=== PATIENT | female | born 1950 | race Caucasian/White ===

== ENCOUNTER → 2018-06-01 | Outpatient (CLI) | payer MEDICARE ==
[2018-06-01 09:37] LABS: HCT 35.9 % (34.0-46.0); HGB 12.3 gm/dL (11.4-16.0); MCHC 34.3 g/dL (31.0-37.0); MCV 87.4 fL (80.0-100.0); Mean Platelet Volume 7.4; Platelet Count 167 k/uL (150-450); RBC 4.11 m/uL (3.80-5.40); RDW 14.1 % (11.5-15.5); WBC 3.4 k/uL (3.8-10.6)
--- NOTE | 2018-06-01 09:59 | CT ---
EXAMINATION TYPE: CT foot RT wo con DATE OF EXAM: 06/01/2018 COMPARISON: None HISTORY: 67-year-old female complains of top of foot pain/arthritis. TECHNIQUE: Contiguous axial scanning of the right foot without IV contrast. Coronal and sagittal koko nstructions performed. CT DLP: 96.1 mGycm Automated exposure control for dose reduction was used. FINDINGS: There is degenerative spurring anterior tibiotalar joint with small 4 mm loose body versus fragmented spur. Likely a 7 mm fragmented spur along the dorsal proximal medial cuneiform with degenerative changes ch aracterized by joint space narrowing, marginal spurring, and subchondral cystic change along the mary cular cuneiform joints and the second through fifth TMT joints. Additional degenerative change at the third-fourth and fourth-fifth intermetatarsal joints. Corticated ossific densities below the medial malleolus suggests sequela of remote injury here as wel l. Ossification along the plantar fashion measuring 8 mm with bony irregularity at the calcaneal origin of the plantar fascia and associated heel spur. Findings suggest chronic injury. Bipartite tibial sesamoid noted. At the navicular cuneiform joint, there is focal capsular swelling and effusion, for example, refer t o sagittal image 28 and 29. Patchy osteopenia is present throughout. No acute fracture identified. IMPRESSION: 1. MODERATE TO SEVERE SCATTERED OSTEOARTHRITIC CHANGES THROUGHOUT THE MID FOOT PARTICULARLY AT THE NA VICULAR CUNEIFORM JOINTS AND TMT JOINTS. 2. ALONG THE DORSAL ASPECT OF THE NAVICULAR MEDIAL CUNEIFORM JOINT, THERE IS A COUPLE FRAGMENTED SPUR /LOOSE BODIES MEASURING UP TO 7 MM AND FOCAL CAPSULAR SWELLING OR JOINT EFFUSION/SMALL GANGLION CYST. 3. DEGENERATIVE SPURRING ANTERIOR TIBIOTALAR JOINT WITH A 4 MM FRAGMENTED SPUR OR LOOSE BODY, SEQUELA OF OLD INJURY BELOW THE MEDIAL MALLEOLUS, AND LIKELY OLD TEAR OF THE PLANTAR FASCIA.
[2018-06-01 10:47] LABS: Erythrocyte Sedimentation Rate 13 mm/hr (0-20)
== END | disposition home or self-care (01) ==
LOC: RADCTMAIN 08:58
PROVIDERS: ATTEND Orthopaedic Surgery
DX: M19.071 Primary osteoarthritis, right ankle and foot (principal); Q66.7 Congenital pes cavus; Z98.890 Other specified postprocedural states; Z87.2 Personal history of diseases of the skin and subcutaneous tissue
CPT/HCPCS: 36415; 83520; 85027; 85652; 86140

== ENCOUNTER 2018-08-29 08:00 | Inpatient (IN) | payer MEDICARE ==
[2018-09-04] MEDS ORDERED: MORPHINE SULFATE 2 MG/ML SYRINGE IV PRN (21:59)
[2018-09-05] MEDS ORDERED: CLINDAMYCIN 900 MG in DEXTROSE 5% IN WATER 50 ML IVPB ONE ×2 (05:00)
[2018-09-05] MEDS: LACTATED RINGERS 1,000 ML IV SCH ×3 (13:32→21:16)
[2018-09-05] MEDS ORDERED: LIDOCAINE 1% 20 ML VIAL (10MG/ML) FOR IV START INTRADERMA ONE (13:45)
[2018-09-05] MEDS ORDERED: MIDAZOLAM 2 MG/2 ML VIAL ONE ×2 (13:48→15:04)
[2018-09-05] MEDS ORDERED: ONDANSETRON 4 MG/2 ML VIAL ONE (13:48)
[2018-09-05] MEDS ORDERED: DEXAMETHASONE SOD PHOS (MDV) 100 MG/10 ML VIAL IVP ONE (13:52)
[2018-09-05] MEDS ORDERED: fentaNYL (PF) 50 MCG/ML 2 ML AMP ONE ×2 (14:24→15:04)
[2018-09-05] MEDS ORDERED: fentaNYL (PF) 50 MCG/ML 2 ML AMP IVP ONE (14:25)
[2018-09-05] MEDS ORDERED: ePHEDrine SULFATE/0.9% NACL/PF 50 MG/5 ML SYRINGE IV ONE (15:04)
[2018-09-05] MEDS ORDERED: LIDOCAINE 1% INJ 10MG/ML (20 ML MDV) ONE (15:04)
[2018-09-05] MEDS ORDERED: SUCCINYLCHOLINE CHLORIDE 100 MG/5 ML SYR IV ONE (15:04)
[2018-09-05] MEDS ORDERED: PROPOFOL 10 MG/ML 20 ML VIAL IV ONE (15:04)
[2018-09-05] MEDS ORDERED: GLYCOPYRROLATE 0.2 MG/ML 2 ML VIAL ONE (15:04)
[2018-09-05] MEDS ORDERED: HYDROmorphone (PF) 1 MG/ML ONE (15:04)
[2018-09-05] MEDS ORDERED: SENNOSIDES-DOCUSATE SODIUM 1 EACH TAB PO PRN (17:04)
[2018-09-05] MEDS ORDERED: HYDROmorphone 1 MG/ML 1 ML SYRINGE IVP PRN ×2 (17:04)
[2018-09-05] MEDS ORDERED: PROCHLORPERAZINE SUPPOSITORY 25 MG SUPP RECTAL PRN (17:04)
[2018-09-05] MEDS ORDERED: ONDANSETRON 4 MG/2 ML VIAL IVP PRN (17:04)
[2018-09-05] MEDS ORDERED: hydrOXYzine PAMOATE 25 MG CAP PO PRN (17:04)
[2018-09-05] MEDS ORDERED: METOCLOPRAMIDE 5 MG/ML 2 ML VIAL IVP PRN (17:04)
[2018-09-05] MEDS ORDERED: diphenhydrAMINE 25 MG CAP PO PRN (17:04)
[2018-09-05] MEDS ORDERED: TEMAZEPAM 15 MG CAP PO PRN (17:04)
[2018-09-05] MEDS ORDERED: HYDROcodone/APAP 7.5-325MG 1 EACH TAB PO PRN ×2 (17:08)
[2018-09-05] MEDS: HYDROmorphone 0.5 MG/0.5 ML SYRINGE IVP PRN ×4 (18:32→19:09)
[2018-09-05] MEDS ORDERED: ONDANSETRON 4 MG/2 ML VIAL IVP ONE (18:40)
--- NOTE | 2018-09-05 19:23 | P.ONQ ---
Anesthesiology Proc Note - PNB - Peripheral Nerve Block Performed Right Popliteal Single Time Out Performed: Yes Procedure Start Time: 15:53 Procedure Stop Time: 15:59 Indication: Acute Post-Operative Pain, Requested by physician Sedation Type: Sedate with meaningful contact maintained Preparation: Sterile Prep Needle Size: 50mm (2") Needle Gauge: 21 Technique: Ultrasound Injectate: 0.5% Ropivacaine (see comment for volume) (ropi .5% 20cc) Blood Aspirated: No Pain Paresthesia on Injection Noted: No Resistance on Injection: Normal Events: Uneventful and Well Tolerated
[2018-09-05] MEDS ORDERED: BACLOFEN 10 MG TAB PO PRN (19:32)
[2018-09-05] MEDS ORDERED: clonazePAM 1 MG TAB PO PRN (19:32)
[2018-09-05] MEDS ORDERED: HYDROCHLOROTHIAZIDE 25 MG TAB PO PRN (19:32)
[2018-09-05 20:17] LABS: Basophils % (A) 0 %; Eosinophils % (A) 0 %; HCT 36.3 % (34.0-46.0); Lymphocytes # (A) 0.5 k/uL (1.0-4.8); Lymphocytes % (A) 9 %; MCH 29.3 pg (25.0-35.0); MCV 88.7 fL (80.0-100.0); Mean Platelet Volume 6.8; Monocytes # (A) 0.1 k/uL (0-1.0); Monocytes % (A) 2 %; Neutrophils # (A) 4.8 k/uL (1.3-7.7); Neutrophils % (A) 88 %; Platelet Count 149 k/uL (150-450); RBC 4.09 m/uL (3.80-5.40); RDW 13.4 % (11.5-15.5); WBC 5.4 k/uL (3.8-10.6)
[2018-09-05 20:59] VITALS: BMI 28.3
[2018-09-05] MEDS ORDERED: PRAVASTATIN SODIUM 20 MG TAB PO SCH (21:00)
[2018-09-05] MEDS: HYDROmorphone 1 MG/ML 1 ML SYRINGE IVP PRN (23:14)
[2018-09-06] MEDS: CLINDAMYCIN 900 MG in DEXTROSE 5% IN WATER 50 ML IVPB SCH ×4 (00:16→09:15)
[2018-09-06 00:49] VITALS: RESP 16
[2018-09-06] MEDS: HYDROmorphone 1 MG/ML 1 ML SYRINGE IVP PRN ×2 (03:19→06:53)
[2018-09-06] MEDS: LACTATED RINGERS 1,000 ML IV SCH (03:26)
[2018-09-06] MEDS ORDERED: amLODIPine 5 MG TAB PO SCH (09:00)
[2018-09-06] MEDS ORDERED: ENOXAPARIN 40 MG/0.4 ML SYRINGE SQ SCH (09:00)
[2018-09-06] MEDS ORDERED: PATIENT'S OWN MED (Mirabegron [Myrbetriq] 25 MG) PO SCH (09:00)
[2018-09-06] MEDS ORDERED: Acetaminophen-Codeine 300-30mg TAB PO PRN (09:02)
--- NOTE | 2018-09-06 09:11 | P.DS ---
Providers Date of admission: 09/05/18 12:34 Expected date of discharge: 09/06/18 Attending physician: Luther Cisneros Consults: 09/05/18 17:04 Consult Physician Routine Consulting Provider: Marino Chacon Reason/Comments: post op medical management Do you want consulting provider notified?: Yes Primary care physician: Marino Chacon - Discharge Diagnosis(es) (1) Osteoarthritis of right midfoot Patient was admitted to the OR on 09/05/2018 to undergo a right multiple joint arthrodesis of the midfoot. She had failed conservative measures as an outpatient and desired to proceed with elective surgery after given informed consent. She underwent the above procedure which she tolerated well without complication. Postoperative hospital course has remained without complication. On day of discharge she is afebrile, vital signs stable, labs within acceptable ranges, tolerating by mouth meds and diet, voiding without difficulty , positive flatus, denies abdominal pain or calf pain, pain is controlled on oral pain medication and has no new complaints. Wound is benign, neurovascular status is intact, calf is soft and nontender, abdomen soft and nontender. Review of systems is negative for numbness, tingling, fever, chills, chest pain , shortness breath, nausea, vomiting, dizziness, headaches, slurred speech or other Current Visit: Yes Status: Acute Priority: Medium Procedures: Multiple middfoot joint arthrodeses on right Patient Condition at Discharge: Good Plan - Discharge Summary Discharge Rx Participant: No New Discharge Prescriptions: New RX: Aspirin 325 mg PO BID #60 tab Acetaminophen with Codeine [Tylenol w/codeine #3] 2 tab PO Q4H PRN #56 tab PRN Reason: Pain No Action Ibuprofen [Motrin] 600 mg PO Q6HR PRN PRN Reason: Pain Acetaminophen-Codeine 300-30mg [Tylenol w/codeine #3] 1 tab PO Q4H PRN PRN Reason: Pain Mirabegron [Myrbetriq] 25 mg PO DAILY Meloxicam [Mobic] 7.5 mg PO DAILY Cyclobenzaprine [Flexeril] 10 mg PO TID PRN PRN Reason: Muscle Spasm RX: clonazePAM 1 mg PO HS PRN PRN Reason: Anxiety amLODIPine [Norvasc] 5 mg PO DAILY Pravastatin Sodium [Pravachol] 20 mg PO HS RX: Baclofen 10 mg PO TID PRN PRN Reason: Muscle Spasm Vits A,C,E/Lutein/Minerals [Ocuvite with Lutein Tablet] 1 tab PO DAILY RX: Hydrochlorothiazide 25 mg PO DAILY PRN PRN Reason: Edema Acetaminophen [Tylenol 8 Hour] 650 mg PO TID PRN PRN Reason: Pain Discharge Medication List Acetaminophen [Tylenol 8 Hour] 650 mg PO TID PRN 08/21/18 [History] Acetaminophen-Codeine 300-30mg [Tylenol w/codeine #3] 1 tab PO Q4H PRN 08/21/18 [History] Cyclobenzaprine [Flexeril] 10 mg PO TID PRN 08/21/18 [History] Ibuprofen [Motrin] 600 mg PO Q6HR PRN 08/21/18 [History] Meloxicam [Mobic] 7.5 mg PO DAILY 08/21/18 [History] Mirabegron [Myrbetriq] 25 mg PO DAILY 08/21/18 [History] Pravastatin Sodium [Pravachol] 20 mg PO HS 08/21/18 [History] RX: Baclofen 10 mg PO TID PRN 08/21/18 [History] RX: Hydrochlorothiazide 25 mg PO DAILY PRN 08/21/18 [History] RX: clonazePAM 1 mg PO HS PRN 08/21/18 [History] Vits A,C,E/Lutein/Minerals [Ocuvite with Lutein Tablet] 1 tab PO DAILY 08/21/18 [History] amLODIPine [Norvasc] 5 mg PO DAILY 08/21/18 [History] Acetaminophen with Codeine [Tylenol w/codeine #3] 2 tab PO Q4H PRN #56 tab 09/06 [Rx] RX: Aspirin 325 mg PO BID #60 tab 09/06/18 [Rx] Follow up Appointment(s)/Referral(s): Luther Cisneros MD [Medical Doctor] - 1 Week Activity/Diet/Wound Care/Special Instructions: Non weightbearing F/U with Dr. Cisneros in office Take meds as directed elevate leg Maintain splint, keep clean and dry Discharge Disposition: HOME SELF-CARE
--- NOTE | 2018-09-06 10:30 | FL ---
Fluoroscopy HISTORY: Arthrodesis 1.09 minutes fluoroscopy time supplied to the referring clinician. 3 intraoperative C-arm images doc ument the procedure. See dictated report from orthopedic surgery.
--- NOTE | 2018-09-06 10:31 | XR ---
Limited right foot HISTORY: Arthrodesis 3 intraoperative C-arm images document the procedure
[2018-09-06] MEDS ORDERED: traMADol 50 MG TAB PO STA (11:27)
--- NOTE | 2018-09-06 12:15 | P.CONS ---
History of Present Illness - Reason for Consult Consult date: 09/06/18 medical management - History of Present Illness 67 years old patient of Dr. Chacon with past medical history of cervical cancer, hyperlipidemia, hypertension, osteoarthritis was admitted for an elective right multiple joint arthrodesis of midfoot that was done yesterday without any complications. Patient was assessed this morning. Denies any complains of dizziness cough chest pain or shortness of breath she does endorses some dryness of her throat and dry cough but denies any shortness of breath. Patient is a nonsmoker and denies any history of COPD. Vitals assessed patient is afebrile temp of 98 pulse 65 respiratory rate 16 blood pressure 136/70 saturating well on room air. Pain is controlled on the pain regimen provided. Patient now would like to try Tylenol 3 for pain and then switch her [place] if need be. Labs including a CBC is stable with a hemoglobin of 12. Input and output were assessed with no urinary retention. Review of Systems Constitutional: Denies chills, Denies fever, Denies lethargy, Denies malaise, Denies poor appetite, Denies weakness, Denies weight loss Eyes: denies decreased vision, denies diplopia, denies discharge, denies pain Ears: deny: decreased hearing Ears, nose, mouth and throat: Denies dental pain, Denies headache, Denies nasal discharge, Denies nose pain Cardiovascular: Denies chest pain, Denies decreased exercise tolerance, Denies edema, Denies high blood pressure, Denies irregular heart beat, Denies palpitations, Denies paroxysmal nocturnal dyspnea, Denies rapid heart beat, Denies shortness of breath Respiratory: Denies congestion, Denies cough, Denies cough with sputum, Denies dyspnea, Denies home oxygen, Denies wheezing Gastrointestinal: Denies abdominal pain, Denies change in bowel habits, Denies coffee ground emesis, Denies early satiety, Denies excessive gas, Denies heartburn, Denies hematemesis, Denies hematochezia, Denies loss of appetite, Denies nausea, Denies vomiting Genitourinary: Denies dysuria, Denies flank pain, Denies kidney stones, Denies menorrhagia, Denies urgency, Denies urinary frequency Musculoskeletal: Endorses gait dysfunction and limitation of movement Denies morning stiffness, Denies muscle cramps Integumentary: Denies rash, Denies wounds, Denies brittle nails, Denies change in hair/nails, Denies darkening of skin Neurological: Denies balance difficulties, Denies change in speech, Denies double vision, Denies gait dysfunction, Denies loss of vision, Denies motor disturbance, Denies numbness, Denies paralysis, Denies paresthesias, Denies seizures Psychiatric: Denies anxiety, Denies depression Endocrine: Denies excessive sweating, Denies excessive thirst, Denies high blood sugars, Denies palpitations Hematologic/Lymphatic: Denies easy bruising, Denies lymphadenopathy Past Medical History Past Medical History: Cancer, Hyperlipidemia, Hypertension, Osteoarthritis (OA) Additional Past Medical History / Comment(s): Hx cervical Ca and Skin CA; restless leg History of Any Multi-Drug Resistant Organisms: None Reported Past Surgical History: Hysterectomy, Joint Replacement, Orthopedic Surgery, Tonsillectomy Additional Past Surgical History / Comment(s): Aneesh. knee replacements; foot surgery, cystocele & rectocele repair; carpal tunnel ; cataracts; colonoscopy Past Anesthesia/Blood Transfusion Reactions: No Reported Reaction Past Psychological History: Anxiety Smoking Status: Former smoker Past Alcohol Use History: Rare Additional Past Alcohol Use History / Comment(s): smoked from teens to age 46 from 1 to 2 ppd Past Drug Use History: None Reported - Past Family History Mother Family Medical History: No Reported History Medications and Allergies Home Medications Medication Instructions Recorded Confirmed Type Acetaminophen [Tylenol 8 Hour] 650 mg PO TID PRN 08/21/18 09/05/18 History Acetaminophen-Codeine 300-30mg 1 tab PO Q4H PRN 08/21/18 09/05/18 History [Tylenol w/codeine #3] Baclofen 10 mg PO TID PRN 08/21/18 09/05/18 History Cyclobenzaprine [Flexeril] 10 mg PO TID PRN 08/21/18 09/05/18 History Hydrochlorothiazide 25 mg PO DAILY PRN 08/21/18 09/05/18 History Ibuprofen [Motrin] 600 mg PO Q6HR PRN 08/21/18 09/05/18 History Meloxicam [Mobic] 7.5 mg PO DAILY 08/21/18 09/05/18 History Mirabegron [Myrbetriq] 25 mg PO DAILY 08/21/18 09/05/18 History Pravastatin Sodium [Pravachol] 20 mg PO HS 08/21/18 09/05/18 History Vits A,C,E/Lutein/Minerals 1 tab PO DAILY 08/21/18 09/05/18 History [Ocuvite with Lutein Tablet] amLODIPine [Norvasc] 5 mg PO DAILY 08/21/18 09/05/18 History clonazePAM 1 mg PO HS PRN 08/21/18 09/05/18 History Acetaminophen with Codeine 2 tab PO Q4H PRN #56 tab 09/06/18 Rx [Tylenol w/codeine #3] Aspirin 325 mg PO BID #60 tab 09/06/18 Rx Allergies Allergy/AdvReac Type Severity Reaction Status Date / Time cephalexin [From Keflex] AdvReac Itching Verified 09/05/18 19:38 naproxen [From Naprosyn] AdvReac blisters Verified 09/05/18 19:38 Physical Exam Vitals: Vital Signs Temp Pulse Resp BP Pulse Ox 09/06/18 08:55 98.0 F 65 16 136/70 95 09/05/18 23:00 97.9 F 72 16 137/74 94 L 09/05/18 21:23 69 121/74 09/05/18 21:08 68 132/75 09/05/18 20:53 74 147/76 09/05/18 20:38 69 135/74 09/05/18 20:36 14 09/05/18 20:23 74 09/05/18 20:08 74 132/77 09/05/18 19:53 72 129/70 09/05/18 19:38 75 135/70 09/05/18 19:23 97.8 F 82 16 132/70 93 L 09/05/18 19:15 86 16 103/59 97 09/05/18 19:00 83 16 102/58 97 09/05/18 18:45 82 16 101/59 98 09/05/18 18:30 88 16 106/52 98 09/05/18 18:12 97.1 F L 82 16 120/60 92 L 09/05/18 14:50 60 18 159/72 96 09/05/18 13:26 98.3 F 72 18 170/78 95 Intake and Output 09/05/18 09/06/18 09/06/18 22:59 06:59 14:59 Intake Total 1356 222 Output Total 25 150 Balance 1331 72 Intake: IV 1056 Intake, IV Titration 300 Amount Lactated Ringers 1,000 ml 300 @ 100 mls/hr IV .Q10H ROSA Rx#:[id number] Oral 222 Output: Urine 150 Estimated Blood Loss 25 Other: # Voids 1 1 Weight 79.5 kg - Constitutional General appearance: cooperative, no acute distress, obese - EENT Eyes: anicteric sclerae, PERRLA, normal appearance ENT: hearing grossly normal - Neck Neck: no lymphadenopathy, normal ROM, no other, no rigidity, no stridor, no thyromegaly - Respiratory Respiratory: bilateral: CTA, negative: diminished, dullness, rales, rhonchi - Cardiovascular Rhythm: regular Heart sounds: normal: S1, S2 Abnormal Heart Sounds: no systolic murmur, no diastolic murmur, no rub, no S3 Gallop, no S4 Gallop, no click, no other - Gastrointestinal General gastrointestinal: normal bowel sounds, soft - Integumentary Integumentary: no rash - Neurologic Neurologic: CNII-XII intact - Musculoskeletal Musculoskeletal: Right lower extremity with splint. Palpitations present. Circulation intact with capillary refill less than 2 seconds - Psychiatric Psychiatric: A&O x's 3, appropriate affect Results CBC & Chem 7: 09/05/18 19:50 Labs: Abnormal Lab Results - Last 24 Hours (Table) 09/05/18 Range/Units 19:50 Plt Count 149 L (150-450) k/uL Lymphocytes # 0.5 L (1.0-4.8) k/uL Assessment and Plan Plan: .\ #1 right midfoot osteoarthritis status post arthrodeses of the midfoot. Pain controlled on Tylenol 3. Patient to be nonweightbearing on right foot recommendations per orthopedics. Patient will see Dr. Chacon in the next few weeks for follow-up in the clinic. Continue incentive spirometry for breathing. We'll consult for pneumonia or bronchitis on examination. Encourage oral intake of fluids. PTOT. #2 hypertension continue Norvasc 5 mg by mouth daily #3 anxiety and depression continue clonazepam 1 mg by mouth at bedtime #4 urinary incontinence that tracks 25 mg by mouth daily #5 hyperlipidemia continue pravastatin 20 mg by mouth daily #6 DVT prophylaxis with heparin every 12 Thank you for the consult. I'll be happy to assist in medical needs. Patient is cleared to be discharged and follow up with Dr. Chacon as outpatient
[2018-09-06 15:04] VITALS: BP 129/74; PULSE 66; TEMP 98.3
--- NOTE | 2018-09-07 11:30 | OP ---
OPERATIVE REPORT DATE OF SERVICE: 09/05/2018 PREOPERATIVE DIAGNOSES: 1. Right midfoot arthritis. 2. Right naviculocuneiform joint arthritis. 3. Right hallux valgus. 4. Right bunionette deformity. POSTOPERATIVE DIAGNOSES: 1. Right midfoot arthritis. 2. Right naviculocuneiform joint arthritis. 3. Right hallux valgus. 4. Right bunionette deformity. PROCEDURE: 1. Arthrodesis of multiple tarsometatarsal joints. 2. Arthrodesis of the right naviculocuneiform joint. 3. Correction of hallux valgus with modified Lapidus procedure. 4. Right foot lateral eminence resection of the 5th metatarsal. SURGEON: Dr. Luther Cisneros. PET SITTER: Vidal DENIS (Vidal DENIS was required as a skilled bacteriology research assistant for patient positioning, surgical exposure, retraction, preparation of joint surfaces, placement of hardware, closure of wound and application of splint. ANESTHESIA: General plus popliteal and saphenous nerve block. FLUIDS: 1100 mL crystalloid. BLOOD LOSS: 15 mL. INDICATIONS: The patient is a very pleasant, previously healthy 67-year-old female with a longstanding history of problems in her right foot. She previously underwent a right dorsal mid foot cheilectomy by another physician. She continued to have pain that was refractory to nonsurgical treatment. She tried activity modification, orthotics, anti- inflammatory pain medications, stretching and injections, all with minimal relief. Her x-rays show diffuse arthritis to the midfoot. A CT scan was used, which showed diffuse midfoot arthritis. Most of the patient's pain was over the second tarsometatarsal joint and the naviculocuneiform joint. She also had a hallux valgus deformity and bunionette deformity. We discussed continued nonsurgical treatment versus surgery. Ultimately, the patient stated that she wanted to have surgery. We discussed different surgical options. My recommendation was to fuse the symptomatic and degenerative midfoot joints including the first through third tarsometatarsal joints and the naviculocuneiform joints. We discussed the potential risks and complications of all the previously mentioned surgical procedures including, but not limited to risk of anesthesia, risk of superficial infection, risk of deep infection, risk of delayed wound healing, risk of superficial wound necrosis, risk of nonunion of the fusion site, risk of malunion of the fusion site, risk of symptomatic hardware, risk of over correction of the deformity, risk of under correction of the deformity, risk of damage to local blood vessels or nerves, risk of chronic pain, risk chronic swelling, risk of need for further surgery, risk of DVT, risk of PE, and possibly loss of life or limb. The patient voiced her understanding of this and provided her verbal and written consent to go forward with surgery. She also acknowledged that there are other less common complications that are possible. DESCRIPTION OF PROCEDURE: The patient was identified in preoperative holding and the correct right foot was marked with my initials. I reviewed the consent form with the patient and her . All their questions were answered. The patient was given a popliteal and saphenous nerve block by anesthesia. She was then brought back to the operating room. She was positioned on the OR table and a general anesthetic was administered. She was given preoperative antibiotics. A bone foam bump was placed under the right buttock internally rotating the leg to neutral. A tourniquet was applied to the proximal aspect of the right thigh. The right leg was then prepped and draped in the standard sterile fashion. Prior to starting surgery, a time-out was performed identifying the correct patient, operative extremity, and procedure. The patient's leg was then elevated, exsanguinated with an Esmarch bandage and the tourniquet was inflated to 250 mmHg. I began by outlining a dorsal longitudinal incision centered between the first and second metatarsals and extending from the midportion of the metatarsals to the talonavicular joint. Skin incision was made with a scalpel. Dissection was carried down carefully through the subcutaneous tissue with tenotomy scissors. I initially exposed the naviculocuneiform joints. There were multiple dorsal osteophytes, which were debrided. The joint was markedly arthritic with no remaining articular cartilage. The bony surfaces and remaining cartilage was removed with a series of curettes and osteotomes until there was only subchondral bone appearing. The wound was copiously irrigated. The exposed bony surfaces of both the navicular and the medial and middle cuneiform were then perforated multiple times with a 2.0 mm drill bit to facilitate fusion. I held the joints reduced and an bacteriology research assistant placed a K-wire across the joint, holding it reduced. I then proceeded to place solid lag screws to hold the fusion site. I made stab incisions over the navicular tuberosity and two solid 3.5 mm lag screws were placed with one angled toward the medial cuneiform and the other toward the middle cuneiform. Solid lag screws were placed generating excellent compression. I then placed a positional screw through the medial border of the medial cuneiform into the lateral body of the navicular. Clinically, the joint appeared to be adequately reduced. Crushed cancellous allograft was placed within the joint to help fill in voids from the subchondral cysts. Attention was then turned to the first tarsometatarsal joint. The joint was gently distracted and the articular cartilage was removed from the base of the first metatarsal and medial cuneiform. The joint was copiously irrigated. The subchondral bone was perforated multiple times with a 2.0 mm drill bit to facilitate fusion. I then made a small longitudinal incision over the medial eminence of the first MTP joint. Skin incision was made with a scalpel and dissection was carried down carefully to the capsule which was incised longitudinally in line with the skin incision. A small microsagittal saw was used to remove a wafer of bone medial to the sulcus. The joint was distracted and the lateral capsule was sharply released. A varus force was applied to the MTP joint. I then placed a laterally directed force along the first metatarsal to reduce the intermetatarsal angle and a 3.5 mm lag screw was placed from the dorsal aspect of the first metatarsal into the medial cuneiform. A 5 mm acorn bur was used to create a pocket hole in the dorsal aspect of the first metatarsal. A 3.5 mm drill bit was used to create a gliding hole in the metatarsal and a 2.5 mm drill bit was used to create a threaded hole in the medial cuneiform. A fully threaded 3.5 mm screw was placed. I then proceeded to place an antegrade lag screw across the first TMT joint. A 3.5 mm drill bit was used to create a gliding hole in the medial cuneiform and a 2.5 mm drill bit was used to create a threaded hole in the first metatarsal base. My attention was then turned to the second tarsometatarsal joint. The joint was exposed. There was almost full-thickness cartilage loss and dorsal osteophytes. A rongeur was used to contour the dorsal aspect of the second tarsometatarsal joint. An osteotome was then used to remove the remaining articular cartilage from the joint. A 2.0 mm drill bit was used to perforate the subchondral bone of the middle cuneiform and second metatarsal base to facilitate fusion. A 3.5 mm drill bit was used to create a threaded hole in the base of the second metatarsal and a 2.5 mm drill bit was used to create a threaded hole in the middle cuneiform. A fully threaded 3.5 mm screw was placed. At this point, I elected not to proceed with a third tarsometatarsal joint for fear of soft tissue compromise due to her poor thin skin and her history of multiple incisions. On x-ray, there appeared to be minimal arthritis of the third tarsometatarsal joint. Most of her complaints were of the second tarsometatarsal joint and naviculocuneiform joints. A small lateral incision was made over the fifth MTP joint. Skin incision was made with a scalpel. Dissection was carried down carefully through the subcutaneous tissue with tenotomy scissors. There was a small prominence over the distal fifth metatarsal, which was removed with a rongeur and a rasp. Final fluoroscopic images were taken. Remaining crushed cancellous allograft was packed in the fusion sites. A bur was used to create stress strain bone graft pockets at all fusion sites. The periosteum was closed with a running 2-0 Vicryl. The deep subcu was closed with 3-0 Monocryl. The skin was closed with 3-0 nylon. The first MTP joint was imbricated using 0 Vicryl to further correct the hallux valgus deformity. Once the wounds were closed, the tourniquet was let down. A sterile dressing consisting of Betadine-soaked Adaptic, 4 x 4, and Webril was applied. A well-padded bulky [place] splint was placed with the ankle at neutral. The patient was then woken from her anesthetic, transferred to a gurney and brought to PACU and tolerated the procedure well. MMODL / IJN: [id number] /
== END 2018-09-06 15:24 | disposition home or self-care (01) | DRG 505 ==
LOC: EDSTATUS 08:00 → 2ORMAIN 09-05 12:34 → 3SUR 09-05 18:12
PROVIDERS: ADMIT Orthopaedic Surgery; ATTEND Orthopaedic Surgery
PROC: 0SGK04Z Fusion of Right Tarsometatarsal Joint with Internal Fixation Device, Open Approach (ICD-10-PCS; 2018-09-05)
PROC: 0SGH04Z Fusion of Right Tarsal Joint with Internal Fixation Device, Open Approach (ICD-10-PCS; 2018-09-05)
PROC: 0SGH0KZ Fusion of Right Tarsal Joint with Nonautologous Tissue Substitute, Open Approach (ICD-10-PCS; 2018-09-05)
PROC: 0QBN0ZZ Excision of Right Metatarsal, Open Approach (ICD-10-PCS; principal; 2018-09-05 14:15)
DX: M19.071 Primary osteoarthritis, right ankle and foot (principal); M20.11 Hallux valgus (acquired), right foot; M21.621 Bunionette of right foot; Q66.7 Congenital pes cavus; E78.5 Hyperlipidemia, unspecified; G25.81 Restless legs syndrome; I10 Essential (primary) hypertension; F41.9 Anxiety disorder, unspecified; Z79.82 Long term (current) use of aspirin; Z79.1 Long term (current) use of non-steroidal anti-inflammatories (NSAID); Z79.899 Other long term (current) drug therapy; Z87.891 Personal history of nicotine dependence; Z96.653 Presence of artificial knee joint, bilateral; Z90.710 Acquired absence of both cervix and uterus; Z85.41 Personal history of malignant neoplasm of cervix uteri; Z98.41 Cataract extraction status, right eye
CPT/HCPCS: 85025

== ENCOUNTER 2022-01-26 11:21 | Inpatient (IN) | payer MEDICARE ==
[2022-01-26 12:23] LABS: Glucose,Whole Blood 113 mg/dL (75-99)
[2022-01-26 12:29] LABS: Basophils % (A) 0 %; Eosinophils % (A) 1 %; HCT 39.2 % (34.0-46.0); Lymphocytes # (A) 0.7 k/uL (1.0-4.8); Lymphocytes % (A) 15 %; MCH 30.9 pg (25.0-35.0); MCHC 33.1 g/dL (31.0-37.0); MCV 93.4 fL (80.0-100.0); Monocytes # (A) 0.4 k/uL (0-1.0); Monocytes % (A) 8 %; Neutrophils # (A) 3.5 k/uL (1.3-7.7); Neutrophils % (A) 75 %; Platelet Count 153 k/uL (150-450); RBC 4.19 m/uL (3.80-5.40); RDW 13.1 % (11.5-15.5); WBC 4.7 k/uL (3.8-10.6)
[2022-01-26 12:37] LABS: Partial Thromboplastin Time 22.5 sec (22.0-30.0); Prothrombin Time 10.7 sec (9.0-12.0)
--- NOTE | 2022-01-26 12:47 | CT ---
EXAMINATION TYPE: CT brain wo con for TPA DATE OF EXAM: 01/26/2022 COMPARISON: None available HISTORY: Neuro deficit CT DLP: 1187.8 mGycm Automated exposure control for dose reduction was used. TECHNIQUE: CT scan of the brain is performed without IV contrast administration. FINDINGS: Posterior fossa artifacts. Subtle right frontoparietal subcortical hypodensity, possibly ischemic. No gross acute cortical infarct. No midline shift, herniation or ventriculectomy. Unremarkable davis-white matter differentiation, basal cisterns, sella and CP angles. No gross space-o ccupying lesion, vasogenic edema or mass effect. Unremarkable orbits. Clear visualized paranasal sinuses and mastoid air cells. Osteopenia. IMPRESSION: No acute intracranial hemorrhage or gross acute cortical infarct however a small acute or hyperacute infarct cannot be excluded.
[2022-01-26 13:01] LABS: Albumin 4.7 g/dL (3.5-5.0); Calcium 8.8 mg/dL (8.4-10.2); Potassium 4.6 mmol/L (3.5-5.1); Total Bilirubin 0.6 mg/dL (0.2-1.3); Total Protein 7.5 g/dL (6.3-8.2)
--- NOTE | 2022-01-26 13:02 | XR ---
EXAMINATION TYPE: XR chest 2V DATE OF EXAM: 01/26/2022 COMPARISON: NONE HISTORY: Altered mental status TECHNIQUE: Frontal and lateral views of the chest are obtained. FINDINGS: There is no focal air space opacity, pleural effusion, or pneumothorax seen. The cardiac silhouette size is within normal limits. The osseous structures are intact, thoracic spondylosis is noted. There are overlying leads. Lung volumes are somewhat decreased. The aorta is dense. IMPRESSION: No acute cardiopulmonary process.
--- NOTE | 2022-01-26 13:05 | ED ---
Altered Mental Status HPI - General Source: patient Mode of arrival: EMS Limitations: no limitations <Brigid Iglesias - Last Filed: 01/26/22 14:18> <Elijah Shirley - Last Filed: 01/26/22 20:52> - General Chief Complaint: Altered Mental Status Stated Complaint: AMS Time Seen by Provider: 01/26/22 11:34 - History of Present Illness Initial Comments: Patient is a 71-year-old female with a past medical history of hypertension and hyperlipidemia who presents with a chief complaint of altered mental status. Patient's reports that patient has had mild difficulty articulating her sentences and experienced intermittent confusion the past couple days. Patient woke up this morning at 9 AM with worsening of symptoms. Her noticed that she was not using the right words in her sentences and called the ambulance. Patient and deny head trauma. Patient does note that she recently started Flexeril and dexamethasone for back pain yesterday. She also takes her previously prescribed Klonopin and acetaminophen with codeine daily. No blood thinner use. Currently, patient reports increased twitching of his bilateral arms. She has no other complaints at this time including fever, chills, headache, shortness of breath, chest pain, abdominal pain, and dysuria. (Brigid Iglesias) - Related Data Home Medications Medication Instructions Recorded Confirmed Acetaminophen-Codeine 300-30mg 0.5 tab PO Q6H PRN 08/21/18 01/26/22 [Tylenol w/codeine #3] Baclofen 10 mg PO BID 08/21/18 01/26/22 Cyclobenzaprine [Flexeril] 10 mg PO BID PRN 08/21/18 01/26/22 clonazePAM 1 mg PO BID 08/21/18 01/26/22 Dexamethasone 6 mg PO DAILY 01/26/22 01/26/22 Pravastatin Sodium [Pravachol] 40 mg PO DAILY 01/26/22 01/26/22 Triamcinolone 0.1% Cream [Kenalog 1 applic TOPICAL BID PRN 01/26/22 01/26/22 0.1% Cream] Vit C/E/Zn/Coppr/Lutein/Zeaxan 1 cap PO BID 01/26/22 01/26/22 [Preservision Areds 2 Softgel] amLODIPine [Norvasc] 10 mg PO DAILY 01/26/22 01/26/22 calcium polycarbophiL [Fibercon] 625 mg PO DAILY 01/26/22 01/26/22 lisinopriL [Zestril] 20 mg PO DAILY 01/26/22 01/26/22 Allergies Allergy/AdvReac Type Severity Reaction Status Date / Time cephalexin [From Keflex] Allergy Itching Verified 01/26/22 14:03 naproxen [From Naprosyn] Allergy blisters Verified 01/26/22 14:03 Review of Systems ROS Other: All systems not noted in ROS Statement are negative. <Brigid Iglesias - Last Filed: 01/26/22 14:18> ROS Other: All systems not noted in ROS Statement are negative. <Elijah Shirley - Last Filed: 01/26/22 20:52> ROS Statement: Those systems with pertinent positive or pertinent negative responses have been documented in the HPI. Past Medical History Past Medical History: Cancer, Hyperlipidemia, Hypertension, Osteoarthritis (OA) Additional Past Medical History / Comment(s): Hx cervical Ca and Skin CA; restless leg History of Any Multi-Drug Resistant Organisms: None Reported Past Surgical History: Hysterectomy, Joint Replacement, Orthopedic Surgery, Tonsillectomy Additional Past Surgical History / Comment(s): Aneesh. knee replacements; foot surgery, cystocele & rectocele repair; carpal tunnel ; cataracts; colonoscopy Past Anesthesia/Blood Transfusion Reactions: No Reported Reaction Past Psychological History: Anxiety Smoking Status: Current every day smoker Past Alcohol Use History: Rare Past Drug Use History: None Reported - Past Family History Mother Family Medical History: No Reported History <KelsieBrigid - Last Filed: 01/26/22 14:18> General Exam Limitations: no limitations Head exam: Present: atraumatic, normocephalic, normal inspection Eye exam: Present: normal appearance, PERRL, EOMI. Absent: scleral icterus, conjunctival injection, periorbital swelling Neck exam: Present: normal inspection Respiratory exam: Present: normal lung sounds bilaterally. Absent: respiratory distress, wheezes, rales, rhonchi, stridor Cardiovascular Exam: Present: regular rate, normal rhythm, normal heart sounds. Absent: systolic murmur, diastolic murmur, rubs, gallop, clicks GI/Abdominal exam: Present: soft, normal bowel sounds. Absent: distended, tenderness, guarding, rebound, rigid Extremities exam: Present: normal inspection, full ROM. Absent: pedal edema, calf tenderness Neurological exam: Present: alert, oriented X3, CN II-XII intact Expanded Neurological exam: Present: expressive aphasia Patient oriented to: Present: person, place, time Cranial nerves: EOM's Intact: Normal, Tongue Deviation: Normal, Nystagmus: Normal Cerebellar function: Finger to Nose: Normal, Heel to Mcleod: Normal, Romberg: Normal Motor strength exam: RUE: 5, LUE: 5, RLE: 5, LLE: 5 Psychiatric exam: Present: normal affect, normal mood Skin exam: Present: warm, dry, intact, normal color. Absent: rash <Brigid Iglesias - Last Filed: 01/26/22 14:18> Course Vital Signs 01/26/22 01/26/22 01/26/22 11:52 12:49 14:03 Temperature 98 F 97.2 F L Pulse Rate 77 104 H 68 Respiratory 16 18 14 Rate Blood Pressure 122/61 146/75 129/69 O2 Sat by Pulse 96 98 91 L Oximetry 01/26/22 01/26/22 15:00 17:07 Temperature 98.0 F 98.1 F Pulse Rate 69 74 Respiratory 14 14 Rate Blood Pressure 140/69 142/73 O2 Sat by Pulse 95 Oximetry Medical Decision Making - Lab Data Result diagrams: 01/26/22 12:21 01/26/22 12:21 - Radiology Data Radiology results: report reviewed <Brigid Iglesias - Last Filed: 01/26/22 14:18> - Lab Data Result diagrams: 01/26/22 12:21 01/26/22 12:21 <Elijah Shirley - Last Filed: 01/26/22 20:52> - Medical Decision Making This is a 71-year-old female who presents with confusion and expressive aphasia. Last known well was last night. Patient woke up with symptoms this morning at 9 AM. She is not a TPA candidate. NIHSS score is 1. CT of the brain without contrast reveals no acute intracranial hemorrhage or gross acute cortical infarct however small acute or hyperacute infarct cannot be excluded. CT angiogram of the head and neck reveals no acute arterial abnormality, significant stenosis or occlusion of the major neck or intracranial arteriesBUN and creatinine are elevated at 86 and 6.52 respectively, no previous laboratory studies for comparison. Patient denies history of kidney disease. She was given a large fluid bolus. Case discussed with Dr. Beasley. Patient will be admitted for further evaluation with neurology and nephrology consult. Urine protein/creatinine ratio was ordered. Results discussed with patient and . They verbalize understanding and agreeable to plan. Dr. Shirley is my attending. (Brigid Iglesias) I agree with the above dictated by the MLP. In addition, patient was an activated code stroke, with last known well being last night. He is to be wake- up symptoms. NIH is [address] showed possible hyperacute infarct, with MRI recommended. This is still pending at this time. CT angiogram revealed no obvious abnormality. Patient also appears to have acute kidney injury of unknown etiology. Urinalysis still pending at this time. Nephrology and neurology were consulted. Neurology was notified by the MLP. (Elijah Shirley) - Lab Data Lab Results 01/26/22 01/26/22 01/26/22 Range/Units 12:20 12:21 12:21 WBC 4.7 (3.8-10.6) k/uL RBC 4.19 (3.80-5.40) m/uL Hgb 13.0 (11.4-16.0) gm/dL Hct 39.2 (34.0-46.0) % MCV 93.4 (80.0-100.0) fL MCH 30.9 (25.0-35.0) pg MCHC 33.1 (31.0-37.0) g/dL RDW 13.1 (11.5-15.5) % Plt Count 153 (150-450) k/uL MPV 8.0 Neutrophils % 75 % Lymphocytes % 15 % Monocytes % 8 % Eosinophils % 1 % Basophils % 0 % Neutrophils # 3.5 (1.3-7.7) k/uL Lymphocytes # 0.7 L (1.0-4.8) k/uL Monocytes # 0.4 (0-1.0) k/uL Eosinophils # 0.0 (0-0.7) k/uL Basophils # 0.0 (0-0.2) k/uL PT 10.7 (9.0-12.0) sec INR 1.0 (<1.2) APTT 22.5 (22.0-30.0) sec Sodium (137-145) mmol/L Potassium (3.5-5.1) mmol/L Chloride (98-107) mmol/L Carbon Dioxide (22-30) mmol/L Anion Gap mmol/L BUN (7-17) mg/dL Creatinine (0.52-1.04) mg/dL Est GFR (CKD-EPI)AfAm (>60 ml/min/1.73 sqM) Est GFR (CKD-EPI)NonAf (>60 ml/min/1.73 sqM) Glucose (74-99) mg/dL POC Glucose (mg/dL) 113 H (75-99) mg/dL POC Glu Sausage Stringer ID Willing, Jennie Calcium (8.4-10.2) mg/dL Total Bilirubin (0.2-1.3) mg/dL AST (14-36) U/L ALT (4-34) U/L Alkaline Phosphatase (38-126) U/L Ammonia (<30) umol/L Troponin I (0.000-0.034) ng/mL Total Protein (6.3-8.2) g/dL Albumin (3.5-5.0) g/dL TSH (0.465-4.680) mIU/L Free T4 (0.78-2.19) ng/dL 01/26/22 01/26/22 01/26/22 Range/Units 12:21 12:21 12:21 WBC (3.8-10.6) k/uL RBC (3.80-5.40) m/uL Hgb (11.4-16.0) gm/dL Hct (34.0-46.0) % MCV (80.0-100.0) fL MCH (25.0-35.0) pg MCHC (31.0-37.0) g/dL RDW (11.5-15.5) % Plt Count (150-450) k/uL MPV Neutrophils % % Lymphocytes % % Monocytes % % Eosinophils % % Basophils % % Neutrophils # (1.3-7.7) k/uL Lymphocytes # (1.0-4.8) k/uL Monocytes # (0-1.0) k/uL Eosinophils # (0-0.7) k/uL Basophils # (0-0.2) k/uL PT (9.0-12.0) sec INR (<1.2) APTT (22.0-30.0) sec Sodium 137 (137-145) mmol/L Potassium 4.6 (3.5-5.1) mmol/L Chloride 103 (98-107) mmol/L Carbon Dioxide 16 L (22-30) mmol/L Anion Gap 18 mmol/L BUN 86 H (7-17) mg/dL Creatinine 6.52 H (0.52-1.04) mg/dL Est GFR (CKD-EPI)AfAm 7 (>60 ml/min/1.73 sqM) Est GFR (CKD-EPI)NonAf 6 (>60 ml/min/1.73 sqM) Glucose 117 H (74-99) mg/dL POC Glucose (mg/dL) (75-99) mg/dL POC Glu Sausage Stringer ID Calcium 8.8 (8.4-10.2) mg/dL Total Bilirubin 0.6 (0.2-1.3) mg/dL AST 30 (14-36) U/L ALT 24 (4-34) U/L Alkaline Phosphatase 71 (38-126) U/L Ammonia (<30) umol/L Troponin I <0.012 (0.000-0.034) ng/mL Total Protein 7.5 (6.3-8.2) g/dL Albumin 4.7 (3.5-5.0) g/dL TSH 0.269 L (0.465-4.680) mIU/L Free T4 1.17 (0.78-2.19) ng/dL 01/26/22 Range/Units 14:05 WBC (3.8-10.6) k/uL RBC (3.80-5.40) m/uL Hgb (11.4-16.0) gm/dL Hct (34.0-46.0) % MCV (80.0-100.0) fL MCH (25.0-35.0) pg MCHC (31.0-37.0) g/dL RDW (11.5-15.5) % Plt Count (150-450) k/uL MPV Neutrophils % % Lymphocytes % % Monocytes % % Eosinophils % % Basophils % % Neutrophils # (1.3-7.7) k/uL Lymphocytes # (1.0-4.8) k/uL Monocytes # (0-1.0) k/uL Eosinophils # (0-0.7) k/uL Basophils # (0-0.2) k/uL PT (9.0-12.0) sec INR (<1.2) APTT (22.0-30.0) sec Sodium (137-145) mmol/L Potassium (3.5-5.1) mmol/L Chloride (98-107) mmol/L Carbon Dioxide (22-30) mmol/L Anion Gap mmol/L BUN (7-17) mg/dL Creatinine (0.52-1.04) mg/dL Est GFR (CKD-EPI)AfAm (>60 ml/min/1.73 sqM) Est GFR (CKD-EPI)NonAf (>60 ml/min/1.73 sqM) Glucose (74-99) mg/dL POC Glucose (mg/dL) (75-99) mg/dL POC Glu Sausage Stringer ID Calcium (8.4-10.2) mg/dL Total Bilirubin (0.2-1.3) mg/dL AST (14-36) U/L ALT (4-34) U/L Alkaline Phosphatase (38-126) U/L Ammonia <9 (<30) umol/L Troponin I (0.000-0.034) ng/mL Total Protein (6.3-8.2) g/dL Albumin (3.5-5.0) g/dL TSH (0.465-4.680) mIU/L Free T4 (0.78-2.19) ng/dL - EKG Data EKG Comments: EKG taken at 12:25 Sinus rhythm Ventricular rate 70 NV interval 189 QRS duration 100 QTC 433 (Brigid Iglesias) Critical Care Time Critical Care Time: Yes Total Critical Care Time: 31 <Brigid Iglesias - Last Filed: 01/26/22 14:18> Disposition Decision Time: 14:33 <Brigid Iglesias - Last Filed: 01/26/22 14:18> <Elijah Shirley - Last Filed: 01/26/22 20:52> Clinical Impression: Altered mental status, Aphasia, SOREN (acute kidney injury), CVA (cerebral vascular accident) Disposition: ADMITTED IP TO THIS HOSP Condition: Serious
[2022-01-26] MEDS ORDERED: SODIUM CHLORIDE 0.9% 2,000 ML IV STA (13:29)
--- NOTE | 2022-01-26 13:32 | CT ---
EXAMINATION TYPE: CT angio head neck DATE OF EXAM: 01/26/2022 HISTORY: Stroke COMPARISON: Nonenhanced CT scan performed earlier same day CT DLP: 486.2 mGycm. Automated Exposure Control for Dose Reduction was Utilized. TECHNIQUE: CTA scan of the neck and intracranial arteries is performed, the patient was injected wit h 65 mL of Isovue 370, axial images are obtained, coronal and sagittal reformatted images are reviewe d. 3D and MIP Reconstructed images were performed and reviewed. FINDINGS: Scattered arterial atherosclerotic calcifications most evident seen in the cavernous portions of the internal carotid arteries. Dominant left vertebral artery with a smaller right vertebral artery. Otherwise normal caliber and enhancement of the neck arteries and intracranial arteries without signi ficant stenosis, occlusion, dissection, aneurysm or AV malformation. Nasopharyngeal fluid/secretions. Prominent lingual tonsils, nonspecific. Bilateral thyroid hypodensit ies, please correlate with elective thyroid ultrasound results. Degenerative changes of the cervical spine. IMPRESSION: No acute arterial abnormality, significant stenosis or occlusion of the major neck or intracranial ar teries. Incidental findings as described above.
[2022-01-26] MEDS ORDERED: SODIUM CHLORIDE 0.9% 1,000 ML IV STA (14:19)
[2022-01-26] MEDS ORDERED: NALOXONE 0.4 MG/ML 1 ML VIAL IV PRN (15:38)
--- NOTE | 2022-01-26 16:48 | MR ---
MR brain without contrast HISTORY: Aphasia, stroke, altered mental status Multiplanar multisequence imaging through the brain, correlation to CT brain 01/26/2022 There is motion on the exam. No restricted diffusion. The corpus callosum, pituitary, cervical medull shree junction, cerebellopontine angles are within normal limits. There are scattered hyperintensities on inversion recovery T2-weighted sequences within the periventricular, pericallosal and subcortical white matter, 30-40 lesions are present. There is no hydrocephalus or hemorrhage. There are expected vascular flow voids. Mild mucosal disease present within the ethmoid air cells. Orbits show similar a ppearance, lens thought to be absent in the right globe. There is cortical atrophy. IMPRESSION: Chronic small vessel ischemic changes, age related atrophy. Sinus disease.
[2022-01-26] MEDS: CLOPIDOGREL 75 MG TAB PO SCH (17:02)
[2022-01-26] MEDS: ATORVASTATIN 40 MG TAB PO SCH (17:02)
[2022-01-26 17:31] LABS: Amorphous Sediment,Urine Rare /hpf; Appearance,Urine Turbid (Clear); Bacteria,Urine Rare /hpf; Bilirubin,Urine Negative (Negative); Blood,Urine Trace (Negative); Color,Urine Yellow; Glucose,Urine (UA) Negative (Negative); Hyaline Casts,Urine 2 /lpf (0-2); Ketones,Urine Negative (Negative); Leukocyte Esterase,Urine Large (Negative); Mucus,Urine Rare /hpf; Nitrite,Urine Negative (Negative); Protein,Urine 2+ (Negative); RBC,Urine 13 /hpf (0-5); Squamous Epithelial Cell,Urine 19 /hpf (0-4); Urobilinogen,Urine <2.0 mg/dL (<2.0); WBC,Urine >182 /hpf (0-5)
[2022-01-26 18:03] LABS: Amphetamine Screen,Urine Not Detected (NotDetected); Barbiturate Screen,Urine Not Detected (NotDetected); Benzodiazepines Screen,Urine Not Detected (NotDetected); Cocaine Screen,Urine Not Detected (NotDetected); Methadone Screen, Urine Not Detected (NotDetected); Opiate Screen,Urine Detected (NotDetected); Oxycodone Screen, Urine Not Detected (NotDetected); Phencyclidine Screen,Urine Not Detected (NotDetected); Tricyclic Antidepressant,Urine Detected (NotDetected); Urn Cannabinoid Scrn Not Detected (NotDetected)
[2022-01-26 18:40] LABS: T4, Free (Free Thyroxine) 1.17 ng/dL (0.78-2.19)
[2022-01-26 20:22] LABS: Glucose,Whole Blood 139 mg/dL (75-99)
[2022-01-26] MEDS: HEPARIN SODIUM,PORCINE/PF 5,000 UNIT/0.5 ML SYRINGE SQ SCH (20:49)
[2022-01-26 21:02] LABS: Creatinine,Urine Random 207.3 mg/dL; Protein/Creatinine Ratio,Urine 0.603
[2022-01-27 06:17] LABS: Glucose,Whole Blood 101 mg/dL (75-99)
[2022-01-27 08:26] LABS: Albumin 3.7 g/dL (3.5-5.0); Calcium 7.8 mg/dL (8.4-10.2); Magnesium 2.4 mg/dL (1.6-2.3); Potassium 4.7 mmol/L (3.5-5.1); Total Bilirubin 0.5 mg/dL (0.2-1.3); Total Protein 6.5 g/dL (6.3-8.2)
[2022-01-27] MEDS: CLOPIDOGREL 75 MG TAB PO SCH (08:56)
[2022-01-27] MEDS: HEPARIN SODIUM,PORCINE/PF 5,000 UNIT/0.5 ML SYRINGE SQ SCH ×2 (08:56→19:35)
[2022-01-27] MEDS: ATORVASTATIN 40 MG TAB PO SCH (08:56)
[2022-01-27] MEDS ORDERED: FUROSEMIDE 10 MG/ML 10 ML VIAL IV STA (09:09)
--- NOTE | 2022-01-27 09:10 | P.NPCON ---
History of Present Illness - Reason for Consult acute renal failure - History of Present Illness Reason for consultation: Acute kidney injury History of present illness: Patient is a 71-year-old female seen in renal consultation for acute kidney injury. Creatinine on admission was 6.5 to and is up to 7.86 today. Unknown baseline renal function. Patient states that her renal function was slightly abnormal couple of months ago and at that time she was advised to stop Moic by her PCP. She denies family history of renal disease. No history of diabetes. Patient was brought to the hospital after her called EMS due to decreased consciousness. According to the patient slept in later than usual and was also somewhat confused. Patient has been taking baclofen twice daily as well as Flexeril for pain. She denies recent use of nonsteroidals but has been taking Tylenol 3. She did vomit on the day prior to admission. No diarrhea. No hematuria. She did undergo straight catheterization early this morning with 500 mL obtained. Bladder scan done again this morning was negative. She was taking lisinopril outpatient which is held. No evidence of hypotension. No fever. No edema. Vital signs are stable. General: The patient appeared well nourished and normally developed. HEENT: Head exam is unremarkable. LUNGS: Breath sounds decreased. HEART: Rate and Rhythm are regular. ABDOMEN: Soft, no distention. EXTREMITITES: No edema. Past Medical History Past Medical History: Cancer, Hyperlipidemia, Hypertension, Osteoarthritis (OA) Additional Past Medical History / Comment(s): Hx cervical Ca and Skin CA; r estless leg, Back pain History of Any Multi-Drug Resistant Organisms: None Reported Past Surgical History: Hysterectomy, Joint Replacement, Orthopedic Surgery, Tonsillectomy Additional Past Surgical History / Comment(s): Aneesh. knee replacements; foot surgery, cystocele & rectocele repair; carpal tunnel ; cataracts; colonoscopy Past Anesthesia/Blood Transfusion Reactions: No Reported Reaction Past Psychological History: Anxiety Smoking Status: Former smoker Past Alcohol Use History: Rare Additional Past Alcohol Use History / Comment(s): smoked from teens to age 46 from 1 to 2 ppd Past Drug Use History: None Reported - Past Family History Mother Family Medical History: No Reported History Medications and Allergies Home Medications Medication Instructions Recorded Confirmed Type Acetaminophen-Codeine 300-30mg 0.5 tab PO Q6H PRN 08/21/18 01/26/22 History [Tylenol w/codeine #3] Baclofen 10 mg PO BID 08/21/18 01/26/22 History Cyclobenzaprine [Flexeril] 10 mg PO BID PRN 08/21/18 01/26/22 History clonazePAM 1 mg PO BID 08/21/18 01/26/22 History Dexamethasone 6 mg PO DAILY 01/26/22 01/26/22 History Pravastatin Sodium [Pravachol] 40 mg PO DAILY 01/26/22 01/26/22 History Triamcinolone 0.1% Cream [Kenalog 1 applic TOPICAL BID PRN 01/26/22 01/26/22 History 0.1% Cream] Vit C/E/Zn/Coppr/Lutein/Zeaxan 1 cap PO BID 01/26/22 01/26/22 History [Preservision Areds 2 Softgel] amLODIPine [Norvasc] 10 mg PO DAILY 01/26/22 01/26/22 History calcium polycarbophiL [Fibercon] 625 mg PO DAILY 01/26/22 01/26/22 History lisinopriL [Zestril] 20 mg PO DAILY 01/26/22 01/26/22 History Allergies Allergy/AdvReac Type Severity Reaction Status Date / Time cephalexin [From Keflex] Allergy Itching Verified 01/26/22 14:03 naproxen [From Naprosyn] Allergy blisters Verified 01/26/22 14:03 Physical Exam Vitals: Vital Signs Temp Pulse Pulse Resp BP BP Pulse Ox 01/27/22 07:46 98 01/27/22 03:37 76 18 146/76 98 01/26/22 23:24 67 18 130/72 96 01/26/22 19:35 97.8 F 75 16 157/78 97 01/26/22 17:07 98.1 F 74 14 142/73 95 01/26/22 15:00 98.0 F 69 14 140/69 01/26/22 14:03 97.2 F L 68 14 129/69 91 L 01/26/22 12:49 104 H 18 146/75 98 01/26/22 11:52 98 F 77 16 122/61 96 Intake and Output 01/26/22 01/27/22 01/27/22 22:59 06:59 14:59 Intake Total 1251 Output Total 1500 Balance -249 Intake: Oral 1251 Output: Urine 1000 Straight 500 Post Void Residual 500 Other: Weight 99.79 kg Results - Lab Results Most recent lab results Calcium 7.8 mg/dL (8.4-10.2) L 01/27/22 06:43 Magnesium 2.4 mg/dL (1.6-2.3) H 01/27/22 06:43 Urine Creatinine 207.3 mg/dL 01/26/22 17:10 Urine Total Protein 125.0 mg/dL 01/26/22 17:10 01/26/22 12:21 01/27/22 06:43 Assessment and Plan Plan: Assessment: 1. Acute kidney injury secondary to ATN. Rule out obstructive uropathy. UPC 0.6 g. UA suggestive of UTI. Patient also received IV contrast on 01/26/[address] angiogram of the head and neck. Creatinine 7.86 today. Bladder scan this morning was negative. Unknown baseline renal function. 2. UTI. On antibiotics. 3. Metabolic acidosis secondary to acute kidney injury. 4. Benign hypertension. Stable. 5. Altered mental status. Improved. Brain MRI negative. Concern for uremia however BUN is stable at 85 and mentation has improved. Plan: Stop normal saline. Start sodium bicarbonate drip to be run at 75 mL an hour. Jackson catheter for strict I's and O's. Lasix 80 mg IV once today. Check renal ultrasound. If no improvement in renal function and urine output in the next 24 hours, will initiate renal replacement therapy. This was discussed with the patient and her present at bedside. They're agreeable. Repeat UA. Check serologies. Thank you for the consultation. I will continue to follow the patient with you during her hospital stay.
[2022-01-27 09:30] LABS: Chol/HDL Ratio 3.95 Ratio; LDL Cholesterol,Calculated 54.8 mg/dL (0.0-131.0)
[2022-01-27] MEDS ORDERED: SODIUM CHLORIDE 0.9% 1,000 ML IV SCH (09:30)
--- NOTE | 2022-01-27 10:24 | US ---
EXAMINATION TYPE: US kidneys/renal and bladder DATE OF EXAM: 01/27/2022 COMPARISON: NONE CLINICAL HISTORY: gopal. EXAM MEASUREMENTS: Right Kidney: 11.0 x 5.4 x 5.0 cm Left Kidney: 11.2 x 5.4 x 5.6 cm Right Kidney: No hydronephrosis or masses seen Left Kidney: No hydronephrosis or masses seen Bladder: not seen, not distended There is no evidence for hydronephrosis at this point in time. No nephrolithiasis is seen. No nabila s are identified. The urinary bladder is not visualized. Cortical medullary differentiation is maint ained. Cortical echotexture somewhat increased. IMPRESSION: Correlate for medical renal disease.
--- NOTE | 2022-01-27 10:37 | P.CNNES ---
History of Present Illness Consult date: 01/27/22 Requesting physician: Brigid Iglesias Reason for Consult: possible stroke History of Present Illness: This is a 71-year-old woman with medical history of hypertension, hyperlipidemia who presented emergency department on the 01/27/2022 for altered mental status. Patient presented at around 11:21 AM to our facility. Some of the history is obtained from medical patient's who is at bedside. It seems that the pa tient notified patient had difficulty articulating sentences and has bad been having intermittent confusion for last couple days. And upon waking up the 9 AM yesterday her symptoms were worse and felt she was not using the right words and is as a result he called EMS. Patient denied of any head trauma to the patient. She is following-up with Dr. Chacon (PCP) and per he noticed in the last couple months that her kidney function is elevated so he notified patient to stop Mobic and Flexeril for her chronic back pain but it seems that she has not. been described Klonopin and acetaminophen with codeine because of the chronic back pain. Patient is on any anticoagulation and she's Patient is not on any antiplatelets but is on pravastatin 40 mg daily. Patient does not have history of stroke, TIA in the past. Per the patient's she is doing better today compared to yesterday but completely back to baseline. She denies of any focal deficits. Per the , the patient is very active and usually exercises very actively. Some other workup in the hospital consisted of: Initial blood pressure is 122/61, heart rate of 77, temperature is 98.0 Fahrenheit and pulse ox 96%. Patient has been afebrile during this hospital visit. CBC with differential is unremarkable. Chemistry panel is a creatinine is 6.5 to, BUN is 86. The POC glucose on presentation is 113 otherwise the rest of chemistry panel is unremarkable. Hemoglobin A1c is 5.5, AST and ALT is within normal limits. Ammonia level is less than 9. TSH is 0.269 which is low but the free T4 is 1.17 which is considered normal. Urinalysis is the leukocyte esterase was large, white blood cell is more than 182 and a urine bacteria is rare which says seems suspicious for your tract infection. Urine drug screen is positive for opiates and tricyclic. PT, PTT and INR is within normal limits. CT of the head is reported as no acute intracranial hemorrhage or gross acute cortical infarct however small acute or hyperacute infarct cannot be excluded. I personally reviewed the CT of the head and there is no acute subacute ischemic and the results personal hemorrhage. CT angiography of the head and neck is reported as no acute arterial abnormality, significant stenosis or occlusion of the major neck or intracranial arteries. Stroke code was activated and NIH was a 1. No IV TPA since last normal was the night prior to presenting the hospital and the risks outweigh the benefit. MRI of the brain ordered by myself as reported as chronic small vessel ischemic changes, age-related atrophy. Sinus disease. Nobody reported that it is reported as no restriction diffusion. I personally reviewed the MRI and there is no acute subacute ischemic stroke. Review of Systems Review of system: The 12 point system was reviewed and apparent positive and negative per HPI. Past Medical History Past Medical History: Cancer, Hyperlipidemia, Hypertension, Osteoarthritis (OA) Additional Past Medical History / Comment(s): Hx cervical Ca and Skin CA; restless leg, Back pain History of Any Multi-Drug Resistant Organisms: None Reported Past Surgical History: Hysterectomy, Joint Replacement, Orthopedic Surgery, Tonsillectomy Additional Past Surgical History / Comment(s): Aneesh. knee replacements; foot surgery, cystocele & rectocele repair; carpal tunnel ; cataracts; colonoscopy Past Anesthesia/Blood Transfusion Reactions: No Reported Reaction Past Psychological History: Anxiety Smoking Status: Former smoker Past Alcohol Use History: Rare Additional Past Alcohol Use History / Comment(s): smoked from teens to age 46 from 1 to 2 ppd Past Drug Use History: None Reported - Past Family History Mother Family Medical History: No Reported History Medications and Allergies Home Medications Medication Instructions Recorded Confirmed Type Acetaminophen-Codeine 300-30mg 0.5 tab PO Q6H PRN 08/21/18 01/26/22 History [Tylenol w/codeine #3] Baclofen 10 mg PO BID 08/21/18 01/26/22 History Cyclobenzaprine [Flexeril] 10 mg PO BID PRN 08/21/18 01/26/22 History clonazePAM 1 mg PO BID 08/21/18 01/26/22 History Dexamethasone 6 mg PO DAILY 01/26/22 01/26/22 History Pravastatin Sodium [Pravachol] 40 mg PO DAILY 01/26/22 01/26/22 History Triamcinolone 0.1% Cream [Kenalog 1 applic TOPICAL BID PRN 01/26/22 01/26/22 History 0.1% Cream] Vit C/E/Zn/Coppr/Lutein/Zeaxan 1 cap PO BID 01/26/22 01/26/22 History [Preservision Areds 2 Softgel] amLODIPine [Norvasc] 10 mg PO DAILY 01/26/22 01/26/22 History calcium polycarbophiL [Fibercon] 625 mg PO DAILY 01/26/22 01/26/22 History lisinopriL [Zestril] 20 mg PO DAILY 01/26/22 01/26/22 History Allergies Allergy/AdvReac Type Severity Reaction Status Date / Time cephalexin [From Keflex] Allergy Itching Verified 01/26/22 14:03 naproxen [From Naprosyn] Allergy blisters Verified 01/26/22 14:03 Physical Examination - Vital Signs Vital Signs: Vital Signs Temp Pulse Pulse Resp BP BP Pulse Ox 01/27/22 07:46 98 01/27/22 03:37 76 18 146/76 98 01/26/22 23:24 67 18 130/72 96 01/26/22 19:35 97.8 F 75 16 157/78 97 01/26/22 17:07 98.1 F 74 14 142/73 95 01/26/22 15:00 98.0 F 69 14 140/69 01/26/22 14:03 97.2 F L 68 14 129/69 91 L 01/26/22 12:49 104 H 18 146/75 98 01/26/22 11:52 98 F 77 16 122/61 96 Intake and Output 01/26/22 01/27/22 01/27/22 22:59 06:59 14:59 Intake Total 1251 Output Total 1500 Balance -249 Intake: Oral 1251 Output: Urine 1000 Straight 500 Post Void Residual 500 Other: Weight 99.79 kg GENERAL: The patient is lying in bed and is not in acute distress. CHEST: The heart rate is regular rate rhythm. No murmurs to auscultation. No carotid bruit bilaterally. LUNG: Clear to auscultation bilaterally no wheezing noted throughout. Not labored breathing. ABDOMEN/GI: Bowel sounds present in all 4 quadrants. No tenderness to palpation throughout. NEUROLOGICAL: Higher mental function: The patient is awake, alert, oriented to self, place and time but is somewhat slow in responding. She is able to identify objects (pen and watch). Patient is following commands. No aphasia and no neglect. Cranial nerves: The pupils are round, equal and reactive to light and accommodation. Visual rosenberg are full to confrontation throughout. Extraocular movement is intact no nystagmus is noted. Facial sensation is normal to touch throughout. The facial strength is normal throughout. Hearing is moderately decreased bilaterally to hand rub. Tongue is midline and moved [id number] without any difficulty. No dysarthria is noted. Shoulder shrug is normal bilat erally. Motor: Gait is walking and taking short steps (upon being tested by physical therapy which I observed). The strength is 5 over 5 throughout. Normal tone and bulk. Cerebellum: Normal finger to nose heel to bell bilaterally. Sensation: Sensation is normal to touch throughout. Reflexes (right/left): 1+ throughout. Plantars are downgoing bilaterally. Results - Laboratory Findings CBC and BMP: 01/26/22 12:21 01/27/22 06:43 Abnormal Lab Findings: Abnormal Labs 01/26/22 01/26/22 01/26/22 12:20 12:21 12:21 Lymphocytes # 0.7 L Carbon Dioxide 16 L BUN 86 H Creatinine 6.52 H Glucose 117 H POC Glucose (mg/dL) 113 H TSH Urine Appearance Urine Protein Urine Blood Ur Leukocyte Esterase Urine RBC Urine WBC Ur Squamous Epith Cells Amorphous Sediment Urine Bacteria Urine Mucus Urine Opiates Screen U Tricyclic Antidepress 01/26/22 01/26/22 01/26/22 12:21 17:00 20:20 Lymphocytes # Carbon Dioxide BUN Creatinine Glucose POC Glucose (mg/dL) 139 H TSH 0.269 L Urine Appearance Turbid H Urine Protein 2+ H Urine Blood Trace H Ur Leukocyte Esterase Large H Urine RBC 13 H Urine WBC >182 H Ur Squamous Epith Cells 19 H Amorphous Sediment Rare H Urine Bacteria Rare H Urine Mucus Rare H Urine Opiates Screen Detected H U Tricyclic Antidepress Detected H 01/27/22 06:15 Lymphocytes # Carbon Dioxide BUN Creatinine Glucose POC Glucose (mg/dL) 101 H TSH Urine Appearance Urine Protein Urine Blood Ur Leukocyte Esterase Urine RBC Urine WBC Ur Squamous Epith Cells Amorphous Sediment Urine Bacteria Urine Mucus Urine Opiates Screen U Tricyclic Antidepress Assessment and Plan Assessment: Toxic metabolic encephalopathy. Also the patient altered mentation possible underlying acute in her tract infection (MRI Brain is negative for acute to subacute stroke)--currently mentation is improving Acute kidney insufficiency (Creatnine of 6.52 and BUN 86) Possible acute underlying urinary tract infection Hypertension and during this hospital stay patient has slightly elevated the b lood pressure History of hyperlipidemia Plan: Yesterday I started the patient on Plavix 75 mg daily for secondary stroke prophylaxis but since the MRI Brain is negative for stroke and from presentation it seems more toxic metabolic encephalopathy, I stopped the Plavix and we'll defer the use of antiplatelets to the primary team. Lipid panel is ordered. I cancelled 2D echo since not needed from neurological perspective. PT, OT and [employer]ER is consulted Continue neuro checks Nephrology team is consulted Urine cultures ordered Please avoid any sedating/narcotic that affect the patient's mentation as well as renal function. Regarding the pain management recommend consideration of consulting pain specialist or following-up as outpatient We'll defer the rest of the medical management to primary team. The plan is discussed with the patient, her who is at bedside. There is no further neurological work-up needed at this time. Thank you for the consultation Michael Powell M.D. Neurologist was Time with Patient: Greater than 30
[2022-01-27] MEDS: DEXTROSE 5% IN WATER 1,000 ML with SODIUM BICARB (1 MEQ/ML) 150 ML IV SCH (11:03)
[2022-01-27 11:42] LABS: Amorphous Sediment,Urine Rare /hpf; Appearance,Urine Cloudy (Clear); Bacteria,Urine Few /hpf; Bilirubin,Urine Negative (Negative); Blood,Urine Negative (Negative); Color,Urine Light Yellow; Glucose,Urine (UA) Negative (Negative); Ketones,Urine Negative (Negative); Leukocyte Esterase,Urine Small (Negative); Mucus,Urine Rare /hpf; Nitrite,Urine Negative (Negative); PH, Urine 5.5 (5.0-8.0); Protein,Urine 2+ (Negative); RBC,Urine 2 /hpf (0-5); Specific Gravity,Urine 1.011 (1.001-1.035); Squamous Epithelial Cell,Urine 1 /hpf (0-4); Urobilinogen,Urine <2.0 mg/dL (<2.0); WBC,Urine 16 /hpf (0-5)
[2022-01-27] MEDS ORDERED: Acetaminophen-Codeine 300-30mg TAB PO PRN (11:46)
[2022-01-27] MEDS: amLODIPine 10 MG TAB PO SCH (12:26)
--- NOTE | 2022-01-27 13:25 | P.HPIM ---
History of Present Illness H&P Date: 01/27/22 HISTORY OF PRESENT ILLNESS This is a 71-year-old female patient of Dr. Chacon with past medical history of cervical cancer, hypertension, hyperlipidemia, generalized osteoarthritis. Family noticed the patient was confused yesterday. In hindsight noticed that approximately couple days she's been declining. She just saw Dr. Chacon on Monday for back pain with history of spinal fusion and started on dexamethasone 6 mg daily. Patient has been on Mobic in the past but that was stopped a couple months ago when her renal function decreased. Patient normally drinks a lot of water and she works out in the gym regularly on a recumbent bike. reports no urine output yesterday despite IV fluids given in the emergency center. Patient came into [facility] emergency center for evaluation and found to be afebrile, heart rate in the 60s, blood pressure 129/69, pulse ox 91% on room air. EKG was a sinus rhythm with no acute ST changes. CBC was unremarkable. CO2 was 16 BUN 86 and creatinine 6.52. Blood sugar 113. TSH 0.269 and free T4 was normal at 1.17. Repeat kidney function today is BUN 85 creatinine 7.86 with a bicarb of 15. Triglycerides 249, cholesterol 140, HDL 35, LDL 54. Urinalysis showed a small amount of leukoesterase, WBC 16. Urine drug screen positive for opiates and tricyclic antidepressants. Urine culture is in progress. Chest x-ray shows no acute cardiopulmonary process. CT angiogram reveals no acute arterial abnormality, significant stenosis or occlusion of the major neck or intracranial arteries. CAT scan of the brain revealed no acute intracranial hemorrhage or gross acute cortical infarct however a small acute or hyper acute infarct cannot be excluded. MRI of the brain reveals chronic small vessel ischemic changes, age-related atrophy. Renal ultrasound reveals medical renal disease. Patient has been seen by neurology and started on Plavix because MRI was negative, Plavix will be discontinued and mental status changes most likely secondary to toxic metabolic encephalopathy. Patient has also been seen by nephrology for acute kidney injury secondary to ATN, sodium bicarb drip was started, Jackson catheter for accurate I&O's, one time dose of IV Lasix 80 mg. If no improvement in renal function and urine output and 4 hours, initiate renal replacement therapy. Serology and hepatitis testing pending. REVIEW OF SYSTEMS Constitutional: No fever, no chills, no night sweats. No weight change. Reports weakness, reports fatigue reports lethargy. No daytime sleepiness. EENT: No headache. No blurred vision or double vision, no loss of vision. No loss of Hearing, no ringing in the ears, no dizziness. No nasal drainage or congestion. No epistaxis. No sore throat. Lungs: No shortness of breath, cough, no sputum production. No wheezing. Cardiovascular: No chest pain, no lower extremity edema. No palpitations. No paroxysmal nocturnal dyspnea. No orthopnea. No lightheadedness or dizziness. No syncopal episodes. Abdominal: No abdominal pain. No nausea, vomiting. No diarrhea. No constipation. No bloody or tarry stools. No loss of appetite. Genitourinary: No dysuria, increased frequency, urgency. No urinary retention. Decreased urine output. Musculoskeletal: No myalgias. No muscle weakness, no gait dysfunction, no frequent falls. No back pain. No neck pain. Integumentary: No wounds, no lesions. No rash or pruritus. No unusual bruising. No change in hair or nails. Neurologic: No aphasia. No facial droop. Reported change in mentation. No head injury. No headache. No paralysis. No paresthesia. Psychiatric: No depression. No anxiety. No mood swings. Endocrine: No abnormal blood sugars. No weight change. No excessive sweating or thirst. No cold intolerance. SOCIAL HISTORY Patient was a smoker one to 2 packs per day for 30 years and quit 25 years ago. No alcohol use. FAMILY HISTORY Mother at age 75 after a fall with history of asthma. Father at age 70 of unclear etiology.. PHYSICAL EXAMINATION Gen: This is a 71-year-old female. Patient is resting in bed and appears to be comfortable and in no acute distress. Family members are at bedside. HEENT: Head is atraumatic, normocephalic. Pupils equal, round. Sclerae is anicteric. NECK: Supple. No JVD. No lymphadenopathy. No thyromegaly. LUNGS: Clear to auscultation. No wheezes or rhonchi. No intercostal retractions. HEART: Regular rate and rhythm. 3/6 systolic murmur. ABDOMEN: Soft. Bowel sounds are present. No masses. No tenderness. Jackson in place with scant amount of urine output. EXTREMITIES: No pedal edema. No calf tenderness. NEUROLOGICAL: Patient is awake, alert and oriented x3. Cranial nerves 2 through 12 are grossly intact. ASSESSMENT AND PLAN 1. Metabolic encephalopathy secondary to acute kidney injury, improving. Treat underlying cause. 2. Acute kidney injury with ATN. Consult with nephrology appreciated. Patient has been started on bicarb drip at 75 mL per hour, status post 1 dose of IV Lasix 80 mg today, maintain Jackson catheter for I&O's. 3. Metabolic acidosis secondary to acute kidney injury. Bicarb drip 4. Possible UTI. Patient was started on ceftriaxone, await urine culture. 5. Hypertension. Continue amlodipine 10 mg daily. 6. Hyperlipidemia. Continue pravastatin 40 mg daily. 7. Cervical cancer history. 8. Generalized anxiety disorder. Continue clonazepam 1 mg twice daily. 9. Chronic back pain with history of spinal fusion. Continue baclofen 10 mg twice daily, Tylenol 3 every 6 hours as needed. 10. GI prophylaxis. Protonix. 11. DVT prophylaxis. Heparin subcu. Patient will be admitted to the hospital for a minimum of 2 night stay. DISCHARGE PLAN TBD. Consult with PT and OT Impression and plan of care have been directed as dictated by the signing physician. Raquel Fagan nurse practitioner acting as scribe for signing physician. Past Medical History Past Medical History: Cancer, Hyperlipidemia, Hypertension, Osteoarthritis (OA) Additional Past Medical History / Comment(s): Hx cervical Ca and Skin CA; restless leg, Back pain History of Any Multi-Drug Resistant Organisms: None Reported Past Surgical History: Hysterectomy, Joint Replacement, Orthopedic Surgery, Tonsillectomy Additional Past Surgical History / Comment(s): Aneesh. knee replacements; foot surgery, cystocele & rectocele repair; carpal tunnel ; cataracts; colonoscopy Past Anesthesia/Blood Transfusion Reactions: No Reported Reaction Past Psychological History: Anxiety Smoking Status: Former smoker Past Alcohol Use History: Rare Additional Past Alcohol Use History / Comment(s): smoked from teens to age 46 from 1 to 2 ppd Past Drug Use History: None Reported - Past Family History Mother Family Medical History: No Reported History Medications and Allergies Home Medications Medication Instructions Recorded Confirmed Type Acetaminophen-Codeine 300-30mg 0.5 tab PO Q6H PRN 08/21/18 01/26/22 History [Tylenol w/codeine #3] Baclofen 10 mg PO BID 08/21/18 01/26/22 History Cyclobenzaprine [Flexeril] 10 mg PO BID PRN 08/21/18 01/26/22 History clonazePAM 1 mg PO BID 08/21/18 01/26/22 History Dexamethasone 6 mg PO DAILY 01/26/22 01/26/22 History Pravastatin Sodium [Pravachol] 40 mg PO DAILY 01/26/22 01/26/22 History Triamcinolone 0.1% Cream [Kenalog 1 applic TOPICAL BID PRN 01/26/22 01/26/22 History 0.1% Cream] Vit C/E/Zn/Coppr/Lutein/Zeaxan 1 cap PO BID 01/26/22 01/26/22 History [Preservision Areds 2 Softgel] amLODIPine [Norvasc] 10 mg PO DAILY 01/26/22 01/26/22 History calcium polycarbophiL [Fibercon] 625 mg PO DAILY 01/26/22 01/26/22 History lisinopriL [Zestril] 20 mg PO DAILY 01/26/22 01/26/22 History Allergies Allergy/AdvReac Type Severity Reaction Status Date / Time cephalexin [From Keflex] Allergy Itching Verified 01/26/22 14:03 naproxen [From Naprosyn] Allergy blisters Verified 01/26/22 14:03 Physical Exam Vitals: Vital Signs Temp Pulse Pulse Resp BP BP Pulse Ox 01/27/22 08:50 18 01/27/22 08:00 97.3 F L 68 18 158/78 95 01/27/22 07:46 98 01/27/22 03:37 76 18 146/76 98 01/26/22 23:24 67 18 130/72 96 01/26/22 19:35 97.8 F 75 16 157/78 97 01/26/22 17:07 98.1 F 74 14 142/73 95 01/26/22 15:00 98.0 F 69 14 140/69 01/26/22 14:03 97.2 F L 68 14 129/69 91 L 01/26/22 12:49 104 H 18 146/75 98 01/26/22 11:52 98 F 77 16 122/61 96 Intake and Output 01/26/22 01/27/2201/27/22 22:59 06:59 14:59 Intake Total 1251 Output Total 1500 50 Balance -249 -50 Intake: Oral 1251 Output: Urine 1000 50 Straight 500 50 Post Void Residual 500 Other: Voiding Method Toilet Weight 99.79 kg Results CBC & Chem 7: 01/26/22 12:21 01/27/22 06:43 Labs: Abnormal Lab Results - Last 24 Hours (Table) 01/26/22 01/26/22 01/26/22 Range/Units 12:20 12:21 12:21 Lymphocytes # 0.7 L (1.0-4.8) k/uL Sodium (137-145) mmol/L Carbon Dioxide 16 L (22-30) mmol/L BUN 86 H (7-17) mg/dL Creatinine 6.52 H (0.52-1.04) mg/dL Glucose 117 H (74-99) mg/dL POC Glucose (mg/dL) 113 H (75-99) mg/dL Calcium (8.4-10.2) mg/dL Magnesium (1.6-2.3) mg/dL Triglycerides (0.00-149.00) mg/dL VLDL Cholesterol, Calc (5.00-40.00) mg/dL HDL Cholesterol (40.00-60.00) mg/dL TSH (0.465-4.680) mIU/L Urine Appearance (Clear) Urine Protein (Negative) Urine Blood (Negative) Ur Leukocyte Esterase (Negative) Urine RBC (0-5) /hpf Urine WBC (0-5) /hpf Ur Squamous Epith Cells (0-4) /hpf Amorphous Sediment (None) /hpf Urine Bacteria (None) /hpf Urine Mucus (None) /hpf Urine Opiates Screen (NotDetected) U Tricyclic Antidepress (NotDetected) 01/26/22 01/26/22 01/26/22 Range/Units 12:21 17:00 20:20 Lymphocytes # (1.0-4.8) k/uL Sodium (137-145) mmol/L Carbon Dioxide (22-30) mmol/L BUN (7-17) mg/dL Creatinine (0.52-1.04) mg/dL Glucose (74-99) mg/dL POC Glucose (mg/dL) 139 H (75-99) mg/dL Calcium (8.4-10.2) mg/dL Magnesium (1.6-2.3) mg/dL Triglycerides (0.00-149.00) mg/dL VLDL Cholesterol, Calc (5.00-40.00) mg/dL HDL Cholesterol (40.00-60.00) mg/dL TSH 0.269 L (0.465-4.680) mIU/L Urine Appearance Turbid H (Clear) Urine Protein 2+ H (Negative) Urine Blood Trace H (Negative) Ur Leukocyte Esterase Large H (Negative) Urine RBC 13 H (0-5) /hpf Urine WBC >182 H (0-5) /hpf Ur Squamous Epith Cells 19 H (0-4) /hpf Amorphous Sediment Rare H (None) /hpf Urine Bacteria Rare H (None) /hpf Urine Mucus Rare H (None) /hpf Urine Opiates Screen Detected H (NotDetected) U Tricyclic Antidepress Detected H (NotDetected) 01/27/22 01/27/22 01/27/22 Range/Units 06:15 06:43 06:43 Lymphocytes # (1.0-4.8) k/uL Sodium 135 L (137-145) mmol/L Carbon Dioxide 15 L (22-30) mmol/L BUN 85 H (7-17) mg/dL Creatinine 7.86 H* (0.52-1.04) mg/dL Glucose 107 H (74-99) mg/dL POC Glucose (mg/dL) 101 H (75-99) mg/dL Calcium 7.8 L (8.4-10.2) mg/dL Magnesium 2.4 H (1.6-2.3) mg/dL Triglycerides 249.00 H (0.00-149.00) mg/dL VLDL Cholesterol, Calc 49.80 H (5.00-40.00) mg/dL HDL Cholesterol 35.40 L (40.00-60.00) mg/dL TSH (0.465-4.680) mIU/L Urine Appearance (Clear) Urine Protein (Negative) Urine Blood (Negative) Ur Leukocyte Esterase (Negative) Urine RBC (0-5) /hpf Urine WBC (0-5) /hpf Ur Squamous Epith Cells (0-4) /hpf Amorphous Sediment (None) /hpf Urine Bacteria (None) /hpf Urine Mucus (None) /hpf Urine Opiates Screen (NotDetected) U Tricyclic Antidepress (NotDetected) Microbiology - Last 24 Hours (Table) 01/26/22 17:00 Urine Culture - Preliminary Urine,Voided Thrombosis Risk Factor Assmnt - Choose All That Apply Any of the Below Risk Factors Present?: No Each Risk Factor Represents 2 Points: Age 61-74 years Other congenital or acquired thrombophilia - If yes, enter type in comment: No Thrombosis Risk Factor Assessment Total Risk Factor Score: 2 Thrombosis Risk Factor Assessment Level: Low Risk
[2022-01-27 15:14] LABS: Protein, Total 6.2 g/dL (6.2-8.2)
[2022-01-27 15:51] LABS: Hepatitis A Antibody IgM Nonreactive (Nonreactive); Hepatitis B Core IgM Nonreactive (Nonreactive); Hepatitis B Surface Antigen Nonreactive (Nonreactive); Hepatitis C IgG Antibody Nonreactive (Nonreactive)
[2022-01-27] MEDS: BACLOFEN 10 MG TAB PO SCH (19:33)
[2022-01-27] MEDS: clonazePAM 1 MG TAB PO SCH (19:34)
[2022-01-27] MEDS: VIT A,C & E-LUTEIN-MINERALS 1 EACH TAB PO SCH (19:34)
[2022-01-27 19:50] LABS: Anti-DNA, DS unit <1.0 IU/mL; DNA Double-Stranded NEGATIVE (NEGATIVE)
[2022-01-28] MEDS: DEXTROSE 5% IN WATER 1,000 ML with SODIUM BICARB (1 MEQ/ML) 150 ML IV SCH ×2 (03:46→21:31)
[2022-01-28] MEDS: PANTOPRAZOLE 40 MG TABLET PO SCH (06:29)
[2022-01-28 07:57] LABS: Magnesium 2.3 mg/dL (1.6-2.3); Potassium 4.7 mmol/L (3.5-5.1)
[2022-01-28] MEDS: VIT A,C & E-LUTEIN-MINERALS 1 EACH TAB PO SCH ×2 (08:55→20:39)
[2022-01-28] MEDS: amLODIPine 10 MG TAB PO SCH (08:56)
[2022-01-28] MEDS: clonazePAM 1 MG TAB PO SCH ×3 (08:56→20:40)
[2022-01-28] MEDS: HEPARIN SODIUM,PORCINE/PF 5,000 UNIT/0.5 ML SYRINGE SQ SCH ×3 (08:56→20:40)
[2022-01-28] MEDS: BACLOFEN 10 MG TAB PO SCH ×2 (08:58→19:49)
[2022-01-28] MEDS ORDERED: PRAVASTATIN SODIUM 40 MG TAB PO SCH (09:00)
--- NOTE | 2022-01-28 11:31 | ECHOF ---
Referral Reason:LVF MEASUREMENTS -------- HEIGHT: 165.1 cm WEIGHT: 99.8 kg BP: IVSd: 1.2 cm (0.6 - 1.1) LVIDd: 4.2 cm (3.9 - 5.3) LVPWd: 1.5 cm (0.6 - 1.1) IVSs: 1.5 cm LVIDs: 3.2 cm LVPWs: 1.3 cm LA Diam: 3.4 cm (2.7 - 3.8) LAESV Index (A-L): 28.83 ml/m Ao Diam: 3.4 cm (2.0 - 3.7) AV Cusp: 1.2 cm (1.5 - 2.6) LA Diam: 3.7 cm (2.7 - 3.8) MV EXCURSION: 18.742 mm (> 18.000) MV EF SLOPE: 137 mm/s (70 - 150) EPSS: 0.4 cm MV E Juan: 0.77 m/s MV DecT: 172 ms MV A Juan: 0.98 m/s MV E/A Ratio: 0.78 AV maxP.63 mmHg AV meanP.67 mmHg FINDINGS -------- Sinus rhythm. This was a technically adequate study. The left ventricular size is normal. There is mild concentric left ventricular hypertrophy. Overa ll left ventricular systolic function is low-normal with, an EF between 50 - 55 %. The right ventricle is normal in size. LA is midly dilated 29-33ml/m2. The right atrial size is normal. There is mild aortic stenosis present. Peak/mean gradient across the Aortic Valve is 16.63mmHg / 8. 67mmHg. Can't exclude possible Bicuspid Aov. Mild mitral regurgitation is present. Mild tricuspid regurgitation present. Right ventricular systolic pressure is normal at < 35 mmHg. There is no pulmonic regurgitation present. There is no pericardial effusion. CONCLUSIONS -------- 1. The left ventricular size is normal. 2. There is mild concentric left ventricular hypertrophy. 3. Overall left ventricular systolic function is low-normal with, an EF between 50 - 55 %. 4. The right ventricle is normal in size. 5. LA is midly dilated 29-33ml/m2. 6. The right atrial size is normal. 7. There is mild aortic stenosis present. 8. Peak/mean gradient across the Aortic Valve is 16.63mmHg / 8.67mmHg. 9. Can't exclude possible Bicuspid Aov. 10. Mild mitral regurgitation is present. 11. Mild tricuspid regurgitation present. 12. There is no pulmonic regurgitation present. 13. There is no pericardial effusion. FORM MAKER: Yanet Go RDCS
--- NOTE | 2022-01-28 11:31 | P.PN ---
Subjective Progress Note Date: 01/28/22 HISTORY OF PRESENT ILLNESS This is a 71-year-old female patient of Dr. Chacon with past medical history of cervical cancer, hypertension, hyperlipidemia, generalized osteoarthritis. Family noticed the patient was confused yesterday. In hindsight noticed that approximately couple days she's been declining. She just saw Dr. Chacon on Monday for back pain with history of spinal fusion and started on dexamethasone 6 mg daily. Patient has been on Mobic in the past but that was stopped a couple months ago when her renal function decreased. Patient normally drinks a lot of water and she works out in the gym regularly on a recumbent bike. reports no urine output yesterday despite IV fluids given in the emergency center. Patient came into [facility] emergency center for evaluation and found to be afebrile, heart rate in the 60s, blood pressure 129/69, pulse ox 91% on room air. EKG was a sinus rhythm with no acute ST changes. CBC was unremarkable. CO2 was 16 BUN 86 and creatinine 6.52. Blood sugar 113. TSH 0.269 and free T4 was normal at 1.17. Repeat kidney function today is BUN 85 creatinine 7.86 with a bicarb of 15. Triglycerides 249, cholesterol 140, HDL 35, LDL 54. Urinalysis showed a small amount of leukoesterase, WBC 16. Urine drug screen positive for opiates and tricyclic antidepressants. Urine culture is in progress. Chest x-ray shows no acute cardiopulmonary process. CT angiogram reveals no acute arterial abnormality, significant stenosis or occlusion of the major neck or intracranial arteries. CAT scan of the brain revealed no acute intracranial hemorrhage or gross acute cortical infarct however a small acute or hyper acute infarct cannot be excluded. MRI of the brain reveals chronic small vessel ischemic changes, age-related atrophy. Renal ultrasound reveals medical renal disease. Patient has been seen by neurology and started on Plavix because MRI was negative, Plavix will be discontinued and mental status changes most likely secondary to toxic metabolic encephalopathy. Patient has also been seen by nep hrology for acute kidney injury secondary to ATN, sodium bicarb drip was started, Jackson catheter for accurate I&O's, one time dose of IV Lasix 80 mg. If no improvement in renal function and urine output and 4 hours, initiate renal replacement therapy. Serology and hepatitis testing pending. 3/4Patient examined bedside. She has worsened in her mental status today. Has been at bedside has noted hallucinations of and a paranoid behavior today. Patient is more confused than yesterday she is and she is and unable to relate to her condition at this moment. She is oriented 3 but unable to comprehend his situation. Patient urine output is morning is only 150 mL. She had 300 mL output overnight. Right is afebrile pulse 70 respiratory rate 18 blood pressure 189/78 oxygen 99% on room air. Labs reviewed sodium 131 potassium 4.7 bicarb 17 BUN 89 8 creatinine 8.69 phosphorus 8.0. Urine culture is negative for infection JAMAL negative complement levels and negative hepatitis panel is negat dirk. A vascular surgery consult will be placed for dialysis catheter placement. Hydralazine initiated at 50 3 times a day for blood pressure control. Seroquel initiated 25 at [facility] at bedtime REVIEW OF SYSTEMS Constitutional: No fever, no chills, no night sweats. No weight change. Reports weakness, reports fatigue reports lethargy. No daytime sleepiness. EENT: No headache. No blurred vision or double vision, no loss of vision. No loss of Hearing, no ringing in the ears, no dizziness. No nasal drainage or congestion. No epistaxis. No sore throat. Lungs: No shortness of breath, cough, no sputum production. No wheezing. Cardiovascular: No chest pain, no lower extremity edema. No palpitations. No paroxysmal nocturnal dyspnea. No orthopnea. No lightheadedness or dizziness. No syncopal episodes. Abdominal: No abdominal pain. No nausea, vomiting. No diarrhea. No constipation. No bloody or tarry stools. No loss of appetite. Genitourinary: No dysuria, increased frequency, urgency. No urinary retention. Decreased urine output. Musculoskeletal: No myalgias. No muscle weakness, no gait dysfunction, no frequent falls. No back pain. No neck pain. Integumentary: No wounds, no lesions. No rash or pruritus. No unusual bruising. No change in hair or nails. Neurologic: No aphasia. No facial droop. Reported change in mentation. No head injury. No headache. No paralysis. No paresthesia. Psychiatric: No depression. Increase anxiety increased hallucinations and increased delusions increased paranoia. No mood swings. Endocrine: No abnormal blood sugars. No weight change. No excessive sweating or thirst. No cold intolerance. PHYSICAL EXAMINATION Gen: This is a 71-year-old female. Patient is resting in bed and Family members are at bedside. HEENT: Head is atraumatic, normocephalic. Pupils equal, round. Sclerae is anicteric. NECK: Supple. No JVD. No lymphadenopathy. No thyromegaly. LUNGS: Clear to auscultation. No wheezes or rhonchi. No intercostal retractions. HEART: Regular rate and rhythm. 3/6 systolic murmur. ABDOMEN: Soft. Bowel sounds are present. No masses. No tenderness. Jackson in place with scant amount of urine output. EXTREMITIES: No pedal edema. No calf tenderness. NEUROLOGICAL: Patient is awake, alert and oriented x3. Cranial nerves 2 through 12 are grossly intact. ASSESSMENT AND PLAN 1. Metabolic encephalopathy secondary to uremic encephalopathy. Continue orientation Seroquel initiated at 25 mg at bedtime Treat underlying cause. 2. Acute kidney injury with ATN. Consult with nephrology appreciated. Patient has been started on bicarb drip at 75 mL per hour, status post 1 dose of IV Lasix 80 mg today, maintain Jackson catheter for I&O's. Patient is unable to maintain urine output. Vascular surgery consulted for dialysis 3. Metabolic acidosis secondary to acute kidney injury. Bicarb drip 4. UTI ruled out Rocephin discontinued, 5. Hypertension. Continue amlodipine 10 mg daily. blood pressure uncontrolled hydralazine initiated 50 3 times a day 6. Hyperlipidemia. Continue pravastatin 40 mg daily. 7. Cervical cancer history. 8. Generalized anxiety disorder. Continue clonazepam 1 mg twice daily. 9. Chronic back pain with history of spinal fusion. Continue baclofen 10 mg twice daily, Tylenol 3 every 6 hours as needed. 10. GI prophylaxis. Protonix. 11. DVT prophylaxis. Heparin subcu. Patient will be admitted to the hospital for a minimum of 2 night stay. DISCHARGE PLAN TBD. Consult with PT and OT Objective - Vital Signs Vital signs: Vital Signs Temp 97.5 F L 01/28/22 08:34 Pulse 70 01/28/22 08:34 Resp 18 01/28/22 08:34 BP 189/78 01/28/22 08:34 Pulse Ox 99 01/28/22 08:34 Intake & Output 01/27/22 01/28/22 01/28/22 18:59 06:59 18:59 Intake Total 0 Output Total 50 575 Balance -50 -575 0 Intake: Oral 0 Output: Urine 50 575 Straight 50 Other: Voiding Method Toilet Indwelling Catheter Indwelling Catheter # Voids 0 # Bowel Movements 0 - Labs CBC & Chem 7: 01/26/22 12:21 01/28/22 07:18 Labs: Abnormal Lab Results - Last 24 Hours (Table) 01/27/22 01/28/22 Range/Units 11:15 07:18 Sodium 131 L (137-145) mmol/L Carbon Dioxide 17 L (22-30) mmol/L BUN 89 H (7-17) mg/dL Creatinine 8.69 H* (0.52-1.04) mg/dL Glucose 115 H (74-99) mg/dL Calcium 8.0 L (8.4-10.2) mg/dL Phosphorus 9.0 H* (2.5-4.5) mg/dL Urine Appearance Cloudy H (Clear) Urine Protein 2+ H (Negative) Ur Leukocyte Esterase Small H (Negative) Urine WBC 16 H (0-5) /hpf Amorphous Sediment Rare H (None) /hpf Urine Bacteria Few H (None) /hpf Urine Mucus Rare H (None) /hpf Microbiology - Last 24 Hours (Table) 01/26/22 17:00 Urine Culture - Final Urine,Voided
--- NOTE | 2022-01-28 11:41 | P.PN ---
Subjective Patient is seen in follow-up for acute kidney injury. Renal function worse. Urine output about 400 mL in last 24 hours. Patient is more confused and delusional today. present at bedside. Vital signs are stable. General: The patient appeared well nourished and normally developed. HEENT: Head exam is unremarkable. LUNGS: Breath sounds decreased. HEART: Rate and Rhythm are regular. ABDOMEN: Soft, no distention. EXTREMITITES: No edema. Objective - Vital Signs Vital signs: Vital Signs Temp 97.5 F L 01/28/22 08:34 Pulse 70 01/28/22 08:34 Resp 18 01/28/22 08:34 BP 189/78 01/28/22 08:34 Pulse Ox 99 01/28/22 08:34 Intake & Output 01/27/22 01/28/22 01/28/22 18:59 06:59 18:59 Intake Total 0 Output Total 50 575 Balance -50 -575 0 Intake: Oral 0 Output: Urine 50 575 Straight 50 Other: Voiding Method Toilet Indwelling Catheter Indwelling Catheter # Voids 0 # Bowel Movements 0 - Labs CBC & Chem 7: 01/26/22 12:21 01/28/22 07:18 Labs: Abnormal Lab Results - Last 24 Hours (Table) 01/27/22 01/28/22 Range/Units 11:15 07:18 Sodium 131 L (137-145) mmol/L Carbon Dioxide 17 L (22-30) mmol/L BUN 89 H (7-17) mg/dL Creatinine 8.69 H* (0.52-1.04) mg/dL Glucose 115 H (74-99) mg/dL Calcium 8.0 L (8.4-10.2) mg/dL Phosphorus 9.0 H* (2.5-4.5) mg/dL Urine Appearance Cloudy H (Clear) Urine Protein 2+ H (Negative) Ur Leukocyte Esterase Small H (Negative) Urine WBC 16 H (0-5) /hpf Amorphous Sediment Rare H (None) /hpf Urine Bacteria Few H (None) /hpf Urine Mucus Rare H (None) /hpf Microbiology - Last 24 Hours (Table) 01/26/22 17:00 Urine Culture - Final Urine,Voided Assessment and Plan Plan: Assessment: 1. Acute kidney injury secondary to ATN. UPC 0.6 g. UA suggestive of UTI. Patient also received IV contrast on 01/26/[address] angiogram of the head and neck. Creatinine 8.69 today. Unknown baseline renal function. 2. UTI. Urine culture negative. Antibiotics discontinued. 3. Metabolic acidosis secondary to acute kidney injury. Slightly improved. On bicarb drip. Expect further improvement postdialysis. 4. Benign hypertension. Hydralazine added today. 5. Altered mental status. Improved. Brain MRI negative. Concern for uremia. Plan: Maintain sodium bicarbonate drip at 75 mL an hour. Jackson catheter for strict I's and O's. Status post Lasix 80 mg IV given 01/27/2022. Follow-up serologies. Due to worsening renal function, or oliguria and concern for uremia, initiate renal replacement therapy. Plan for first treatment of hemodialysis today and second treatment tomorrow. Add PhosLo. Continue to monitor for renal recovery. May need kidney biopsy if no improvement in kidney function. Discussed with present at bedside.
--- NOTE | 2022-01-28 11:47 | P.PN ---
Subjective Progress Note Date: 01/28/22 The patient is seen at bedside and per nurse she is more confused today. No seizure-like activity. Objective - Vital Signs Vital signs: Vital Signs Temp 97.5 F L 01/28/22 08:34 Pulse 70 01/28/22 08:34 Resp 18 01/28/22 08:34 BP 189/78 01/28/22 08:34 Pulse Ox 99 01/28/22 08:34 Intake & Output 01/27/22 01/28/22 01/28/22 18:59 06:59 18:59 Intake Total 0 Output Total 50 575 Balance -50 -575 0 Intake: Oral 0 Output: Urine 50 575 Straight 50 Other: Voiding Method Toilet Indwelling Catheter Indwelling Catheter # Voids 0 # Bowel Movements 0 - Exam GENERAL: The patient is lying in bed and is not in acute distress. She seems agitated/restless. Upon examining her she stated if I was recording this visit. NEUROLOGICAL: Limited because of her cooperation. Higher mental function: The patient is awake, alert, oriented to self, place and time but is more slow today. somewhat slow in responding. She is able to identify objects (pen and watch). Patient is following simple commands. No aphasia and no neglect. Cranial nerves: The pupils are round, equal and reactive to light. Visual field s are full to confrontation throughout. Extraocular movement is intact no nystagmus is noted. The facial strength is normal throughout. No dysarthria is noted. Motor: Would not cooperate. WORK-UP: CBC with differential is unremarkable. Chemistry panel is a creatinine is 6.5-->8.69 to, BUN is 86. The POC glucose on presentation is 113 otherwise the rest of chemistry panel is unremarkable. Hemoglobin A1c is 5.5, AST and ALT is within normal limits. Ammonia level is less than 9. TSH is 0.269 which is low but the free T4 is 1.17 which is considered normal. Hemoglobin A1c is 5.5 Urinalysis is the leukocyte esterase was large, white blood cell is more than 182 and a urine bacteria is rare which says seems suspicious for your tract infection. But urine culture is reported as a. Skin and or genital marcos. Urine drug screen is positive for opiates and tricyclic. PT, PTT and INR is within normal limits. CT of the head is reported as no acute intracranial hemorrhage or gross acute cortical infarct however small acute or hyperacute infarct cannot be excluded. I personally reviewed the CT of the head and there is no acute subacute ischemic and the results personal hemorrhage. CT angiography of the head and neck is reported as no acute arterial abnormality, significant stenosis or occlusion of the major neck or intracranial arteries. Stroke code was activated and NIH was a 1. No IV TPA since last normal was the night prior to presenting the hospital and the risks outweigh the benefit. MRI of the brain ordered by myself as reported as chronic small vessel ischemic changes, age-related atrophy. Sinus disease. Nobody reported that it is reported as no restriction diffusion. I personally reviewed the MRI and there is no acute subacute ischemic stroke. - Labs CBC & Chem 7: 01/26/22 12:21 01/28/22 07:18 Labs: Abnormal Lab Results - Last 24 Hours (Table) 01/27/22 01/28/22 Range/Units 11:15 07:18 Sodium 131 L (137-145) mmol/L Carbon Dioxide 17 L (22-30) mmol/L BUN 89 H (7-17) mg/dL Creatinine 8.69 H* (0.52-1.04) mg/dL Glucose 115 H (74-99) mg/dL Calcium 8.0 L (8.4-10.2) mg/dL Phosphorus 9.0 H* (2.5-4.5) mg/dL Urine Appearance Cloudy H (Clear) Urine Protein 2+ H (Negative) Ur Leukocyte Esterase Small H (Negative) Urine WBC 16 H (0-5) /hpf Amorphous Sediment Rare H (None) /hpf Urine Bacteria Few H (None) /hpf Urine Mucus Rare H (None) /hpf Microbiology - Last 24 Hours (Table) 01/26/22 17:00 Urine Culture - Final Urine,Voided Assessment and Plan Assessment: Uremic encephalopathy. (MRI Brain is negative for acute to subacute stroke) Delirium due to above Acute kidney insufficiency (Creatnine of 6.52 and BUN 86 on presentation)--worsening Possible acute underlying urinary tract infection Hypertension and during this hospital stay patient has slightly elevated the blood pressure History of hyperlipidemia Plan: I ordered a routine EEG. I'll not start the patient on antiepileptic drug unless there is epileptiform discharges or seizure on the EEG. PT, OT and WEBBING SUPERVISOR is consulted Continue neuro checks Nephrology team is consulted Please avoid any sedating/narcotic that affect the patient's mentation as well as renal function. Regarding the pain management recommend consideration of consulting pain specialist or following-up as outpatient We'll defer the rest of the medical management to primary team. The plan is discussed with the patient, her who is at bedside. UPDATE: Routine EEG is normal. There is no focal slowing, epileptiform discharges or seizure on the EEG. There is no further neurological work-up. Neurology will sign off. Please notify neurology if any further concerns. Michael Powell M.D. Neurologist was Time with Patient: Less than 30
[2022-01-28] MEDS: hydrALAZINE HCL 50 MG TAB PO SCH ×4 (12:02→20:39)
[2022-01-28] MEDS: CALCIUM ACETATE 667 MG TAB PO SCH ×2 (12:03→18:04)
--- NOTE | 2022-01-28 13:38 | EEG ---
ELECTROENCEPHALOGRAM REPORT DATE OF SERVICE: 01/28/2021. CLINICAL HISTORY: This is a 71-year-old woman with altered mental status. The video EEG is obtained to evaluate for seizure epileptiform activity. RELEVANT MEDICATION: The patient is not on any antiepileptic drugs. A routine 21 channel EEG is performed with video using the 10/20 electrode placement system. DESCRIPTION: Wakefulness and drowsiness are obtained. During wakefulness, the posterior dominant related rhythm consists of low to moderate voltage that is well modulated of 8-9 hertz activity. There is no physiological stage 2 sleep architecture. There is no focal slowing. Interictal and ictal is none. ACTIVATION PROCEDURES: Photic stimulation and hyperventilation is not performed. CLINICAL INTERPRETATION: This is a normal routine EEG. There is no focal slowing, epileptiform discharge or seizure on the EEG. Clinical correlation is recommended. YEHUDA / NOE: [id number] / MTDD
[2022-01-28] MEDS ORDERED: LIDOCAINE 1% INJ 10MG/ML (20 ML MDV) ONE (14:05)
[2022-01-28] MEDS ORDERED: HEPARIN SODIUM 1,000 UN/ML (10ML VL) ONE (14:05)
[2022-01-28] MEDS ORDERED: fentaNYL (PF) 50 MCG/ML 2 ML AMP ONE (14:28)
[2022-01-28] MEDS ORDERED: fentaNYL (PF) 50 MCG/ML 2 ML AMP IV ONE (14:30)
[2022-01-28] MEDS ORDERED: MIDAZOLAM 2 MG/2 ML VIAL IV ONE (14:30)
[2022-01-28] MEDS ORDERED: LIDOCAINE 1% INJ 10MG/ML (20 ML MDV) SQ ONE (14:31)
[2022-01-28 14:34] LABS: Albumin 3.63 g/dL (3.80-4.90); Gamma Globulin 0.61 g/dL (0.70-1.50)
--- NOTE | 2022-01-28 15:17 | IR ---
EXAMINATION TYPE: IR cvc insert central tunneled DATE OF EXAM: 01/28/2022 COMPARISON: NONE HISTORY: Renal failure Fluoroscopy support supplied to the referring clinician. See dictated report from vascular surgery, 0.3 minutes fluoroscopy time, 82 intraoperative images document the procedure
--- NOTE | 2022-01-28 15:25 | P.GSCN ---
History of Present Illness History of present illness: 71-year-old white female, was consulted for placement of a dialysis catheter. Patient has acute chronic renal failure creatinine is 7.86 patient is scheduled to have a dialysis catheter placement patient also has a history of UTI on antibiotic patient has a history of hypertension hyperlipidemia metabolic acidosis Neck examination neck is supple no bruit appreciated Chest is clear first and second sound normal good entry both lungs Abdomen soft nontender Vascular femorals are palpable bilateral Plan is placement of a dialysis catheter risk and complication discussed Past Medical History Past Medical History: Cancer, Hyperlipidemia, Hypertension, Osteoarthritis (OA) Additional Past Medical History / Comment(s): Hx cervical Ca and Skin CA; restless leg, Back pain History of Any Multi-Drug Resistant Organisms: None Reported Past Surgical History: Hysterectomy, Joint Replacement, Orthopedic Surgery, Tonsillectomy Additional Past Surgical History / Comment(s): Aneesh. knee replacements; foot surgery, cystocele & rectocele repair; carpal tunnel ; cataracts; colonoscopy Past Anesthesia/Blood Transfusion Reactions: No Reported Reaction Past Psychological History: Anxiety Smoking Status: Former smoker Past Alcohol Use History: Rare Additional Past Alcohol Use History / Comment(s): smoked from teens to age 46 from 1 to 2 ppd Past Drug Use History: None Reported - Past Family History Mother Family Medical History: No Reported History Medications and Allergies Home Medications Medication Instructions Recorded Confirmed Type Acetaminophen-Codeine 300-30mg 0.5 tab PO Q6H PRN 08/21/18 01/26/22 History [Tylenol w/codeine #3] Baclofen 10 mg PO BID 08/21/18 01/26/22 History Cyclobenzaprine [Flexeril] 10 mg PO BID PRN 08/21/18 01/26/22 History clonazePAM 1 mg PO BID 08/21/18 01/26/22 History Dexamethasone 6 mg PO DAILY 01/26/22 01/26/22 History Pravastatin Sodium [Pravachol] 40 mg PO DAILY 01/26/22 01/26/22 History Triamcinolone 0.1% Cream [Kenalog 1 applic TOPICAL BID PRN 01/26/22 01/26/22 History 0.1% Cream] Vit C/E/Zn/Coppr/Lutein/Zeaxan 1 cap PO BID 01/26/22 01/26/22 History [Preservision Areds 2 Softgel] amLODIPine [Norvasc] 10 mg PO DAILY 01/26/22 01/26/22 History calcium polycarbophiL [Fibercon] 625 mg PO DAILY 01/26/22 01/26/22 History lisinopriL [Zestril] 20 mg PO DAILY 01/26/22 01/26/22 History Allergies Allergy/AdvReac Type Severity Reaction Status Date / Time cephalexin [From Keflex] Allergy Itching Verified 01/26/22 14:03 naproxen [From Naprosyn] Allergy blisters Verified 01/26/22 14:03 Surgical - Exam Vital Signs Temp Pulse Resp BP Pulse Ox 98 F 77 16 122/61 96 01/26/22 11:52 01/26/22 11:52 01/26/22 11:52 01/26/22 11:52 01/26/22 11:52 Results - Labs 01/26/22 12:21 01/28/22 07:18 Abnormal Lab Results - Last 24 Hours (Table) 01/27/22 01/28/22 Range/Units 06:43 07:18 Sodium 131 L (137-145) mmol/L Carbon Dioxide 17 L (22-30) mmol/L BUN 89 H (7-17) mg/dL Creatinine 8.69 H* (0.52-1.04) mg/dL Glucose 115 H (74-99) mg/dL Calcium 8.0 L (8.4-10.2) mg/dL Phosphorus 9.0 H* (2.5-4.5) mg/dL Albumin (PEP) 3.63 L (3.80-4.90) g/dL Gamma Globulins 0.61 L (0.70-1.50) g/dL Microbiology - Last 24 Hours (Table) 01/26/22 17:00 Urine Culture - Final Urine,Voided Diabetes panel 01/28/22 Range/Units 07:18 Sodium 131 L (137-145) mmol/L Potassium 4.7 (3.5-5.1) mmol/L Chloride 100 (98-107) mmol/L Carbon Dioxide 17 L (22-30) mmol/L BUN 89 H (7-17) mg/dL Creatinine 8.69 H* (0.52-1.04) mg/dL Glucose 115 H (74-99) mg/dL Calcium 8.0 L (8.4-10.2) mg/dL Calcium panel 01/28/22 Range/Units 07:18 Calcium 8.0 L (8.4-10.2) mg/dL Phosphorus 9.0 H* (2.5-4.5) mg/dL Pituitary panel 01/28/22 Range/Units 07:18 Sodium 131 L (137-145) mmol/L Potassium 4.7 (3.5-5.1) mmol/L Chloride 100 (98-107) mmol/L Carbon Dioxide 17 L (22-30) mmol/L BUN 89 H (7-17) mg/dL Creatinine 8.69 H* (0.52-1.04) mg/dL Glucose 115 H (74-99) mg/dL Calcium 8.0 L (8.4-10.2) mg/dL Adrenal panel 01/28/22 Range/Units 07:18 Sodium 131 L (137-145) mmol/L Potassium 4.7 (3.5-5.1) mmol/L Chloride 100 (98-107) mmol/L Carbon Dioxide 17 L (22-30) mmol/L BUN 89 H (7-17) mg/dL Creatinine 8.69 H* (0.52-1.04) mg/dL Glucose 115 H (74-99) mg/dL Calcium 8.0 L (8.4-10.2) mg/dL
--- NOTE | 2022-01-28 15:29 | P.PCN ---
Description of Procedure: Acute chronic renal failure creatinine of 7.86 Posterior same Procedure placement of a dialysis catheter ultrasound-guided right jugular approach solution time is 20 minutes Patient brought to the [facility] of the neck and chest was prepped and draped applied usual standard manner 1% lidocaine was infiltrated neck and chest area. Ultrasound-guided micropuncture introducer right jugular vein micropuncture guidewire was passed and 4-Thai dilator advanced top the guidewire. Then we passed a regular guidewire under fluoroscopy control catheter was parked at the inferior vena cava. A small incision was made at the chest wall tendon was created through the tunnel we brought 23 cm dialysis catheter. She dilator were advanced on the top of guidewire and then sheath was advanced on the top of guidewire. Through the sheath we did use dialysis catheter tip of catheter superior vena cava and atrial junction flush with heparin saline and Hep-Lock secured with 3-0 nylon patient are to the procedure well
--- NOTE | 2022-01-28 16:11 | XR ---
EXAMINATION TYPE: XR chest 1V portable DATE OF EXAM: 01/28/2022 COMPARISON: Chest x-ray 01/26/2022 HISTORY: Central venous catheter placement TECHNIQUE: Single frontal view of the chest is obtained. FINDINGS: Right jugular central venous catheter has been placed in the interval, distal tip is overl jhonny the cavoatrial junction. There is no evident pneumothorax or pleural effusion. No other interval change. IMPRESSION: No evident complication status post central venous catheter placement
[2022-01-28] MEDS ORDERED: DESMOPRESSIN ACETATE 25 MCG in SODIUM CHLORIDE 0.9% 50 ML IVPB ONE (17:45)
[2022-01-28 19:36] LABS: Hepatitis B Surface AB- Quant 3.5 mIU/mL; Hepatitis B Surface Antibody Nonreactive (Nonreactive)
[2022-01-28] MEDS: QUEtiapine 25 MG TAB PO SCH ×2 (19:50→20:39)
[2022-01-28] MEDS ORDERED: LORazepam 2 MG/ML INJ IV ONE (20:41)
[2022-01-28] MEDS: hydrALAZINE HCL 20 MG/ML 1 ML VIAL IVP SCH (20:59)
[2022-01-29 03:29] LABS: Glucose,Whole Blood 119 mg/dL (75-99)
[2022-01-29] MEDS: hydrALAZINE HCL 20 MG/ML 1 ML VIAL IVP SCH ×4 (03:43→19:45)
[2022-01-29 05:44] LABS: HCT 33.8 % (34.0-46.0); HGB 11.4 gm/dL (11.4-16.0); MCH 30.7 pg (25.0-35.0); MCHC 33.9 g/dL (31.0-37.0); MCV 90.5 fL (80.0-100.0); Mean Platelet Volume 7.1; Platelet Count 107 k/uL (150-450); RBC 3.73 m/uL (3.80-5.40); RDW 13.7 % (11.5-15.5); WBC 4.9 k/uL (3.8-10.6)
[2022-01-29 05:56] LABS: Calcium 7.7 mg/dL (8.4-10.2); Magnesium 2.1 mg/dL (1.6-2.3); Potassium 4.2 mmol/L (3.5-5.1)
[2022-01-29 06:01] LABS: Glucose,Whole Blood 108 mg/dL (75-99)
[2022-01-29] MEDS: PANTOPRAZOLE 40 MG TABLET PO SCH (06:17)
[2022-01-29] MEDS: CALCIUM ACETATE 667 MG TAB PO SCH ×3 (06:17→16:31)
[2022-01-29] MEDS: DEXTROSE 5% IN WATER 1,000 ML with SODIUM BICARB (1 MEQ/ML) 150 ML IV SCH (06:30)
[2022-01-29] MEDS: HEPARIN SODIUM,PORCINE/PF 5,000 UNIT/0.5 ML SYRINGE SQ SCH ×2 (09:08→19:45)
[2022-01-29] MEDS: VIT A,C & E-LUTEIN-MINERALS 1 EACH TAB PO SCH ×2 (09:08→19:45)
[2022-01-29] MEDS: amLODIPine 10 MG TAB PO SCH (09:09)
--- NOTE | 2022-01-29 09:17 | P.PN ---
Subjective Patient is seen in follow-up for acute kidney injury. Started on hemodialysis 01/28/2022 due to concern for uremia. Tolerated dialysis well yesterday. Mentation improved. Urine output about 600 mL in the last 24 hours. Has a Jackson catheter. Admits to nausea. present at bedside. Vital signs are stable. General: The patient appeared well nourished and normally developed. HEENT: Head exam is unremarkable. LUNGS: Breath sounds decreased. HEART: Rate and Rhythm are regular. ABDOMEN: Soft, no distention. EXTREMITITES: No edema. Objective - Vital Signs Vital signs: Vital Signs Temp 97.5 F L 01/29/22 04:00 Pulse 74 01/29/22 05:50 Resp 16 01/29/22 05:50 BP 140/66 01/29/22 05:50 Pulse Ox 95 01/29/22 07:45 Intake & Output 01/28/22 01/29/22 01/29/22 18:59 06:59 18:59 Intake Total 480 Output Total 275 300 Balance 205 -300 Intake: Oral 480 Output: Urine 275 250 Emesis 50 Other: Voiding Method Indwelling Catheter Indwelling Catheter # Voids 0 # Bowel Movements 0 - Labs CBC & Chem 7: 01/29/22 05:31 01/29/22 05:31 Labs: Abnormal Lab Results - Last 24 Hours (Table) 01/27/22 01/29/22 01/29/22 Range/Units 06:43 03:26 05:31 RBC (3.80-5.40) m/uL Hct (34.0-46.0) % Plt Count (150-450) k/uL Sodium 132 L (137-145) mmol/L Chloride 97 L (98-107) mmol/L BUN 63 H (7-17) mg/dL Creatinine 6.90 H (0.52-1.04) mg/dL Glucose 115 H (74-99) mg/dL POC Glucose (mg/dL) 119 H (75-99) mg/dL Calcium 7.7 L (8.4-10.2) mg/dL Albumin (PEP) 3.63 L (3.80-4.90) g/dL Gamma Globulins 0.61 L (0.70-1.50) g/dL 01/29/22 01/29/22 Range/Units 05:31 06:00 RBC 3.73 L (3.80-5.40) m/uL Hct 33.8 L (34.0-46.0) % Plt Count 107 L (150-450) k/uL Sodium (137-145) mmol/L Chloride (98-107) mmol/L BUN (7-17) mg/dL Creatinine (0.52-1.04) mg/dL Glucose (74-99) mg/dL POC Glucose (mg/dL) 108 H (75-99) mg/dL Calcium (8.4-10.2) mg/dL Albumin (PEP) (3.80-4.90) g/dL Gamma Globulins (0.70-1.50) g/dL Assessment and Plan Plan: Assessment: 1. Acute kidney injury secondary to ATN. UPC 0.6 g. UA suggestive of UTI. Patient also received IV contrast on 01/26/[address] angiogram of the head and neck. Creatinine peaked at 8.69 this admission. Unknown baseline renal function. Started on hemodialysis 01/28/2022. 2. UTI. Urine culture negative. Antibiotics discontinued. 3. Metabolic acidosis secondary to acute kidney injury. Slightly improved. On bicarb drip. Improved. 4. Benign hypertension. Stable. 5. Altered mental status. Improved. Brain MRI negative. EEG negative. Concern for uremia. Better. 6. Hyperphosphatemia secondary to acute kidney injury. On PhosLo. Plan: Second treatment of hemodialysis today. Stop bicarb drip. Start normal saline at 50 mL an hour. Strict I's and O's. Status post Lasix 80 mg IV given 01/27/2022. Follow-up serologies. Continue to monitor for renal recovery. May need kidney biopsy if no improvement in kidney function. Discussed with present at bedside. Echocardiogram showed preserved ejection fraction. Zofran as needed for nausea/vomiting.
[2022-01-29] MEDS: SODIUM CHLORIDE 0.9% 1,000 ML IV SCH (09:30)
--- NOTE | 2022-01-29 11:45 | P.PN ---
Subjective Progress Note Date: 01/29/22 HISTORY OF PRESENT ILLNESS This is a 71-year-old female patient of Dr. Chacon with past medical history of cervical cancer, hypertension, hyperlipidemia, generalized osteoarthritis. Family noticed the patient was confused yesterday. In hindsight noticed that approximately couple days she's been declining. She just saw Dr. Chacon on Monday for back pain with history of spinal fusion and started on dexamethasone 6 mg daily. Patient has been on Mobic in the past but that was stopped a couple months ago when her renal function decreased. Patient normally drinks a lot of water and she works out in the gym regularly on a recumbent bike. reports no urine output yesterday despite IV fluids given in the emergency center. Patient came into [facility] emergency center for evaluation and found to be afebrile, heart rate in the 60s, blood pressure 129/69, pulse ox 91% on room air. EKG was a sinus rhythm with no acute ST changes. CBC was unremarkable. CO2 was 16 BUN 86 and creatinine 6.52. Blood sugar 113. TSH 0.269 and free T4 was normal at 1.17. Repeat kidney function today is BUN 85 creatinine 7.86 with a bicarb of 15. Triglycerides 249, cholesterol 140, HDL 35, LDL 54. Urinalysis showed a small amount of leukoesterase, WBC 16. Urine drug screen positive for opiates and tricyclic antidepressants. Urine culture is in progress. Chest x-ray shows no acute cardiopulmonary process. CT angiogram reveals no acute arterial abnormality, significant stenosis or occlusion of the major neck or intracranial arteries. CAT scan of the brain revealed no acute intracranial hemorrhage or gross acute cortical infarct however a small acute or hyper acute infarct cannot be excluded. MRI of the brain reveals chronic small vessel ischemic changes, age-related atrophy. Renal ultrasound reveals medical renal disease. Patient has been seen by neurology and started on Plavix because MRI was negative, Plavix will be discontinued and mental status changes most likely secondary to toxic metabolic encephalopathy. Patient has also been seen by neph rology for acute kidney injury secondary to ATN, sodium bicarb drip was started, Jackson catheter for accurate I&O's, one time dose of IV Lasix 80 mg. If no improvement in renal function and urine output and 4 hours, initiate renal replacement therapy. Serology and hepatitis testing pending. 01/28Patient examined bedside. She has worsened in her mental status today. Has been at bedside has noted hallucinations of and a paranoid behavior today. Patient is more confused than yesterday she is and she is and unable to relate to her condition at this moment. She is oriented 3 but unable to comprehend his situation. Patient urine output is morning is only 150 mL. She had 300 mL output overnight. Right is afebrile pulse 70 respiratory rate 18 blood pressure 189/78 oxygen 99% on room air. Labs reviewed sodium 131 potassium 4.7 bicarb 17 BUN 89 8 creatinine 8.69 phosphorus 8.0. Urine culture is negative for infection JAMAL negative complement levels and negative hepatitis panel is negati ve. A vascular surgery consult will be placed for dialysis catheter placement. Hydralazine initiated at 50 3 times a day for blood pressure control. Seroquel initiated 25 at [facility] [place] at bedtime 01/29: Patient was examined at the bedside. Over the night she had increased paranoia refused any oral medications. Patient was confused and combative. She was given 1 dose of Ativan. She became difficult to arouse and answer questions appropriately. At this time patient is alert continues to have paranoia and confusion. She is able to answer some questions appropriately. She does recognize the voice of the provider. Family is at bedside. Dialysis at this time. We will avoid any further sedation medications. And stop oral medications due to paranoia. Sodium 132, BUN 63, creatinine 6.9, REVIEW OF SYSTEMS Constitutional: No fever, no chills, no night sweats. No weight change. Reports weakness, reports fatigue reports lethargy. No daytime sleepiness. EENT: No headache. No blurred vision or double vision, no loss of vision. No loss of Hearing, no ringing in the ears, no dizziness. No nasal drainage or congestion. No epistaxis. No sore throat. Lungs: No shortness of breath, cough, no sputum production. No wheezing. Cardiovascular: No chest pain, no lower extremity edema. No palpitations. No paroxysmal nocturnal dyspnea. No orthopnea. No lightheadedness or dizziness. No syncopal episodes. Abdominal: No abdominal pain. No nausea, vomiting. No diarrhea. No constipation. No bloody or tarry stools. No loss of appetite. Genitourinary: No dysuria, increased frequency, urgency. No urinary retention. Decreased urine output. Musculoskeletal: No myalgias. No muscle weakness, no gait dysfunction, no frequent falls. No back pain. No neck pain. Integumentary: No wounds, no lesions. No rash or pruritus. No unusual bruising. No change in hair or nails. Neurologic: No aphasia. No facial droop. Reported change in mentation. No head injury. No headache. No paralysis. No paresthesia. Psychiatric: No depression. Increase anxiety increased hallucinations and increased delusions increased paranoia. No mood swings. Endocrine: No abnormal blood sugars. No weight change. No excessive sweating or thirst. No cold intolerance. PHYSICAL EXAMINATION Gen: This is a 71-year-old female. Patient is resting in bed and Family members are at bedside. HEENT: Head is atraumatic, normocephalic. Pupils equal, round. Sclerae is anicteric. NECK: Supple. No JVD. No lymphadenopathy. No thyromegaly. LUNGS: Clear to auscultation. No wheezes or rhonchi. No intercostal retractions. HEART: Regular rate and rhythm. 3/6 systolic murmur. ABDOMEN: Soft. Bowel sounds are present. No masses. No tenderness. Jackson in place with scant amount of urine output. EXTREMITIES: No pedal edema. No calf tenderness. NEUROLOGICAL: Patient is awake, alert and oriented x1. Continues with paranoia, denies hallucinations, Cranial nerves 2 through 12 are grossly intact. ASSESSMENT AND PLAN 1. Metabolic encephalopathy secondary to uremic encephalopathy. Discontinue sedation medications at this time, will hold oral medications. Treat underlying cause. 2. Acute kidney injury with ATN. Consult with nephrology appreciated. Patient has been started on bicarb drip at 75 mL per hour, status post 1 dose of IV Lasix 80 mg today, maintain Jackson catheter for I&O's. Patient is unable to maintain urine output. Vascular surgery consulted for dialysis 3. Metabolic acidosis secondary to acute kidney injury. Bicarb drip 4. UTI ruled out Rocephin discontinued, 5. Hypertension. Hydralazine 25 mg IV push every 6 hours. Oral medications on hold related to paranoia. 6. Hyperlipidemia. Hold pravastatin 40 mg daily. 7. Cervical cancer history. 8. Generalized anxiety disorder. Discontinue sedation medications.. 9. Chronic back pain with history of spinal fusion. Hold related to paranoia baclofen 10 mg twice daily, Tylenol 3 every 6 hours as needed. 10. GI prophylaxis. Protonix. 11. DVT prophylaxis. Heparin subcu. Patient will be admitted to the hospital for a minimum of 2 night stay. DISCHARGE PLAN TBD. Consult with PT and OT Impression and plan of care have been directed as dictated by the signing physician. Ilene Orta nurse practitioner acting as scribe for signing physician. Objective - Vital Signs Vital signs: Vital Signs Temp 97.5 F L 01/29/22 04:00 Pulse 72 01/29/22 11:20 Resp 16 01/29/22 11:20 BP 162/70 01/29/22 11:20 Pulse Ox 95 01/29/22 08:00 Intake & Output 01/28/22 01/29/22 01/29/22 18:59 06:59 18:59 Intake Total 480 Output Total 275 300 Balance 205 -300 Intake: Oral 480 Output: Urine 275 250 Emesis 50 Other: Voiding Method Indwelling Catheter Indwelling Catheter Indwelling Catheter # Voids 0 0 # Bowel Movements 0 - Labs CBC & Chem 7: 01/29/22 05:31 01/29/22 05:31 Labs: Abnormal Lab Results - Last 24 Hours (Table) 01/27/22 01/29/22 01/29/22 Range/Units 06:43 03:26 05:31 RBC (3.80-5.40) m/uL Hct (34.0-46.0) % Plt Count (150-450) k/uL Sodium 132 L (137-145) mmol/L Chloride 97 L (98-107) mmol/L BUN 63 H (7-17) mg/dL Creatinine 6.90 H (0.52-1.04) mg/dL Glucose 115 H (74-99) mg/dL POC Glucose (mg/dL) 119 H (75-99) mg/dL Calcium 7.7 L (8.4-10.2) mg/dL Albumin (PEP) 3.63 L (3.80-4.90) g/dL Gamma Globulins 0.61 L (0.70-1.50) g/dL 01/29/22 01/29/22 Range/Units 05:31 06:00 RBC 3.73 L (3.80-5.40) m/uL Hct 33.8 L (34.0-46.0) % Plt Count 107 L (150-450) k/uL Sodium (137-145) mmol/L Chloride (98-107) mmol/L BUN (7-17) mg/dL Creatinine (0.52-1.04) mg/dL Glucose (74-99) mg/dL POC Glucose (mg/dL) 108 H (75-99) mg/dL Calcium (8.4-10.2) mg/dL Albumin (PEP) (3.80-4.90) g/dL Gamma Globulins (0.70-1.50) g/dL
[2022-01-29] MEDS ORDERED: ONDANSETRON 4 MG/2 ML VIAL IVP PRN (12:38)
[2022-01-29] MEDS ORDERED: HEPARIN SODIUM 1,000 UN/ML (10ML VL) ONE (13:00)
[2022-01-29] MEDS ORDERED: DESMOPRESSIN ACETATE 4 MCG/ML VIAL (MDV) IV ONE (17:24)
[2022-01-29] MEDS: QUEtiapine 25 MG TAB PO SCH (19:46)
[2022-01-30] MEDS: hydrALAZINE HCL 20 MG/ML 1 ML VIAL IVP SCH ×4 (03:01→19:32)
[2022-01-30] MEDS: SODIUM CHLORIDE 0.9% 1,000 ML IV SCH (03:01)
[2022-01-30] MEDS: CALCIUM ACETATE 667 MG TAB PO SCH ×3 (06:04→16:58)
[2022-01-30 08:32] LABS: Calcium 7.8 mg/dL (8.4-10.2); Magnesium 2.1 mg/dL (1.6-2.3); Potassium 4.2 mmol/L (3.5-5.1)
[2022-01-30] MEDS: VIT A,C & E-LUTEIN-MINERALS 1 EACH TAB PO SCH ×2 (08:41→19:32)
[2022-01-30] MEDS: amLODIPine 10 MG TAB PO SCH (08:41)
[2022-01-30] MEDS: HEPARIN SODIUM,PORCINE/PF 5,000 UNIT/0.5 ML SYRINGE SQ SCH ×2 (08:41→19:32)
[2022-01-30] MEDS: FUROSEMIDE 10 MG/ML 10 ML VIAL IV SCH (08:53)
--- NOTE | 2022-01-30 09:09 | P.PN ---
Subjective Patient is seen in follow-up for acute kidney injury. Started on hemodialysis 01/28/2022 due to concern for uremia. Tolerated dialysis well yesterday. Mentation improved. Urine output about 450 mL in the last 24 hours. Has a Jackson catheter. Nausea improved. present at bedside. Vital signs are stable. General: The patient appeared well nourished and normally developed. HEENT: Head exam is unremarkable. LUNGS: Breath sounds decreased. HEART: Rate and Rhythm are regular. ABDOMEN: Soft, no distention. EXTREMITITES: Trace edema. Objective - Vital Signs Vital signs: Vital Signs Temp 98.4 F 01/30/22 08:00 Pulse 83 01/30/22 08:00 Resp 16 01/30/22 08:00 BP 142/71 01/30/22 08:00 Pulse Ox 94 L 01/30/22 08:01 Intake & Output 01/29/22 01/30/22 01/30/22 18:59 06:59 18:59 Intake Total 300 240 Output Total 1000 50 Balance -700 190 Intake: Oral 240 Hemodialysis 300 Output: Urine 200 50 Hemodialysis 800 Other: Voiding Method Indwelling Catheter Indwelling Catheter # Voids 0 - Labs CBC & Chem 7: 01/29/22 05:31 01/30/22 07:23 Labs: Abnormal Lab Results - Last 24 Hours (Table) 01/30/22 Range/Units 07:23 Sodium 134 L (137-145) mmol/L Carbon Dioxide 20 L (22-30) mmol/L BUN 36 H (7-17) mg/dL Creatinine 5.24 H (0.52-1.04) mg/dL Calcium 7.8 L (8.4-10.2) mg/dL Assessment and Plan Plan: Assessment: 1. Acute kidney injury secondary to ATN. UPC 0.6 g. UA suggestive of UTI. Patient also received IV contrast on 01/26/[address] angiogram of the head and neck. Creatinine peaked at 8.69 this admission. Unknown baseline renal function. Started on hemodialysis 01/28/2022. 2. UTI. Urine culture negative. Antibiotics discontinued. 3. Metabolic acidosis secondary to acute kidney injury. 4. Benign hypertension. Stable. 5. Altered mental status. Improved. Brain MRI negative. EEG negative. Concern for uremia. Better. 6. Hyperphosphatemia secondary to acute kidney injury. On PhosLo. Plan: Plan for hemodialysis tomorrow. Maintain IV Lasix. Hep-Lock IV fluids. Add oral bicarbonate. Strict I's and O's. Follow-up serologies - negative so far. Continue to monitor for renal recovery. May need kidney biopsy if no improvement in kidney function. Discussed with present at bedside. Echocardiogram showed preserved ejection fraction.
--- NOTE | 2022-01-30 11:49 | P.PN ---
Subjective Progress Note Date: 01/30/22 HISTORY OF PRESENT ILLNESS This is a 71-year-old female patient of Dr. Chacon with past medical history of cervical cancer, hypertension, hyperlipidemia, generalized osteoarthritis. Family noticed the patient was confused yesterday. In hindsight noticed that approximately couple days she's been declining. She just saw Dr. Chacon on Monday for back pain with history of spinal fusion and started on dexamethasone 6 mg daily. Patient has been on Mobic in the past but that was stopped a couple months ago when her renal function decreased. Patient normally drinks a lot of water and she works out in the gym regularly on a recumbent bike. reports no urine output yesterday despite IV fluids given in the emergency center. Patient came into [facility] emergency center for evaluation and found to be afebrile, heart rate in the 60s, blood pressure 129/69, pulse ox 91% on room air. EKG was a sinus rhythm with no acute ST changes. CBC was unremarkable. CO2 was 16 BUN 86 and creatinine 6.52. Blood sugar 113. TSH 0.269 and free T4 was normal at 1.17. Repeat kidney function today is BUN 85 creatinine 7.86 with a bicarb of 15. Triglycerides 249, cholesterol 140, HDL 35, LDL 54. Urinalysis showed a small amount of leukoesterase, WBC 16. Urine drug screen positive for opiates and tricyclic antidepressants. Urine culture is in progress. Chest x-ray shows no acute cardiopulmonary process. CT angiogram reveals no acute arterial abnormality, significant stenosis or occlusion of the major neck or intracranial arteries. CAT scan of the brain revealed no acute intracranial hemorrhage or gross acute cortical infarct however a small acute or hyper acute infarct cannot be excluded. MRI of the brain reveals chronic small vessel ischemic changes, age-related atrophy. Renal ultrasound reveals medical renal disease. Patient has been seen by neurology and started on Plavix because MRI was negative, Plavix will be discontinued and mental status changes most likely secondary to toxic metabolic encephalopathy. Patient has also been seen by neph rology for acute kidney injury secondary to ATN, sodium bicarb drip was started, Jackson catheter for accurate I&O's, one time dose of IV Lasix 80 mg. If no improvement in renal function and urine output and 4 hours, initiate renal replacement therapy. Serology and hepatitis testing pending. 01/28Patient examined bedside. She has worsened in her mental status today. Has been at bedside has noted hallucinations of and a paranoid behavior today. Patient is more confused than yesterday she is and she is and unable to relate to her condition at this moment. She is oriented 3 but unable to comprehend his situation. Patient urine output is morning is only 150 mL. She had 300 mL output overnight. Right is afebrile pulse 70 respiratory rate 18 blood pressure 189/78 oxygen 99% on room air. Labs reviewed sodium 131 potassium 4.7 bicarb 17 BUN 89 8 creatinine 8.69 phosphorus 8.0. Urine culture is negative for infection JAMAL negative complement levels and negative hepatitis panel is negati ve. A vascular surgery consult will be placed for dialysis catheter placement. Hydralazine initiated at 50 3 times a day for blood pressure control. Seroquel initiated 25 at [facility] [place] at bedtime 01/29: Patient was examined at the bedside. Over the night she had increased paranoia refused any oral medications. Patient was confused and combative. She was given 1 dose of Ativan. She became difficult to arouse and answer questions appropriately. At this time patient is alert continues to have paranoia and confusion. She is able to answer some questions appropriately. She does recognize the voice of the provider. Family is at bedside. Dialysis at this time. We will avoid any further sedation medications. And stop oral medications due to paranoia. Sodium 132, BUN 63, creatinine 6.9, 01/30: Patient is examined at the bedside. She is sitting up in bed. She is alert and orientated 3. Patient states that she no longer has any paranoia she is not having any visual or auditory hallucinations. She does feel overwhelmed by the smell from the hospital. Is significantly improved compared to yesterday. Patient will have a break from hemodialysis today. Her BUN is 36, creatinine 5.24. Possible renal biopsy may occur this week. IV has been discontinued due to swelling to bilateral upper extremities. Patient has had a total of 500 ML's of urine output. Patient states that she slept better last night. She did walk up and down the [place] without any difficulties. Patient remains afebrile, heart rate 83, respirations 16, blood pressure 142/71, pulse ox 93 on room air REVIEW OF SYSTEMS Constitutional: No fever, no chills, no night sweats. No weight change. No weakness, reports fatigue no lethargy. No daytime sleepiness. EENT: No headache. No blurred vision or double vision, no loss of vision. No loss of Hearing, no ringing in the ears, no dizziness. No nasal drainage or congestion. No epistaxis. No sore throat. Lungs: No shortness of breath, cough, no sputum production. No wheezing. Cardiovascular: No chest pain, no lower extremity edema. No palpitations. No paroxysmal nocturnal dyspnea. No orthopnea. No lightheadedness or dizziness. No syncopal episodes. Abdominal: No abdominal pain. No nausea, vomiting. No diarrhea. No constipation. No bloody or tarry stools. No loss of appetite. Genitourinary: No dysuria, increased frequency, urgency. No urinary retention. Decreased urine output. Musculoskeletal: No myalgias. No muscle weakness, no gait dysfunction, no frequent falls. No back pain. No neck pain. Integumentary: No wounds, no lesions. No rash or pruritus. No unusual bruising. No change in hair or nails. Neurologic: No aphasia. No facial droop. Reported change in mentation. No head injury. No headache. No paralysis. No paresthesia. Psychiatric: No depression. Increase anxiety increased hallucinations and increased delusions increased paranoia. No mood swings. Endocrine: No abnormal blood sugars. No weight change. No excessive sweating or thirst. No cold intolerance. PHYSICAL EXAMINATION Gen: This is a 71-year-old female. Patient is resting in bed and Family members are at bedside. HEENT: Head is atraumatic, normocephalic. Pupils equal, round. Sclerae is anicteric. NECK: Supple. No JVD. No lymphadenopathy. No thyromegaly. LUNGS: Clear to auscultation. No wheezes or rhonchi. No intercostal retractions. HEART: Regular rate and rhythm. 3/6 systolic murmur. ABDOMEN: Soft. Bowel sounds are present. No masses. No tenderness. Jackson in place with scant amount of urine output. EXTREMITIES: No pedal edema. No calf tenderness. NEUROLOGICAL: Patient is awake, alert and oriented x3. Answered questions appropriately, denies paranoia auditory or visual hallucinations. Cranial nerves 2 through 12 are grossly intact. ASSESSMENT AND PLAN 1. Metabolic encephalopathy secondary to uremic encephalopathy. Seroquel 25 mg by mouth at bedtime, oral meds will be restarted. Treat underlying cause. 2. Acute kidney injury with ATN. Consult with nephrology appreciated. Bicarb drip has been discontinued. status post 1 dose of IV Lasix 80 mg today, maintain Jackson catheter for I&O's. Patient is unable to maintain urine output. Vascular surgery consulted for dialysis 3. Metabolic acidosis secondary to acute kidney injury. Bicarb drip continued. Sodium bicarbonate 650 mg by mouth 3 times a day 4. UTI ruled out Rocephin discontinued, 5. Hypertension. Norvasc 10 mg by mouth daily 6. Hyperlipidemia. Hold pravastatin 40 mg daily. 7. Cervical cancer history. 8. Generalized anxiety disorder. Discontinue sedation medications.. 9. Chronic back pain with history of spinal fusion. Hold related to paranoia baclofen 10 mg twice daily, Tylenol 3 every 6 hours as needed. 10. GI prophylaxis. Protonix. 11. DVT prophylaxis. Heparin subcu. Patient will be admitted to the hospital for a minimum of 2 night stay. DISCHARGE PLAN TBD. Consult with PT and OT Impression and plan of care have been directed as dictated by the signing physician. Ilene Orta nurse practitioner acting as scribe for signing physician. Objective - Vital Signs Vital signs: Vital Signs Temp 98.4 F 01/30/22 08:00 Pulse 83 01/30/22 08:00 Resp 16 01/30/22 08:00 BP 142/71 01/30/22 08:00 Pulse Ox 94 L 01/30/22 08:01 Intake & Output 01/29/22 01/30/22 01/30/22 18:59 06:59 18:59 Intake Total 300 240 Output Total 1000 50 Balance -700 190 Intake: Oral 240 Hemodialysis 300 Output: Urine 200 50 Hemodialysis 800 Other: Voiding Method Indwelling Catheter Indwelling Catheter Indwelling Catheter # Voids 0 - Labs CBC & Chem 7: 01/29/22 05:31 01/30/22 07:23 Labs: Abnormal Lab Results - Last 24 Hours (Table) 01/30/22 Range/Units 07:23 Sodium 134 L (137-145) mmol/L Carbon Dioxide 20 L (22-30) mmol/L BUN 36 H (7-17) mg/dL Creatinine 5.24 H (0.52-1.04) mg/dL Calcium 7.8 L (8.4-10.2) mg/dL
[2022-01-30] MEDS: SODIUM BICARBONATE TAB 650 MG TAB PO SCH ×3 (12:15→19:32)
[2022-01-30] MEDS: QUEtiapine 25 MG TAB PO SCH (23:24)
[2022-01-31] MEDS: hydrALAZINE HCL 20 MG/ML 1 ML VIAL IVP SCH ×4 (03:26→19:44)
[2022-01-31 06:19] LABS: Glucose,Whole Blood 127 mg/dL (75-99)
[2022-01-31 06:59] LABS: HCT 33.6 % (34.0-46.0); HGB 11.1 gm/dL (11.4-16.0); MCH 30.7 pg (25.0-35.0); MCHC 32.9 g/dL (31.0-37.0); MCV 93.3 fL (80.0-100.0); RDW 13.5 % (11.5-15.5)
[2022-01-31 07:01] LABS: INR 1.1 (<1.2); Platelet Count 185 k/uL (150-450); Prothrombin Time 11.6 sec (9.0-12.0)
[2022-01-31 07:30] LABS: Calcium 8.7 mg/dL (8.4-10.2); Magnesium 2.2 mg/dL (1.6-2.3); Potassium 4.2 mmol/L (3.5-5.1)
--- NOTE | 2022-01-31 07:36 | P.EN ---
A team note RN found patient bleeding from dialysis catheter site, after what is thought that, patient has removed the catheter herself, there was significant amount of bleeding from the site of catheter which has stopped at time of evaluation. patient last seen was 30 minutes before that and she was doing well. upon evaluation patient is unresponsive and does not follow commands. however, she is awake and avoids direct light by moving her eyes. she initially was not withdrawing to pain (again she seems to be awake but not interacting with examiner) when later i tried pain stimulation on her feet, she was withdrawing to pain. vital signs are stable pupils equal round and reactive to light clear lungs bilaterally with good breath sounds regular s1 s2 site of right dialysis catheter looks clear , no swelling no bruising , bleeding has stopped, but there was significant amount of bleeding hemoglobin checked, and has only dropped from 11.4 to 11.1, will recheck in 6 hours again Vascular surgery notified, plan altered mental status , unknown underlying cause, seems like patient is purposefully not interacting , per RN she has done that earlier during this ad mission , and workup then did not reveal why, then she improved on her own. recheck CT of the brain without contrast. bed side sitter for safety psych evaluation Total amount of critical care time spent was 40 minutes not counting procedures performed.
--- NOTE | 2022-01-31 08:30 | CT ---
EXAMINATION TYPE: CT brain wo con DATE OF EXAM: 01/31/2022 COMPARISON: CT dated 01/26/2022 HISTORY: AMS CT DLP: 1168.4 mGycm Automated exposure control for dose reduction was used. TECHNIQUE: CT scan of the brain is performed without IV contrast administration. FINDINGS: Bilateral cerebral white matter hypodensities, likely representing chronic ischemic changes. No acute intracranial hemorrhage or gross acute cortical infarct. No midline shift or herniation. Unremarkabl e basal cisterns, sella and CP angles. No gross space-occupying lesion, vasogenic edema or mass effect. No gross orbital abnormality. Clear visualized paranasal sinuses and mastoid air cells. Osteopenia. IMPRESSION: No acute intracranial abnormality or gross space-occupying lesion by this nonenhanced CT scan.
[2022-01-31] MEDS: amLODIPine 10 MG TAB PO SCH (08:50)
[2022-01-31] MEDS: CALCIUM ACETATE 667 MG TAB PO SCH ×3 (08:50→16:23)
[2022-01-31] MEDS: SODIUM BICARBONATE TAB 650 MG TAB PO SCH ×3 (08:50→19:36)
[2022-01-31] MEDS: VIT A,C & E-LUTEIN-MINERALS 1 EACH TAB PO SCH ×2 (08:50→19:36)
[2022-01-31] MEDS: FUROSEMIDE 10 MG/ML 10 ML VIAL IV SCH (08:51)
[2022-01-31] MEDS: HEPARIN SODIUM,PORCINE/PF 5,000 UNIT/0.5 ML SYRINGE SQ SCH ×2 (08:52→19:44)
[2022-01-31 12:25] LABS: HCT 31.7 % (34.0-46.0); HGB 10.9 gm/dL (11.4-16.0); MCH 31.4 pg (25.0-35.0); MCHC 34.2 g/dL (31.0-37.0); MCV 91.8 fL (80.0-100.0); Mean Platelet Volume 7.5; Platelet Count 159 k/uL (150-450); RBC 3.46 m/uL (3.80-5.40); RDW 13.2 % (11.5-15.5); WBC 9.8 k/uL (3.8-10.6)
--- NOTE | 2022-01-31 12:46 | P.PN ---
Subjective Patient is seen for follow-up for acute kidney injury patient was admitted to the hospital with mental status changes and acute kidney injury with serum creatinine peaking at 8.69 mg/dL. Patient was started on dialysis on 01/28/2022. Mentation had improved to some degree yesterday but patient pulled out her dialysis catheter and her IV line this morning. Patient was not dialyzed yesterday. She has not been communicating at all today. Repeat brain CT was unremarkable. Urine output 1050 for 24 hours Serum creatinine was about 1.2 mg/dL 12 weeks ago as outpatient. All serologies are negative. Possibility of use of NSAIDs due to 3 doses prior to admission. Objective - Vital Signs Vital signs: Vital Signs Temp 98.4 F 01/31/22 11:34 Pulse 97 01/31/22 11:34 Resp 18 01/31/22 08:00 BP 165/87 01/31/22 11:34 Pulse Ox 97 01/31/22 11:34 Intake & Output 01/30/22 01/31/22 01/31/22 18:59 06:59 18:59 Output Total 350 375 Balance -350 -375 Output: Urine 350 375 Other: Voiding Method Indwelling Catheter Indwelling Catheter Indwelling Catheter - Exam Patient is not communicating. Her eyes are closed, arms appear to be flaccid and is not responding to any verbal stimuli. 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 Her eyes are closed. - Labs CBC & Chem 7: 01/31/22 11:52 01/31/22 06:35 Labs: Abnormal Lab Results - Last 24 Hours (Table) 01/31/22 01/31/22 01/31/22 Range/Units 06:16 06:35 06:36 WBC 11.0 H (3.8-10.6) k/uL RBC 3.60 L (3.80-5.40) m/uL Hgb 11.1 L (11.4-16.0) gm/dL Hct 33.6 L (34.0-46.0) % Sodium 133 L (137-145) mmol/L Carbon Dioxide 17 L (22-30) mmol/L BUN 53 H (7-17) mg/dL Creatinine 6.64 H (0.52-1.04) mg/dL Glucose 127 H (74-99) mg/dL POC Glucose (mg/dL) 127 H (75-99) mg/dL 01/31/22 Range/Units 11:52 WBC (3.8-10.6) k/uL RBC 3.46 L (3.80-5.40) m/uL Hgb 10.9 L (11.4-16.0) gm/dL Hct 31.7 L (34.0-46.0) % Sodium (137-145) mmol/L Carbon Dioxide (22-30) mmol/L BUN (7-17) mg/dL Creatinine (0.52-1.04) mg/dL Glucose (74-99) mg/dL POC Glucose (mg/dL) (75-99) mg/dL Assessment and Plan Assessment: 1. Acute kidney injury most likely ATN need to consider acute interstitial nephritis as well given the pyuria and history of use of NSAIDs. Patient will need to continue with renal replacement therapy as there was some improvement in mentation after initial dialysis. Patient will need kidney biopsy. Previous creatinine around 1-1.2 mg/dL about 12 weeks ago. 2. Mental status changes with concern for uremia. Brain CT unremarkable for acute findings. 3. Pyuria with urine cultures negative consider AIN 4. Hyperphosphatemia associated with acute kidney injury maintained on PhosLo 5. Metabolic acidosis associated with acute kidney injury Plan: Repeat hemodialysis today. We will need to reinsert dialysis catheter Add empiric steroids for possible AIN Kidney biopsy during this hospitalization
[2022-01-31 14:02] LABS: C-ANCA <1:20 Titer (<1:20)
--- NOTE | 2022-01-31 14:08 | P.CN ---
Psychiatric Consult - . Consult date: 01/31/22 Consult:: 01/31/22 14:07 IDENTIFYING DATA: This patient is a , retired, 71-year-old female with significant history of hypertension, hyperlipidemia, cervical carcinoma and skin carcinoma, who presented to the hospital with altered mental status. HISTORY OF PRESENT ILLNESS: The patient presented to the hospital on 01/26/2022, brought in by her after the patient has been expressing difficulty articulating her sentences and experienced intermittent confusion for the past few days prior to her presentation in the hospital. Psychiatry has been consulted for evaluation of altered mental status. Of note, on 01/31/2022, the patient was found by her RN to the bleeding from her dialysis catheter site. The patient appeared to have removed the catheter herself. The patient was also noted to be unresponsive and does not follow commands. Upon evaluation the patient, she is currently on arousable to external stimuli. Present at the patient's bedside is her Randy Witt. Patients with the patient began to experiencing a change in her mental status since last Monday. He reports that initially started with some word finding difficulty and problems articulating and then later progress to prolonged episodes of confusion. In regards to psychotic symptoms, the patient's reports that the patient has not had any significant psychiatric pathology except for anxiety prior to this presentation the hospital. He denies that the patient has never been diagnosed with any schizophrenia or bipolar disorder. He reports no significant history of the patient experiencing any manic episodes. He reports that the patient has not acted in any bizarre fashion or responding to internal stimuli prior to this past Monday. The patient's reports that the patient has not had any falls recently or express any significant head trauma. He does report that she was in surgery for knee replacement this past July however since then she has not had any change in mental status until now. Patient's also reports that the patient has not intentionally or unintentionally overtaken her medications. PAST PSYCHIATRIC HISTORY: Patient has a history of anxiety. Patient to medic ation regimen includes Klonopin 1 mg by mouth twice a day. There is no reported past psychiatric hospitalizations. The patient is currently not open with any outpatient psychiatric therapy or treatment. No reported past suicide attempts. PAST MEDICAL HISTORY: Past Medical History: Cancer, Hyperlipidemia, Hypertension, Osteoarthritis (OA) Additional Past Medical History / Comment(s): Hx cervical Ca and Skin CA; restless leg, Back pain History of Any Multi-Drug Resistant Organisms: None Reported Past Surgical History: Hysterectomy, Joint Replacement, Orthopedic Surgery, Tonsillectomy Additional Past Surgical History / Comment(s): Aneesh. knee replacements; foot surgery, cystocele & rectocele repair; carpal tunnel ; cataracts; colonoscopy Past Anesthesia/Blood Transfusion Reactions: No Reported Reaction Past Psychological History: Anxiety Smoking Status: Former smoker Past Alcohol Use History: Rare Additional Past Alcohol Use History / Comment(s): smoked from teens to age 46 from 1 to 2 ppd Past Drug Use History: None Reported ALLERGIES: Cephalexin, naproxen CHEMICAL DEPENDENCY HISTORY: As per , the patient does not smoke, use marijuana, or use illicit drugs. He reports that she drinks approximately 2 glasses of wine per year. FAMILY PSYCHIATRIC/SUBSTANCE USE HISTORY: Unable to assess. SOCIAL HISTORY: Patient has been to her for 10 years but they have been together for 20. He is present at bedside. He reports that the patient actively goes to the gym. MENTAL STATUS EXAM: General Appearance: Patient appears to be stated age and is currently somnolent and not responsive to external stimuli at this time. Behavior: Patient is calmly lying in bed without any agitated behavior. She does not appear in any acute distress. Speech: Cannot be assessed at this time. Mood/Affect:Cannot be assessed at this time. Suicidality/Homicidality: Cannot be assessed at this time. Perceptions: Cannot be assessed at this time. Though content/process: Cannot be assessed at this time. Memory and concentration: Cannot be assessed at this time. Judgment and insight: Cannot be assessed at this time. Vital Signs Temp 98.4 F 01/31/22 11:34 Pulse 97 01/31/22 11:34 Resp 18 01/31/22 08:00 BP 165/87 01/31/22 11:34 Pulse Ox 97 01/31/22 11:34 Intake & Output 01/30/22 01/31/22 01/31/22 18:59 06:59 18:59 Output Total 350 375 Balance -350 -375 Output: Urine 350 375 Other: Voiding Method Indwelling Catheter Indwelling Catheter Indwelling Catheter Laboratory Results - Last 24 Hours 01/27/22 01/28/22 01/31/22 06:43 07:18 06:16 WBC RBC Hgb Hct MCV MCH MCHC RDW Plt Count MPV PT INR Sodium Potassium Chloride Carbon Dioxide Anion Gap BUN Creatinine Est GFR (CKD-EPI)AfAm Est GFR (CKD-EPI)NonAf Glucose POC Glucose (mg/dL) 127 H POC Glu Housekeeping Supervisor ID Katherine Benoit Calcium Magnesium c-ANCA <1:20 p-ANCA <1:20 Tot Complement (CH50) 85 01/31/22 01/31/22 01/31/22 06:35 06:36 06:36 WBC 11.0 H RBC 3.60 L Hgb 11.1 L Hct 33.6 L MCV 93.3 MCH 30.7 MCHC 32.9 RDW 13.5 Plt Count 185 D MPV 7.0 PT 11.6 INR 1.1 Sodium 133 L Potassium 4.2 Chloride 101 Carbon Dioxide 17 L Anion Gap 15 BUN 53 H Creatinine 6.64 H Est GFR (CKD-EPI)AfAm 7 Est GFR (CKD-EPI)NonAf 6 Glucose 127 H POC Glucose (mg/dL) POC Glu Housekeeping Supervisor ID Calcium 8.7 Magnesium 2.2 c-ANCA p-ANCA Tot Complement (CH50) 01/31/22 11:52 WBC 9.8 RBC 3.46 L Hgb 10.9 L Hct 31.7 L MCV 91.8 MCH 31.4 MCHC 34.2 RDW 13.2 Plt Count 159 MPV 7.5 PT INR Sodium Potassium Chloride Carbon Dioxide Anion Gap BUN Creatinine Est GFR (CKD-EPI)AfAm Est GFR (CKD-EPI)NonAf Glucose POC Glucose (mg/dL) POC Glu Housekeeping Supervisor ID Calcium Magnesium c-ANCA p-ANCA Tot Complement (CH50) IMPRESSIONS: Altered mental status - likely multifactorial in etiology including electrolyte abnormalities, acute kidney injury with concern for uremia, hyperphosphatemia, metabolic acidosis, urinary tract infection, polypharmacy with Flexeril, Klonopin, Tylenol 3, dexamethasone PLAN: -At this time patient DOES NOT meet criteria for inpatient psychiatric ad mission. -Delirium precautions recommended with patient including - avoiding use of narcotics and LOCAL COORDINATOR sedatives, limit anticholinergic medications when possible, frequent re-orientation, minimize use of restraints, open window shades during the day and close them at night -Would recommend the following medication changes/additions: We will order Haldol as needed for agitation. Otherwise we will not start any other medications at this time as the patient's change in mental status is likely due to the above-mentioned factors and not due to an underlying mental illness such as bipolar disorder or schizophrenia. -B12, folate, and ammonia ordered. Can continue Seroquel at bedtime. -Continue 1:1 sitter for safety -Psychiatry will sign off at this point, please contact with any questions. 01/31/22 14:07
--- NOTE | 2022-01-31 14:24 | P.PN ---
Subjective Progress Note Date: 01/31/22 HISTORY OF PRESENT ILLNESS This is a 71-year-old female patient of Dr. Chacon with past medical history of cervical cancer, hypertension, hyperlipidemia, generalized osteoarthritis. Family noticed the patient was confused yesterday. In hindsight noticed that approximately couple days she's been declining. She just saw Dr. Chacon on Monday for back pain with history of spinal fusion and started on dexamethasone 6 mg daily. Patient has been on Mobic in the past but that was stopped a couple months ago when her renal function decreased. Patient normally drinks a lot of water and she works out in the gym regularly on a recumbent bike. reports no urine output yesterday despite IV fluids given in the emergency center. Patient came into [facility] emergency center for evaluation and found to be afebrile, heart rate in the 60s, blood pressure 129/69, pulse ox 91% on room air. EKG was a sinus rhythm with no acute ST changes. CBC was unremarkable. CO2 was 16 BUN 86 and creatinine 6.52. Blood sugar 113. TSH 0.269 and free T4 was normal at 1.17. Repeat kidney function today is BUN 85 creatinine 7.86 with a bicarb of 15. Triglycerides 249, cholesterol 140, HDL 35, LDL 54. Urinalysis showed a small amount of leukoesterase, WBC 16. Urine drug screen positive for opiates and tricyclic antidepressants. Urine culture is in progress. Chest x-ray shows no acute cardiopulmonary process. CT angiogram reveals no acute arterial abnormality, significant stenosis or occlusion of the major neck or intracranial arteries. CAT scan of the brain revealed no acute intracranial hemorrhage or gross acute cortical infarct however a small acute or hyper acute infarct cannot be excluded. MRI of the brain reveals chronic small vessel ischemic changes, age-related atrophy. Renal ultrasound reveals medical renal disease. Patient has been seen by neurology and started on Plavix because MRI was negative, Plavix will be discontinued and mental status changes most likely secondary to toxic metabolic encephalopathy. Patient has also been seen by nep hrology for acute kidney injury secondary to ATN, sodium bicarb drip was started, Jackson catheter for accurate I&O's, one time dose of IV Lasix 80 mg. If no improvement in renal function and urine output and 4 hours, initiate renal replacement therapy. Serology and hepatitis testing pending. 3/4Patient examined bedside. She has worsened in her mental status today. Has been at bedside has noted hallucinations of and a paranoid behavior today. Patient is more confused than yesterday she is and she is and unable to relate to her condition at this moment. She is oriented 3 but unable to comprehend his situation. Patient urine output is morning is only 150 mL. She had 300 mL output overnight. Right is afebrile pulse 70 respiratory rate 18 blood pressure 189/78 oxygen 99% on room air. Labs reviewed sodium 131 potassium 4.7 bicarb 17 BUN 89 8 creatinine 8.69 phosphorus 8.0. Urine culture is negative for infection JAMAL negative complement levels and negative hepatitis panel is negat dirk. A vascular surgery consult will be placed for dialysis catheter placement. Hydralazine initiated at 50 3 times a day for blood pressure control. Seroquel initiated 25 at [facility] at bedtime 01/29: Patient was examined at the bedside. Over the night she had increased paranoia refused any oral medications. Patient was confused and combative. She was given 1 dose of Ativan. She became difficult to arouse and answer questions appropriately. At this time patient is alert continues to have paranoia and confusion. She is able to answer some questions appropriately. She does recognize the voice of the provider. Family is at bedside. Dialysis at this time. We will avoid any further sedation medications. And stop oral medications due to paranoia. Sodium 132, BUN 63, creatinine 6.9, 01/30: Patient is examined at the bedside. She is sitting up in bed. She is alert and orientated 3. Patient states that she no longer has any paranoia she is not having any visual or auditory hallucinations. She does feel overwhelmed by the smell from the hospital. Is significantly improved compared to yesterday. Patient will have a break from hemodialysis today. Her BUN is 36, creatinine 5.24. Possible renal biopsy may occur this week. IV has been discontinued due to swelling to bilateral upper extremities. Patient has had a total of 500 ML's of urine output. Patient states that she slept better last night. She did walk up and down the [place] without any difficulties. Patient remains afebrile, heart rate 83, respirations 16, blood pressure 142/71, pulse ox 93 on room air. 01/31: Patient apparently had severe episode this morning with hallucination and delusion, she ended up pulling out her hemodialysis catheter which created a lot of bleeding at the time. Patient become very sensitive afterward not responding to any thing but more catatonic not clear that she is aware for surrounding or not that she is closing her eyes refused to talk or to indicate any by the time. I have long discussion with the who is fully aware of her current diagnosis and prognosis. Also spoke with nephrology patient will benefit from having kidney biopsy for more precise diagnoses for why she is in acute kidney failure. REVIEW OF SYSTEMS Constitutional: No fever, no chills, no night sweats. No weight change. No weakness, reports fatigue no lethargy. No daytime sleepiness. EENT: No headache. No blurred vision or double vision, no loss of vision. No loss of Hearing, no ringing in the ears, no dizziness. No nasal drainage or congestion. No epistaxis. No sore throat. Lungs: No shortness of breath, cough, no sputum production. No wheezing. Cardiovascular: No chest pain, no lower extremity edema. No palpitations. No paroxysmal nocturnal dyspnea. No orthopnea. No lightheadedness or dizziness. No syncopal episodes. Abdominal: No abdominal pain. No nausea, vomiting. No diarrhea. No constipation. No bloody or tarry stools. No loss of appetite. Genitourinary: No dysuria, increased frequency, urgency. No urinary retention. Decreased urine output. Musculoskeletal: No myalgias. No muscle weakness, no gait dysfunction, no fr equent falls. No back pain. No neck pain. Integumentary: No wounds, no lesions. No rash or pruritus. No unusual bruising. No change in hair or nails. Neurologic: No aphasia. No facial droop. Reported change in mentation. No head injury. No headache. No paralysis. No paresthesia. Psychiatric: No depression. Increase anxiety increased hallucinations and increased delusions increased paranoia. No mood swings. Endocrine: No abnormal blood sugars. No weight change. No excessive sweating or thirst. No cold intolerance. PHYSICAL EXAMINATION Gen: This is a 71-year-old female. Patient is resting in bed and Family members are at bedside. HEENT: Head is atraumatic, normocephalic. Pupils equal, round. Sclerae is anicteric. NECK: Supple. No JVD. No lymphadenopathy. No thyromegaly. LUNGS: Clear to auscultation. No wheezes or rhonchi. No intercostal retractions. HEART: Regular rate and rhythm. 3/6 systolic murmur. ABDOMEN: Soft. Bowel sounds are present. No masses. No tenderness. Jackson in place with scant amount of urine output. EXTREMITIES: No pedal edema. No calf tenderness. NEUROLOGICAL: Patient is awake, alert and oriented x3. Answered questions appropriately, denies paranoia auditory or visual hallucinations. Cranial nerves 2 through 12 are grossly intact. ASSESSMENT AND PLAN 1. Metabolic encephalopathy secondary to uremic encephalopathy. Seroquel 25 mg by mouth at bedtime, still seen urology in psych. 2. Acute kidney injury with ATN. And acute kidney failure: Patient was started on hemodialysis she pulled her dialysis catheter today which will be replaced for more time and continue hemodialysis at this point to bring her BUN and creatinine down. We will continue Bicarb drip has been discontinued. status post 1 dose of IV Lasix 80 mg today, maintain Jackson catheter for I&O's. Patient is unable to maintain urine output. 3. Metabolic acidosis secondary to acute kidney injury. Bicarb drip continued. Sodium bicarbonate 650 mg by mouth 3 times a day. 4. UTI ruled out Rocephin discontinued, 5. Hypertension. Norvasc 10 mg by mouth daily 6. Hyperlipidemia. Hold pravastatin 40 mg daily. 7. History of cervical cancer: Has been in remission. 8. Generalized anxiety disorder. Discontinue sedation medications.. 9. Chronic back pain with history of spinal fusion. Continue to hold her baclofen and pain management at this point. CODE STATUS: Full code. Prognosis: Very guarded. Objective - Vital Signs Vital signs: Vital Signs Temp 98.4 F 01/31/22 11:34 Pulse 97 01/31/22 11:34 Resp 18 01/31/22 08:00 BP 165/87 01/31/22 11:34 Pulse Ox 97 01/31/22 11:34 Intake & Output 01/30/22 01/31/22 01/31/22 18:59 06:59 18:59 Output Total 350 375 Balance -350 -375 Output: Urine 350 375 Other: Voiding Method Indwelling Catheter Indwelling Catheter Indwelling Catheter - Labs CBC & Chem 7: 01/31/22 11:52 01/31/22 06:35 Labs: Abnormal Lab Results - Last 24 Hours (Table) 01/31/22 01/31/22 01/31/22 Range/Units 06:16 06:35 06:36 WBC 11.0 H (3.8-10.6) k/uL RBC 3.60 L (3.80-5.40) m/uL Hgb 11.1 L (11.4-16.0) gm/dL Hct 33.6 L (34.0-46.0) % Sodium 133 L (137-145) mmol/L Carbon Dioxide 17 L (22-30) mmol/L BUN 53 H (7-17) mg/dL Creatinine 6.64 H (0.52-1.04) mg/dL Glucose 127 H (74-99) mg/dL POC Glucose (mg/dL) 127 H (75-99) mg/dL
[2022-01-31] MEDS ORDERED: LIDOCAINE 1% INJ 10MG/ML (20 ML MDV) SQ ONE ×2 (14:54)
--- NOTE | 2022-01-31 15:19 | IR ---
EXAMINATION TYPE: IR cvc insert non tunneled DATE OF EXAM: 01/31/2022 COMPARISON: NONE HISTORY: Fluoroscopy time. Fluoroscopy was provided to the referring clinician.
[2022-01-31] MEDS: QUEtiapine 25 MG TAB PO SCH (19:36)
[2022-01-31 19:43] LABS: Glucose,Whole Blood 123 mg/dL (75-99)
[2022-02-01 02:48] LABS: Folate, Serum >20.00 ng/mL (4.40-31.00)
[2022-02-01] MEDS: hydrALAZINE HCL 20 MG/ML 1 ML VIAL IVP SCH ×4 (03:40→21:36)
[2022-02-01] MEDS: DILTIAZEM 125 MG in SODIUM CHLORIDE 0.9% 100 ML IV SCH (04:37)
[2022-02-01 05:59] LABS: Glucose,Whole Blood 115 mg/dL (75-99)
[2022-02-01] MEDS: CALCIUM ACETATE 667 MG TAB PO SCH ×3 (06:10→17:56)
[2022-02-01] MEDS: FUROSEMIDE 10 MG/ML 10 ML VIAL IV SCH (08:34)
[2022-02-01] MEDS: HEPARIN SODIUM,PORCINE/PF 5,000 UNIT/0.5 ML SYRINGE SQ SCH ×2 (08:35→22:06)
[2022-02-01] MEDS: SODIUM BICARBONATE TAB 650 MG TAB PO SCH ×4 (08:35→21:36)
[2022-02-01] MEDS: amLODIPine 10 MG TAB PO SCH ×2 (08:35→08:49)
[2022-02-01] MEDS: VIT A,C & E-LUTEIN-MINERALS 1 EACH TAB PO SCH ×3 (08:36→21:36)
--- NOTE | 2022-02-01 10:08 | P.PN ---
Subjective Progress Note Date: 02/01/22 HISTORY OF PRESENT ILLNESS This is a 71-year-old female patient of Dr. Chacon with past medical history of cervical cancer, hypertension, hyperlipidemia, generalized osteoarthritis. Family noticed the patient was confused yesterday. In hindsight noticed that approximately couple days she's been declining. She just saw Dr. Chacon on Monday for back pain with history of spinal fusion and started on dexamethasone 6 mg daily. Patient has been on Mobic in the past but that was stopped a couple months ago when her renal function decreased. Patient normally drinks a lot of water and she works out in the gym regularly on a recumbent bike. reports no urine output yesterday despite IV fluids given in the emergency center. Patient came into [facility] emergency center for evaluation and found to be afebrile, heart rate in the 60s, blood pressure 129/69, pulse ox 91% on room air. EKG was a sinus rhythm with no acute ST changes. CBC was unremarkable. CO2 was 16 BUN 86 and creatinine 6.52. Blood sugar 113. TSH 0.269 and free T4 was normal at 1.17. Repeat kidney function today is BUN 85 creatinine 7.86 with a bicarb of 15. Triglycerides 249, cholesterol 140, HDL 35, LDL 54. Urinalysis showed a small amount of leukoesterase, WBC 16. Urine drug screen positive for opiates and tricyclic antidepressants. Urine culture is in progress. Chest x-ray shows no acute cardiopulmonary process. CT angiogram reveals no acute arterial abnormality, significant stenosis or occlusion of the major neck or intracranial arteries. CAT scan of the brain revealed no acute intracranial hemorrhage or gross acute cortical infarct however a small acute or hyper acute infarct cannot be excluded. MRI of the brain reveals chronic small vessel ischemic changes, age-related atrophy. Renal ultrasound reveals medical renal disease. Patient has been seen by neurology and started on Plavix because MRI was negative, Plavix will be discontinued and mental status changes most likely secondary to toxic metabolic encephalopathy. Patient has also been seen by nep hrology for acute kidney injury secondary to ATN, sodium bicarb drip was started, Jackson catheter for accurate I&O's, one time dose of IV Lasix 80 mg. If no improvement in renal function and urine output and 4 hours, initiate renal replacement therapy. Serology and hepatitis testing pending. 3/4Patient examined bedside. She has worsened in her mental status today. Has been at bedside has noted hallucinations of and a paranoid behavior today. Patient is more confused than yesterday she is and she is and unable to relate to her condition at this moment. She is oriented 3 but unable to comprehend his situation. Patient urine output is morning is only 150 mL. She had 300 mL output overnight. Right is afebrile pulse 70 respiratory rate 18 blood pressure 189/78 oxygen 99% on room air. Labs reviewed sodium 131 potassium 4.7 bicarb 17 BUN 89 8 creatinine 8.69 phosphorus 8.0. Urine culture is negative for infection JAMAL negative complement levels and negative hepatitis panel is negat dirk. A vascular surgery consult will be placed for dialysis catheter placement. Hydralazine initiated at 50 3 times a day for blood pressure control. Seroquel initiated 25 at [facility] [place] at bedtime 01/29: Patient was examined at the bedside. Over the night she had increased paranoia refused any oral medications. Patient was confused and combative. She was given 1 dose of Ativan. She became difficult to arouse and answer questions appropriately. At this time patient is alert continues to have paranoia and confusion. She is able to answer some questions appropriately. She does recognize the voice of the provider. Family is at bedside. Dialysis at this time. We will avoid any further sedation medications. And stop oral medications due to paranoia. Sodium 132, BUN 63, creatinine 6.9, 01/30: Patient is examined at the bedside. She is sitting up in bed. She is alert and orientated 3. Patient states that she no longer has any paranoia she is not having any visual or auditory hallucinations. She does feel overwhelmed by the smell from the hospital. Is significantly improved compared to yesterday. Patient will have a break from hemodialysis today. Her BUN is 36, creatinine 5.24. Possible renal biopsy may occur this week. IV has been discontinued due to swelling to bilateral upper extremities. Patient has had a total of 500 ML's of urine output. Patient states that she slept better last night. She did walk up and down the [place] without any difficulties. Patient remains afebrile, heart rate 83, respirations 16, blood pressure 142/71, pulse ox 93 on room air. 01/31: Patient apparently had severe episode this morning with hallucination and delusion, she ended up pulling out her hemodialysis catheter which created a lot of bleeding at the time. Patient become very sensitive afterward not responding to any thing but more catatonic not clear that she is aware for surrounding or not that she is closing her eyes refused to talk or to indicate any by the time. I have long discussion with the who is fully aware of her current diagnosis and prognosis. Also spoke with nephrology patient will benefit from having kidney biopsy for more precise diagnoses for why she is in acute kidney failure. 02/01: Patient ended up having another dialysis catheter in the left groin area and she is on hemodialysis at the time patient is more awake today but still very catatonic noticing any question and not making any effort to show any understanding of her surroundings at this point. Long discussion with the today about CODE STATUS and his final decision as his decision maker to keep her full code but if she ended up on extended life support the decision to withdraw life support in X days discussion is betweenHim and I would happen at the time. REVIEW OF SYSTEMS Constitutional: No fever, no chills, no night sweats. No weight change. No weakness, reports fatigue no lethargy. No daytime sleepiness. EENT: No headache. No blurred vision or double vision, no loss of vision. No loss of Hearing, no ringing in the ears, no dizziness. No nasal drainage or congestion. No epistaxis. No sore throat. Lungs: No shortness of breath, cough, no sputum production. No wheezing. Cardiovascular: No chest pain, no lower extremity edema. No palpitations. No paroxysmal nocturnal dyspnea. No orthopnea. No lightheadedness or dizziness. No syncopal episodes. Abdominal: No abdominal pain. No nausea, vomiting. No diarrhea. No constipation. No bloody or tarry stools. No loss of appetite. Genitourinary: No dysuria, increased frequency, urgency. No urinary retention. Decreased urine output. Musculoskeletal: No myalgias. No muscle weakness, no gait dysfunction, no frequent falls. No back pain. No neck pain. Integumentary: No wounds, no lesions. No rash or pruritus. No unusual bruising. No change in hair or nails. Neurologic: No aphasia. No facial droop. Reported change in mentation. No head injury. No headache. No paralysis. No paresthesia. Psychiatric: No depression. Increase anxiety increased hallucinations and increased delusions increased paranoia. No mood swings. Endocrine: No abnormal blood sugars. No weight change. No excessive sweating or thirst. No cold intolerance. PHYSICAL EXAMINATION Gen: This is a 71-year-old female. Patient is resting in bed and Family members are at bedside. HEENT: Head is atraumatic, normocephalic. Pupils equal, round. Sclerae is anicteric. NECK: Supple. No JVD. No lymphadenopathy. No thyromegaly. LUNGS: Clear to auscultation. No wheezes or rhonchi. No intercostal retractions. HEART: Regular rate and rhythm. 3/6 systolic murmur. ABDOMEN: Soft. Bowel sounds are present. No masses. No tenderness. Jackson in place with scant amount of urine output. EXTREMITIES: No pedal edema. No calf tenderness. NEUROLOGICAL: Patient is awake, alert and oriented x3. Answered questions appropriately, denies paranoia auditory or visual hallucinations. Cranial nerves 2 through 12 are grossly intact. ASSESSMENT AND PLAN 1. Metabolic encephalopathy secondary to uremic encephalopathy. Seroquel 25 mg by mouth at bedtime, still seen urology in psych. Still with all with patient is going through looks like this is combination of metabolic encephalopathy from uremia probably had central nervous system event such as small stroke just not been able to find with a CAT scan so far. 2. Acute kidney injury with ATN. And acute kidney failure: Patient was started on hemodialysis she pulled her dialysis catheter today which will be replaced for more time and continue hemodialysis at this point to bring her BUN and creatinine down. We will continue Bicarb drip has been discontinued. status post 1 dose of IV Lasix 80 mg today, maintain Jackson catheter for I&O's. Patient is unable to maintain urine output. 3. Metabolic acidosis secondary to acute kidney injury. Bicarb drip continued. Sodium bicarbonate 650 mg by mouth 3 times a day. 4. UTI ruled out Rocephin discontinued, 5. Hypertension. Norvasc 10 mg by mouth daily 6. Hyperlipidemia. Hold pravastatin 40 mg daily. 7. History of cervical cancer: Has been in remission. 8. Generalized anxiety disorder. Discontinue sedation medications.. 9. Chronic back pain with history of spinal fusion. Continue to hold her baclofen and pain management at this point. CODE STATUS: Full code. But not extended life support for many days. Prognosis: Very guarded. Objective - Vital Signs Vital signs: Vital Signs Temp 98.5 F 02/01/22 03:33 Pulse 116 H 02/01/22 06:28 Resp 18 02/01/22 03:33 BP 149/81 02/01/22 06:28 Pulse Ox 94 L 02/01/22 03:33 Intake & Output 01/31/22 02/01/22 02/01/22 18:59 06:59 18:59 Intake Total 3.917 Output Total 2775 400 Balance -2775 -396.083 Intake: Intake, IV Titration 3.917 Amount Diltiazem 125 mg In 3.917 Sodium Chloride 0.9% 100 ml @ 2.5 MG/HR 2.5 mls/hr IV .Q24H [facility] Rx#: [id number] Output: Urine 275 400 Hemodialysis 2500 Other: Voiding Method Indwelling Catheter Indwelling Catheter # Bowel Movements 1 - Labs CBC & Chem 7: 01/31/22 11:52 01/31/22 06:35 Labs: Abnormal Lab Results - Last 24 Hours (Table) 01/31/22 01/31/22 01/31/22 Range/Units 11:52 15:15 19:42 RBC 3.46 L (3.80-5.40) m/uL Hgb 10.9 L (11.4-16.0) gm/dL Hct 31.7 L (34.0-46.0) % POC Glucose (mg/dL) 123 H (75-99) mg/dL Vitamin B12 191.0 L (200.0-944.0) pg/mL 02/01/22 Range/Units 05:57 RBC (3.80-5.40) m/uL Hgb (11.4-16.0) gm/dL Hct (34.0-46.0) % POC Glucose (mg/dL) 115 H (75-99) mg/dL Vitamin B12 (200.0-944.0) pg/mL
--- NOTE | 2022-02-01 14:06 | P.PN ---
Subjective Progress Note Date: 02/01/22 Patient was seen for a follow-up. Patient initially seen by Dr. Michael Powell. Please refer to his note for details. Patient was last seen by Dr. Powell on 01/28/2022 and patient was signed off. Now neurology was reconsulted for episode of unresponsiveness. Patient is getting hemodialysis at this time. I spoke to patient's son, who informed me that her symptoms started actually on last Monday on 01/25/2022 when she said certain sentences which did not make sense. The next day on Monday, patient slept more than longer and then the son woke her up, she was confused and she couldn't find the words like seeing "I'm drinking" instead of saying "I am thirsty". Patient was brought to the hospital on 01/26/2022. Patient was diagnosed with acute renal failure with BUN 86, creatinine 6.52. This was new onset, newly diagnosed. Patient also had a UTI with large amount of leukocyte Estrace and more than 182 WBCs. Urine cultures were negative. Patient started getting dialysis on 01/28/2022 and also received treatment on Monday. Her mentation came back to baseline on Monday and she did not receive the dialysis on Monday. Her mentation got worse again yesterday anvilsmith at around 2-3 AM. According to the nurse report, anvilsmith Monday, which is yesterday anvilsmith, she became confused, pulled the dialysis port and then was completely unresponsive. She was very paranoid rest of the day, suspecting that people were here to hurt her. She would not take her pills and was very suspicious. Today patient is receiving dialysis and her mentation is much improved. She is acknowledging, and answering to the questions. Sometimes they're not correct. Patient has history of bilateral knee surgery, with revision of the left knee recently in October 2021. She had spinal fusion surgery couple years prior. CT of the head is reported as no acute intracranial hemorrhage or gross acute cortical infarct however small acute or hyperacute infarct cannot be excluded. CT angiography of the head and neck is reported as no acute arterial abnormality, significant stenosis or occlusion of the major neck or intracranial arteries. Stroke code was activated and NIH was a 1. No IV TPA since last normal was the night prior to presenting the hospital and the risks outweigh the benefit. MRI of the brain reported as chronic small vessel ischemic changes, age-related atrophy. Sinus disease. No acute process. I personally reviewed MRI of the brain on the computer, agree with the findings. There is some small vessel ischemic disease noted. 2-D echo revealed normal left ventricular size. Mild concentric LVH. Overall left ventricular systolic function is low normal with EF between 50-55%. Left atrium is mildly dilated. Right atrial size is normal. Mild aortic stenosis. Cannot exclude possible bicuspid aortic valve. Objective - Vital Signs Vital signs: Vital Signs Temp 98.5 F 02/01/22 03:33 Pulse 126 H 02/01/22 08:00 Resp 18 02/01/22 08:00 BP 154/90 02/01/22 08:00 Pulse Ox 94 L 02/01/22 08:00 Intake & Output 01/31/22 02/01/22 02/01/22 18:59 06:59 18:59 Intake Total 3.917 Output Total 2775 400 Balance -2775 -396.083 Intake: Intake, IV Titration 3.917 Amount Diltiazem 125 mg In 3.917 Sodium Chloride 0.9% 100 ml @ 2.5 MG/HR 2.5 mls/hr IV .Q24H [facility] Rx#: [id number] Output: Urine 275 400 Hemodialysis 2500 Other: Voiding Method Indwelling Catheter Indwelling Catheter Indwelling Catheter # Bowel Movements 1 - Exam Patient is an elderly female, in no acute distress. She appears encep halopathic. Patient is alert awake, but slow mentation, appears encephalopathic, was starry- eyed. She knows it is January and the year is 2021. She knows she is in [facility]. She knows her date of although she thinks [place]oreto is the president. Speech and language functions are normal. Attention, concentration and fund of knowledge is limited. On cranial examination, pupils are equal, round and reacting to light, visual rosenberg are full on confrontation, extraocular muscles are intact with no nystagmus. Face is symmetric, tongue protrudes to the midline. Palatal elevation and sensation normal, hearing appears slightly decreased and shoulder shrug normal, facial sensation normal. Shoulder shrug normal. On muscle strength testing, her strength of narcotics and vice detective is normal bilaterally. Patient wiggle her feet equally. Deep tendon reflexes are 1+ throughout. Sensory to touch is equal with no neglect. Cerebellar function showed very mild occasional myoclonic jerks of outstretched hand. No obvious ataxia for [id number] testing on the right, did not perform the left, as she was having dialysis. Gait not checked. On general examination, there is no carotid bruit or murmur, S1-S2 audible. Abdomen is soft nontender. No organomegaly. Bowel sounds present. Chest is cl ear. Peripheral pulses are present. No edema. - Labs CBC & Chem 7: 01/31/22 11:52 01/31/22 06:35 Labs: Abnormal Lab Results - Last 24 Hours (Table) 01/31/22 01/31/22 01/31/22 Range/Units 11:52 15:15 19:42 RBC 3.46 L (3.80-5.40) m/uL Hgb 10.9 L (11.4-16.0) gm/dL Hct 31.7 L (34.0-46.0) % POC Glucose (mg/dL) 123 H (75-99) mg/dL Vitamin B12 191.0 L (200.0-944.0) pg/mL 02/01/22 Range/Units 05:57 RBC (3.80-5.40) m/uL Hgb (11.4-16.0) gm/dL Hct (34.0-46.0) % POC Glucose (mg/dL) 115 H (75-99) mg/dL Vitamin B12 (200.0-944.0) pg/mL Assessment and Plan Assessment: Uremic encephalopathy. (MRI Brain is negative for acute to subacute stroke) Delirium due to above Acute kidney injury (Creatnine of 6.52 and BUN 86 on presentation)--worsening. Patient's BUN and creatinine are 53/6.64 as of today. Possible acute underlying urinary tract infection Hypertension Hypothyroidism, probably overtreated. History of hyperlipidemia Vitamin B12 deficiency with B12 191. Plan: Patient's encephalopathy likely due to acute uremia. Her mentation has improved since she has been receiving hemodialysis. EEG was normal. No focal slowing, epileptiform discharges or seizures noted on the EEG. No indication for antiepileptic medication. MRI of the brain performed recently showed no acute stroke. PT, OT and CIND[employer] PIT WORKER is consulted Nephrology following Patient has significant B12 deficiency (191). Patient will be started on vitamin B12 1000 g IM daily for 5 days. Afterwards would recommend starting vitamin B12 1000 g sublingually daily. Folic acid > 20.0. Ammonia is <9. Hemoglobin A1c 5.5 normal. Lipid panel with cholesterol 140, LDL 54, HDL 35, triglycerides 249. Please avoid any sedating/narcotic that affect the patient's mentation as well as renal function. We'll defer the rest of the medical management to primary team. Discussed with patient's family in detail. Time with Patient: Greater than 30
--- NOTE | 2022-02-01 14:59 | PN ---
PROGRESS NOTE Patient is seen for followup for acute kidney injury. Patient had dialysis yesterday with ultrafiltration of about 2.5 L. Her mentation has improved. She is more awake today. Patient is also communicating, although she has not been eating much. Patient is seen on hemodialysis today. Her is present at bedside. On examination today, blood pressure is 154/90, heart rate 120 per minute. She is afebrile. Examination of the heart: S1, S2. Examination of the lungs: Bilateral breath sounds are heard. Abdomen is soft, nontender. Examination of lower extremities shows edema 1+ bilaterally. LEAD MASSAGE THERAPIST exam shows patient is moving all 4 extremities today. Labs from 01/31/22 show sodium 133, potassium 4.2, BUN 53, serum creatinine 6.64. ASSESSMENT: 1. Acute kidney injury, acute tubular necrosis versus AIN, currently with some improvement in urine output. Patient will be continued on dialysis at this point. I will also add prednisone for possible AIN. Kidney biopsy has been discussed with the . If her renal function improves and urine output improves, we may not need a biopsy. 2. Volume overload, currently improved. 3. Mental status changes, possibly related to uremia, currently improving. Will plan for treatment again tomorrow. 4. Metabolic acidosis associated with acute kidney injury. 5. Hyperphosphatemia, maintained on PhosLo. Etiology is acute kidney injury. PLAN: Repeat hemodialysis in a.m. Start prednisone, as patient is more awake today. Plan for kidney biopsy during this hospitalization. MMODL / IJN: [id number] /
--- NOTE | 2022-02-01 16:18 | P.PCN ---
Description of Procedure: Preoperative diagnoses is acute chronic renal failure Postoperative is same Procedure patient brought to the [facility] Support [facility] right groin was prepped and draped applied used an manner ultrasound-guided 1% lidocaine were infiltrated micropuncture introduced right femoral vein and micropuncture guidewire passed and 4-Vietnamese directed was on the top of guidewire then we passed a regular guidewire without and uses stents dilator was advanced then replaced a dialysis catheter flushed with heparin saline and Hep-Lock secured with 3-0 nylon patient tolerated the procedure well and transferred to her room in satisfactory condition
[2022-02-01 16:45] LABS: Calcium 8.8 mg/dL (8.4-10.2); Potassium 4.3 mmol/L (3.5-5.1)
[2022-02-01] MEDS: predniSONE 20 MG TAB PO SCH (17:56)
[2022-02-01] MEDS: CYANOCOBALAMIN 1,000 MCG/ML 1 ML VIAL IM SCH (17:57)
[2022-02-01] MEDS: QUEtiapine 25 MG TAB PO SCH (21:36)
[2022-02-02] MEDS: DILTIAZEM 125 MG in SODIUM CHLORIDE 0.9% 100 ML IV SCH (02:28)
[2022-02-02] MEDS: hydrALAZINE HCL 20 MG/ML 1 ML VIAL IVP SCH ×4 (02:28→21:09)
[2022-02-02] MEDS: CALCIUM ACETATE 667 MG TAB PO SCH ×3 (06:34→16:11)
[2022-02-02] MEDS: FUROSEMIDE 10 MG/ML 10 ML VIAL IV SCH (08:32)
[2022-02-02] MEDS: predniSONE 20 MG TAB PO SCH (09:30)
[2022-02-02] MEDS: HEPARIN SODIUM,PORCINE/PF 5,000 UNIT/0.5 ML SYRINGE SQ SCH ×2 (09:30→20:58)
[2022-02-02] MEDS: VIT A,C & E-LUTEIN-MINERALS 1 EACH TAB PO SCH ×2 (09:30→20:59)
[2022-02-02] MEDS: amLODIPine 10 MG TAB PO SCH (09:30)
[2022-02-02] MEDS: SODIUM BICARBONATE TAB 650 MG TAB PO SCH ×3 (09:30→21:10)
--- NOTE | 2022-02-02 11:40 | P.PN ---
Subjective Patient is seen for follow-up for acute kidney injury patient was admitted to the hospital with mental status changes and acute kidney injury with serum creatinine peaking at 8.69 mg/dL. Patient was started on dialysis on 01/28/2022. Mentation had improved to some degree initially but then deteriorated again and patient has been receiving consecutive treatments of hemodialysis for the last 2 days. Mentation seems to have improved however today patient is more delirious and talking to herself. Serum creatinine was about 1.2 mg/dL 12 weeks ago as outpatient. All serologies are negative. Possibility of use of NSAIDs due to 3 doses prior to admission. Concern for possible AIN along with ATN. Started prednisone. We'll arrange for kidney biopsy this admission Urine output 650 mL for 24 hours Objective - Vital Signs Vital signs: Vital Signs Temp 98.7 F 02/02/22 08:00 Pulse 105 H 02/02/22 11:15 Resp 18 02/02/22 11:15 BP 135/70 02/02/22 11:15 Pulse Ox 96 02/02/22 08:00 Intake & Output 02/01/22 02/02/22 02/02/22 18:59 06:59 18:59 Intake Total 300 101.417 0 Output Total 1800 Balance -1500 101.417 0 Intake: Intake, IV Titration 101.417 Amount Diltiazem 125 mg In 101.417 Sodium Chloride 0.9% 100 ml @ 2.5 MG/HR 2.5 mls/hr IV .Q24H [facility] Rx#: [id number] Oral 0 0 Hemodialysis 300 Output: Hemodialysis 1800 Other: Voiding Method Indwelling Catheter Indwelling Catheter Indwelling Catheter # Bowel Movements 1 - Exam Patient is talking to herself. i. Examination of the heart S1 and S2 Examination lungs bilateral breath sounds are heard Abdomen is soft nontender Examination lower extremity shows 1+ edema WAREHOUSE PICKER exam shows patient does not communicate she is not moving any of her extremities. Her eyes are closed. - Labs CBC & Chem 7: 01/31/22 11:52 02/01/22 15:52 Labs: Abnormal Lab Results - Last 24 Hours (Table) 02/01/22 Range/Units 15:52 Carbon Dioxide 20 L (22-30) mmol/L BUN 23 H (7-17) mg/dL Creatinine 3.06 H (0.52-1.04) mg/dL Glucose 119 H (74-99) mg/dL Assessment and Plan Assessment: 1. Acute kidney injury most likely ATN need to consider acute interstitial nephritis as well given the pyuria and history of use of NSAIDs. Patient will need to continue with renal replacement therapy as there was some improvement in mentation after initial dialysis. Patient will need kidney biopsy. Previous creatinine around 1-1.2 mg/dL about 12 weeks ago. 2. Mental status changes with concern for uremia. Brain CT unremarkable for acute findings. 3. Pyuria with urine cultures negative consider AIN 4. Hyperphosphatemia associated with acute kidney injury maintained on PhosLo 5. Metabolic acidosis associated with acute kidney injury Plan: Repeat hemodialysis today and in a.m. Continue with prednisone Kidney biopsy
--- NOTE | 2022-02-02 12:47 | P.PN ---
Subjective Progress Note Date: 02/02/22 HISTORY OF PRESENT ILLNESS This is a 71-year-old female patient of Dr. Chacon with past medical history of cervical cancer, hypertension, hyperlipidemia, generalized osteoarthritis. Family noticed the patient was confused yesterday. In hindsight noticed that approximately couple days she's been declining. She just saw Dr. Chacon on Monday for back pain with history of spinal fusion and started on dexamethasone 6 mg daily. Patient has been on Mobic in the past but that was stopped a couple months ago when her renal function decreased. Patient normally drinks a lot of water and she works out in the gym regularly on a recumbent bike. reports no urine output yesterday despite IV fluids given in the emergency center. Patient came into [facility] emergency center for evaluation and found to be afebrile, heart rate in the 60s, blood pressure 129/69, pulse ox 91% on room air. EKG was a sinus rhythm with no acute ST changes. CBC was unremarkable. CO2 was 16 BUN 86 and creatinine 6.52. Blood sugar 113. TSH 0.269 and free T4 was normal at 1.17. Repeat kidney function today is BUN 85 creatinine 7.86 with a bicarb of 15. Triglycerides 249, cholesterol 140, HDL 35, LDL 54. Urinalysis showed a small amount of leukoesterase, WBC 16. Urine drug screen positive for opiates and tricyclic antidepressants. Urine culture is in progress. Chest x-ray shows no acute cardiopulmonary process. CT angiogram reveals no acute arterial abnormality, significant stenosis or occlusion of the major neck or intracranial arteries. CAT scan of the brain revealed no acute intracranial hemorrhage or gross acute cortical infarct however a small acute or hyper acute infarct cannot be excluded. MRI of the brain reveals chronic small vessel ischemic changes, age-related atrophy. Renal ultrasound reveals medical renal disease. Patient has been seen by neurology and started on Plavix because MRI was negative, Plavix will be discontinued and mental status changes most likely secondary to toxic metabolic encephalopathy. Patient has also been seen by nep hrology for acute kidney injury secondary to ATN, sodium bicarb drip was started, Jackson catheter for accurate I&O's, one time dose of IV Lasix 80 mg. If no improvement in renal function and urine output and 4 hours, initiate renal replacement therapy. Serology and hepatitis testing pending. 3/4Patient examined bedside. She has worsened in her mental status today. Has been at bedside has noted hallucinations of and a paranoid behavior today. Patient is more confused than yesterday she is and she is and unable to relate to her condition at this moment. She is oriented 3 but unable to comprehend his situation. Patient urine output is morning is only 150 mL. She had 300 mL output overnight. Right is afebrile pulse 70 respiratory rate 18 blood pressure 189/78 oxygen 99% on room air. Labs reviewed sodium 131 potassium 4.7 bicarb 17 BUN 89 8 creatinine 8.69 phosphorus 8.0. Urine culture is negative for infection JAMAL negative complement levels and negative hepatitis panel is negat dirk. A vascular surgery consult will be placed for dialysis catheter placement. Hydralazine initiated at 50 3 times a day for blood pressure control. Seroquel initiated 25 at Edu Garvin at bedtime 01/29: Patient was examined at the bedside. Over the night she had increased paranoia refused any oral medications. Patient was confused and combative. She was given 1 dose of Ativan. She became difficult to arouse and answer questions appropriately. At this time patient is alert continues to have paranoia and confusion. She is able to answer some questions appropriately. She does recognize the voice of the provider. Family is at bedside. Dialysis at this time. We will avoid any further sedation medications. And stop oral medications due to paranoia. Sodium 132, BUN 63, creatinine 6.9, 01/30: Patient is examined at the bedside. She is sitting up in bed. She is alert and orientated 3. Patient states that she no longer has any paranoia she is not having any visual or auditory hallucinations. She does feel overwhelmed by the smell from the hospital. Is significantly improved compared to yesterday. Patient will have a break from hemodialysis today. Her BUN is 36, creatinine 5.24. Possible renal biopsy may occur this week. IV has been discontinued due to swelling to bilateral upper extremities. Patient has had a total of 500 ML's of urine output. Patient states that she slept better last night. She did walk up and down the [place] without any difficulties. Patient remains afebrile, heart rate 83, respirations 16, blood pressure 142/71, pulse ox 93 on room air. 01/31: Patient apparently had severe episode this morning with hallucination and delusion, she ended up pulling out her hemodialysis catheter which created a lot of bleeding at the time. Patient become very sensitive afterward not responding to any thing but more catatonic not clear that she is aware for surrounding or not that she is closing her eyes refused to talk or to indicate any by the time. I have long discussion with the who is fully aware of her current diagnosis and prognosis. Also spoke with nephrology patient will benefit from having kidney biopsy for more precise diagnoses for why she is in acute kidney failure. 02/01: Patient ended up having another dialysis catheter in the left groin area and she is on hemodialysis at the time patient is more awake today but still very catatonic noticing any question and not making any effort to show any understanding of her surroundings at this point. Long discussion with the today about CODE STATUS and his final decision as his decision maker to keep her full code but if she ended up on extended life support the decision to withdraw life support in X days discussion is betweenHim and I would happen at the time. 02/02: Patient is on hemodialysis today. Patient responded is very limited which is still having significant psychotic episode and delirium. Her blood work had shown significant improvement compared to before. Review nephrology documentation along with neurology it seems all still blame on uremia but realistically her bun and creatinine has significantly improved last couple days without having to affect her mentation at this point. Still doing supportive care. The was on the bedside answer all his question still interested doing kidney biopsy at time. MRI of the brain was negative, neurology consultation EEG was negative as well. concern whether any the mental status change and the kidney can be related to COVID-19 vaccination, I don't have an answer for this question at this point if patient eventually had kidney biopsy may be would have some indication through the pathology change. REVIEW OF SYSTEMS Constitutional: No fever, no chills, no night sweats. No weight change. No weakness, reports fatigue no lethargy. No daytime sleepiness. EENT: No headache. No blurred vision or double vision, no loss of vision. No loss of Hearing, no ringing in the ears, no dizziness. No nasal drainage or congestion. No epistaxis. No sore throat. Lungs: No shortness of breath, cough, no sputum production. No wheezing. Cardiovascular: No chest pain, no lower extremity edema. No palpitations. No paroxysmal nocturnal dyspnea. No orthopnea. No lightheadedness or dizziness. No syncopal episodes. Abdominal: No abdominal pain. No nausea, vomiting. No diarrhea. No constipation. No bloody or tarry stools. No loss of appetite. Genitourinary: No dysuria, increased frequency, urgency. No urinary retention. Decreased urine output. Musculoskeletal: No myalgias. No muscle weakness, no gait dysfunction, no frequent falls. No back pain. No neck pain. Integumentary: No wounds, no lesions. No rash or pruritus. No unusual bruising. No change in hair or nails. Neurologic: No aphasia. No facial droop. Reported change in mentation. No head injury. No headache. No paralysis. No paresthesia. Psychiatric: No depression. Increase anxiety increased hallucinations and increased delusions increased paranoia. No mood swings. Endocrine: No abnormal blood sugars. No weight change. No excessive sweating or thirst. No cold intolerance. PHYSICAL EXAMINATION Gen: This is a 71-year-old female. Patient is resting in bed and Family members are at bedside. HEENT: Head is atraumatic, normocephalic. Pupils equal, round. Sclerae is anicteric. NECK: Supple. No JVD. No lymphadenopathy. No thyromegaly. LUNGS: Clear to auscultation. No wheezes or rhonchi. No intercostal retractions. HEART: Regular rate and rhythm. 3/6 systolic murmur. ABDOMEN: Soft. Bowel sounds are present. No masses. No tenderness. Jackson in place with scant amount of urine output. EXTREMITIES: No pedal edema. No calf tenderness. NEUROLOGICAL: Patient is awake, alert and oriented x3. Answered questions appropriately, denies paranoia auditory or visual hallucinations. Cranial nerves 2 through 12 are grossly intact. ASSESSMENT AND PLAN 1. Metabolic encephalopathy was blame on uremia from acute kidney failure, with hemodialysis kidney function is much better so far that has not change her mental status so far. We'll continue supportive care and still seen neurology 2. Acute kidney injury with ATN. And acute kidney failure: Patient was started on hemodialysis she pulled her dialysis catheter today which will be replaced for more time and continue hemodialysis at this point to bring her BUN and creatinine down. We will continue Bicarb drip has been discontinued. status post 1 dose of IV Lasix 80 mg today, maintain Jackson catheter for I&O's. Patient is unable to maintain urine output. 3. Metabolic acidosis secondary to acute kidney injury. Much better but still on bicarbonate this point. 4. Acute psychosis and delirium: Still seen psychiatry not much change still on Seroquel an as-needed basis. 5. Hypertension. Norvasc 10 mg by mouth daily 6. Hyperlipidemia. Hold pravastatin 40 mg daily. 7. History of cervical cancer: Has been in remission. 8. Generalized anxiety disorder. Discontinue sedation medications.. 9. Chronic back pain with history of spinal fusion. Continue to hold her baclofen and pain management at this point. 10 nutrition status: Patient has not had much to eat since her admission family are aware if it with tach to dietitian about doing NG tube and probably feeding through NG tube. CODE STATUS: Full code. But not extended life support for many days. Prognosis: Very guarded. Objective - Vital Signs Vital signs: Vital Signs Temp 98.7 F 02/02/22 08:00 Pulse 105 H 02/02/22 11:15 Resp 18 02/02/22 11:15 BP 135/70 02/02/22 11:15 Pulse Ox 96 02/02/22 08:00 Intake & Output 02/01/22 02/02/22 02/02/22 18:59 06:59 18:59 Intake Total 300 101.417 0 Output Total 1800 Balance -1500 101.417 0 Intake: Intake, IV Titration 101.417 Amount Diltiazem 125 mg In 101.417 Sodium Chloride 0.9% 100 ml @ 2.5 MG/HR 2.5 mls/hr IV .Q24H [facility] Rx#: [id number] Oral 0 0 Hemodialysis 300 Output: Hemodialysis 1800 Other: Voiding Method Indwelling Catheter Indwelling Catheter Indwelling Catheter # Bowel Movements 1 - Labs CBC & Chem 7: 01/31/22 11:52 02/01/22 15:52 Labs: Abnormal Lab Results - Last 24 Hours (Table) 02/01/22 Range/Units 15:52 Carbon Dioxide 20 L (22-30) mmol/L BUN 23 H (7-17) mg/dL Creatinine 3.06 H (0.52-1.04) mg/dL Glucose 119 H (74-99) mg/dL
--- NOTE | 2022-02-02 13:51 | P.CON ---
Consult Note - . Consult date: 02/02/22 Assessment/Plan:: Patient with mental status changes. Unable to cooperate for procedure. Procedure explained to patient . procedure refused at this time.
[2022-02-02] MEDS: HALOPERIDOL LACTATE 5 MG/ML 1 ML VIAL IM PRN (14:37)
[2022-02-02] MEDS: CYANOCOBALAMIN 1,000 MCG/ML 1 ML VIAL IM SCH (16:12)
[2022-02-02] MEDS: QUEtiapine 25 MG TAB PO SCH (20:58)
[2022-02-02] MEDS: LORazepam 2 MG/ML INJ IV PRN (20:58)
[2022-02-03] MEDS: HALOPERIDOL LACTATE 5 MG/ML 1 ML VIAL IM PRN (00:43)
[2022-02-03] MEDS: hydrALAZINE HCL 20 MG/ML 1 ML VIAL IVP SCH ×4 (02:17→21:45)
[2022-02-03] MEDS: LORazepam 2 MG/ML INJ IV PRN (02:18)
[2022-02-03] MEDS: DILTIAZEM 125 MG in SODIUM CHLORIDE 0.9% 100 ML IV SCH (04:06)
[2022-02-03] MEDS: CALCIUM ACETATE 667 MG TAB PO SCH ×3 (06:31→18:41)
--- NOTE | 2022-02-03 09:40 | P.PN ---
Subjective Progress Note Date: 02/02/22 02/02/2022: Patient was seen for a follow-up. Patient's was also present today. Patient is also getting hemodialysis at this time. Patient has become more delirious. Patient is not opening her eyes. She is more incoherent, rambles. Patient constantly rambling, mumbling. Patient would constantly repeat "don't don't don't don't don't... say that". 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 These are the examples of some words/sentences that she rambled. On reviewing records, it appears patient received dexamethasone 6 mg orally on 01/25/2022 for back pain by her primary physician. Patient developed some paranoia the same evening and was hospitalized on the 01/26/2022. She was much more stable and has improved a lot yesterday when I saw her. Patient was then started on prednisone 40 mg, that was given at 5:56 PM last night for possible glomerulonephritis. Now she has developed full blown psychosis. 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 Patient has received dexamethasone in the past, and had no side effects, but she did not have renal failure in the past. I suspect acute renal failure with steroids probably resulted in steroid psychosis. Patient's denies any history of alcoholism maybe drinks 2 glasses of wine a year. No history of drugs. 02/01/2022: Patient was seen for a follow-up. Patient initially seen by Dr. Michael Powell. Please refer to his note for details. Patient was last seen by Dr. Powell on 01/28/2022 and patient was signed off. Now neurology was reconsulted for episode of unresponsiveness. Patient is getting hemodialysis at this time. I spoke to patient's , who informed me that her symptoms started actually on last Monday on 01/25/2022 when she said certain sentences which did not make sense. The next day on Monday, patient slept more than longer and then the son woke her up, she was confused and she couldn't find the words like seeing "I'm drinking" instead of saying "I am thirsty". Patient was brought to the hospital on 01/26/2022. Patient was diagnosed with acute renal failure with BUN 86, creatinine 6.52. This was new onset, newly diagnosed. Patient also had a UTI with large amount of leukocyte Estrace and more than 182 WBCs. Urine cultures were negative. Patient started getting dialysis on 01/28/2022 and also received treatment on Monday. Her mentation came back to baseline on Monday and she did not receive the dialysis on Monday. 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 According to the nurse report, utilities service investigator Monday, which is yesterday utilities service investigator, she became confused, pulled the dialysis port and then was completely unresponsive. She was very paranoid rest of the day, suspecting that people were here to hurt her. She would not take her pills and was very suspicious. Today patient is receiving dialysis and her mentation is much improved. She is acknowledging, and answering to the questions. Sometimes they're not correct. Patient has history of bilateral knee surgery, with revision of the left knee recently in October 2021. She had spinal fusion surgery couple years prior. CT of the head is reported as no acute intracranial hemorrhage or gross acute cortical infarct however small acute or hyperacute infarct cannot be excluded. CT angiography of the head and neck is reported as no acute arterial abnormality, significant stenosis or occlusion of the major neck or intracranial arteries. Stroke code was activated and NIH was a 1. No IV TPA since last normal was the night prior to presenting the hospital and the risks outweigh the benefit. MRI of the brain reported as chronic small vessel ischemic changes, age-related atrophy. Sinus disease. No acute process. I personally reviewed MRI of the brain on the computer, agree with the findings. There is some small vessel ischemic disease noted. 2-D echo revealed normal left ventricular size. Mild concentric LVH. Overall left ventricular systolic function is low normal with EF between 50-55%. Left atrium is mildly dilated. Right atrial size is normal. Mild aortic stenosis. Cannot exclude possible bicuspid aortic valve. Objective - Vital Signs Vital signs: Vital Signs Temp 98.7 F 02/02/22 08:00 Pulse 105 H 02/02/22 11:15 Resp 18 02/02/22 11:15 BP 135/70 02/02/22 11:15 Pulse Ox 96 02/02/22 08:00 Intake & Output 02/01/22 02/02/22 02/02/22 18:59 06:59 18:59 Intake Total 300 101.417 0 Output Total 1800 Balance -1500 101.417 0 Weight 99.79 kg Intake: Intake, IV Titration 101.417 Amount Diltiazem 125 mg In 101.417 Sodium Chloride 0.9% 100 ml @ 2.5 MG/HR 2.5 mls/hr IV .Q24H [facility] Rx#: [id number] Oral 0 0 Hemodialysis 300 Output: Hemodialysis 1800 Other: Voiding Method Indwelling Catheter Indwelling Catheter Indwelling Catheter # Bowel Movements 1 - Exam Patient is an elderly female, in no acute distress. She is clearly severely delirious. She is constantly rambling inappropriate statements as mentioned above. He would continue and repeat "don't don't don't don't don't". Patient is keeping eyes closed. Attention, concentration and fund of knowledge is limited. Patient is keeping eyes closed. Pupils are round and reacting. Face is symmetric. Speech is clear, although no aphasia or dysarthria. Visual rosenberg could not be tested. Patient is moving all 4 extremities. She is slightly tremulous. Gait not checked. On general examination, there is no carotid bruit or murmur, S1-S2 audible. Abdomen is soft nontender. No organomegaly. Bowel sounds present. Chest is clear. Peripheral pulses are present. No edema. 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 Probably some component of uremic encephalopathy as well. (MRI Brain is negative for acute to subacute stroke) * Delirium due to above * Acute kidney injury (Creatnine of 6.52 and BUN 86 on presentation)--improved with hemodialysis 23/3.06 as of 02/01/2022. * Possible acute underlying urinary tract infection * Hypertension * Hypothyroidism, probably overtreated. * History of hyperlipidemia * Vitamin B12 deficiency with B12 191. Plan: Discontinue steroids. Patient may benefit from use of antipsychotic, if patient continues to be delirious. I would avoid sedating antipsychotic. EEG was normal. No focal slowing, epileptiform discharges or seizures noted on the EEG. No indication for antiepileptic medication. MRI of the brain performed recently showed no acute stroke. Nephrology following Patient has significant B12 deficiency (191). Patient will be started on vitamin B12 1000 g IM daily for 5 days. Afterwards would recommend starting vitamin B12 1000 g sublingually daily. Folic acid > 20.0. Ammonia is <9. Hemoglobin A1c 5.5 normal. Lipid panel with cholesterol 140, LDL 54, HDL 35, triglycerides 249. Please avoid any sedating/narcotic that affect the patient's mentation as well as renal function. We'll defer the rest of the medical management to primary team. Discussed with patient's and Dr. Chacon in detail.
--- NOTE | 2022-02-03 11:40 | P.PN ---
Subjective Progress Note Date: 02/03/22 HISTORY OF PRESENT ILLNESS This is a 71-year-old female patient of Dr. Chacon with past medical history of cervical cancer, hypertension, hyperlipidemia, generalized osteoarthritis. Family noticed the patient was confused yesterday. In hindsight noticed that approximately couple days she's been declining. She just saw Dr. Chacon on Monday for back pain with history of spinal fusion and started on dexamethasone 6 mg daily. Patient has been on Mobic in the past but that was stopped a couple months ago when her renal function decreased. Patient normally drinks a lot of water and she works out in the gym regularly on a recumbent bike. reports no urine output yesterday despite IV fluids given in the emergency center. Patient came into [facility] emergency center for evaluation and found to be afebrile, heart rate in the 60s, blood pressure 129/69, pulse ox 91% on room air. EKG was a sinus rhythm with no acute ST changes. CBC was unremarkable. CO2 was 16 BUN 86 and creatinine 6.52. Blood sugar 113. TSH 0.269 and free T4 was normal at 1.17. Repeat kidney function today is BUN 85 creatinine 7.86 with a bicarb of 15. Triglycerides 249, cholesterol 140, HDL 35, LDL 54. Urinalysis showed a small amount of leukoesterase, WBC 16. Urine drug screen positive for opiates and tricyclic antidepressants. Urine culture is in progress. Chest x-ray shows no acute cardiopulmonary process. CT angiogram reveals no acute arterial abnormality, significant stenosis or occlusion of the major neck or intracranial arteries. CAT scan of the brain revealed no acute intracranial hemorrhage or gross acute cortical infarct however a small acute or hyper acute infarct cannot be excluded. MRI of the brain reveals chronic small vessel ischemic changes, age-related atrophy. Renal ultrasound reveals medical renal disease. Patient has been seen by neurology and started on Plavix because MRI was negative, Plavix will be discontinued and mental status changes most likely secondary to toxic metabolic encephalopathy. Patient has also been seen by nep hrology for acute kidney injury secondary to ATN, sodium bicarb drip was started, Jackson catheter for accurate I&O's, one time dose of IV Lasix 80 mg. If no improvement in renal function and urine output and 4 hours, initiate renal replacement therapy. Serology and hepatitis testing pending. 3/4Patient examined bedside. She has worsened in her mental status today. Has been at bedside has noted hallucinations of and a paranoid behavior today. Patient is more confused than yesterday she is and she is and unable to relate to her condition at this moment. She is oriented 3 but unable to comprehend his situation. Patient urine output is morning is only 150 mL. She had 300 mL output overnight. Right is afebrile pulse 70 respiratory rate 18 blood pressure 189/78 oxygen 99% on room air. Labs reviewed sodium 131 potassium 4.7 bicarb 17 BUN 89 8 creatinine 8.69 phosphorus 8.0. Urine culture is negative for infection JAMAL negative complement levels and negative hepatitis panel is negat dirk. A vascular surgery consult will be placed for dialysis catheter placement. Hydralazine initiated at 50 3 times a day for blood pressure control. Seroquel initiated 25 at Edu Watkins at bedtime 01/29: Patient was examined at the bedside. Over the night she had increased paranoia refused any oral medications. Patient was confused and combative. She was given 1 dose of Ativan. She became difficult to arouse and answer questions appropriately. At this time patient is alert continues to have paranoia and confusion. She is able to answer some questions appropriately. She does recognize the voice of the provider. Family is at bedside. Dialysis at this time. We will avoid any further sedation medications. And stop oral medications due to paranoia. Sodium 132, BUN 63, creatinine 6.9, 01/30: Patient is examined at the bedside. She is sitting up in bed. She is alert and orientated 3. Patient states that she no longer has any paranoia she is not having any visual or auditory hallucinations. She does feel overwhelmed by the smell from the hospital. Is significantly improved compared to yesterday. Patient will have a break from hemodialysis today. Her BUN is 36, creatinine 5.24. Possible renal biopsy may occur this week. IV has been discontinued due to swelling to bilateral upper extremities. Patient has had a total of 500 ML's of urine output. Patient states that she slept better last night. She did walk up and down the [place] without any difficulties. Patient remains afebrile, heart rate 83, respirations 16, blood pressure 142/71, pulse ox 93 on room air. 01/31: Patient apparently had severe episode this morning with hallucination and delusion, she ended up pulling out her hemodialysis catheter which created a lot of bleeding at the time. Patient become very sensitive afterward not responding to any thing but more catatonic not clear that she is aware for surrounding or not that she is closing her eyes refused to talk or to indicate any by the time. I have long discussion with the who is fully aware of her current diagnosis and prognosis. Also spoke with nephrology patient will benefit from having kidney biopsy for more precise diagnoses for why she is in acute kidney failure. 02/01: Patient ended up having another dialysis catheter in the left groin area and she is on hemodialysis at the time patient is more awake today but still very catatonic noticing any question and not making any effort to show any understanding of her surroundings at this point. Long discussion with the today about CODE STATUS and his final decision as his decision maker to keep her full code but if she ended up on extended life support the decision to withdraw life support in X days discussion is betweenHim and I would happen at the time. 02/02: Patient is on hemodialysis today. Patient responded is very limited which is still having significant psychotic episode and delirium. Her blood work had shown significant improvement compared to before. Review nephrology documentation along with neurology it seems all still blame on uremia but realistically her bun and creatinine has significantly improved last couple days without having to affect her mentation at this point. Still doing supportive care. The was on the bedside answer all his question still interested doing kidney biopsy at time. MRI of the brain was negative, neurology consultation EEG was negative as well. concern whether any the mental status change and the kidney can be related to COVID-19 vaccination, I don't have an answer for this question at this point if patient eventually had kidney biopsy may be would have some indication through the pathology change. 02/03: Patient is awake today doing much better, she is having hemodialysis, part of discussion yesterday with neurology as this is probably acute psychosis from steroid base that patient receive dexamethasone one day before her presentation to the hospital and another dose before start feeling bad on Monday. Patient is more clear this point we don't need to do NG tube for feeding patient be started on full liquid diet titrated gradually after doing swallow eval by speech. Also we'll advance physical therapy and patient off therapy for now. Had discussion with patient and her at the time the patient still slightly bit confused but a lot more awake interactive she knew why was new her was able to carry some conversation on her surrounding, her short-term memory is much better today. REVIEW OF SYSTEMS Constitutional: No fever, no chills, no night sweats. No weight change. No weakness, reports fatigue no lethargy. No daytime sleepiness. EENT: No headache. No blurred vision or double vision, no loss of vision. No loss of Hearing, no ringing in the ears, no dizziness. No nasal drainage or congestion. No epistaxis. No sore throat. Lungs: No shortness of breath, cough, no sputum production. No wheezing. Cardiovascular: No chest pain, no lower extremity edema. No palpitations. No paroxysmal nocturnal dyspnea. No orthopnea. No lightheadedness or dizziness. No syncopal episodes. Abdominal: No abdominal pain. No nausea, vomiting. No diarrhea. No constipation. No bloody or tarry stools. No loss of appetite. Genitourinary: No dysuria, increased frequency, urgency. No urinary retention. Decreased urine output. Musculoskeletal: No myalgias. No muscle weakness, no gait dysfunction, no frequent falls. No back pain. No neck pain. Integumentary: No wounds, no lesions. No rash or pruritus. No unusual bruising. No change in hair or nails. Neurologic: No aphasia. No facial droop. Reported change in mentation. No head injury. No headache. No paralysis. No paresthesia. Psychiatric: No depression. Increase anxiety increased hallucinations and increased delusions increased paranoia. No mood swings. Endocrine: No abnormal blood sugars. No weight change. No excessive sweating or thirst. No cold intolerance. PHYSICAL EXAMINATION Gen: This is a 71-year-old female. Patient is resting in bed and Family members are at bedside. HEENT: Head is atraumatic, normocephalic. Pupils equal, round. Sclerae is anicteric. NECK: Supple. No JVD. No lymphadenopathy. No thyromegaly. LUNGS: Clear to auscultation. No wheezes or rhonchi. No intercostal retractions. HEART: Regular rate and rhythm. 3/6 systolic murmur. ABDOMEN: Soft. Bowel sounds are present. No masses. No tenderness. Jackson in place with scant amount of urine output. EXTREMITIES: No pedal edema. No calf tenderness. NEUROLOGICAL: Patient is awake, alert and oriented x3. Answered questions a ppropriately, denies paranoia auditory or visual hallucinations. Cranial nerves 2 through 12 are grossly intact. ASSESSMENT AND PLAN 1. Metabolic encephalopathy was blame on uremia from acute kidney failure, with hemodialysis kidney function is much better so far that has not change her mental status so far. We'll continue supportive care and still seen neurology. Despite improvement today still don't have an explanation for why acute kidney failure has happened so far patient still process to go for kidney biopsy. 2. Acute kidney injury with ATN. And acute kidney failure: Patient was started on hemodialysis she pulled her dialysis catheter today which will be replaced for more time and continue hemodialysis at this point to bring her BUN and creatinine down. We will continue Bicarb drip has been discontinued. status post 1 dose of IV Lasix 80 mg today, maintain Jackson catheter for I&O's. Patient is unable to maintain urine output. hemodialysis done today and will hold it tomorrow and through the weekend and see if there is more improvement on her own. 3. Metabolic acidosis secondary to acute kidney injury. Much better but still on bicarbonate this point. 4. Acute psychosis and deliriumSeems to make more sense that her acute psychosis can be steroid base related specially with the first event and the last event, patient is very clear this point. Last night require some Haldol and lorazepam but she is much more clear today with continue current management was start physical therapy continued see psych and neurology as well. 5. Hypertension. Norvasc 10 mg by mouth daily 6. Hyperlipidemia. Hold pravastatin 40 mg daily. 7. History of cervical cancer: Has been in remission. 8. Generalized anxiety disorder. Discontinue sedation medications.. 9. Chronic back pain with history of spinal fusion. Continue to hold her baclofen and pain management at this point. 10 nutrition statusPatient will be evaluated again by speech if she is doing better we will do full liquid and advanced to soft diet by tomorrow. CODE STATUS: Full code. But not extended life support for many days. Prognosis: Good. Objective - Vital Signs Vital signs: Vital Signs Temp 98.5 F 02/03/22 08:00 Pulse 103 H 02/03/22 08:00 Resp 18 02/03/22 08:00 BP 136/80 02/03/22 08:00 Pulse Ox 94 L 03/10/22 08:26 Intake & Output 02/02/22 02/03/22 02/03/22 18:59 06:59 18:59 Intake Total 300 425 Output Total 1000 Balance -700 425 Weight 99.79 kg Intake: Intake, IV Titration 125 Amount Diltiazem 125 mg In 125 Sodium Chloride 0.9% 100 ml @ 2.5 MG/HR 2.5 mls/hr IV .Q24H [facility] Rx#: [id number] Oral 0 300 Hemodialysis 300 Output: Hemodialysis 1000 Other: Voiding Method Indwelling Catheter Indwelling Catheter Indwelling Catheter - Labs CBC & Chem 7: 01/31/22 11:52 02/01/22 15:52
--- NOTE | 2022-02-03 11:41 | P.PN ---
Subjective Patient is seen for follow-up for acute kidney injury patient was admitted to the hospital with mental status changes and acute kidney injury with serum creatinine peaking at 8.69 mg/dL. Patient was started on dialysis on 01/28/2022. Mentation had improved to some degree initially but then deteriorated again and patient has been receiving consecutive treatments of hemodialysis for the last 2 days. Mentation seems to have improved however patient has been talking to herself. Serum creatinine was about 1.2 mg/dL 12 weeks ago as outpatient. All serologies are negative. Possibility of use of NSAIDs prior to admission. Concern for possible AIN along with ATN. Started prednisone. Patient received 1 dose and there was concern for possible steroid psychosis and therefore it is currently on hold. Patient had apparently received 60 mg of Decadron as outpatient prior to admission. Patient is currently seen on dialysis. She is tolerating her treatment fairly well. Her is present at bedside. Patient did receive Ativan early this morning and received Haldol last evening. Urine output is not accurately charted. Objective - Vital Signs Vital signs: Vital Signs Temp 98.5 F 02/03/22 08:00 Pulse 103 H 02/03/22 08:00 Resp 18 02/03/22 08:00 BP 136/80 02/03/22 08:00 Pulse Ox 94 L 02/03/22 08:26 Intake & Output 02/02/22 02/03/22 02/03/22 18:59 06:59 18:59 Intake Total 300 425 Output Total 1000 Balance -700 425 Weight 99.79 kg Intake: Intake, IV Titration 125 Amount Diltiazem 125 mg In 125 Sodium Chloride 0.9% 100 ml @ 2.5 MG/HR 2.5 mls/hr IV .Q24H [facility] Rx#: [id number] Oral 0 300 Hemodialysis 300 Output: Hemodialysis 1000 Other: Voiding Method Indwelling Catheter Indwelling Catheter Indwelling Catheter - Exam Patient is talking to herself. Examination of the heart S1 and S2 Examination lungs bilateral breath sounds are heard Abdomen is soft nontender Examination lower extremity shows 1+ edema CAMP[employer] HAND exam shows patient is confused. She does follow some commands. Overall appears to be slightly better than yesterday. - Labs CBC & Chem 7: 01/31/22 11:52 02/01/22 15:52 Assessment and Plan Assessment: 1. Acute kidney injury most likely ATN need to consider acute interstitial nephritis as well given the pyuria and history of use of NSAIDs. Patient will need to continue with renal replacement therapy as there was some improvement in mentation after initial dialysis. Patient will need kidney biopsy. Previous creatinine around 1-1.2 mg/dL about 12 weeks ago. Received 1 dose of prednisone and it is currently on hold due to possible steroid psychosis. 2. Mental status changes with concern for uremia. Brain CT unremarkable for acute findings. 3. Pyuria with urine cultures negative consider AIN 4. Hyperphosphatemia associated with acute kidney injury maintained on PhosLo 5. Metabolic acidosis associated with acute kidney injury 6. Steroid psychosis. Her symptoms seem to coincide with high-dose steroids given as outpatient prior to admission for back pain and patient was noted to alcaraz ve delirium again after she received 1 dose of 40 mg of prednisone on 02/01/2022 Plan: Repeat hemodialysis today Continue off of prednisone Kidney biopsy Monitor urine output accurately Hold dialysis in a.m. Check BMP in a.m.
[2022-02-03 12:05] LABS: Albumin 3.1 g/dL (3.5-5.0); Calcium 8.4 mg/dL (8.4-10.2); Potassium 3.6 mmol/L (3.5-5.1); Total Bilirubin 0.5 mg/dL (0.2-1.3); Total Protein 5.6 g/dL (6.3-8.2)
[2022-02-03 12:17] LABS: Basophils % (A) 0 %; Eosinophils # (A) 0.1 k/uL (0-0.7); Eosinophils % (A) 1 %; HCT 26.6 % (34.0-46.0); Lymphocytes # (A) 1.5 k/uL (1.0-4.8); Lymphocytes % (A) 14 %; MCH 31.1 pg (25.0-35.0); MCHC 33.4 g/dL (31.0-37.0); MCV 93.3 fL (80.0-100.0); Mean Platelet Volume 8.1; Monocytes # (A) 1.2 k/uL (0-1.0); Monocytes % (A) 11 %; Neutrophils # (A) 7.6 k/uL (1.3-7.7); Neutrophils % (A) 72 %; Platelet Count 223 k/uL (150-450); RBC 2.85 m/uL (3.80-5.40); RDW 13.8 % (11.5-15.5); WBC 10.6 k/uL (3.8-10.6)
[2022-02-03 12:20] LABS: HGB 8.9 gm/dL (11.4-16.0)
[2022-02-03] MEDS: FUROSEMIDE 10 MG/ML 10 ML VIAL IV SCH (15:27)
[2022-02-03] MEDS: amLODIPine 10 MG TAB PO SCH (15:28)
[2022-02-03] MEDS: HEPARIN SODIUM,PORCINE/PF 5,000 UNIT/0.5 ML SYRINGE SQ SCH ×2 (15:28→21:49)
[2022-02-03] MEDS: VIT A,C & E-LUTEIN-MINERALS 1 EACH TAB PO SCH ×2 (15:29→21:49)
[2022-02-03] MEDS: SODIUM BICARBONATE TAB 650 MG TAB PO SCH ×3 (15:29→21:49)
[2022-02-03] MEDS: CYANOCOBALAMIN 1,000 MCG/ML 1 ML VIAL IM SCH (15:29)
[2022-02-03] MEDS: QUEtiapine 25 MG TAB PO SCH (21:49)
[2022-02-04] MEDS: predniSONE 20 MG TAB PO SCH (04:43)
[2022-02-04] MEDS: hydrALAZINE HCL 20 MG/ML 1 ML VIAL IVP SCH ×4 (05:44→20:59)
[2022-02-04] MEDS: DILTIAZEM 125 MG in SODIUM CHLORIDE 0.9% 100 ML IV SCH (07:03)
[2022-02-04] MEDS: CALCIUM ACETATE 667 MG TAB PO SCH ×3 (07:04→16:33)
[2022-02-04 07:09] LABS: HGB 8.7 gm/dL (11.4-16.0); MCHC 33.7 g/dL (31.0-37.0); MCV 94.9 fL (80.0-100.0); Mean Platelet Volume 7.9; Platelet Count 217 k/uL (150-450); RBC 2.74 m/uL (3.80-5.40); WBC 10.1 k/uL (3.8-10.6)
[2022-02-04 07:28] LABS: Albumin 3.1 g/dL (3.5-5.0); Calcium 8.4 mg/dL (8.4-10.2); Total Bilirubin 0.5 mg/dL (0.2-1.3); Total Protein 5.7 g/dL (6.3-8.2)
[2022-02-04 07:57] LABS: Potassium 3.8 mmol/L (3.5-5.1)
[2022-02-04] MEDS: SODIUM BICARBONATE TAB 650 MG TAB PO SCH ×3 (09:09→20:59)
[2022-02-04] MEDS: VIT A,C & E-LUTEIN-MINERALS 1 EACH TAB PO SCH ×2 (09:09→20:58)
[2022-02-04] MEDS: FUROSEMIDE 10 MG/ML 10 ML VIAL IV SCH (09:09)
[2022-02-04] MEDS: amLODIPine 10 MG TAB PO SCH (09:09)
[2022-02-04] MEDS: CYANOCOBALAMIN 1,000 MCG/ML 1 ML VIAL IM SCH (09:10)
[2022-02-04] MEDS: HEPARIN SODIUM,PORCINE/PF 5,000 UNIT/0.5 ML SYRINGE SQ SCH ×2 (09:11→20:59)
--- NOTE | 2022-02-04 09:43 | P.PN ---
Subjective Progress Note Date: 02/03/22 02/03/2022: Patient's and their daughter were present today. Patient's delirium continued yesterday. Finally she received Haldol 3 mg at 12:43 AM last night, and Ativan 0.5 mg IV at 2:18 AM. Patient has not slept for last couple nights. Now she is very sleepy. She is still mumbling. However she is not as hyperverbal as yesterday. 02/02/2022: Patient was seen for a follow-up. Patient's was also present today. Patient is also getting hemodialysis at this time. Patient has become more delirious. Patient is not opening her eyes. She is more incoherent , rambles. Patient constantly rambling, mumbling. Patient would constantly repeat "don't don't don't don't don't... say that". 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 These are the examples of some words/sentences that she rambled. On reviewing records, it appears patient received dexamethasone 6 mg orally on 01/25/2022 for back pain by her primary physician. Patient developed some paranoia the same evening and was hospitalized on the 01/26/2022. She was much more stable and has improved a lot yesterday when I saw her. Patient was then started on prednisone 40 mg, that was given at 5:56 PM last night for possible glomerulonephritis. Now she has developed full blown psychosis. 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 Patient has received dexamethasone in the past, and had no side effects, but she did not have renal failure in the past. I suspect acute renal failure with steroids probably resulted in steroid psychosis. Patient's denies any history of alcoholism maybe drinks 2 glasses of wine a year. No history of drugs. 02/01/2022: Patient was seen for a follow-up. Patient initially seen by Dr. Michael Powell. Please refer to his note for details. Patient was last seen by Dr. Powell on 01/28/2022 and patient was signed off. Now neurology was reconsulted for episode of unresponsiveness. Patient is getting hemodialysis at this time. I spoke to patient's , who informed me that her symptoms started actually on last Monday on 01/25/2022 when she said certain sentences which did not make sense. The next day on Monday, patient slept more than longer and then the son woke her up, she was confused and she couldn't find the words like seeing "I'm drinking" instead of saying "I am thirsty". Patient was brought to the hospital on 01/26/2022. Patient was diagnosed with acute renal failure with BUN 86, creatinine 6.52. This was new onset, newly diagnosed. Patient also had a UTI with large amount of leukocyte Estrace and more than 182 WBCs. Urine cultures were negative. Patient started getting dialysis on 01/28/2022 and also received treatment on Monday. Her mentation came back to baseline on Monday and she did not receive the dialysis on Monday. Her mentation got worse again yesterday dispatcher chief oil at around 2-3 AM. According to the nurse report, dispatcher chief oil Monday, which is yesterday dispatcher chief oil, she became confused, pulled the dialysis port and then was completely unresponsive. She was very paranoid rest of the day, suspecting that people were here to hurt her. She would not take her pills and was very suspicious. Today patient is receiving dialysis and her mentation is much improved. She is acknowledging, and answering to the questions. Sometimes they're not correct. Patient has history of bilateral knee surgery, with revision of the left knee recently in October 2021. She had spinal fusion surgery couple years prior. CT of the head is reported as no acute intracranial hemorrhage or gross acute cortical infarct however small acute or hyperacute infarct cannot be excluded. CT angiography of the head and neck is reported as no acute arterial abnormality, significant stenosis or occlusion of the major neck or intracranial arteries. Stroke code was activated and NIH was a 1. No IV TPA since last normal was the night prior to presenting the hospital and the risks outweigh the benefit. MRI of the brain reported as chronic small vessel ischemic changes, age-related atrophy. Sinus disease. No acute process. I personally reviewed MRI of the brain on the computer, agree with the findings. There is some small vessel ischemic disease noted. 2-D echo revealed normal left ventricular size. Mild concentric LVH. Overall left ventricular systolic function is low normal with EF between 50-55%. Left atrium is mildly dilated. Right atrial size is normal. Mild aortic stenosis. Cannot exclude possible bicuspid aortic valve. Objective - Vital Signs Vital signs: Vital Signs Temp 98.5 F 02/03/22 08:00 Pulse 103 H 02/03/22 08:00 Resp 18 02/03/22 08:00 BP 136/80 02/03/22 08:00 Pulse Ox 94 L 02/03/22 08:26 Intake & Output 02/02/22 02/03/22 02/03/22 18:59 06:59 18:59 Intake Total 300 425 Output Total 1000 Balance -700 425 Weight 99.79 kg Intake: Intake, IV Titration 125 Amount Diltiazem 125 mg In 125 Sodium Chloride 0.9% 100 ml @ 2.5 MG/HR 2.5 mls/hr IV .Q24H [facility] Rx#: [id number] Oral 0 300 Hemodialysis 300 Output: Hemodialysis 1000 Other: Voiding Method Indwelling Catheter Indwelling Catheter Indwelling Catheter - Exam Patient very somnolent. Sometimes she mumbles. Patient needs to sleep, therefore did not wake her up. 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 Probably some component of uremic encephalopathy as well. (MRI Brain is negative for acute to subacute stroke) * Delirium due to above * Acute kidney injury (Creatnine of 6.52 and BUN 86 on presentation)--improved with hemodialysis 44/4.23 as of today. * Possible acute underlying urinary tract infection * Hypertension * Hyperthyroidism, probably overtreated. * History of hyperlipidemia * Vitamin B12 deficiency with B12 191. Plan: Stay off steroids for now. Patient may benefit from use of antipsychotic, if patient continues to be delirious. I would avoid sedating antipsychotic. EEG was normal. No focal slowing, epileptiform discharges or seizures noted on the EEG. No indication for antiepileptic medication. MRI of the brain performed recently showed no acute stroke. Patient has significant B12 deficiency (191). Patient will be started on vitamin B12 1000 g IM daily for 5 days. Afterwards would recommend starting vitamin B12 1000 g sublingually daily. Folic acid > 20.0. Ammonia is <9. Hemoglobin A1c 5.5 normal. No monoclonal gammopathy. JAMAL, dsDNA, ANCA antibodies, complements, hepatitis panel all negative or normal. Lipid panel with cholesterol 140, LDL 54, HDL 35, triglycerides 249. Please avoid any sedating/narcotic that affect the patient's mentation as well as renal function. We'll defer the rest of the medical management to primary team. Discussed with patient's and field operations manager Dr. De in detail.
--- NOTE | 2022-02-04 13:02 | P.PN ---
Subjective Progress Note Date: 02/04/22 HISTORY OF PRESENT ILLNESS This is a 71-year-old female patient of Dr. Chacon with past medical history of cervical cancer, hypertension, hyperlipidemia, generalized osteoarthritis. Family noticed the patient was confused yesterday. In hindsight noticed that approximately couple days she's been declining. She just saw Dr. Chacon on Monday for back pain with history of spinal fusion and started on dexamethasone 6 mg daily. Patient has been on Mobic in the past but that was stopped a couple months ago when her renal function decreased. Patient normally drinks a lot of water and she works out in the gym regularly on a recumbent bike. reports no urine output yesterday despite IV fluids given in the emergency center. Patient came into [facility] emergency center for evaluation and found to be afebrile, heart rate in the 60s, blood pressure 129/69, pulse ox 91% on room air. EKG was a sinus rhythm with no acute ST changes. CBC was unremarkable. CO2 was 16 BUN 86 and creatinine 6.52. Blood sugar 113. TSH 0.269 and free T4 was normal at 1.17. Repeat kidney function today is BUN 85 creatinine 7.86 with a bicarb of 15. Triglycerides 249, cholesterol 140, HDL 35, LDL 54. Urinalysis showed a small amount of leukoesterase, WBC 16. Urine drug screen positive for opiates and tricyclic antidepressants. Urine culture is in progress. Chest x-ray shows no acute cardiopulmonary process. CT angiogram reveals no acute arterial abnormality, significant stenosis or occlusion of the major neck or intracranial arteries. CAT scan of the brain revealed no acute intracranial hemorrhage or gross acute cortical infarct however a small acute or hyper acute infarct cannot be excluded. MRI of the brain reveals chronic small vessel ischemic changes, age-related atrophy. Renal ultrasound reveals medical renal disease. Patient has been seen by neurology and started on Plavix because MRI was negative, Plavix will be discontinued and mental status changes most likely secondary to toxic metabolic encephalopathy. Patient has also been seen by nep hrology for acute kidney injury secondary to ATN, sodium bicarb drip was started, Jackson catheter for accurate I&O's, one time dose of IV Lasix 80 mg. If no improvement in renal function and urine output and 4 hours, initiate renal replacement therapy. Serology and hepatitis testing pending. 3/4Patient examined bedside. She has worsened in her mental status today. Has been at bedside has noted hallucinations of and a paranoid behavior today. Patient is more confused than yesterday she is and she is and unable to relate to her condition at this moment. She is oriented 3 but unable to comprehend his situation. Patient urine output is morning is only 150 mL. She had 300 mL output overnight. Right is afebrile pulse 70 respiratory rate 18 blood pressure 189/78 oxygen 99% on room air. Labs reviewed sodium 131 potassium 4.7 bicarb 17 BUN 89 8 creatinine 8.69 phosphorus 8.0. Urine culture is negative for infection JAMAL negative complement levels and negative hepatitis panel is negat dirk. A vascular surgery consult will be placed for dialysis catheter placement. Hydralazine initiated at 50 3 times a day for blood pressure control. Seroquel initiated 25 at [facility] at bedtime 01/29: Patient was examined at the bedside. Over the night she had increased paranoia refused any oral medications. Patient was confused and combative. She was given 1 dose of Ativan. She became difficult to arouse and answer questions appropriately. At this time patient is alert continues to have paranoia and confusion. She is able to answer some questions appropriately. She does recognize the voice of the provider. Family is at bedside. Dialysis at this time. We will avoid any further sedation medications. And stop oral medications due to paranoia. Sodium 132, BUN 63, creatinine 6.9, 01/30: Patient is examined at the bedside. She is sitting up in bed. She is alert and orientated 3. Patient states that she no longer has any paranoia she is not having any visual or auditory hallucinations. She does feel overwhelmed by the smell from the hospital. Is significantly improved compared to yesterday. Patient will have a break from hemodialysis today. Her BUN is 36, creatinine 5.24. Possible renal biopsy may occur this week. IV has been discontinued due to swelling to bilateral upper extremities. Patient has had a total of 500 ML's of urine output. Patient states that she slept better last night. She did walk up and down the [place] without any difficulties. Patient remains afebrile, heart rate 83, respirations 16, blood pressure 142/71, pulse ox 93 on room air. 01/31: Patient apparently had severe episode this morning with hallucination and delusion, she ended up pulling out her hemodialysis catheter which created a lot of bleeding at the time. Patient become very sensitive afterward not responding to any thing but more catatonic not clear that she is aware for surrounding or not that she is closing her eyes refused to talk or to indicate any by the time. I have long discussion with the who is fully aware of her current diagnosis and prognosis. Also spoke with nephrology patient will benefit from having kidney biopsy for more precise diagnoses for why she is in acute kidney failure. 02/01: Patient ended up having another dialysis catheter in the left groin area and she is on hemodialysis at the time patient is more awake today but still very catatonic noticing any question and not making any effort to show any understanding of her surroundings at this point. Long discussion with the today about CODE STATUS and his final decision as his decision maker to keep her full code but if she ended up on extended life support the decision to withdraw life support in X days discussion is betweenHim and I would happen at the time. 02/02: Patient is on hemodialysis today. Patient responded is very limited which is still having significant psychotic episode and delirium. Her blood work had shown significant improvement compared to before. Review nephrology documentation along with neurology it seems all still blame on uremia but realistically her bun and creatinine has significantly improved last couple days without having to affect her mentation at this point. Still doing supportive care. The was on the bedside answer all his question still interested doing kidney biopsy at time. MRI of the brain was negative, neurology consultation EEG was negative as well. concern whether any the mental status change and the kidney can be related to COVID-19 vaccination, I don't have an answer for this question at this point if patient eventually had kidney biopsy may be would have some indication through the pathology change. 02/03: Patient is awake today doing much better, she is having hemodialysis, part of discussion yesterday with neurology as this is probably acute psychosis from steroid base that patient receive dexamethasone one day before her presentation to the hospital and another dose before start feeling bad on Monday. Patient is more clear this point we don't need to do NG tube for feeding patient be started on full liquid diet titrated gradually after doing swallow eval by speech. Also we'll advance physical therapy and patient off therapy for now. Had discussion with patient and her at the time the patient still slightly bit confused but a lot more awake interactive she knew why was new her was able to carry some conversation on her surrounding, her short-term memory is much better today. 02/04: Patient is doing very well today she's out of bed sitting in a chair on her own her mental status is back to almost baseline with her acute psychosis has improved significantly. Was taking break from hemodialysis today her creatinine dropped down to 3.87 GFR still running at 13. Patient is comfortable feeling well otherwise still note timeframe for kidney biopsy this point and whether patient will be doing dialysis through the weekend are not will depend on her creatinine next day and 2. REVIEW OF SYSTEMS Constitutional: No fever, no chills, no night sweats. No weight change. No weakness, reports fatigue no lethargy. No daytime sleepiness. EENT: No headache. No blurred vision or double vision, no loss of vision. No loss of Hearing, no ringing in the ears, no dizziness. No nasal drainage or congestion. No epistaxis. No sore throat. Lungs: No shortness of breath, cough, no sputum production. No wheezing. Cardiovascular: No chest pain, no lower extremity edema. No palpitations. No paroxysmal nocturnal dyspnea. No orthopnea. No lightheadedness or dizziness. No syncopal episodes. Abdominal: No abdominal pain. No nausea, vomiting. No diarrhea. No constipation. No bloody or tarry stools. No loss of appetite. Genitourinary: No dysuria, increased frequency, urgency. No urinary retention. Decreased urine output. Musculoskeletal: No myalgias. No muscle weakness, no gait dysfunction, no frequent falls. No back pain. No neck pain. Integumentary: No wounds, no lesions. No rash or pruritus. No unusual bruising. No change in hair or nails. Neurologic: No aphasia. No facial droop. Reported change in mentation. No head injury. No headache. No paralysis. No paresthesia. Psychiatric: No depression. Increase anxiety increased hallucinations and increased delusions increased paranoia. No mood swings. Endocrine: No abnormal blood sugars. No weight change. No excessive sweating or thirst. No cold intolerance. PHYSICAL EXAMINATION Gen: This is a 71-year-old female. Patient is resting in bed and Family members are at bedside. HEENT: Head is atraumatic, normocephalic. Pupils equal, round. Sclerae is anicteric. NECK: Supple. No JVD. No lymphadenopathy. No thyromegaly. LUNGS: Clear to auscultation. No wheezes or rhonchi. No intercostal retractions . HEART: Regular rate and rhythm. 3/6 systolic murmur. ABDOMEN: Soft. Bowel sounds are present. No masses. No tenderness. Jackson in place with scant amount of urine output. EXTREMITIES: No pedal edema. No calf tenderness. NEUROLOGICAL: Patient is awake, alert and oriented x3. Answered questions appropriately, denies paranoia auditory or visual hallucinations. Cranial nerves 2 through 12 are grossly intact. ASSESSMENT AND PLAN 1. Severe altered mental status: Secondary to acute steroid psychosis, symptoms are much better so far been off steroid, still seen neurology no further CAT scan or MRI of the brain is needed at this point. 2. Acute kidney injury with ATN. With her acute kidney failure patient was on hemodialysis for several days, she took a break from dialysis today and was are much better continue to keep patient off nephrotoxic agent. 3. Metabolic acidosis secondary to acute kidney injury. Much better but still on bicarbonate this point. 4. Acute psychosis and deliriumSeems to make more sense that her acute psychosis can be steroid base related specially with the first event and the last event, patient is very clear this point. Last night require some Haldol and lorazepam but she is much more clear today with continue current management was start physical therapy continued see psych and neurology as well. 5. Hypertension. Norvasc 10 mg by mouth daily blood pressures better controlled. 6. Hyperlipidemia. We will restart medication back sometime this week. 7. History of cervical cancer: Has been in remission. 8. Generalized anxiety disorder. Discontinue sedation medications.. 9. Chronic back pain with history of spinal fusion. Continue to hold her baclofen and pain management at this point. 10 depression status and diet: Patient is able to eat and feed herself doing better this week. CODE STATUS: Full code. But not extended life support for many days. Prognosis: Good. Objective - Vital Signs Vital signs: Vital Signs Temp 98.6 F 02/04/22 09:03 Pulse 95 02/04/22 09:03 Resp 18 02/04/22 09:03 BP 121/73 02/04/22 09:03 Pulse Ox 92 L 02/04/22 09:03 Intake & Output 02/03/22 02/04/22 02/04/22 18:59 06:59 18:59 Intake Total 180 125 240 Output Total 1500 450 Balance -1320 -325 240 Weight 0 g Intake: IV 30 Diltiazem 125 mg In 30 Sodium Chloride 0.9% 100 ml @ 2.5 MG/HR 2.5 mls/hr IV .Q24H ROSA Rx#: [id number] Intake, IV Titration 125 Amount Diltiazem 125 mg In 125 Sodium Chloride 0.9% 100 ml @ 2.5 MG/HR 2.5 mls/hr IV .Q24H ROSA Rx#: [id number] Oral 150 240 Output: Urine 500 450 Hemodialysis 1000 Other: Voiding Method Indwelling Catheter Indwelling Catheter # Bowel Movements 1 0 - Labs CBC & Chem 7: 02/04/22 06:45 02/04/22 06:45 Labs: Abnormal Lab Results - Last 24 Hours (Table) 02/03/22 02/03/22 02/04/22 Range/Units 07:10 07:10 06:45 RBC 2.85 L 2.74 L (3.80-5.40) m/uL Hgb 8.9 L D 8.7 L (11.4-16.0) gm/dL Hct 26.6 L 26.0 L (34.0-46.0) % Monocytes # 1.2 H (0-1.0) k/uL Sodium (137-145) mmol/L BUN 44 H (7-17) mg/dL Creatinine 4.23 H (0.52-1.04) mg/dL Glucose 102 H (74-99) mg/dL Total Protein 5.6 L (6.3-8.2) g/dL Albumin 3.1 L (3.5-5.0) g/dL 02/04/22 Range/Units 06:45 RBC (3.80-5.40) m/uL Hgb (11.4-16.0) gm/dL Hct (34.0-46.0) % Monocytes # (0-1.0) k/uL Sodium 135 L (137-145) mmol/L BUN 40 H (7-17) mg/dL Creatinine 3.87 H (0.52-1.04) mg/dL Glucose 101 H (74-99) mg/dL Total Protein 5.7 L (6.3-8.2) g/dL Albumin 3.1 L (3.5-5.0) g/dL
--- NOTE | 2022-02-04 13:08 | P.PN ---
Subjective Patient is seen for follow-up for acute kidney injury patient was admitted to the hospital with mental status changes and acute kidney injury with serum creatinine peaking at 8.69 mg/dL. Patient was started on dialysis on 01/28/2022. Mentation had improved to some degree initially but then deteriorated again and patient has been receiving consecutive treatments of hemodialysis for the last 2 days. Mentation seems to have improved however patient has been talking to herself. Serum creatinine was about 1.2 mg/dL 12 weeks ago as outpatient. All serologies are negative. Possibility of use of NSAIDs prior to admission. Concern for possible AIN along with ATN. Started prednisone. Patient received 1 dose and there was concern for possible steroid psychosis and therefore it is currently on hold. Patient had apparently received 60 mg of Decadron as outpatient prior to admission. Patient is sitting up in bed. She is comfortable. Mentation is much improved. No significant complaints today. Urine output charted at 950 mL which is improved Objective - Vital Signs Vital signs: Vital Signs Temp 98.6 F 02/04/22 09:03 Pulse 94 02/04/22 11:46 Resp 18 02/04/22 11:46 BP 120/68 02/04/22 11:46 Pulse Ox 94 L 02/04/22 11:46 Intake & Output 02/03/22 02/04/22 02/04/22 18:59 06:59 18:59 Intake Total 180 125 240 Output Total 1500 450 Balance -1320 -325 240 Weight 0 g 99.79 kg Intake: IV 30 Diltiazem 125 mg In 30 Sodium Chloride 0.9% 100 ml @ 2.5 MG/HR 2.5 mls/hr IV .Q24H ROSA Rx#: [id number] Intake, IV Titration 125 Amount Diltiazem 125 mg In 125 Sodium Chloride 0.9% 100 ml @ 2.5 MG/HR 2.5 mls/hr IV .Q24H ROSA Rx#: [id number] Oral 150 240 Output: Urine 500 450 Hemodialysis 1000 Other: Voiding Method Indwelling Catheter Indwelling Catheter Indwelling Catheter # Bowel Movements 1 0 1 - Exam Patient is awake, comfortable. She is wearing her eyeglasses today. Mentation is near normal. Examination of the heart S1 and S2 Examination lungs bilateral breath sounds are heard Abdomen is soft nontender Examination lower extremity shows 1+ edema [employer] exam shows patient is following commands. Moves all 4 extremities. - Labs CBC & Chem 7: 02/04/22 06:45 02/04/22 06:45 Labs: Abnormal Lab Results - Last 24 Hours (Table) 02/04/22 02/04/22 Range/Units 06:45 06:45 RBC 2.74 L (3.80-5.40) m/uL Hgb 8.7 L (11.4-16.0) gm/dL Hct 26.0 L (34.0-46.0) % Sodium 135 L (137-145) mmol/L BUN 40 H (7-17) mg/dL Creatinine 3.87 H (0.52-1.04) mg/dL Glucose 101 H (74-99) mg/dL Total Protein 5.7 L (6.3-8.2) g/dL Albumin 3.1 L (3.5-5.0) g/dL Assessment and Plan Assessment: 1. Acute kidney injury most likely ATN need to consider acute interstitial nephritis as well given the pyuria and history of use of NSAIDs. Patient will need to continue with renal replacement therapy as there was some improvement in mentation after initial dialysis. Patient will need kidney biopsy. Previous creatinine around 1-1.2 mg/dL about 12 weeks ago. Received 1 dose of prednisone and it is currently on hold due to possible steroid psychosis. 2. Mental status changes with concern for uremia. Brain CT unremarkable for acute findings. 3. Pyuria with urine cultures negative consider AIN 4. Hyperphosphatemia associated with acute kidney injury maintained on PhosLo 5. Metabolic acidosis associated with acute kidney injury 6. Steroid psychosis. Her symptoms seem to coincide with high-dose steroids given as outpatient prior to admission for back pain and patient was noted to have delirium again after she received 1 dose of 40 mg of prednisone on 02/01/2022 Plan: Hold hemodialysis today Repeat labs in a.m. Continue to avoid nephrotoxic agents May not need kidney biopsy if renal function continues to improve.
[2022-02-04] MEDS: QUEtiapine 25 MG TAB PO SCH (20:58)
[2022-02-05] MEDS: hydrALAZINE HCL 20 MG/ML 1 ML VIAL IVP SCH ×4 (05:34→21:19)
[2022-02-05] MEDS: DILTIAZEM 125 MG in SODIUM CHLORIDE 0.9% 100 ML IV SCH (06:20)
[2022-02-05] MEDS: CALCIUM ACETATE 667 MG TAB PO SCH ×3 (06:20→18:14)
[2022-02-05 09:17] LABS: HCT 27.3 % (34.0-46.0); HGB 8.9 gm/dL (11.4-16.0); MCH 30.8 pg (25.0-35.0); MCHC 32.6 g/dL (31.0-37.0); MCV 94.6 fL (80.0-100.0); Mean Platelet Volume 7.8; Platelet Count 267 k/uL (150-450); RBC 2.89 m/uL (3.80-5.40); RDW 13.4 % (11.5-15.5); WBC 7.8 k/uL (3.8-10.6)
[2022-02-05 09:18] LABS: Albumin 3.1 g/dL (3.5-5.0); Calcium 8.7 mg/dL (8.4-10.2); Potassium 3.5 mmol/L (3.5-5.1); Total Bilirubin 0.5 mg/dL (0.2-1.3); Total Protein 5.7 g/dL (6.3-8.2)
--- NOTE | 2022-02-05 10:13 | P.PN ---
Subjective Progress Note Date: 02/05/22 HISTORY OF PRESENT ILLNESS This is a 71-year-old female patient of Dr. Chacon with past medical history of cervical cancer, hypertension, hyperlipidemia, generalized osteoarthritis. Family noticed the patient was confused yesterday. In hindsight noticed that approximately couple days she's been declining. She just saw Dr. Chacon on Monday for back pain with history of spinal fusion and started on dexamethasone 6 mg daily. Patient has been on Mobic in the past but that was stopped a couple months ago when her renal function decreased. Patient normally drinks a lot of water and she works out in the gym regularly on a recumbent bike. reports no urine output yesterday despite IV fluids given in the emergency center. Patient came into [facility] emergency center for evaluation and found to be afebrile, heart rate in the 60s, blood pressure 129/69, pulse ox 91% on room air. EKG was a sinus rhythm with no acute ST changes. CBC was unremarkable. CO2 was 16 BUN 86 and creatinine 6.52. Blood sugar 113. TSH 0.269 and free T4 was normal at 1.17. Repeat kidney function today is BUN 85 creatinine 7.86 with a bicarb of 15. Triglycerides 249, cholesterol 140, HDL 35, LDL 54. Urinalysis showed a small amount of leukoesterase, WBC 16. Urine drug screen positive for opiates and tricyclic antidepressants. Urine culture is in progress. Chest x-ray shows no acute cardiopulmonary process. CT angiogram reveals no acute arterial abnormality, significant stenosis or occlusion of the major neck or intracranial arteries. CAT scan of the brain revealed no acute intracranial hemorrhage or gross acute cortical infarct however a small acute or hyper acute infarct cannot be excluded. MRI of the brain reveals chronic small vessel ischemic changes, age-related atrophy. Renal ultrasound reveals medical renal disease. Patient has been seen by neurology and started on Plavix because MRI was negative, Plavix will be discontinued and mental status changes most likely secondary to toxic metabolic encephalopathy. Patient has also been seen by nep hrology for acute kidney injury secondary to ATN, sodium bicarb drip was started, Jackson catheter for accurate I&O's, one time dose of IV Lasix 80 mg. If no improvement in renal function and urine output and 4 hours, initiate renal replacement therapy. Serology and hepatitis testing pending. 3/4Patient examined bedside. She has worsened in her mental status today. Has been at bedside has noted hallucinations of and a paranoid behavior today. Patient is more confused than yesterday she is and she is and unable to relate to her condition at this moment. She is oriented 3 but unable to comprehend his situation. Patient urine output is morning is only 150 mL. She had 300 mL output overnight. Right is afebrile pulse 70 respiratory rate 18 blood pressure 189/78 oxygen 99% on room air. Labs reviewed sodium 131 potassium 4.7 bicarb 17 BUN 89 8 creatinine 8.69 phosphorus 8.0. Urine culture is negative for infection JAMAL negative complement levels and negative hepatitis panel is negat dirk. A vascular surgery consult will be placed for dialysis catheter placement. Hydralazine initiated at 50 3 times a day for blood pressure control. Seroquel initiated 25 at [facility] [place] at bedtime 01/29: Patient was examined at the bedside. Over the night she had increased paranoia refused any oral medications. Patient was confused and combative. She was given 1 dose of Ativan. She became difficult to arouse and answer questions appropriately. At this time patient is alert continues to have paranoia and confusion. She is able to answer some questions appropriately. She does recognize the voice of the provider. Family is at bedside. Dialysis at this time. We will avoid any further sedation medications. And stop oral medications due to paranoia. Sodium 132, BUN 63, creatinine 6.9, 01/30: Patient is examined at the bedside. She is sitting up in bed. She is alert and orientated 3. Patient states that she no longer has any paranoia she is not having any visual or auditory hallucinations. She does feel overwhelmed by the smell from the hospital. Is significantly improved compared to yesterday. Patient will have a break from hemodialysis today. Her BUN is 36, creatinine 5.24. Possible renal biopsy may occur this week. IV has been discontinued due to swelling to bilateral upper extremities. Patient has had a total of 500 ML's of urine output. Patient states that she slept better last night. She did walk up and down the [place] without any difficulties. Patient remains afebrile, heart rate 83, respirations 16, blood pressure 142/71, pulse ox 93 on room air. 01/31: Patient apparently had severe episode this morning with hallucination and delusion, she ended up pulling out her hemodialysis catheter which created a lot of bleeding at the time. Patient become very sensitive afterward not responding to any thing but more catatonic not clear that she is aware for surrounding or not that she is closing her eyes refused to talk or to indicate any by the time. I have long discussion with the who is fully aware of her current diagnosis and prognosis. Also spoke with nephrology patient will benefit from having kidney biopsy for more precise diagnoses for why she is in acute kidney failure. 02/01: Patient ended up having another dialysis catheter in the left groin area and she is on hemodialysis at the time patient is more awake today but still very catatonic noticing any question and not making any effort to show any understanding of her surroundings at this point. Long discussion with the today about CODE STATUS and his final decision as his decision maker to keep her full code but if she ended up on extended life support the decision to withdraw life support in X days discussion is betweenHim and I would happen at the time. 02/02: Patient is on hemodialysis today. Patient responded is very limited which is still having significant psychotic episode and delirium. Her blood work had shown significant improvement compared to before. Review nephrology documentation along with neurology it seems all still blame on uremia but realistically her bun and creatinine has significantly improved last couple days without having to affect her mentation at this point. Still doing supportive care. The was on the bedside answer all his question still interested doing kidney biopsy at time. MRI of the brain was negative, neurology consultation EEG was negative as well. concern whether any the mental status change and the kidney can be related to COVID-19 vaccination, I don't have an answer for this question at this point if patient eventually had kidney biopsy may be would have some indication through the pathology change. 02/03: Patient is awake today doing much better, she is having hemodialysis, part of discussion yesterday with neurology as this is probably acute psychosis from steroid base that patient receive dexamethasone one day before her presentation to the hospital and another dose before start feeling bad on Monday. Patient is more clear this point we don't need to do NG tube for feeding patient be started on full liquid diet titrated gradually after doing swallow eval by speech. Also we'll advance physical therapy and patient off therapy for now. Had discussion with patient and her at the time the patient still slightly bit confused but a lot more awake interactive she knew why was new her was able to carry some conversation on her surrounding, her short-term memory is much better today. 02/04: Patient is doing very well today she's out of bed sitting in a chair on her own her mental status is back to almost baseline with her acute psychosis has improved significantly. Was taking break from hemodialysis today her creatinine dropped down to 3.87 GFR still running at 13. Patient is comfortable feeling well otherwise still note timeframe for kidney biopsy this point and whether patient will be doing dialysis through the weekend are not will depend on her creatinine next day and 2. 02/05: She is still awake alert doing very well today her mental status are back to normal, her GFR and kidney function decline compared to yesterday with creatinine up to 4.75 bun of 56 and GFR down to 9. Nephrology probably we held dialysis today to see the kidney, will improve filtration velasquez will increase her urine output on its own. Still probably plan to talk to interventional radiology about kidney biopsy on Monday the meanwhile continue current medical m anagement patient will be taking off furosemide and she'll be taking off Cardizem drip today to switch it to oral. The and the daughter we are on the bedside all their questions were answered today. Patient has possibility of leaving the hospital sometimes on Monday if biopsy done on Monday successfully and no more complication she might still need to be on hemodialysis for now. REVIEW OF SYSTEMS Constitutional: No fever, no chills, no night sweats. No weight change. No weakness, reports fatigue no lethargy. No daytime sleepiness. EENT: No headache. No blurred vision or double vision, no loss of vision. No loss of Hearing, no ringing in the ears, no dizziness. No nasal drainage or congestion. No epistaxis. No sore throat. Lungs: No shortness of breath, cough, no sputum production. No wheezing. Cardiovascular: No chest pain, no lower extremity edema. No palpitations. No paroxysmal nocturnal dyspnea. No orthopnea. No lightheadedness or dizziness. No syncopal episodes. Abdominal: No abdominal pain. No nausea, vomiting. No diarrhea. No constipation. No bloody or tarry stools. No loss of appetite. Genitourinary: No dysuria, increased frequency, urgency. No urinary retention. Decreased urine output. Musculoskeletal: No myalgias. No muscle weakness, no gait dysfunction, no frequent falls. No back pain. No neck pain. Integumentary: No wounds, no lesions. No rash or pruritus. No unusual bruising. No change in hair or nails. Neurologic: No aphasia. No facial droop. Reported change in mentation. No head injury. No headache. No paralysis. No paresthesia. Psychiatric: No depression. Increase anxiety increased hallucinations and increased delusions increased paranoia. No mood swings. Endocrine: No abnormal blood sugars. No weight change. No excessive sweating or thirst. No cold intolerance. PHYSICAL EXAMINATION Gen: This is a 71-year-old female. Patient is resting in bed and Family members are at bedside. HEENT: Head is atraumatic, normocephalic. Pupils equal, round. Sclerae is anicteric. NECK: Supple. No JVD. No lymphadenopathy. No thyromegaly. LUNGS: Clear to auscultation. No wheezes or rhonchi. No intercostal retractions. HEART: Regular rate and rhythm. 3/6 systolic murmur. ABDOMEN: Soft. Bowel sounds are present. No masses. No tenderness. Jackson in place with scant amount of urine output. EXTREMITIES: No pedal edema. No calf tenderness. NEUROLOGICAL: Patient is awake, alert and oriented x3. Answered questions appropriately, denies paranoia auditory or visual hallucinations. Cranial nerves 2 through 12 are grossly intact. ASSESSMENT AND PLAN 1. Severe altered mental status: Secondary to acute steroid psychosis, symptoms are much better so far been off steroid, still seen neurology no further CAT scan or MRI of the brain is needed at this point. With the acute psychosis between using steroid the active acute kidney failure psychosis and altered mental status is much better this point continue current management. 2. Acute kidney injury with ATN. Patient will be taking off Lasix today her kidney function is slightly bit worse will hold on dialysis probably one more day. 3. Metabolic acidosis secondary to acute kidney injury. Much better but still on bicarbonate this point. 4. Acute psychosis and deliriumSeems to make more sense that her acute psychosis can be steroid base related specially with the first event and the last event, patient is very clear this point. Last night require some Haldol and lorazepam but she is much more clear today with continue current management was start physical therapy continued see psych and neurology as well. 5. Hypertension. DC Norvasc and switch patient to Cardizem CD 120 mg twice a day to control her pulse rate and the blood pressure together. 6. Hyperlipidemia. We will restart medication back sometime this week. 7. History of cervical cancer: Has been in remission. 8. Generalized anxiety disorder. Discontinue sedation medications.. 9. Chronic back pain with history of spinal fusion. Continue to hold her baclofen and pain management at this point. 10 depression status and diet: Patient is able to eat and feed herself doing better this week. CODE STATUS: Full code. But not extended life support for many days. Prognosis: Good. Discharge planning: Patient will be discharged from the hospital on Monday. Objective - Vital Signs Vital signs: Vital Signs Temp 98.2 F 02/05/22 04:00 Pulse 96 02/05/22 04:00 Resp 17 02/05/22 04:00 BP 126/73 02/05/22 04:00 Pulse Ox 93 L 02/05/22 04:00 Intake & Output 02/04/22 02/05/22 02/05/22 18:59 06:59 18:59 Intake Total 358 136.417 Output Total 825 400 Balance -467 -263.583 Weight 99.79 kg Intake: IV 30 Diltiazem 125 mg In 30 Sodium Chloride 0.9% 100 ml @ 2.5 MG/HR 2.5 mls/hr IV .Q24H ROSA Rx#: [id number] Intake, IV Titration 106.417 Amount Diltiazem 125 mg In 106.417 Sodium Chloride 0.9% 100 ml @ 2.5 MG/HR 2.5 mls/hr IV .Q24H ROSA Rx#: [id number] Oral 358 Output: Urine 825 400 Other: Voiding Method Indwelling Catheter Indwelling Catheter # Bowel Movements 1 - Labs CBC & Chem 7: 02/05/22 08:20 02/05/22 08:20 Labs: Abnormal Lab Results - Last 24 Hours (Table) 02/05/22 02/05/22 Range/Units 08:20 08:20 RBC 2.89 L (3.80-5.40) m/uL Hgb 8.9 L (11.4-16.0) gm/dL Hct 27.3 L (34.0-46.0) % Sodium 134 L (137-145) mmol/L Carbon Dioxide 20 L (22-30) mmol/L BUN 56 H (7-17) mg/dL Creatinine 4.75 H (0.52-1.04) mg/dL Glucose 134 H (74-99) mg/dL Total Protein 5.7 L (6.3-8.2) g/dL Albumin 3.1 L (3.5-5.0) g/dL
--- NOTE | 2022-02-05 11:37 | P.PN ---
Subjective Patient is seen for follow-up for acute kidney injury patient was admitted to the hospital with mental status changes and acute kidney injury with serum creatinine peaking at 8.69 mg/dL. Patient was started on dialysis on 01/28/2022. Mentation had improved to some degree initially but then deteriorated again and patient has been receiving consecutive treatments of hemodialysis for the last 2 days. Mentation seems to have improved however patient has been talking to herself. Serum creatinine was about 1.2 mg/dL 12 weeks ago as outpatient. All serologies are negative. Possibility of use of NSAIDs prior to admission. Concern for possible AIN along with ATN. Started prednisone. Patient received 1 dose and there was concern for possible steroid psychosis and therefore it is currently on hold. Patient had apparently received 60 mg of Decadron as outpatient prior to admission. Patient is sitting up in bed. She is comfortable. Mentation is much improved. No significant complaints today. Urine output charted at 1225 mL last 24 hours. Objective - Vital Signs Vital signs: Vital Signs Temp 98.7 F 02/05/22 08:00 Pulse 101 H 02/05/22 08:00 Resp 18 02/05/22 08:00 BP 132/73 02/05/22 08:00 Pulse Ox 93 L 02/05/22 08:00 Intake & Output 02/04/22 02/05/22 02/05/22 18:59 06:59 18:59 Intake Total 358 136.417 120 Output Total 825 400 0 Balance -467 -263.583 120 Weight 99.79 kg Intake: IV 30 Diltiazem 125 mg In 30 Sodium Chloride 0.9% 100 ml @ 2.5 MG/HR 2.5 mls/hr IV .Q24H ROSA Rx#: [id number] Intake, IV Titration 106.417 Amount Diltiazem 125 mg In 106.417 Sodium Chloride 0.9% 100 ml @ 2.5 MG/HR 2.5 mls/hr IV .Q24H ROSA Rx#: [id number] Oral 358 120 Output: Urine 825 400 0 Stool 0 Other: Voiding Method Indwelling Catheter Indwelling Catheter Indwelling Catheter # Voids 0 # Bowel Movements 1 0 - Exam Patient is awake, comfortable. Mentation is near normal. Examination of the heart S1 and S2 Examination lungs bilateral breath sounds are heard Abdomen is soft nontender Examination lower extremity shows no edema [employer] exam shows patient is following commands. Moves all 4 extremities - Labs CBC & Chem 7: 02/05/22 08:20 02/05/22 08:20 Labs: Abnormal Lab Results - Last 24 Hours (Table) 02/05/22 02/05/22 Range/Units 08:20 08:20 RBC 2.89 L (3.80-5.40) m/uL Hgb 8.9 L (11.4-16.0) gm/dL Hct 27.3 L (34.0-46.0) % Sodium 134 L (137-145) mmol/L Carbon Dioxide 20 L (22-30) mmol/L BUN 56 H (7-17) mg/dL Creatinine 4.75 H (0.52-1.04) mg/dL Glucose 134 H (74-99) mg/dL Total Protein 5.7 L (6.3-8.2) g/dL Albumin 3.1 L (3.5-5.0) g/dL Assessment and Plan Assessment: 1. Acute kidney injury most likely ATN need to consider acute interstitial nephritis as well given the pyuria and history of use of NSAIDs. Patient will need to continue with renal replacement therapy as there was some improvement in mentation after initial dialysis. Patient will need kidney biopsy. Previous creatinine around 1-1.2 mg/dL about 12 weeks ago. Received 1 dose of prednisone and it is currently on hold due to possible steroid psychosis. 2. Mental status changes with concern for uremia. Brain CT unremarkable for acute findings. Mentation improved almost back to normal. Etiology steroid psychosis and to some degree uremia on initial admission. 3. Pyuria with urine cultures negative consider AIN 4. Hyperphosphatemia associated with acute kidney injury maintained on PhosLo 5. Metabolic acidosis associated with acute kidney injury 6. Steroid psychosis. Her symptoms seem to coincide with high-dose steroids given as outpatient prior to admission for back pain and patient was noted to have delirium again after she received 1 dose of 40 mg of prednisone on 02/01/2022 Plan: Hemodialysis today Hold in a.m. Since serum creatinine increased today we should proceed with kidney biopsy early next week
[2022-02-05] MEDS: SODIUM BICARBONATE TAB 650 MG TAB PO SCH ×3 (14:15→21:19)
[2022-02-05] MEDS: amLODIPine 10 MG TAB PO SCH (14:16)
[2022-02-05] MEDS: FUROSEMIDE 10 MG/ML 10 ML VIAL IV SCH (14:16)
[2022-02-05] MEDS: VIT A,C & E-LUTEIN-MINERALS 1 EACH TAB PO SCH ×2 (17:01→21:20)
[2022-02-05] MEDS: CYANOCOBALAMIN 1,000 MCG/ML 1 ML VIAL IM SCH (17:01)
[2022-02-05] MEDS: DILTIAZEM CD 120 MG CAP.ER.24H PO SCH (17:01)
[2022-02-05] MEDS: HEPARIN SODIUM,PORCINE/PF 5,000 UNIT/0.5 ML SYRINGE SQ SCH ×2 (17:01→21:19)
[2022-02-05] MEDS: QUEtiapine 25 MG TAB PO SCH (21:19)
--- NOTE | 2022-02-06 00:31 | P.PN ---
Subjective Progress Note Date: 02/04/22 02/04/2022: Patient has remarkably improved. Patient is sitting on the couch by the window. She is fully alert and awake. Mentation appears much better. Appears still slightly delirious, but remarkably improved. Patient denies headache. She does remember me from yesterday. Does not have complete loss of memory. Patient's and Dr. Chacon were also present in the room. 02/03/2022: Patient's and their daughter were present today. Patient's delirium continued yesterday. Finally she received Haldol 3 mg at 12:43 AM last night, and Ativan 0.5 mg IV at 2:18 AM. Patient has not slept for last couple nights. Now she is very sleepy. She is still mumbling. However she is not as hyperverbal as yesterday. 02/02/2022: Patient was seen for a follow-up. Patient's was also present today. Patient is also getting hemodialysis at this time. Patient has become more delirious. Patient is not opening her eyes. She is more incoherent, rambles. Patient constantly rambling, mumbling. Patient would constantly repeat "don't don't don't don't don't... say that". 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 These are the examples of some words/sentences that she rambled. On reviewing records, it appears patient received dexamethasone 6 mg orally on 01/25/2022 for back pain by her primary physician. Patient developed some paranoia the same evening and was hospitalized on the 01/26/2022. She was much more stable and has improved a lot yesterday when I saw her. Patient was then started on prednisone 40 mg, th at was given at 5:56 PM last night for possible glomerulonephritis. Now she has developed full blown psychosis. 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 Patient has received dexamethasone in the past, and had no side effects, but she did not have renal failure in the past. I suspect acute renal failure with steroids probably resulted in steroid psychosis. Patient's denies any history of alcoholism maybe drinks 2 glasses of wine a year. No history of drugs. 02/01/2022: Patient was seen for a follow-up. Patient initially seen by Dr. Michael Powell. Please refer to his note for details. Patient was last seen by Dr. Powell on 01/28/2022 and patient was signed off. Now neurology was reconsulted for episode of unresponsiveness. Patient is getting hemodialysis at this time. I spoke to patient's , who informed me that her symptoms started actually on last Monday on 01/25/2022 when she said certain sentences which did not make sense. The next day on Monday, patient slept more than longer and then the son woke her up, she was confused and she couldn't find the words like seeing "I'm drinking" instead of saying "I am thirsty". Patient was brought to the hospital on 01/26/2022. Patient was diagnosed with acute renal failure with BUN 86, creatinine 6.52. This was new onset, newly diagnosed. Patient also had a UTI with large amount of leukocyte Estrace and more than 182 WBCs. Urine cultures were negative. Patient started getting dialysis on 01/28/2022 and also received treatment on Monday. Her mentation came back to baseline on Monday and she did not receive the dialysis on Monday. 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 According to the nurse report, funeral driver Monday, which is yesterday funeral driver, she became confused, pulled the dialysis port and then was completely unresponsive. She was very paranoid rest of the day, suspecting that people were here to hurt her. She would not take her pills and was very suspicious. Today patient is receiving dialysis and her mentation is much improved. She is acknowledging, and answering to the questions. Sometimes they're not correct. Patient has history of bilateral knee surgery, with revision of the left knee recently in October 2021. She had spinal fusion surgery couple years prior. CT of the head is reported as no acute intracranial hemorrhage or gross acute cortical infarct however small acute or hyperacute infarct cannot be excluded. CT angiography of the head and neck is reported as no acute arterial abnormality, significant stenosis or occlusion of the major neck or intracranial arteries. Stroke code was activated and NIH was a 1. No IV TPA since last normal was the night prior to presenting the hospital and the risks outweigh the benefit. MRI of the brain reported as chronic small vessel ischemic changes, age-related atrophy. Sinus disease. No acute process. I personally reviewed MRI of the brain on the computer, agree with the findings. There is some small vessel ischemic disease noted. 2-D echo revealed normal left ventricular size. Mild concentric LVH. Overall left ventricular systolic function is low normal with EF between 50-55%. Left atrium is mildly dilated. Right atrial size is normal. Mild aortic stenosis. Cannot exclude possible bicuspid aortic valve. Objective - Vital Signs Vital signs: Vital Signs Temp 97.4 F L 02/06/22 00:00 Pulse 78 02/06/22 00:00 Resp 18 02/06/22 00:00 BP 128/67 02/06/22 00:00 Pulse Ox 95 02/06/22 00:00 Intake & Output 02/05/22 02/05/22 02/06/22 06:59 18:59 07:59 Intake Total 136.417 240 Output Total 400 1575 400 Balance -263.583 -1335 -400 Weight 87.9 kg Intake: IV 30 Diltiazem 125 mg In 30 Sodium Chloride 0.9% 100 ml @ 2.5 MG/HR 2.5 mls/hr IV .Q24H ROSA Rx#: [id number] Intake, IV Titration 106.417 Amount Diltiazem 125 mg In 106.417 Sodium Chloride 0.9% 100 ml @ 2.5 MG/HR 2.5 mls/hr IV .Q24H ROSA Rx#: [id number] Oral 240 Output: Urine 400 575 400 Stool 0 Urine/Stool Mix 0 Hemodialysis 1000 Other: Voiding Method Indwelling Catheter Indwelling Catheter Indwelling Catheter # Voids 0 # Bowel Movements 0 - Exam Patient is fully alert and awake. She is oriented 3. She knows it is January the year is 2021. She knows she is in [facility]. She knows her age and date of . Speech and language functions are normal. Affect is normal. Still slightly tremulous. No aphasia or dysarthria. Can name and repeat. Cranial nerves are normal. Visual rosenberg are full, extraocular muscles are intact. Face is symmetric. Tongue protrudes the midline. On muscle strength testing there is no drift and the strength is normal in arms and legs. No ataxia for [id number]. Sensory touch is equal. Gait deferred. 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 (MRI Brain is negative for acute to subacute stroke). * Delirium due to above, remarkably improved. * Acute kidney injury (Creatnine of 6.52 and BUN 86 on presentation)--improved with hemodialysis 40/3.87 as of today. * Possible acute underlying urinary tract infection * Hypertension * Hyperthyroidism, probably overtreated. * History of hyperlipidemia * Vitamin B12 deficiency with B12 191. Plan: Patient's delirium/steroid-induced psychosis has remarkably improved. Her mentation is back to normal. Still slightly tremulous/delirious. Stay off steroids for now. Patient on Seroquel 25 mg at bedtime. Haldol, only as needed. EEG was normal. No focal slowing, epileptiform discharges or seizures noted on the EEG. No indication for antiepileptic medication. MRI of the brain performed recently showed no acute stroke. Patient has significant B12 deficiency (191). Patient will be started on vitamin B12 1000 g IM daily for 5 days. Afterwards would recommend starting vitamin B12 1000 g sublingually daily. Folic acid > 20.0. Ammonia is <9. Hemoglobin A1c 5.5 normal. No monoclonal gammopathy. JAMAL, dsDNA, ANCA antibodies, complements, hepatitis panel all negative or normal. Lipid panel with cholesterol 140, LDL 54, HDL 35, triglycerides 249. Please avoid any sedating/narcotic that affect the patient's mentation as well as renal function. We'll defer the rest of the medical management to primary team. Discussed with patient's and Dr. Chacon in detail. Dr. Chandler is rounding over the weekend. As her mentation has improved, and there is no active neurological issues. Neurology will sign off. Please reconsult if any concerns.
[2022-02-06] MEDS: DILTIAZEM CD 120 MG CAP.ER.24H PO SCH ×3 (03:49→20:21)
[2022-02-06] MEDS: hydrALAZINE HCL 20 MG/ML 1 ML VIAL IVP SCH ×4 (03:49→20:22)
[2022-02-06] MEDS: CALCIUM ACETATE 667 MG TAB PO SCH ×3 (06:26→17:03)
[2022-02-06 09:38] LABS: HCT 26.6 % (34.0-46.0); HGB 8.7 gm/dL (11.4-16.0); MCH 30.6 pg (25.0-35.0); MCHC 32.7 g/dL (31.0-37.0); MCV 93.5 fL (80.0-100.0); Mean Platelet Volume 7.6; Platelet Count 270 k/uL (150-450); RBC 2.84 m/uL (3.80-5.40); RDW 13.3 % (11.5-15.5); WBC 7.9 k/uL (3.8-10.6)
--- NOTE | 2022-02-06 09:45 | P.PN ---
Subjective Progress Note Date: 02/06/22 HISTORY OF PRESENT ILLNESS This is a 71-year-old female patient of Dr. Chacon with past medical history of cervical cancer, hypertension, hyperlipidemia, generalized osteoarthritis. Family noticed the patient was confused yesterday. In hindsight noticed that approximately couple days she's been declining. She just saw Dr. Chacon on Monday for back pain with history of spinal fusion and started on dexamethasone 6 mg daily. Patient has been on Mobic in the past but that was stopped a couple months ago when her renal function decreased. Patient normally drinks a lot of water and she works out in the gym regularly on a recumbent bike. reports no urine output yesterday despite IV fluids given in the emergency center. Patient came into [facility] emergency center for evaluation and found to be afebrile, heart rate in the 60s, blood pressure 129/69, pulse ox 91% on room air. EKG was a sinus rhythm with no acute ST changes. CBC was unremarkable. CO2 was 16 BUN 86 and creatinine 6.52. Blood sugar 113. TSH 0.269 and free T4 was normal at 1.17. Repeat kidney function today is BUN 85 creatinine 7.86 with a bicarb of 15. Triglycerides 249, cholesterol 140, HDL 35, LDL 54. Urinalysis showed a small amount of leukoesterase, WBC 16. Urine drug screen positive for opiates and tricyclic antidepressants. Urine culture is in progress. Chest x-ray shows no acute cardiopulmonary process. CT angiogram reveals no acute arterial abnormality, significant stenosis or occlusion of the major neck or intracranial arteries. CAT scan of the brain revealed no acute intracranial hemorrhage or gross acute cortical infarct however a small acute or hyper acute infarct cannot be excluded. MRI of the brain reveals chronic small vessel ischemic changes, age-related atrophy. Renal ultrasound reveals medical renal disease. Patient has been seen by neurology and started on Plavix because MRI was negative, Plavix will be discontinued and mental status changes most likely secondary to toxic metabolic encephalopathy. Patient has also been seen by nep hrology for acute kidney injury secondary to ATN, sodium bicarb drip was started, Jackson catheter for accurate I&O's, one time dose of IV Lasix 80 mg. If no improvement in renal function and urine output and 4 hours, initiate renal replacement therapy. Serology and hepatitis testing pending. 3/4Patient examined bedside. She has worsened in her mental status today. Has been at bedside has noted hallucinations of and a paranoid behavior today. Patient is more confused than yesterday she is and she is and unable to relate to her condition at this moment. She is oriented 3 but unable to comprehend his situation. Patient urine output is morning is only 150 mL. She had 300 mL output overnight. Right is afebrile pulse 70 respiratory rate 18 blood pressure 189/78 oxygen 99% on room air. Labs reviewed sodium 131 potassium 4.7 bicarb 17 BUN 89 8 creatinine 8.69 phosphorus 8.0. Urine culture is negative for infection JAMAL negative complement levels and negative hepatitis panel is negat dirk. A vascular surgery consult will be placed for dialysis catheter placement. Hydralazine initiated at 50 3 times a day for blood pressure control. Seroquel initiated 25 at [facility] [place] at bedtime 01/29: Patient was examined at the bedside. Over the night she had increased paranoia refused any oral medications. Patient was confused and combative. She was given 1 dose of Ativan. She became difficult to arouse and answer questions appropriately. At this time patient is alert continues to have paranoia and confusion. She is able to answer some questions appropriately. She does recognize the voice of the provider. Family is at bedside. Dialysis at this time. We will avoid any further sedation medications. And stop oral medications due to paranoia. Sodium 132, BUN 63, creatinine 6.9, 01/30: Patient is examined at the bedside. She is sitting up in bed. She is alert and orientated 3. Patient states that she no longer has any paranoia she is not having any visual or auditory hallucinations. She does feel overwhelmed by the smell from the hospital. Is significantly improved compared to yesterday. Patient will have a break from hemodialysis today. Her BUN is 36, creatinine 5.24. Possible renal biopsy may occur this week. IV has been discontinued due to swelling to bilateral upper extremities. Patient has had a total of 500 ML's of urine output. Patient states that she slept better last night. She did walk up and down the [place] without any difficulties. Patient remains afebrile, heart rate 83, respirations 16, blood pressure 142/71, pulse ox 93 on room air. 01/31: Patient apparently had severe episode this morning with hallucination and delusion, she ended up pulling out her hemodialysis catheter which created a lot of bleeding at the time. Patient become very sensitive afterward not responding to any thing but more catatonic not clear that she is aware for surrounding or not that she is closing her eyes refused to talk or to indicate any by the time. I have long discussion with the who is fully aware of her current diagnosis and prognosis. Also spoke with nephrology patient will benefit from having kidney biopsy for more precise diagnoses for why she is in acute kidney failure. 02/01: Patient ended up having another dialysis catheter in the left groin area and she is on hemodialysis at the time patient is more awake today but still very catatonic noticing any question and not making any effort to show any understanding of her surroundings at this point. Long discussion with the today about CODE STATUS and his final decision as his decision maker to keep her full code but if she ended up on extended life support the decision to withdraw life support in X days discussion is betweenHim and I would happen at the time. 02/02: Patient is on hemodialysis today. Patient responded is very limited which is still having significant psychotic episode and delirium. Her blood work had shown significant improvement compared to before. Review nephrology documentation along with neurology it seems all still blame on uremia but realistically her bun and creatinine has significantly improved last couple days without having to affect her mentation at this point. Still doing supportive care. The was on the bedside answer all his question still interested doing kidney biopsy at time. MRI of the brain was negative, neurology consultation EEG was negative as well. concern whether any the mental status change and the kidney can be related to COVID-19 vaccination, I don't have an answer for this question at this point if patient eventually had kidney biopsy may be would have some indication through the pathology change. 02/03: Patient is awake today doing much better, she is having hemodialysis, part of discussion yesterday with neurology as this is probably acute psychosis from steroid base that patient receive dexamethasone one day before her presentation to the hospital and another dose before start feeling bad on Monday. Patient is more clear this point we don't need to do NG tube for feeding patient be started on full liquid diet titrated gradually after doing swallow eval by speech. Also we'll advance physical therapy and patient off therapy for now. Had discussion with patient and her at the time the patient still slightly bit confused but a lot more awake interactive she knew why was new her was able to carry some conversation on her surrounding, her short-term memory is much better today. 02/04: Patient is doing very well today she's out of bed sitting in a chair on her own her mental status is back to almost baseline with her acute psychosis has improved significantly. Was taking break from hemodialysis today her creatinine dropped down to 3.87 GFR still running at 13. Patient is comfortable feeling well otherwise still note timeframe for kidney biopsy this point and whether patient will be doing dialysis through the weekend are not will depend on her creatinine next day and 2. 02/05: She is still awake alert doing very well today her mental status are back to normal, her GFR and kidney function decline compared to yesterday with creatinine up to 4.75 bun of 56 and GFR down to 9. Nephrology probably we held dialysis today to see the kidney, will improve filtration velasquez will increase her urine output on its own. Still probably plan to talk to interventional radiology about kidney biopsy on Monday the meanwhile continue current medical m anagement patient will be taking off furosemide and she'll be taking off Cardizem drip today to switch it to oral. The and the daughter we are on the bedside all their questions were answered today. Patient has possibility of leaving the hospital sometimes on Monday if biopsy done on Monday successfully and no more complication she might still need to be on hemodialysis for now. 02/06: Patient is very sleepy today not arousable she is stable hemodynamically but back again doing which she did last week most of the week except the acute psychosis and confusion is not there. Even on board she had haloperidol, lorazepam and Seroquel has not use any of those except Seroquel 25 mg was used last night and according to the hospital and he was on the phone with her until she went to sleep when Seroquel was giving at that time shortly before she went to sleep this point she is not waking up. Patient had hemodialysis yesterday looked like she's going to go for hemodialysis today one more time originally kidney biopsy was scheduled for Monday or Monday if she is awake and doing better probably to contact interventional radiology for kidney biopsy on Monday in the meanwhile continue supportive care along with neurology service psychiatry and nephrology. The was on the bedside answer all his question and concern show him all the medicine patient is on looks like Cardizem CD 120 mg twice a day has done better job to keep the pulse is under control blood pressure under control this point. With his permission I took away all sedative on as needed and on regular use including Seroquel Haldol and lorazepam the patient had acute episode of psychosis and diffusion and hallucination for the staff to contact me will use medication on an as-needed basis. REVIEW OF SYSTEMS Constitutional: No fever, no chills, no night sweats. No weight change. No weakness, reports fatigue no lethargy. No daytime sleepiness. EENT: No headache. No blurred vision or double vision, no loss of vision. No loss of Hearing, no ringing in the ears, no dizziness. No nasal drainage or congestion. No epistaxis. No sore throat. Lungs: No shortness of breath, cough, no sputum production. No wheezing. Cardiovascular: No chest pain, no lower extremity edema. No palpitations. No paroxysmal nocturnal dyspnea. No orthopnea. No lightheadedness or dizziness. No syncopal episodes. Abdominal: No abdominal pain. No nausea, vomiting. No diarrhea. No constipa tion. No bloody or tarry stools. No loss of appetite. Genitourinary: No dysuria, increased frequency, urgency. No urinary retention. Decreased urine output. Musculoskeletal: No myalgias. No muscle weakness, no gait dysfunction, no frequent falls. No back pain. No neck pain. Integumentary: No wounds, no lesions. No rash or pruritus. No unusual bruising. No change in hair or nails. Neurologic: No aphasia. No facial droop. Reported change in mentation. No head injury. No headache. No paralysis. No paresthesia. Psychiatric: No depression. Increase anxiety increased hallucinations and i ncreased delusions increased paranoia. No mood swings. Endocrine: No abnormal blood sugars. No weight change. No excessive sweating or thirst. No cold intolerance. PHYSICAL EXAMINATION Gen: This is a 71-year-old female. Patient is resting in bed and Family members are at bedside. HEENT: Head is atraumatic, normocephalic. Pupils equal, round. Sclerae is a nicteric. NECK: Supple. No JVD. No lymphadenopathy. No thyromegaly. LUNGS: Clear to auscultation. No wheezes or rhonchi. No intercostal retractions. HEART: Regular rate and rhythm. 3/6 systolic murmur. ABDOMEN: Soft. Bowel sounds are present. No masses. No tenderness. Jackson in place with scant amount of urine output. EXTREMITIES: No pedal edema. No calf tenderness. NEUROLOGICAL: Patient is awake, alert and oriented x3. Answered questions appropriately, denies paranoia auditory or visual hallucinations. Cranial nerves 2 through 12 are grossly intact. ASSESSMENT AND PLAN 1. Severe altered mental status: Secondary to acute steroid psychosis, patient originally improve until this morning when she is out of it completely again had only thing use Seroquel last night can be the reason why she still drowsy and sleepy at this point. Dr. De still continue hemodialysis today. Use the auto of altered mental status related to uremia. 2. Acute kidney injury with ATN. She is back on hemodialysis will be going for kidney biopsy hopefully on Monday. 3. Metabolic acidosis secondary to acute kidney injury. Much better but still on bicarbonate this point. 4. Acute psychosis and deliriumSeems to make more sense that her acute psychosis can be steroid base related specially with the first event and the last event, patient is very clear this point. Last night require some Haldol and lorazepam but she is much more clear today with continue current management was start physical therapy continued see psych and neurology as well. 5. Hypertension. DC Norvasc and switch patient to Cardizem CD 120 mg twice a day to control her pulse rate and the blood pressure together. 6. Hyperlipidemia. We will restart medication back sometime this week. 7. History of cervical cancer: Has been in remission. 8. Generalized anxiety disorder. Discontinue sedation medications.. 9. Chronic back pain with history of spinal fusion. Not using any medicine except Tylenol as needed. 10 depression: Patient is off all medication. CODE STATUS: Full code. But not extended life support for many days. Prognosis: Fair Discharge planning: We'll continue hemodialysis for now kidney biopsy probably on Monday the patient does well may be would be going to subacute rehab sometime this week. Objective - Vital Signs Vital signs: Vital Signs Temp 97.8 F 02/06/22 04:00 Pulse 89 02/06/22 04:00 Resp 16 02/06/22 04:00 BP 133/72 02/06/22 04:00 Pulse Ox 94 L 02/06/22 08:38 Intake & Output 02/05/22 02/06/22 02/06/22 17:59 06:59 18:59 Intake Total Output Total Balance Weight Intake: Oral Output: Urine Stool Urine/Stool Mix Hemodialysis Other: Voiding Method # Voids # Bowel Movements - Labs CBC & Chem 7: 02/06/22 09:08 02/05/22 08:20 Labs: Abnormal Lab Results - Last 24 Hours (Table) 02/05/22 02/05/22 02/06/22 Range/Units 08:20 08:20 09:08 RBC 2.89 L 2.84 L (3.80-5.40) m/uL Hgb 8.9 L 8.7 L (11.4-16.0) gm/dL Hct 27.3 L 26.6 L (34.0-46.0) % Sodium 134 L (137-145) mmol/L Carbon Dioxide 20 L (22-30) mmol/L BUN 56 H (7-17) mg/dL Creatinine 4.75 H (0.52-1.04) mg/dL Glucose 134 H (74-99) mg/dL Total Protein 5.7 L (6.3-8.2) g/dL Albumin 3.1 L (3.5-5.0) g/dL
[2022-02-06 09:46] LABS: Albumin 3.2 g/dL (3.5-5.0); Calcium 8.7 mg/dL (8.4-10.2); Potassium 3.6 mmol/L (3.5-5.1); Total Bilirubin 0.4 mg/dL (0.2-1.3); Total Protein 5.6 g/dL (6.3-8.2)
[2022-02-06] MEDS: HEPARIN SODIUM,PORCINE/PF 5,000 UNIT/0.5 ML SYRINGE SQ SCH ×3 (09:46→20:21)
[2022-02-06] MEDS: CYANOCOBALAMIN 1,000 MCG/ML 1 ML VIAL IM SCH (09:46)
[2022-02-06] MEDS: VIT A,C & E-LUTEIN-MINERALS 1 EACH TAB PO SCH ×2 (12:06→20:23)
[2022-02-06] MEDS: SODIUM BICARBONATE TAB 650 MG TAB PO SCH ×3 (12:06→20:21)
--- NOTE | 2022-02-06 13:58 | P.PN ---
Subjective Patient is seen for follow-up for acute kidney injury patient was admitted to the hospital with mental status changes and acute kidney injury with serum creatinine peaking at 8.69 mg/dL. Patient was started on dialysis on 01/28/2022. Mentation had improved to some degree initially but then deteriorated again and patient has been receiving consecutive treatments of hemodialysis for the last 2 days. Mentation seems to have improved however patient has been talking to herself. Serum creatinine was about 1.2 mg/dL 12 weeks ago as outpatient. All serologies are negative. Possibility of use of NSAIDs prior to admission. Concern for possible AIN along with ATN. Started prednisone. Patient received 1 dose and there was concern for possible steroid psychosis and therefore it is currently on hold. Patient had apparently received 60 mg of Decadron as outpatient prior to admission. Patient's mentation had improved significantly and yesterday she was up and sitting in bed and communicating quite normally. This morning patient is unarousable. She is sleeping. She does respond to painful stimuli but does not open eyes. Patient has not received any sedation. She did get sero-Kwell last evening which she has been getting every day. Patient was dialyzed yesterday we had about 1 L of ultrafiltration. Serum creatinine today is 3.27. Objective - Vital Signs Vital signs: Vital Signs Temp 99.2 F 02/06/22 08:00 Pulse 92 02/06/22 12:00 Resp 16 02/06/22 12:00 BP 135/68 02/06/22 12:00 Pulse Ox 95 02/06/22 12:00 Intake & Output 02/05/22 02/06/22 02/06/22 17:59 06:59 18:59 Intake Total Output Total Balance Weight Intake: Oral Output: Urine Stool Urine/Stool Mix Hemodialysis Other: Voiding Method Indwelling Catheter # Voids # Bowel Movements - Exam Patient is sleeping, barely arousable. Examination of the heart S1 and S2 Examination lungs bilateral breath sounds are heard Abdomen is soft nontender Examination lower extremity shows no edema - Labs CBC & Chem 7: 02/06/22 09:08 02/06/22 09:08 Labs: Abnormal Lab Results - Last 24 Hours (Table) 02/06/22 02/06/22 Range/Units 09:08 09:08 RBC 2.84 L (3.80-5.40) m/uL Hgb 8.7 L (11.4-16.0) gm/dL Hct 26.6 L (34.0-46.0) % Sodium 136 L (137-145) mmol/L BUN 39 H (7-17) mg/dL Creatinine 3.27 H (0.52-1.04) mg/dL Glucose 104 H (74-99) mg/dL Total Protein 5.6 L (6.3-8.2) g/dL Albumin 3.2 L (3.5-5.0) g/dL Assessment and Plan Assessment: 1. Acute kidney injury most likely ATN need to consider acute interstitial nephritis as well given the pyuria and history of use of NSAIDs. Patient will need to continue with renal replacement therapy as there was some improvement in mentation after initial dialysis. Patient will need kidney biopsy. Previous creatinine around 1-1.2 mg/dL about 12 weeks ago. Received 1 dose of prednisone and it is currently on hold due to steroid psychosis. 2. Mental status changes with concern for uremia. Brain CT unremarkable for acute findings. Mentation improved almost back to normal. Etiology steroid psychosis and to some degree uremia on initial admission. However today patient's mentation is again depressed. She is barely waking up. No sedation given last night. 3. Pyuria with urine cultures negative consider AIN 4. Hyperphosphatemia associated with acute kidney injury maintained on PhosLo 5. Metabolic acidosis associated with acute kidney injury 6. Steroid psychosis. Her symptoms seem to coincide with high-dose steroids given as outpatient prior to admission for back pain and patient was noted to have delirium again after she received 1 dose of 40 mg of prednisone on 02/01/2022 Plan: Hemodialysis today Proceed with kidney biopsy Repeat dialysis in a.m. DC sodium bicarb ? ? a drug effect that gets cleared with dialysis. Agree with discontinuation of all sedatives, anxiolytics, antipsycotics.
[2022-02-07] MEDS: hydrALAZINE HCL 20 MG/ML 1 ML VIAL IVP SCH ×4 (05:34→20:15)
[2022-02-07 07:23] LABS: HCT 26.4 % (34.0-46.0); HGB 8.9 gm/dL (11.4-16.0); MCH 31.1 pg (25.0-35.0); MCHC 33.5 g/dL (31.0-37.0); MCV 92.8 fL (80.0-100.0); Mean Platelet Volume 7.4; Platelet Count 290 k/uL (150-450); RBC 2.85 m/uL (3.80-5.40); RDW 12.7 % (11.5-15.5); WBC 11.2 k/uL (3.8-10.6)
[2022-02-07 07:43] LABS: Albumin 3.1 g/dL (3.5-5.0); Calcium 8.7 mg/dL (8.4-10.2); Potassium 3.8 mmol/L (3.5-5.1); Total Bilirubin 0.5 mg/dL (0.2-1.3); Total Protein 5.9 g/dL (6.3-8.2)
[2022-02-07] MEDS: VIT A,C & E-LUTEIN-MINERALS 1 EACH TAB PO SCH ×2 (10:11→22:22)
[2022-02-07] MEDS: CYANOCOBALAMIN 500 MCG TAB PO SCH (10:11)
[2022-02-07] MEDS: CALCIUM ACETATE 667 MG TAB PO SCH ×3 (10:11→18:44)
[2022-02-07] MEDS: HEPARIN SODIUM,PORCINE/PF 5,000 UNIT/0.5 ML SYRINGE SQ SCH (10:11)
[2022-02-07] MEDS: DILTIAZEM CD 120 MG CAP.ER.24H PO SCH ×2 (10:12→22:22)
[2022-02-07] MEDS: SODIUM BICARBONATE TAB 650 MG TAB PO SCH (10:12)
--- NOTE | 2022-02-07 10:18 | P.PN ---
Subjective Patient is seen in follow-up for acute kidney injury. Started on hemodialysis 01/28/2022 due to concern for uremia. However her mentation hasn't improved much despite dialysis. Patient was started on prednisone due to concern for AIN however it had to be discontinued due to steroid psychosis. is present at bedside. Patient removed her Jackson catheter last night. She currently has a right femoral catheter. Vital signs are stable. General: Resting in bed. Confused. HEENT: Head exam is unremarkable. LUNGS: Breath sounds decreased. HEART: Rate and Rhythm are regular. ABDOMEN: Soft, no distention. EXTREMITITES: Trace edema. Objective - Vital Signs Vital signs: Vital Signs Temp 97.8 F 02/07/22 04:00 Pulse 89 02/07/22 04:00 Resp 16 02/07/22 04:00 BP 133/72 02/07/22 04:00 Pulse Ox 94 L 02/07/22 04:00 Intake & Output 02/06/22 02/07/22 02/07/22 18:59 06:59 18:59 Intake Total 180 Output Total 1325 600 Balance -1145 -600 Weight 90 kg Intake: Oral 180 Output: Urine 425 600 Stool 0 Hemodialysis 900 Other: Voiding Method Indwelling Catheter Indwelling Catheter # Bowel Movements 1 - Labs CBC & Chem 7: 02/07/22 06:22 02/07/22 06:22 Labs: Abnormal Lab Results - Last 24 Hours (Table) 02/07/22 02/07/22 Range/Units 06:22 06:22 WBC 11.2 H (3.8-10.6) k/uL RBC 2.85 L (3.80-5.40) m/uL Hgb 8.9 L (11.4-16.0) gm/dL Hct 26.4 L (34.0-46.0) % Sodium 132 L (137-145) mmol/L BUN 46 H (7-17) mg/dL Creatinine 2.67 H (0.52-1.04) mg/dL Total Protein 5.9 L (6.3-8.2) g/dL Albumin 3.1 L (3.5-5.0) g/dL Assessment and Plan Plan: Assessment: 1. Acute kidney injury likely ATN. Also concern for AIN from NSAIDs. Started on hemodialysis 01/28/2022 due to concern for uremia. Creatinine was near 1.2 3 months prior to admission. Serologies have been negative. Prednisone discontinued due to steroid psychosis. 2. Mental status changes w/steroid induced psychosis, delirurm. Initially there was concern for uremia however her mentation hasn't improved despite dialysis. Brain CT showed no acute changes. Neurology following. Medications were adjusted. 3. Hyperphosphatemia secondary to acute kidney injury maintained on PhosLo. 4. Metabolic acidosis secondary to acute kidney injury. Improved postdialysis. 5. Anemia with component of kidney disease. Rule out iron deficiency. No active bleeding. Plan: Currently seen while undergoing hemodialysis. Kidney biopsy pending. I will give her DDAVP prior to the biopsy. Continue to monitor renal function and urine output. Check iron studies. Stop oral bicarb. Check urine eosinophils. Right femoral catheter placed 02/01/2022. Will need a permacath placed and groin catheter removed this week.
--- NOTE | 2022-02-07 13:59 | P.PN ---
Subjective Progress Note Date: 02/07/22 HISTORY OF PRESENT ILLNESS This is a 71-year-old female patient of Dr. Chacon with past medical history of cervical cancer, hypertension, hyperlipidemia, generalized osteoarthritis. Family noticed the patient was confused yesterday. In hindsight noticed that approximately couple days she's been declining. She just saw Dr. Chacon on Monday for back pain with history of spinal fusion and started on dexamethasone 6 mg daily. Patient has been on Mobic in the past but that was stopped a couple months ago when her renal function decreased. Patient normally drinks a lot of water and she works out in the gym regularly on a recumbent bike. reports no urine output yesterday despite IV fluids given in the emergency center. Patient came into [facility] emergency center for evaluation and found to be afebrile, heart rate in the 60s, blood pressure 129/69, pulse ox 91% on room air. EKG was a sinus rhythm with no acute ST changes. CBC was unremarkable. CO2 was 16 BUN 86 and creatinine 6.52. Blood sugar 113. TSH 0.269 and free T4 was normal at 1.17. Repeat kidney function today is BUN 85 creatinine 7.86 with a bicarb of 15. Triglycerides 249, cholesterol 140, HDL 35, LDL 54. Urinalysis showed a small amount of leukoesterase, WBC 16. Urine drug screen positive for opiates and tricyclic antidepressants. Urine culture is in progress. Chest x-ray shows no acute cardiopulmonary process. CT angiogram reveals no acute arterial abnormality, significant stenosis or occlusion of the major neck or intracranial arteries. CAT scan of the brain revealed no acute intracranial hemorrhage or gross acute cortical infarct however a small acute or hyper acute infarct cannot be excluded. MRI of the brain reveals chronic small vessel ischemic changes, age-related atrophy. Renal ultrasound reveals medical renal disease. Patient has been seen by neurology and started on Plavix because MRI was negative, Plavix will be discontinued and mental status changes most likely secondary to toxic metabolic encephalopathy. Patient has also been seen by nep hrology for acute kidney injury secondary to ATN, sodium bicarb drip was started, Jackson catheter for accurate I&O's, one time dose of IV Lasix 80 mg. If no improvement in renal function and urine output and 4 hours, initiate renal replacement therapy. Serology and hepatitis testing pending. 3/4Patient examined bedside. She has worsened in her mental status today. Has been at bedside has noted hallucinations of and a paranoid behavior today. Patient is more confused than yesterday she is and she is and unable to relate to her condition at this moment. She is oriented 3 but unable to comprehend his situation. Patient urine output is morning is only 150 mL. She had 300 mL output overnight. Right is afebrile pulse 70 respiratory rate 18 blood pressure 189/78 oxygen 99% on room air. Labs reviewed sodium 131 potassium 4.7 bicarb 17 BUN 89 8 creatinine 8.69 phosphorus 8.0. Urine culture is negative for infection JAMAL negative complement levels and negative hepatitis panel is negat dirk. A vascular surgery consult will be placed for dialysis catheter placement. Hydralazine initiated at 50 3 times a day for blood pressure control. Seroquel initiated 25 at [facility] [place] at bedtime 01/29: Patient was examined at the bedside. Over the night she had increased paranoia refused any oral medications. Patient was confused and combative. She was given 1 dose of Ativan. She became difficult to arouse and answer questions appropriately. At this time patient is alert continues to have paranoia and confusion. She is able to answer some questions appropriately. She does recognize the voice of the provider. Family is at bedside. Dialysis at this time. We will avoid any further sedation medications. And stop oral medications due to paranoia. Sodium 132, BUN 63, creatinine 6.9, 01/30: Patient is examined at the bedside. She is sitting up in bed. She is alert and orientated 3. Patient states that she no longer has any paranoia she is not having any visual or auditory hallucinations. She does feel overwhelmed by the smell from the hospital. Is significantly improved compared to yesterday. Patient will have a break from hemodialysis today. Her BUN is 36, creatinine 5.24. Possible renal biopsy may occur this week. IV has been discontinued due to swelling to bilateral upper extremities. Patient has had a total of 500 ML's of urine output. Patient states that she slept better last night. She did walk up and down the [place] without any difficulties. Patient remains afebrile, heart rate 83, respirations 16, blood pressure 142/71, pulse ox 93 on room air. 01/31: Patient apparently had severe episode this morning with hallucination and delusion, she ended up pulling out her hemodialysis catheter which created a lot of bleeding at the time. Patient become very sensitive afterward not responding to any thing but more catatonic not clear that she is aware for surrounding or not that she is closing her eyes refused to talk or to indicate any by the time. I have long discussion with the who is fully aware of her current diagnosis and prognosis. Also spoke with nephrology patient will benefit from having kidney biopsy for more precise diagnoses for why she is in acute kidney failure. 02/01: Patient ended up having another dialysis catheter in the left groin area and she is on hemodialysis at the time patient is more awake today but still very catatonic noticing any question and not making any effort to show any understanding of her surroundings at this point. Long discussion with the today about CODE STATUS and his final decision as his decision maker to keep her full code but if she ended up on extended life support the decision to withdraw life support in X days discussion is betweenHim and I would happen at the time. 02/02: Patient is on hemodialysis today. Patient responded is very limited which is still having significant psychotic episode and delirium. Her blood work had shown significant improvement compared to before. Review nephrology documentation along with neurology it seems all still blame on uremia but realistically her bun and creatinine has significantly improved last couple days without having to affect her mentation at this point. Still doing supportive care. The was on the bedside answer all his question still interested doing kidney biopsy at time. MRI of the brain was negative, neurology consultation EEG was negative as well. concern whether any the mental status change and the kidney can be related to COVID-19 vaccination, I don't have an answer for this question at this point if patient eventually had kidney biopsy may be would have some indication through the pathology change. 02/03: Patient is awake today doing much better, she is having hemodialysis, part of discussion yesterday with neurology as this is probably acute psychosis from steroid base that patient receive dexamethasone one day before her presentation to the hospital and another dose before start feeling bad on Monday. Patient is more clear this point we don't need to do NG tube for feeding patient be started on full liquid diet titrated gradually after doing swallow eval by speech. Also we'll advance physical therapy and patient off therapy for now. Had discussion with patient and her at the time the patient still slightly bit confused but a lot more awake interactive she knew why was new her was able to carry some conversation on her surrounding, her short-term memory is much better today. 02/04: Patient is doing very well today she's out of bed sitting in a chair on her own her mental status is back to almost baseline with her acute psychosis has improved significantly. Was taking break from hemodialysis today her creatinine dropped down to 3.87 GFR still running at 13. Patient is comfortable feeling well otherwise still note timeframe for kidney biopsy this point and whether patient will be doing dialysis through the weekend are not will depend on her creatinine next day and 2. 02/05: She is still awake alert doing very well today her mental status are back to normal, her GFR and kidney function decline compared to yesterday with creatinine up to 4.75 bun of 56 and GFR down to 9. Nephrology probably we held dialysis today to see the kidney, will improve filtration velasquez will increase her urine output on its own. Still probably plan to talk to interventional radiology about kidney biopsy on Monday the meanwhile continue current medical m anagement patient will be taking off furosemide and she'll be taking off Cardizem drip today to switch it to oral. The and the daughter we are on the bedside all their questions were answered today. Patient has possibility of leaving the hospital sometimes on Monday if biopsy done on Monday successfully and no more complication she might still need to be on hemodialysis for now. 02/06: Patient is very sleepy today not arousable she is stable hemodynamically but back again doing which she did last week most of the week except the acute psychosis and confusion is not there. Even on board she had haloperidol, lorazepam and Seroquel has not use any of those except Seroquel 25 mg was used last night and according to the hospital and he was on the phone with her until she went to sleep when Seroquel was giving at that time shortly before she went to sleep this point she is not waking up. Patient had hemodialysis yesterday looked like she's going to go for hemodialysis today one more time originally kidney biopsy was scheduled for Monday or Monday if she is awake and doing better probably to contact interventional radiology for kidney biopsy on Monday in the meanwhile continue supportive care along with neurology service psychiatry and nephrology. The was on the bedside answer all his question and concern show him all the medicine patient is on looks like Cardizem CD 120 mg twice a day has done better job to keep the pulse is under control blood pressure under control this point. With his permission I took away all sedative on as needed and on regular use including Seroquel Haldol and lorazepam the patient had acute episode of psychosis and diffusion and hallucination for the staff to contact me will use medication on an as-needed basis. 02/07 and patient examined today is appears alert. She still continues to have some confusion but states that she is doing much better. She feels that the clock in the room is being controlled and sometimes works faster than the other days. Detailed discussion with nephrology was made who is concerned that tavon guerrero is not making a speedy recovery with hemodialysis. Discussion with nurse was made who is concerned about the dialysis catheter not working. Vascular surgeon was consulted to place the dialysis catheter today vitals otherwise stable sodium 132 BUN 46 creatinine is improved to 2.67. Renal biopsy possible today or tomorrow REVIEW OF SYSTEMS Constitutional: No fever, no chills, no night sweats. No weight change. No weakness, reports fatigue no lethargy. No daytime sleepiness. EENT: No headache. No blurred vision or double vision, no loss of vision. No loss of Hearing, no ringing in the ears, no dizziness. No nasal drainage or congestion. No epistaxis. No sore throat. Lungs: No shortness of breath, cough, no sputum production. No wheezing. Cardiovascular: No chest pain, no lower extremity edema. No palpitations. No paroxysmal nocturnal dyspnea. No orthopnea. No lightheadedness or dizziness. No syncopal episodes. Abdominal: No abdominal pain. No nausea, vomiting. No diarrhea. No constipation. No bloody or tarry stools. No loss of appetite. Genitourinary: No dysuria, increased frequency, urgency. No urinary retention. Decreased urine output. Musculoskeletal: No myalgias. No muscle weakness, no gait dysfunction, no frequent falls. No back pain. No neck pain. Integumentary: No wounds, no lesions. No rash or pruritus. No unusual bruising. No change in hair or nails. Neurologic: No aphasia. No facial droop. Reported change in mentation. No head injury. No headache. No paralysis. No paresthesia. Psychiatric: No depression. Improvement in hallucination and paranoia No mood swings. Endocrine: No abnormal blood sugars. No weight change. No excessive sweating or thirst. No cold intolerance. PHYSICAL EXAMINATION Gen: This is a 71-year-old female. Patient is resting in bed and Fa mary members are at bedside. HEENT: Head is atraumatic, normocephalic. Pupils equal, round. Sclerae is anicteric. NECK: Supple. No JVD. No lymphadenopathy. No thyromegaly. LUNGS: Clear to auscultation. No wheezes or rhonchi. No intercostal retractions. HEART: Regular rate and rhythm. 3/6 systolic murmur. ABDOMEN: Soft. Bowel sounds are present. No masses. No tenderness. Jackson in place with scant amount of urine output. EXTREMITIES: No pedal edema. No calf tenderness. NEUROLOGICAL: Patient is awake, alert and oriented x3. Answered questions appropriately, denies paranoia auditory or visual hallucinations. Cranial nerves 2 through 12 are grossly intact. ASSESSMENT AND PLAN 1. Severe altered mental status: Secondary to medication with uremia. If no improvement patient would benefit from lumbar puncture for possible NMDA encephalitis. We'll discuss with neurology for repeating EEG versus doing a lumbar puncture to evaluate for autoimmune encephalitis hold Seroquel, Haldol, benzodiazepines 2. Acute kidney injury with ATN. She is back on hemodialysis will be going for kidney biopsy hopefully on Monday. 3. Metabolic acidosis secondary to acute kidney injury. Much better but still on bicarbonate this point. 4. Acute psychosis and delirium secondary to combination of uremia and medication. Continue to monitor 5. Hypertension. DC Norvasc and switch patient to Cardizem CD 120 mg twice a day to control her pulse rate and the blood pressure together. 6. Hyperlipidemia. We will restart medication back sometime this week. 7. History of cervical cancer: Has been in remission. 8. Generalized anxiety disorder. Discontinue sedation medications.. 9. Chronic back pain with history of spinal fusion. Not using any medicine except Tylenol as needed. 10 depression: Patient is off all medication. CODE STATUS: Full code. But not extended life support for many days. Prognosis: Fair Discharge planning: We'll continue hemodialysis for now kidney biopsy probably on Monday the patient does well may be would be going to subacute rehab sometime this week. Objective - Vital Signs Vital signs: Vital Signs Temp 97.8 F 02/07/22 04:00 Pulse 90 02/07/22 12:00 Resp 16 02/07/22 12:00 BP 132/69 02/07/22 12:00 Pulse Ox 95 02/07/22 12:00 Intake & Output 02/06/22 02/07/22 02/07/22 18:59 06:59 18:59 Intake Total 180 Output Total 1325 600 0 Balance -1145 -600 0 Weight 90 kg Intake: Oral 180 Output: Urine 425 600 Stool 0 0 Hemodialysis 900 Other: Voiding Method Indwelling Catheter Indwelling Catheter Indwelling Catheter # Bowel Movements 1 - Labs CBC & Chem 7: 02/07/22 06:22 02/07/22 06:22 Labs: Abnormal Lab Results - Last 24 Hours (Table) 02/07/22 02/07/22 Range/Units 06: 06:22 WBC 11.2 H (3.8-10.6) k/uL RBC 2.85 L (3.80-5.40) m/uL Hgb 8.9 L (11.4-16.0) gm/dL Hct 26.4 L (34.0-46.0) % Sodium 132 L (137-145) mmol/L BUN 46 H (7-17) mg/dL Creatinine 2.67 H (0.52-1.04) mg/dL Total Protein 5.9 L (6.3-8.2) g/dL Albumin 3.1 L (3.5-5.0) g/dL
[2022-02-07 15:33] LABS: % Iron Saturation 19.19 (12.00-45.00)
[2022-02-07] MEDS ORDERED: LIDOCAINE 1% INJ 10MG/ML (20 ML MDV) ONE (16:12)
[2022-02-07] MEDS ORDERED: HEPARIN SODIUM 1,000 UN/ML (10ML VL) ONE (16:34)
[2022-02-07] MEDS ORDERED: LIDOCAINE 1% INJ 10MG/ML (20 ML MDV) SQ ONE ×3 (16:38)
[2022-02-07] MEDS ORDERED: MIDAZOLAM 2 MG/2 ML VIAL IV ONE (16:38)
--- NOTE | 2022-02-07 17:47 | PCN ---
PROCEDURE NOTE PREOPERATIVE DIAGNOSIS: Acute on chronic renal failure. POSTOPERATIVE DIAGNOSIS: Acute on chronic renal failure. PROCEDURE: 1. Ultrasound-guided placement of 23 cm dialysis catheter under local IV sedation. 2. Removal of dialysis catheter, right femoral approach. 3. Sedation time 25 minutes. PROCEDURE DESCRIPTION: This patient was brought to the [facility]. Right groin and right chest and neck were prepped and draped in usual sterile manner. Lidocaine 1% was infiltrated in the neck and chest area. Ultrasound-guided micropuncture was introduced into the right jugular vein. Micropuncture guidewire was passed and a 4 Welsh dilator was advanced on top of the guidewire. After that we made a small incision in the chest area. A tunnel was created. Through the tunnel we brought a 23 cm dialysis catheter and then we passed a regular guidewire through the sheath which was parked in the inferior vena cava. Dilator was advanced on top of the guidewire under fluoroscopic control. The 23 cm dialysis catheter was placed, flushed with heparin saline and hep-locked. Tip of the catheter was in superior vena cavoatrial junction. Catheter was secured with Vicryl and nylon. Dressing was applied. Then right groin catheter was removed. Pressure was held. Patient tolerated the procedure well. MMODL / IJN: [id number] /
--- NOTE | 2022-02-07 18:16 | XR ---
EXAMINATION TYPE: XR chest 1V DATE OF EXAM: 02/07/2022 COMPARISON: 01/28/2022 HISTORY: Catheter placement check TECHNIQUE: Single view FINDINGS: There is no heart failure nor confluent pneumonic infiltrate. There is right central venous catheter with tip in the superior vena cava close to the right atrium. There is no pleural effusion. Heart size is normal. There are no hilar masses. IMPRESSION: No active cardiopulmonary disease. No adverse change.
--- NOTE | 2022-02-07 18:34 | P.PN ---
Subjective Progress Note Date: 02/07/22 Principal diagnosis: progress note She was seen today in the room .Her update was reviewed with the nursing staff. She was more coherent and was no longer confused. She recalled last night that there was an episode during which she pulled the iv line and nursing intervention was required for her to restore her behavioral control. She was well aware of her need for cathether to be removed. but otherwise her hemodialysis recovery was steady. She was not upset or disillusioned over her medical condition of chronic renal failure requiring hemodialysis. Her who was visiting her reminded me of her ultra- sensitive nature of her renal function to any drugs introduced especially psychotropic medicaiton. Currently her MSE has much improved on no psychotropic Rx. Most likely she was benefiting from med. treatment to improve her MSE. Assessment: delirium resolving. rule out comorbid depressive disorder NOS. Intervention. We will consdier to discuss with her any Rx having no RENAL clearance pathway in small dosage to be re-introduced later on. intra-nasal loxapine in low dosage . I will further consider her wishes to be on psychotropic drug holiday. Objective - Vital Signs Vital signs: Vital Signs Temp 97.8 F 02/07/22 13:55 Pulse 92 02/07/22 17:00 Resp 16 02/07/22 17:00 BP 128/69 02/07/22 17:00 Pulse Ox 95 02/07/22 12:00 Intake & Output 02/06/22 02/07/22 02/07/22 18:59 06:59 18:59 Intake Total 180 300 Output Total 1325 600 500 Balance -1145 -600 -200 Weight 90 kg 90 kg Intake: Oral 180 Hemodialysis 300 Output: Urine 425 600 500 Stool 0 0 Hemodialysis 900 0 Other: Voiding Method Indwelling Catheter Indwelling Catheter Indwelling Catheter # Bowel Movements 1 - Labs CBC & Chem 7: 02/07/22 06:22 02/07/22 06:22 Labs: Abnormal Lab Results - Last 24 Hours (Table) 02/07/22 02/07/22 02/07/22 Range/Units 06:22 06:22 06:22 WBC 11.2 H (3.8-10.6) k/uL RBC 2.85 L (3.80-5.40) m/uL Hgb 8.9 L (11.4-16.0) gm/dL Hct 26.4 L (34.0-46.0) % Sodium 132 L (137-145) mmol/L BUN 46 H (7-17) mg/dL Creatinine 2.67 H (0.52-1.04) mg/dL Iron 49 L (50-170) ug/dL Transferrin 182.0 L (204.0-354.0) mg/dL Total Protein 5.9 L (6.3-8.2) g/dL Albumin 3.1 L (3.5-5.0) g/dL
[2022-02-07 21:58] LABS: Basophils # (A) 0.1 k/uL (0-0.2); Basophils % (A) 0 %; Eosinophils # (A) 0.1 k/uL (0-0.7); Eosinophils % (A) 1 %; Lymphocytes # (A) 1.3 k/uL (1.0-4.8); Lymphocytes % (A) 10 %; MCH 30.7 pg (25.0-35.0); MCHC 32.5 g/dL (31.0-37.0); MCV 94.5 fL (80.0-100.0); Mean Platelet Volume 7.5; Monocytes # (A) 1.1 k/uL (0-1.0); Monocytes % (A) 9 %; Neutrophils # (A) 10.6 k/uL (1.3-7.7); Neutrophils % (A) 79 %; Platelet Count 301 k/uL (150-450); RBC 2.33 m/uL (3.80-5.40); RDW 13.4 % (11.5-15.5); WBC 13.3 k/uL (3.8-10.6)
[2022-02-07 22:07] LABS: HGB 7.2 gm/dL (11.4-16.0)
[2022-02-07] MEDS: PANTOPRAZOLE 40 MG/10 ML VIAL IVP SCH (22:22)
[2022-02-08] MEDS: hydrALAZINE HCL 20 MG/ML 1 ML VIAL IVP SCH ×4 (06:03→21:35)
[2022-02-08] MEDS: CALCIUM ACETATE 667 MG TAB PO SCH ×3 (06:03→15:57)
[2022-02-08] MEDS ORDERED: SODIUM FERRIC GLUCONAT-SUCROSE 125 MG in SODIUM CHLORIDE 0.9% 100 ML IVPB SCH (09:30)
--- NOTE | 2022-02-08 09:33 | P.PN ---
Subjective Patient is seen in follow-up for acute kidney injury. Started on hemodialysis 01/28/2022 due to concern for uremia. However her mentation hasn't improved much despite dialysis. Patient was started on prednisone due to concern for AIN however it had to be discontinued after one dose due to steroid psychosis. is present at bedside. Femoral catheter removed and permacath placed 02/07/2022. She is not in restraints anymore. Vital signs are stable. General: Resting in bed. Confused. HEENT: Head exam is unremarkable. LUNGS: Breath sounds decreased. HEART: Rate and Rhythm are regular. ABDOMEN: Soft, no distention. EXTREMITITES: Trace edema. Objective - Vital Signs Vital signs: Vital Signs Temp 99.1 F 02/08/22 04:00 Pulse 99 02/08/22 04:00 Resp 18 02/08/22 04:00 BP 136/67 02/08/22 04:00 Pulse Ox 94 L 02/08/22 04:00 Intake & Output 02/07/22 02/08/22 02/08/22 18:59 06:59 18:59 Intake Total 300 400 Output Total 500 500 Balance -200 -100 Weight 90 kg 89 kg Intake: Oral 100 Hemodialysis 300 300 Output: Urine 500 Stool 0 0 Hemodialysis 0 500 Other: Voiding Method Indwelling Catheter External Catheter # Voids 1 - Labs CBC & Chem 7: 02/07/22 20:55 02/07/22 06:22 Labs: Abnormal Lab Results - Last 24 Hours (Table) 02/07/22 02/07/22 Range/Units 06:22 20:55 WBC 13.3 H (3.8-10.6) k/uL RBC 2.33 L (3.80-5.40) m/uL Hgb 7.2 L D (11.4-16.0) gm/dL Hct 22.0 L (34.0-46.0) % Neutrophils # 10.6 H (1.3-7.7) k/uL Monocytes # 1.1 H (0-1.0) k/uL Iron 49 L (50-170) ug/dL Transferrin 182.0 L (204.0-354.0) mg/dL Assessment and Plan Plan: Assessment: 1. Acute kidney injury likely ATN. Also concern for AIN from NSAIDs - states she hasn't taken NSAIDs for about 2-3 months now but was taking Mobic prior to that. Urine eosinophils negative. Started on hemodialysis 01/28/2022 due to concern for uremia. Creatinine was near 1.2 3 months prior to admission. Serologies have been negative. Prednisone discontinued due to steroid psychosis. Permacath placed 02/07/2022. Nonoliguric. 2. Mental status changes w/steroid induced psychosis, delirurm. Initially there was concern for uremia however her mentation hasn't improved despite dialysis. Brain CT showed no acute changes. Neurology following. Medications were adjusted. ?LP. 3. Hyperphosphatemia secondary to acute kidney injury maintained on PhosLo. 4. Metabolic acidosis secondary to acute kidney injury. Improved postdialysis. 5. Anemia with component of kidney disease. Iron deficiency noted. No active bleeding. Had coffee-ground emesis last night. Plan: Hemodialysis tomorrow. Kidney biopsy pending - DDAVP prior to the biopsy. Continue to monitor renal function and urine output. Add IV iron. Monitor for renal recovery. Repeat phosphorus level. Patient had coffee-ground emesis last night. GI/surgery will be consulted. Morning labs pending.
[2022-02-08 09:49] LABS: Basophils % (A) 0 %; Eosinophils # (A) 0.1 k/uL (0-0.7); Eosinophils % (A) 1 %; Lymphocytes # (A) 1.6 k/uL (1.0-4.8); Lymphocytes % (A) 18 %; MCH 31.3 pg (25.0-35.0); MCHC 33.2 g/dL (31.0-37.0); MCV 94.1 fL (80.0-100.0); Mean Platelet Volume 7.7; Monocytes # (A) 0.6 k/uL (0-1.0); Monocytes % (A) 7 %; Neutrophils # (A) 6.5 k/uL (1.3-7.7); Neutrophils % (A) 72 %; Platelet Count 227 k/uL (150-450); RBC 1.88 m/uL (3.80-5.40); RDW 13.2 % (11.5-15.5)
[2022-02-08 10:05] LABS: Calcium 8.3 mg/dL (8.4-10.2); Potassium 3.7 mmol/L (3.5-5.1)
[2022-02-08 10:09] LABS: HCT 17.7 % (34.0-46.0); HGB 5.9 gm/dL (11.4-16.0)
[2022-02-08] MEDS: DILTIAZEM CD 120 MG CAP.ER.24H PO SCH ×2 (10:51→21:43)
[2022-02-08] MEDS: CYANOCOBALAMIN 500 MCG TAB PO SCH (10:51)
[2022-02-08] MEDS: VIT A,C & E-LUTEIN-MINERALS 1 EACH TAB PO SCH ×2 (10:51→21:43)
[2022-02-08 11:41] LABS: Glucose,Whole Blood 170 mg/dL (75-99)
--- NOTE | 2022-02-08 12:54 | P.PN ---
Subjective Progress Note Date: 02/08/22 HISTORY OF PRESENT ILLNESS This is a 71-year-old female patient of Dr. Chacon with past medical history of cervical cancer, hypertension, hyperlipidemia, generalized osteoarthritis. Family noticed the patient was confused yesterday. In hindsight noticed that approximately couple days she's been declining. She just saw Dr. Chacon on Monday for back pain with history of spinal fusion and started on dexamethasone 6 mg daily. Patient has been on Mobic in the past but that was stopped a couple months ago when her renal function decreased. Patient normally drinks a lot of water and she works out in the gym regularly on a recumbent bike. reports no urine output yesterday despite IV fluids given in the emergency center. Patient came into [facility] emergency center for evaluation and found to be afebrile, heart rate in the 60s, blood pressure 129/69, pulse ox 91% on room air. EKG was a sinus rhythm with no acute ST changes. CBC was unremarkable. CO2 was 16 BUN 86 and creatinine 6.52. Blood sugar 113. TSH 0.269 and free T4 was normal at 1.17. Repeat kidney function today is BUN 85 creatinine 7.86 with a bicarb of 15. Triglycerides 249, cholesterol 140, HDL 35, LDL 54. Urinalysis showed a small amount of leukoesterase, WBC 16. Urine drug screen positive for opiates and tricyclic antidepressants. Urine culture is in progress. Chest x-ray shows no acute cardiopulmonary process. CT angiogram reveals no acute arterial abnormality, significant stenosis or occlusion of the major neck or intracranial arteries. CAT scan of the brain revealed no acute intracranial hemorrhage or gross acute cortical infarct however a small acute or hyper acute infarct cannot be excluded. MRI of the brain reveals chronic small vessel ischemic changes, age-related atrophy. Renal ultrasound reveals medical renal disease. Patient has been seen by neurology and started on Plavix because MRI was negative, Plavix will be discontinued and mental status changes most likely secondary to toxic metabolic encephalopathy. Patient has also been seen by nep hrology for acute kidney injury secondary to ATN, sodium bicarb drip was started, Jackson catheter for accurate I&O's, one time dose of IV Lasix 80 mg. If no improvement in renal function and urine output and 4 hours, initiate renal replacement therapy. Serology and hepatitis testing pending. 3/4Patient examined bedside. She has worsened in her mental status today. Has been at bedside has noted hallucinations of and a paranoid behavior today. Patient is more confused than yesterday she is and she is and unable to relate to her condition at this moment. She is oriented 3 but unable to comprehend his situation. Patient urine output is morning is only 150 mL. She had 300 mL output overnight. Right is afebrile pulse 70 respiratory rate 18 blood pressure 189/78 oxygen 99% on room air. Labs reviewed sodium 131 potassium 4.7 bicarb 17 BUN 89 8 creatinine 8.69 phosphorus 8.0. Urine culture is negative for infection JAMAL negative complement levels and negative hepatitis panel is negat dirk. A vascular surgery consult will be placed for dialysis catheter placement. Hydralazine initiated at 50 3 times a day for blood pressure control. Seroquel initiated 25 at [facility] [place] at bedtime 01/29: Patient was examined at the bedside. Over the night she had increased paranoia refused any oral medications. Patient was confused and combative. She was given 1 dose of Ativan. She became difficult to arouse and answer questions appropriately. At this time patient is alert continues to have paranoia and confusion. She is able to answer some questions appropriately. She does recognize the voice of the provider. Family is at bedside. Dialysis at this time. We will avoid any further sedation medications. And stop oral medications due to paranoia. Sodium 132, BUN 63, creatinine 6.9, 01/30: Patient is examined at the bedside. She is sitting up in bed. She is alert and orientated 3. Patient states that she no longer has any paranoia she is not having any visual or auditory hallucinations. She does feel overwhelmed by the smell from the hospital. Is significantly improved compared to yesterday. Patient will have a break from hemodialysis today. Her BUN is 36, creatinine 5.24. Possible renal biopsy may occur this week. IV has been discontinued due to swelling to bilateral upper extremities. Patient has had a total of 500 ML's of urine output. Patient states that she slept better last night. She did walk up and down the [place] without any difficulties. Patient remains afebrile, heart rate 83, respirations 16, blood pressure 142/71, pulse ox 93 on room air. 01/31: Patient apparently had severe episode this morning with hallucination and delusion, she ended up pulling out her hemodialysis catheter which created a lot of bleeding at the time. Patient become very sensitive afterward not responding to any thing but more catatonic not clear that she is aware for surrounding or not that she is closing her eyes refused to talk or to indicate any by the time. I have long discussion with the who is fully aware of her current diagnosis and prognosis. Also spoke with nephrology patient will benefit from having kidney biopsy for more precise diagnoses for why she is in acute kidney failure. 02/01: Patient ended up having another dialysis catheter in the left groin area and she is on hemodialysis at the time patient is more awake today but still very catatonic noticing any question and not making any effort to show any understanding of her surroundings at this point. Long discussion with the today about CODE STATUS and his final decision as his decision maker to keep her full code but if she ended up on extended life support the decision to withdraw life support in X days discussion is betweenHim and I would happen at the time. 02/02: Patient is on hemodialysis today. Patient responded is very limited which is still having significant psychotic episode and delirium. Her blood work had shown significant improvement compared to before. Review nephrology documentation along with neurology it seems all still blame on uremia but realistically her bun and creatinine has significantly improved last couple days without having to affect her mentation at this point. Still doing supportive care. The was on the bedside answer all his question still interested doing kidney biopsy at time. MRI of the brain was negative, neurology consultation EEG was negative as well. concern whether any the mental status change and the kidney can be related to COVID-19 vaccination, I don't have an answer for this question at this point if patient eventually had kidney biopsy may be would have some indication through the pathology change. 02/03: Patient is awake today doing much better, she is having hemodialysis, part of discussion yesterday with neurology as this is probably acute psychosis from steroid base that patient receive dexamethasone one day before her presentation to the hospital and another dose before start feeling bad on Monday. Patient is more clear this point we don't need to do NG tube for feeding patient be started on full liquid diet titrated gradually after doing swallow eval by speech. Also we'll advance physical therapy and patient off therapy for now. Had discussion with patient and her at the time the patient still slightly bit confused but a lot more awake interactive she knew why was new her was able to carry some conversation on her surrounding, her short-term memory is much better today. 02/04: Patient is doing very well today she's out of bed sitting in a chair on her own her mental status is back to almost baseline with her acute psychosis has improved significantly. Was taking break from hemodialysis today her creatinine dropped down to 3.87 GFR still running at 13. Patient is comfortable feeling well otherwise still note timeframe for kidney biopsy this point and whether patient will be doing dialysis through the weekend are not will depend on her creatinine next day and 2. 02/05: She is still awake alert doing very well today her mental status are back to normal, her GFR and kidney function decline compared to yesterday with creatinine up to 4.75 bun of 56 and GFR down to 9. Nephrology probably we held dialysis today to see the kidney, will improve filtration velasquez will increase her urine output on its own. Still probably plan to talk to interventional radiology about kidney biopsy on Monday the meanwhile continue current medical m anagement patient will be taking off furosemide and she'll be taking off Cardizem drip today to switch it to oral. The and the daughter we are on the bedside all their questions were answered today. Patient has possibility of leaving the hospital sometimes on Monday if biopsy done on Monday successfully and no more complication she might still need to be on hemodialysis for now. 02/06: Patient is very sleepy today not arousable she is stable hemodynamically but back again doing which she did last week most of the week except the acute psychosis and confusion is not there. Even on board she had haloperidol, lorazepam and Seroquel has not use any of those except Seroquel 25 mg was used last night and according to the hospital and he was on the phone with her until she went to sleep when Seroquel was giving at that time shortly before she went to sleep this point she is not waking up. Patient had hemodialysis yesterday looked like she's going to go for hemodialysis today one more time originally kidney biopsy was scheduled for Monday or Monday if she is awake and doing better probably to contact interventional radiology for kidney biopsy on Monday in the meanwhile continue supportive care along with neurology service psychiatry and nephrology. The was on the bedside answer all his question and concern show him all the medicine patient is on looks like Cardizem CD 120 mg twice a day has done better job to keep the pulse is under control blood pressure under control this point. With his permission I took away all sedative on as needed and on regular use including Seroquel Haldol and lorazepam the patient had acute episode of psychosis and diffusion and hallucination for the staff to contact me will use medication on an as-needed basis. 02/07 and patient examined today is appears alert. She still continues to have some confusion but states that she is doing much better. She feels that the clock in the room is being controlled and sometimes works faster than the other days. Detailed discussion with nephrology was made who is concerned that tavon guerrero is not making a speedy recovery with hemodialysis. Discussion with nurse was made who is concerned about the dialysis catheter not working. Vascular surgeon was consulted to place the dialysis catheter today vitals otherwise stable sodium 132 BUN 46 creatinine is improved to 2.67. Renal biopsy possible today or tomorrow 02/08: Yesterday, patient had permacath dialysis catheter placed in the right jugular vein and the dialysis catheter that was previously placed in the right femoral was removed. She has been followed by psychiatry and consider possible intranasal loxapine at low dose. Patient had bloody emesis last evening and hemoglobin this morning is 5.9. She will be transfused 1 unit of packed RBCs. Repeat CBC this afternoon. Early afternoon, patient had emesis of dark brown coffee-ground and stool dark brown as well. She has been seen by GI with plan for EGD in the morning and patient is currently on a clear liquid diet nothing by mouth at midnight with aspiration precautions in place. Nephrology is also ordered DDAVP IV today. Kidney biopsy is pending and she is scheduled for hemodialysis tomorrow. IV iron infusion has been added today by Dr. Juan for 3 days total. REVIEW OF SYSTEMS Constitutional: No fever, no chills, no night sweats. No weight change. No weakness, reports fatigue no lethargy. No daytime sleepiness. EENT: No headache. No blurred vision or double vision, no loss of vision. No loss of Hearing, no ringing in the ears, no dizziness. No nasal drainage or congestion. No epistaxis. No sore throat. Lungs: No shortness of breath, cough, no sputum production. No wheezing. Cardiovascular: No chest pain, no lower extremity edema. No palpitations. No paroxysmal nocturnal dyspnea. No orthopnea. No lightheadedness or dizziness. No syncopal episodes. Abdominal: No abdominal pain. No nausea, bloody emesis 02/07. No diarrhea. No constipation. Noted tarry stools. No loss of appetite. Genitourinary: No dysuria, increased frequency, urgency. No urinary retention. Decreased urine output. Musculoskeletal: No myalgias. No muscle weakness, no gait dysfunction, no frequent falls. No back pain. No neck pain. Integumentary: No wounds, no lesions. No rash or pruritus. No unusual bruising. No change in hair or nails. Neurologic: No aphasia. No facial droop. Reported change in mentation. No head injury. No headache. No paralysis. No paresthesia. Psychiatric: No depression. Improvement in hallucination and paranoia No mood swings. Endocrine: No abnormal blood sugars. No weight change. No excessive sweating or thirst. No cold intolerance. PHYSICAL EXAMINATION Gen: This is a 71-year-old female. Patient is resting in bed and is at bedside. HEENT: Head is atraumatic, normocephalic. Pupils equal, round. Sclerae is anicteric. NECK: Supple. No JVD. No lymphadenopathy. No thyromegaly. LUNGS: Clear to auscultation. No wheezes or rhonchi. No intercostal retractions. HEART: Regular rate and rhythm. 3/6 systolic murmur. ABDOMEN: Soft. Bowel sounds are present. No masses. No tenderness. EXTREMITIES: No pedal edema. No calf tenderness. NEUROLOGICAL: Patient is awake, alert and oriented x3. Answered questions appropriately, denies paranoia auditory or visual hallucinations. Cranial nerves 2 through 12 are grossly intact. ASSESSMENT AND PLAN 1. Severe altered mental status: Secondary to medication with uremia, improved. We'll discuss with neurology for repeating EEG versus doing a lumbar puncture to evaluate for autoimmune encephalitis hold Seroquel, Haldol, benzodiazepines 2. Acute kidney injury with ATN. Right jugular vein permacath placed yesterday, dialysis scheduled for tomorrow. 3. Metabolic acidosis secondary to acute kidney injury. Off sodium bicarb 4. Acute psychosis and delirium secondary to combination of uremia and medication. Continue to monitor, psychiatric evaluation appreciated. 5. Hypertension. [place] Norvas and switch patient to Cardizem CD 120 mg twice a day to control her pulse rate and the blood pressure together. 6. Hyperlipidemia. We will restart medication back sometime this week. 7. History of cervical cancer: Has been in remission. 8. Generalized anxiety disorder. Discontinue sedation medications. 9. Chronic back pain with history of spinal fusion. Not using any medicine except Tylenol as needed. 10 recurrent depression: Patient is off all medication. 11. Acute GI bleed with acute blood loss anemia. Patient will be transfused 1 unit of packed RBCs, consult with Dr. Juaquin Petty with plan for EGD tomorrow, nothing by mouth after midnight. Ferrlecit infusion 3 days CODE STATUS: Full code. But not extended life support for many days. Prognosis: Fair Discharge planning: We'll continue hemodialysis for now kidney biopsy probably on Monday the patient does well may be would be going to subacute rehab sometime this week. Impression and plan of care have been directed as dictated by the signing physician. Raquel Fagan nurse practitioner acting as scribe for signing physician. Objective - Vital Signs Vital signs: Vital Signs Temp 98.6 F 02/08/22 08:00 Pulse 106 H 02/08/22 08:00 Resp 17 02/08/22 08:00 BP 127/66 02/08/22 08:00 Pulse Ox 94 L 02/08/22 08:00 Intake & Output 02/07/22 02/08/22 02/08/22 18:59 06:59 18:59 Intake Total 300 400 Output Total 500 500 Balance -200 -100 Weight 90 kg 89 kg Intake: Oral 100 Hemodialysis 300 300 Output: Urine 500 Stool 0 0 Hemodialysis 0 500 Other: Voiding Method Indwelling Catheter External Catheter # Voids 1 - Labs CBC & Chem 7: 02/08/22 07:57 02/08/22 07:57 Labs: Abnormal Lab Results - Last 24 Hours (Table) 02/07/22 02/07/22 02/08/22 Range/Units 06:22 20:55 07:57 WBC 13.3 H (3.8-10.6) k/uL RBC 2.33 L (3.80-5.40) m/uL Hgb 7.2 L D (11.4-16.0) gm/dL Hct 22.0 L (34.0-46.0) % Neutrophils # 10.6 H (1.3-7.7) k/uL Monocytes # 1.1 H (0-1.0) k/uL BUN 51 H (7-17) mg/dL Creatinine 2.54 H (0.52-1.04) mg/dL Glucose 101 H (74-99) mg/dL Calcium 8.3 L (8.4-10.2) mg/dL Iron 49 L (50-170) ug/dL Transferrin 182.0 L (204.0-354.0) mg/dL 02/08/22 Range/Units 07:57 WBC (3.8-10.6) k/uL RBC 1.88 L (3.80-5.40) m/uL Hgb 5.9 L* (11.4-16.0) gm/dL Hct 17.7 L* (34.0-46.0) % Neutrophils # (1.3-7.7) k/uL Monocytes # (0-1.0) k/uL BUN (7-17) mg/dL Creatinine (0.52-1.04) mg/dL Glucose (74-99) mg/dL Calcium (8.4-10.2) mg/dL Iron (50-170) ug/dL Transferrin (204.0-354.0) mg/dL
--- NOTE | 2022-02-08 13:00 | P.CONS ---
History of Present Illness - Reason for Consult Consult date: 02/08/22 upper GI bleed Requesting physician: Opal Beasley - Chief Complaint Altered mental status changes - History of Present Illness This is a 71-year-old female who presented to the emergency room on 01/26/2022 for altered mental status changes due to metabolic encephalopathy. She was admitted for altered mental status changes with acute kidney injury. Apparently she has a history of back pain and had been started on Flexeril, she was currently on Klonopin as well as Tylenol 3. Previously she had been on Mobic for some time but that was discontinued due to decrease in her kidney function. During this hospitalization hemodialysis was started. Seems that symptoms had improved. She was noted yesterday to have 2 episodes of emesis during her hemodialysis which the patient reports as dark. She is unsure she's had any dark stools. Denies any abdominal pain, nausea or vomiting currently. She was noted to have a drop in her hemoglobin today of 5.9 and gastroenterology was consulted. Patient denies any previous history of peptic ulcer disease, no previous EGD. After initial evaluation there was an 18: The patient to to having another episode of emesis that was coffee-ground in color followed by a bowel movement that had some maroon colored stool. Patient initially was hypotensive up of blood pressure resumed to normal. Review of Systems REVIEW OF SYSTEMS: CARDIOPULMONARY: No chest pain or shortness of breath. Gastrointestinal: No abdominal pain. He should has had 2-3 episodes of coffee- ground, dark emesis. Reported maroon colored stool. GENITOURINARY: No dysuria or hematuria. MUSCULOSKELETAL: Reports normal range of motion., Joint pain. SKIN: No rashes. No jaundice. ENDOCRINE: No chills, fevers. No excessive weight gain or loss. No polydipsia or polyuria. PSYCHIATRIC: Unremarkable. NEUROLOGY: Patient had altered mental status and confusion at admission. Denies dizziness, headache. ENT: Vision unremarkable. CONSTITUTIONAL: No recent weight loss. No fever, chills, night sweats. Past Medical History Past Medical History: Cancer, Hyperlipidemia, Hypertension, Osteoarthritis (OA) Additional Past Medical History / Comment(s): Hx cervical Ca and Skin CA; restless leg, Back pain History of Any Multi-Drug Resistant Organisms: None Reported Past Surgical History: Hysterectomy, Joint Replacement, Orthopedic Surgery, Tonsillectomy Additional Past Surgical History / Comment(s): Aneesh. knee replacements; foot surgery, cystocele & rectocele repair; carpal tunnel ; cataracts; colonoscopy Past Anesthesia/Blood Transfusion Reactions: No Reported Reaction Past Psychological History: Anxiety Smoking Status: Former smoker Past Alcohol Use History: Rare Additional Past Alcohol Use History / Comment(s): smoked from teens to age 46 from 1 to 2 ppd Past Drug Use History: None Reported - Past Family History Mother Family Medical History: No Reported History Medications and Allergies Home Medications Medication Instructions Recorded Confirmed Type Acetaminophen-Codeine 300-30mg 0.5 tab PO Q6H PRN 08/21/18 01/26/22 History [Tylenol w/codeine #3] Baclofen 10 mg PO BID 08/21/18 01/26/22 History Cyclobenzaprine [Flexeril] 10 mg PO BID PRN 08/21/18 01/26/22 History clonazePAM 1 mg PO BID 08/21/18 01/26/22 History Dexamethasone 6 mg PO DAILY 01/26/22 01/26/22 History Pravastatin Sodium [Pravachol] 40 mg PO DAILY 01/26/22 01/26/22 History Triamcinolone 0.1% Cream [Kenalog 1 applic TOPICAL BID PRN 01/26/22 01/26/22 History 0.1% Cream] Vit C/E/Zn/Coppr/Lutein/Zeaxan 1 cap PO BID 01/26/22 01/26/22 History [Preservision Areds 2 Softgel] amLODIPine [Norvasc] 10 mg PO DAILY 01/26/22 01/26/22 History calcium polycarbophiL [Fibercon] 625 mg PO DAILY 01/26/22 01/26/22 History lisinopriL [Zestril] 20 mg PO DAILY 01/26/22 01/26/22 History Allergies Allergy/AdvReac Type Severity Reaction Status Date / Time cephalexin [From Keflex] Allergy Itching Verified 01/26/22 14:03 naproxen [From Naprosyn] Allergy blisters Verified 01/26/22 14:03 Physical Exam Vitals: Vital Signs Temp Pulse Pulse Pulse Resp BP Pulse Ox 02/08/22 11:36 108 H 18 110/63 95 02/08/22 08:00 98.6 F 106 H 17 127/66 94 L 02/08/22 04:00 99.1 F 99 18 136/67 94 L 02/08/22 02:00 108 H 18 02/07/22 23:47 99.8 F H 108 H 18 116/57 93 L 02/07/22 20:35 97.9 F 96 18 146/76 02/07/22 20:00 98.2 F 108 H 18 122/73 96 02/07/22 17:00 92 16 128/69 02/07/22 13:55 97.8 F 85 19 161/69 02/07/22 12:00 90 16 132/69 95 Intake and Output 02/07/22 02/08/22 02/08/22 22:59 06:59 14:59 Intake Total 400 0 Output Total 1000 0 Balance -600 0 Intake: Oral 100 0 Hemodialysis 300 Output: Urine 500 Stool 0 0 Hemodialysis 500 Other: Voiding Method External Catheter External Catheter # Voids 1 Weight 89 kg Results CBC & Chem 7: 02/08/22 07:57 02/08/22 07:57 Labs: Abnormal Lab Results - Last 24 Hours (Table) 02/07/22 02/07/22 02/08/22 Range/Units 06:22 20:55 07:57 WBC 13.3 H (3.8-10.6) k/uL RBC 2.33 L (3.80-5.40) m/uL Hgb 7.2 L D (11.4-16.0) gm/dL Hct 22.0 L (34.0-46.0) % Neutrophils # 10.6 H (1.3-7.7) k/uL Monocytes # 1.1 H (0-1.0) k/uL BUN 51 H (7-17) mg/dL Creatinine 2.54 H (0.52-1.04) mg/dL Glucose 101 H (74-99) mg/dL POC Glucose (mg/dL) (75-99) mg/dL Calcium 8.3 L (8.4-10.2) mg/dL Iron 49 L (50-170) ug/dL Transferrin 182.0 L (204.0-354.0) mg/dL 02/08/22 02/08/22 Range/Units 07:57 11:37 WBC (3.8-10.6) k/uL RBC 1.88 L (3.80-5.40) m/uL Hgb 5.9 L* (11.4-16.0) gm/dL Hct 17.7 L* (34.0-46.0) % Neutrophils # (1.3-7.7) k/uL Monocytes # (0-1.0) k/uL BUN (7-17) mg/dL Creatinine (0.52-1.04) mg/dL Glucose (74-99) mg/dL POC Glucose (mg/dL) 170 H (75-99) mg/dL Calcium (8.4-10.2) mg/dL Iron (50-170) ug/dL Transferrin (204.0-354.0) mg/dL Assessment and Plan (1) GI bleed Narrative/Plan: 71-year-old female who had presented almost 2 weeks ago to the emergency department for altered mental status changes. She was noted to have acute kidney injury as well as metabolic encephalopathy likely related to acute kidney injury as well as acute steroid-induced psychosis. During her hospitalization she was found to have a drop in her hemoglobin today was 5.9. She also had reported 2 episodes of coffee-ground emesis yesterday afternoon during her dialysis time. Unsure if she's having any black or blood in her stool. Today after her initial evaluation there was an 18 that was called due to having her recurrent coffee-ground emesis as well as some maroon colored stool. Recommend Protonix 40 mg twice a day, repeat CBC in 6 hours, and will plan for upper endoscopy tomorrow. Possible etiologies include peptic ulcer disease, AVM, gastritis, esophagitis or other possible etiologies. Current Visit: Yes Status: Acute Code(s): K92.2 - GASTROINTESTINAL HEMORRHAGE, UNSPECIFIED SNOMED Code(s): 49431769 (2) SOREN (acute kidney injury) Current Visit: Yes Status: Acute Code(s): N17.9 - ACUTE KIDNEY FAILURE, UNSPECIFIED SNOMED Code(s): 98058919 (3) Altered mental status Current Visit: Yes Status: Acute Code(s): R41.82 - ALTERED MENTAL STATUS, UNSPECIFIED SNOMED Code(s): 710611682 Plan: 1. Continue symptomatic and supportive care 2. Nothing by mouth 3. Repeat CBC 1800, then daily transfuse per protocol 4. Agree with blood transfusion 5. Protonix 40 mg twice a day 6. Will plan an endoscopic evaluation tomorrow with upper endoscopy Thank you for this consultation, we will continue to follow. Dr. Juaquin Petty I agree with the dictator's note, documented as a scribe by Greta De Oliveira.
[2022-02-08] MEDS: PANTOPRAZOLE 40 MG/10 ML VIAL IVP SCH ×2 (13:24→21:35)
[2022-02-08] MEDS ORDERED: DESMOPRESSIN ACETATE 21 MCG in SODIUM CHLORIDE 0.9% 50 ML IVPB ONE (15:00)
[2022-02-08 19:01] LABS: HCT 20.4 % (34.0-46.0); MCH 31.6 pg (25.0-35.0); MCHC 33.6 g/dL (31.0-37.0); MCV 94.1 fL (80.0-100.0); Mean Platelet Volume 7.8; Platelet Count 205 k/uL (150-450); RBC 2.16 m/uL (3.80-5.40); RDW 13.8 % (11.5-15.5); WBC 11.5 k/uL (3.8-10.6)
[2022-02-08 19:05] LABS: HGB 6.9 gm/dL (11.4-16.0)
[2022-02-08] MEDS: SODIUM FERRIC GLUCONAT-SUCROSE 125 MG in SODIUM CHLORIDE 0.9% 100 ML IVPB SCH (21:38)
[2022-02-09] MEDS: hydrALAZINE HCL 20 MG/ML 1 ML VIAL IVP SCH ×4 (02:38→20:25)
[2022-02-09] MEDS: CALCIUM ACETATE 667 MG TAB PO SCH ×3 (05:19→17:07)
[2022-02-09] MEDS ORDERED: DESMOPRESSIN ACETATE 22 MCG in SODIUM CHLORIDE 0.9% 50 ML IVPB PRN (06:00)
[2022-02-09] MEDS ORDERED: PROPOFOL 10 MG/ML 20 ML VIAL IV ONE (08:00)
[2022-02-09] MEDS ORDERED: LIDOCAINE 1% INJ 10MG/ML (20 ML MDV) ONE (08:00)
[2022-02-09] MEDS ORDERED: IV FLUID CONTINUATION 1,000 ML IV ONE (08:03)
--- NOTE | 2022-02-09 08:13 | IR ---
EXAMINATION TYPE: IR cvc insert central tunneled DATE OF EXAM: 02/08/2022 COMPARISON: NONE HISTORY: Fluoroscopy time. Fluoroscopy was provided to the referring clinician.
[2022-02-09 08:18] LABS: MCH 30.4 pg (25.0-35.0); MCHC 32.6 g/dL (31.0-37.0); MCV 93.4 fL (80.0-100.0); Mean Platelet Volume 7.9; Platelet Count 189 k/uL (150-450); RBC 1.87 m/uL (3.80-5.40); RDW 15.1 % (11.5-15.5); WBC 10.4 k/uL (3.8-10.6)
[2022-02-09 08:23] LABS: Calcium 7.9 mg/dL (8.4-10.2); Phosphorus 3.9 mg/dL (2.5-4.5); Potassium 3.5 mmol/L (3.5-5.1)
[2022-02-09 08:30] LABS: HCT 17.4 % (34.0-46.0); HGB 5.7 gm/dL (11.4-16.0)
--- NOTE | 2022-02-09 08:32 | P.PCN ---
Date of Procedure: 02/09/22 Procedure(s) Performed: BRIEF HISTORY: Patient is a 71-year-old, pleasant, white female scheduled for an upper endoscopy as a part of evaluation of acute upper GI bleed. She had few episodes of coughing and emesis and melena stool yesterday. She dropped hemoglobin to 5.9 g/dL and this revealed WBC transition. This morning a hemoglobin of 6.9 g/dL. She is currently on IV Protonix 40 mg every 12 hours and scheduled for an upper endoscopy to evaluate further. PROCEDURE PERFORMED: Esophagogastroduodenoscopy with attempted replacement, cautery and biopsy. PREOPERATIVE DIAGNOSIS: Acute upper GI bleeding. IV sedation per anesthesia. PROCEDURE: After informed consent was obtained, the patient was brought into the endoscopy unit. IV sedation was administered by Anesthesia under continuous monitoring. Initially the Olympus GIF-140 video endoscope was inserted into the mouth. Esophagus intubated without any difficulty. It was gradually advanced into the stomach and duodenum and carefully examined. The bulb of the duodenum had 2 ulcerations measuring 1 cm and 2 cm in size one of which had a visible vessel but no active bleeding. At this time I proceeded with Endo Clip placement but was not successful. Subsequently using a gold probe the visible vessel was cauterized with good hemostasis. The second part of the duodenum appeared normal. The scope at this time was withdrawn to the stomach, adequately insufflated with air, and upon careful examination, mucosa of the antrum mild gastritis and biopsies were done from this area. The, body, cardia and the fundus appeared normal. The scope was then withdrawn into the esophagus. The GE junction was located at 39 cm from the incisors. The esophagus appeared normal. There were no erosions or ulcerations seen and the patient tolerated the procedure well. IMPRESSION: 1. 2 cm duodenal bulbar ulcer with a visible vessel status post attempted Endo Clip placement followed by cautery using a gold probe with good hemostasis. 2. 1 cm superficial bulbar ulcer with no active bleeding 3. Mild antral gastritis . RECOMMENDATIONS: The findings of this examination were discussed with the patient as well as her family. She'll be continued on Protonix 40 mg twice daily. Start on clear liquid diet. Await biopsy results.
[2022-02-09] MEDS: DILTIAZEM CD 120 MG CAP.ER.24H PO SCH ×2 (08:58→20:25)
[2022-02-09] MEDS: CYANOCOBALAMIN 500 MCG TAB PO SCH (08:58)
[2022-02-09] MEDS: PANTOPRAZOLE 40 MG/10 ML VIAL IVP SCH ×2 (08:58→20:25)
[2022-02-09] MEDS: VIT A,C & E-LUTEIN-MINERALS 1 EACH TAB PO SCH ×2 (08:59→21:54)
[2022-02-09] MEDS ORDERED: LIDOCAINE 1% (10MG/ML) FOR IV START INTRADERMA PRN (09:34)
[2022-02-09] MEDS ORDERED: DESMOPRESSIN ACETATE 17 MCG in SODIUM CHLORIDE 0.9% 50 ML IVPB ONE (10:23)
--- NOTE | 2022-02-09 10:25 | P.PN ---
Subjective Patient is seen in follow-up for acute kidney injury. Started on hemodialysis 01/28/2022. Mentation is better today. She is awake and answering questions appropriately. Underwent EGD this morning and was noted to have a duodenal bulbar ulcer which was cauterized. Hemoglobin today is 5.7. She will be receiving a unit of blood. Creatinine today is 3.12. Strict I's and O's not done. present at bedside. Vital signs are stable. General: Resting in bed. Awake. HEENT: Head exam is unremarkable. LUNGS: Breath sounds decreased. HEART: Rate and Rhythm are regular. ABDOMEN: Soft, no distention. EXTREMITITES: Trace edema. Objective - Vital Signs Vital signs: Vital Signs Temp 98.7 F 02/09/22 05:00 Pulse 96 02/09/22 09:04 Resp 15 02/09/22 08:46 BP 149/63 02/09/22 09:04 Pulse Ox 97 02/09/22 08:46 Intake & Output 02/08/22 02/09/22 02/09/22 18:59 06:59 18:59 Intake Total 770 0 50 Output Total 0 0 Balance 770 0 50 Weight 91 kg Intake: IV 50 Intake, IV Titration 150 Amount Desmopressin Acetate 21 50 mcg In Sodium Chloride 0. 9% 50 ml @ 200 mls/hr IVPB ONCE ONE Rx#: [id number] Sodium Ferric Gluconat- 100 Sucrose 125 mg In Sodium Chloride 0.9% 100 ml @ 100 mls/hr IVPB DAILY [facility] Rx#:[id number] Oral 0 Blood Product 620 Rc As-1 Unit 310 [id number] Output: Stool 0 0 Other: Voiding Method External Catheter Diaper # Voids 2 # Bowel Movements 1 1 - Labs CBC & Chem 7: 02/09/22 07:36 02/09/22 07:36 Labs: Abnormal Lab Results - Last 24 Hours (Table) 02/08/22 02/08/22 02/08/22 Range/Units 11:03 11:37 18:30 WBC 11.5 H (3.8-10.6) k/uL RBC 2.16 L (3.80-5.40) m/uL Hgb 6.9 L* (11.4-16.0) gm/dL Hct 20.4 L (34.0-46.0) % Chloride (98-107) mmol/L BUN (7-17) mg/dL Creatinine (0.52-1.04) mg/dL Glucose (74-99) mg/dL POC Glucose (mg/dL) 170 H (75-99) mg/dL Calcium (8.4-10.2) mg/dL Crossmatch See Detail 02/09/22 02/09/22 Range/Units 07:36 07:36 WBC (3.8-10.6) k/uL RBC 1.87 L (3.80-5.40) m/uL Hgb 5.7 L* (11.4-16.0) gm/dL Hct 17.4 L* (34.0-46.0) % Chloride 110 H (98-107) mmol/L BUN 75 H (7-17) mg/dL Creatinine 3.12 H (0.52-1.04) mg/dL Glucose 105 H (74-99) mg/dL POC Glucose (mg/dL) (75-99) mg/dL Calcium 7.9 L (8.4-10.2) mg/dL Crossmatch Assessment and Plan Plan: Assessment: 1. Acute kidney injury likely ATN. Also concern for AIN from NSAIDs - states she hasn't taken NSAIDs for about 2-3 months now but was taking Mobic prior to that. Urine eosinophils negative. Started on hemodialysis 01/28/2022 due to concern for uremia. Creatinine was near 1.2 3 months prior to admission. Serologies have been negative. Prednisone discontinued due to steroid psychosis. Permacath placed 02/07/2022. 2. Mental status changes w/steroid induced psychosis, delirurm. Initially there was concern for uremia however her mentation hasn't improved despite dialysis. Brain CT showed no acute changes. Neurology following. Medications were adjusted. ?LP. Mentation better today. 3. Hyperphosphatemia secondary to acute kidney injury maintained on PhosLo. Phosphorus 3.9 today. 4. Metabolic acidosis secondary to acute kidney injury. Improved postdialysis. 5. Anemia with component of kidney disease. Iron deficiency noted. Underwent EGD and duodenal ulcer was cauterized. Scheduled to receive a unit of blood today. Also received IV DDAVP yesterday. Plan: Hemodialysis today. Kidney biopsy pending - DDAVP prior to the biopsy. Continue to monitor renal function and urine output. Receiving IV iron. Repeat DDAVP today. Also scheduled to receive a unit of blood today. Monitor for renal recovery.
[2022-02-09] MEDS: LACTATED RINGERS 1,000 ML IV SCH (10:41)
--- NOTE | 2022-02-09 15:14 | P.PN ---
Subjective Progress Note Date: 02/09/22 HISTORY OF PRESENT ILLNESS This is a 71-year-old female patient of Dr. Chacon with past medical history of cervical cancer, hypertension, hyperlipidemia, generalized osteoarthritis. Family noticed the patient was confused yesterday. In hindsight noticed that approximately couple days she's been declining. She just saw Dr. Chacon on Monday for back pain with history of spinal fusion and started on dexamethasone 6 mg daily. Patient has been on Mobic in the past but that was stopped a couple months ago when her renal function decreased. Patient normally drinks a lot of water and she works out in the gym regularly on a recumbent bike. reports no urine output yesterday despite IV fluids given in the emergency center. Patient came into [facility] emergency center for evaluation and found to be afebrile, heart rate in the 60s, blood pressure 129/69, pulse ox 91% on room air. EKG was a sinus rhythm with no acute ST changes. CBC was unremarkable. CO2 was 16 BUN 86 and creatinine 6.52. Blood sugar 113. TSH 0.269 and free T4 was normal at 1.17. Repeat kidney function today is BUN 85 creatinine 7.86 with a bicarb of 15. Triglycerides 249, cholesterol 140, HDL 35, LDL 54. Urinalysis showed a small amount of leukoesterase, WBC 16. Urine drug screen positive for opiates and tricyclic antidepressants. Urine culture is in progress. Chest x-ray shows no acute cardiopulmonary process. CT angiogram reveals no acute arterial abnormality, significant stenosis or occlusion of the major neck or intracranial arteries. CAT scan of the brain revealed no acute intracranial hemorrhage or gross acute cortical infarct however a small acute or hyper acute infarct cannot be excluded. MRI of the brain reveals chronic small vessel ischemic changes, age-related atrophy. Renal ultrasound reveals medical renal disease. Patient has been seen by neurology and started on Plavix because MRI was negative, Plavix will be discontinued and mental status changes most likely secondary to toxic metabolic encephalopathy. Patient has also been seen by nep hrology for acute kidney injury secondary to ATN, sodium bicarb drip was started, Jackson catheter for accurate I&O's, one time dose of IV Lasix 80 mg. If no improvement in renal function and urine output and 4 hours, initiate renal replacement therapy. Serology and hepatitis testing pending. 3/4Patient examined bedside. She has worsened in her mental status today. Has been at bedside has noted hallucinations of and a paranoid behavior today. Patient is more confused than yesterday she is and she is and unable to relate to her condition at this moment. She is oriented 3 but unable to comprehend his situation. Patient urine output is morning is only 150 mL. She had 300 mL output overnight. Right is afebrile pulse 70 respiratory rate 18 blood pressure 189/78 oxygen 99% on room air. Labs reviewed sodium 131 potassium 4.7 bicarb 17 BUN 89 8 creatinine 8.69 phosphorus 8.0. Urine culture is negative for infection JAMAL negative complement levels and negative hepatitis panel is negat dirk. A vascular surgery consult will be placed for dialysis catheter placement. Hydralazine initiated at 50 3 times a day for blood pressure control. Seroquel initiated 25 at [facility] at bedtime 01/29: Patient was examined at the bedside. Over the night she had increased paranoia refused any oral medications. Patient was confused and combative. She was given 1 dose of Ativan. She became difficult to arouse and answer questions appropriately. At this time patient is alert continues to have paranoia and confusion. She is able to answer some questions appropriately. She does recognize the voice of the provider. Family is at bedside. Dialysis at this time. We will avoid any further sedation medications. And stop oral medications due to paranoia. Sodium 132, BUN 63, creatinine 6.9, 01/30: Patient is examined at the bedside. She is sitting up in bed. She is alert and orientated 3. Patient states that she no longer has any paranoia she is not having any visual or auditory hallucinations. She does feel overwhelmed by the smell from the hospital. Is significantly improved compared to yesterday. Patient will have a break from hemodialysis today. Her BUN is 36, creatinine 5.24. Possible renal biopsy may occur this week. IV has been discontinued due to swelling to bilateral upper extremities. Patient has had a total of 500 ML's of urine output. Patient states that she slept better last night. She did walk up and down the [place] without any difficulties. Patient remains afebrile, heart rate 83, respirations 16, blood pressure 142/71, pulse ox 93 on room air. 01/31: Patient apparently had severe episode this morning with hallucination and delusion, she ended up pulling out her hemodialysis catheter which created a lot of bleeding at the time. Patient become very sensitive afterward not responding to any thing but more catatonic not clear that she is aware for surrounding or not that she is closing her eyes refused to talk or to indicate any by the time. I have long discussion with the who is fully aware of her current diagnosis and prognosis. Also spoke with nephrology patient will benefit from having kidney biopsy for more precise diagnoses for why she is in acute kidney failure. 02/01: Patient ended up having another dialysis catheter in the left groin area and she is on hemodialysis at the time patient is more awake today but still very catatonic noticing any question and not making any effort to show any understanding of her surroundings at this point. Long discussion with the today about CODE STATUS and his final decision as his decision maker to keep her full code but if she ended up on extended life support the decision to withdraw life support in X days discussion is betweenHim and I would happen at the time. 02/02: Patient is on hemodialysis today. Patient responded is very limited which is still having significant psychotic episode and delirium. Her blood work had shown significant improvement compared to before. Review nephrology documentation along with neurology it seems all still blame on uremia but realistically her bun and creatinine has significantly improved last couple days without having to affect her mentation at this point. Still doing supportive care. The was on the bedside answer all his question still interested doing kidney biopsy at time. MRI of the brain was negative, neurology consultation EEG was negative as well. concern whether any the mental status change and the kidney can be related to COVID-19 vaccination, I don't have an answer for this question at this point if patient eventually had kidney biopsy may be would have some indication through the pathology change. 02/03: Patient is awake today doing much better, she is having hemodialysis, part of discussion yesterday with neurology as this is probably acute psychosis from steroid base that patient receive dexamethasone one day before her presentation to the hospital and another dose before start feeling bad on Monday. Patient is more clear this point we don't need to do NG tube for feeding patient be started on full liquid diet titrated gradually after doing swallow eval by speech. Also we'll advance physical therapy and patient off therapy for now. Had discussion with patient and her at the time the patient still slightly bit confused but a lot more awake interactive she knew why was new her was able to carry some conversation on her surrounding, her short-term memory is much better today. 02/04: Patient is doing very well today she's out of bed sitting in a chair on her own her mental status is back to almost baseline with her acute psychosis has improved significantly. Was taking break from hemodialysis today her creatinine dropped down to 3.87 GFR still running at 13. Patient is comfortable feeling well otherwise still note timeframe for kidney biopsy this point and whether patient will be doing dialysis through the weekend are not will depend on her creatinine next day and 2. 02/05: She is still awake alert doing very well today her mental status are back to normal, her GFR and kidney function decline compared to yesterday with creatinine up to 4.75 bun of 56 and GFR down to 9. Nephrology probably we held dialysis today to see the kidney, will improve filtration velasquez will increase her urine output on its own. Still probably plan to talk to interventional radiology about kidney biopsy on Monday the meanwhile continue current medical m anagement patient will be taking off furosemide and she'll be taking off Cardizem drip today to switch it to oral. The and the daughter we are on the bedside all their questions were answered today. Patient has possibility of leaving the hospital sometimes on Monday if biopsy done on Monday successfully and no more complication she might still need to be on hemodialysis for now. 02/06: Patient is very sleepy today not arousable she is stable hemodynamically but back again doing which she did last week most of the week except the acute psychosis and confusion is not there. Even on board she had haloperidol, lorazepam and Seroquel has not use any of those except Seroquel 25 mg was used last night and according to the hospital and he was on the phone with her until she went to sleep when Seroquel was giving at that time shortly before she went to sleep this point she is not waking up. Patient had hemodialysis yesterday looked like she's going to go for hemodialysis today one more time originally kidney biopsy was scheduled for Monday or Monday if she is awake and doing better probably to contact interventional radiology for kidney biopsy on Monday in the meanwhile continue supportive care along with neurology service psychiatry and nephrology. The was on the bedside answer all his question and concern show him all the medicine patient is on looks like Cardizem CD 120 mg twice a day has done better job to keep the pulse is under control blood pressure under control this point. With his permission I took away all sedative on as needed and on regular use including Seroquel Haldol and lorazepam the patient had acute episode of psychosis and diffusion and hallucination for the staff to contact me will use medication on an as-needed basis. 02/07 and patient examined today is appears alert. She still continues to have some confusion but states that she is doing much better. She feels that the clock in the room is being controlled and sometimes works faster than the other days. Detailed discussion with nephrology was made who is concerned that tavon guerrero is not making a speedy recovery with hemodialysis. Discussion with nurse was made who is concerned about the dialysis catheter not working. Vascular surgeon was consulted to place the dialysis catheter today vitals otherwise stable sodium 132 BUN 46 creatinine is improved to 2.67. Renal biopsy possible today or tomorrow 02/08: Yesterday, patient had permacath dialysis catheter placed in the right jugular vein and the dialysis catheter that was previously placed in the right femoral was removed. She has been followed by psychiatry and consider possible intranasal loxapine at low dose. Patient had bloody emesis last evening and hemoglobin this morning is 5.9. She will be transfused 1 unit of packed RBCs. Repeat CBC this afternoon. Early afternoon, patient had emesis of dark brown coffee-ground and stool dark brown as well. She has been seen by GI with plan for EGD in the morning and patient is currently on a clear liquid diet nothing by mouth at midnight with aspiration precautions in place. Nephrology is also ordered DDAVP IV today. Kidney biopsy is pending and she is scheduled for hemodialysis tomorrow. IV iron infusion has been added today by Dr. Juan for 3 days total. 02/09: This morning, patient underwent EGD with Dr. Juaquin Petty finding 2 cm duodenal bulbar ulcer with a visible vessel status post attempted Endo Clip placement followed by cautery using a gold probe with good hemostasis, 1 cm superficial bulbar ulcer with no active bleeding, and Mild antral gastritis. Recommendations to continue Protonix 40 mg twice daily and start clear liquid diet. Hemoglobin today is at 5.7 and 1 unit of packed RBCs ordered with repeat CBC this evening. Poor colonoscopy. Patient has had no further bowel movements since states the patient was very sharp yesterday and this morning until she woke up from a nap and now showing mild confusion. She's been afebrile, heart rate 96, blood pressure 149/63, pulse ox 97% on 2 L nasal cannula. Nephrology is planning for dialysis today, renal biopsy pending. REVIEW OF SYSTEMS Constitutional: No fever, no chills, no night sweats. No weight change. No weakness, reports fatigue no lethargy. No daytime sleepiness. EENT: No headache. No blurred vision or double vision, no loss of vision. No loss of Hearing, no ringing in the ears, no dizziness. No nasal drainage or congestion. No epistaxis. No sore throat. Lungs: No shortness of breath, cough, no sputum production. No wheezing. Cardiovascular: No chest pain, no lower extremity edema. No palpitations. No paroxysmal nocturnal dyspnea. No orthopnea. No lightheadedness or dizziness. No syncopal episodes. Abdominal: No abdominal pain. No nausea, bloody emesis 02/07. No diarrhea. No constipation. Noted tarry stools. No loss of appetite. Genitourinary: No dysuria, increased frequency, urgency. No urinary retention. Decreased urine output. Musculoskeletal: No myalgias. No muscle weakness, no gait dysfunction, no frequent falls. No back pain. No neck pain. Integumentary: No wounds, no lesions. No rash or pruritus. No unusual bruising. No change in hair or nails. Neurologic: No aphasia. No facial droop. Noted change in mentation. No head injury. No headache. No paralysis. No paresthesia. Psychiatric: No depression. Improvement in hallucination and paranoia No mood swings. Endocrine: No abnormal blood sugars. No weight change. No excessive sweating or thirst. No cold intolerance. PHYSICAL EXAMINATION Gen: This is a 71-year-old female. Patient is resting in bed and is at bedside. HEENT: Head is atraumatic, normocephalic. Pupils equal, round. Sclerae is anicteric. NECK: Supple. No JVD. No lymphadenopathy. No thyromegaly. LUNGS: Clear to auscultation. No wheezes or rhonchi. No intercostal retractions. HEART: Regular rate and rhythm. 3/6 systolic murmur. ABDOMEN: Soft. Bowel sounds are present. No masses. No tenderness. EXTREMITIES: No pedal edema. No calf tenderness. NEUROLOGICAL: Patient is awake, alert and oriented x2. Answered questions appropriately, denies paranoia auditory or visual hallucinations. Cranial nerves 2 through 12 are grossly intact. ASSESSMENT AND PLAN 1. Severe metabolic encephalopathy: Secondary to medication with uremia, improved. 2. Acute kidney injury with ATN. Right jugular vein permacath placed yesterday, dialysis scheduled for today. 3. Metabolic acidosis secondary to acute kidney injury. Off sodium bicarb 4. Acute psychosis and delirium secondary to combination of uremia and medication. Continue to monitor, psychiatric evaluation appreciated. 5. Hypertension. DC Norvasc and switch patient to Cardizem CD 120 mg twice a day to control her pulse rate and the blood pressure together. 6. Hyperlipidemia. We will restart medication back sometime this week. 7. History of cervical cancer: Has been in remission. 8. Generalized anxiety disorder. Discontinue sedation medications. 9. Chronic back pain with history of spinal fusion. Not using any medicine except Tylenol as needed. 10 recurrent depression: Patient is off all medication. 11. Acute GI bleed with acute blood loss anemia. Patient will be transfused second unit of packed RBCs, consult with Dr. Juaquin Petty appreciated status post EGD, clear liquid diet, Protonix 40 mg twice daily. Ferrlecit infusion 3 days CODE STATUS: Full code. But not extended life support for many days. Prognosis: Fair Discharge planning: kidney biopsy, going to subacute rehab sometime this week. Impression and plan of care have been directed as dictated by the signing physician. Raquel Fagan nurse practitioner acting as scribe for signing physician. Objective - Vital Signs Vital signs: Vital Signs Temp 98.7 F 02/09/22 05:00 Pulse 96 02/09/22 09:04 Resp 15 02/09/22 08:46 BP 149/63 02/09/22 09:04 Pulse Ox 97 02/09/22 08:46 Intake & Output 02/08/22 02/09/22 02/09/22 18:59 06:59 18:59 Intake Total 770 0 590 Output Total 0 0 Balance 770 0 590 Weight 91 kg Intake: IV 50 Intake, IV Titration 150 Amount Desmopressin Acetate 21 50 mcg In Sodium Chloride 0. 9% 50 ml @ 200 mls/hr IVPB ONCE ONE Rx#: [id number] Sodium Ferric Gluconat- 100 Sucrose 125 mg In Sodium Chloride 0.9% 100 ml @ 100 mls/hr IVPB DAILY [facility] Rx#:[id number] Oral 0 540 Blood Product 620 Rc As-1 Unit 310 [id number] Output: Stool 0 0 Other: Voiding Method External Catheter Diaper Diaper # Voids 2 # Bowel Movements 1 1 - Labs CBC & Chem 7: 02/09/22 07:36 02/09/22 07:36 Labs: Abnormal Lab Results - Last 24 Hours (Table) 02/08/22 02/08/22 02/08/22 Range/Units 11:03 11:37 18:30 WBC 11.5 H (3.8-10.6) k/uL RBC 2.16 L (3.80-5.40) m/uL Hgb 6.9 L* (11.4-16.0) gm/dL Hct 20.4 L (34.0-46.0) % Chloride (98-107) mmol/L BUN (7-17) mg/dL Creatinine (0.52-1.04) mg/dL Glucose (74-99) mg/dL POC Glucose (mg/dL) 170 H (75-99) mg/dL Calcium (8.4-10.2) mg/dL Crossmatch See Detail 02/09/22 02/09/22 Range/Units 07:36 07:36 WBC (3.8-10.6) k/uL RBC 1.87 L (3.80-5.40) m/uL Hgb 5.7 L* (11.4-16.0) gm/dL Hct 17.4 L* (34.0-46.0) % Chloride 110 H (98-107) mmol/L BUN 75 H (7-17) mg/dL Creatinine 3.12 H (0.52-1.04) mg/dL Glucose 105 H (74-99) mg/dL POC Glucose (mg/dL) (75-99) mg/dL Calcium 7.9 L (8.4-10.2) mg/dL Crossmatch
[2022-02-09 20:17] LABS: HCT 22.6 % (34.0-46.0); MCH 30.7 pg (25.0-35.0); MCHC 33.8 g/dL (31.0-37.0); MCV 90.7 fL (80.0-100.0); Mean Platelet Volume 7.4; Platelet Count 178 k/uL (150-450); RBC 2.49 m/uL (3.80-5.40); RDW 14.9 % (11.5-15.5); WBC 12.7 k/uL (3.8-10.6)
[2022-02-09 20:18] LABS: HGB 7.6 gm/dL (11.4-16.0)
[2022-02-09] MEDS: SODIUM FERRIC GLUCONAT-SUCROSE 125 MG in SODIUM CHLORIDE 0.9% 100 ML IVPB SCH (21:53)
[2022-02-10] MEDS: hydrALAZINE HCL 20 MG/ML 1 ML VIAL IVP SCH ×2 (03:45→08:44)
[2022-02-10] MEDS: CALCIUM ACETATE 667 MG TAB PO SCH ×3 (06:35→18:24)
[2022-02-10 07:32] LABS: HCT 20.4 % (34.0-46.0); HGB 7.2 gm/dL (11.4-16.0); MCH 32.3 pg (25.0-35.0); MCHC 35.2 g/dL (31.0-37.0); MCV 91.7 fL (80.0-100.0); Mean Platelet Volume 8.2; Platelet Count 147 k/uL (150-450); Poikilocytosis Slight; RBC 2.22 m/uL (3.80-5.40); RDW 14.7 % (11.5-15.5); WBC 10.9 k/uL (3.8-10.6)
[2022-02-10] MEDS: PANTOPRAZOLE 40 MG/10 ML VIAL IVP SCH ×2 (08:44→20:00)
[2022-02-10] MEDS: VIT A,C & E-LUTEIN-MINERALS 1 EACH TAB PO SCH ×2 (08:45→20:00)
[2022-02-10] MEDS: CYANOCOBALAMIN 500 MCG TAB PO SCH (08:45)
[2022-02-10] MEDS: DILTIAZEM CD 120 MG CAP.ER.24H PO SCH ×2 (08:45→20:00)
--- NOTE | 2022-02-10 09:10 | P.PN ---
Subjective Patient is seen in follow-up for acute kidney injury. Started on hemodialysis 01/28/2022. Mentation is improved last 2 days. She is awake and answering questions appropriately. Underwent EGD 02/09/2022 and was noted to have a duodenal bulbar ulcer which was cauterized. Hemoglobin today is 7.2. Tolerated dialysis well yesterday. Vital signs are stable. General: Resting in bed. Awake. HEENT: Head exam is unremarkable. LUNGS: Breath sounds decreased. HEART: Rate and Rhythm are regular. ABDOMEN: Soft, no distention. EXTREMITITES: Trace edema. Objective - Vital Signs Vital signs: Vital Signs Temp 97.7 F 02/10/22 04:00 Pulse 104 H 02/10/22 04:00 Resp 18 02/10/22 04:00 BP 152/83 02/10/22 04:00 Pulse Ox 94 L 02/10/22 04:00 Intake & Output 02/09/22 02/10/22 02/10/22 18:59 06:59 18:59 Intake Total 900 365 Output Total 3050 725 Balance -2150 -360 Weight 91 kg Intake: IV 50 Intake, IV Titration 125 Amount Sodium Ferric Gluconat- 125 Sucrose 125 mg In Sodium Chloride 0.9% 100 ml @ 100 mls/hr IVPB HS [facility] Rx #:[id number] Oral 540 240 Blood Product 310 Rc As-1 Unit 310 [id number] Output: Urine 750 725 Stool 0 Hemodialysis 2300 Other: Voiding Method External Catheter External Catheter # Voids 2 - Labs CBC & Chem 7: 02/10/22 07:01 02/09/22 07:36 Labs: Abnormal Lab Results - Last 24 Hours (Table) 02/08/22 02/09/22 02/10/22 Range/Units 11:03 19:23 07:01 WBC 12.7 H 10.9 H (3.8-10.6) k/uL RBC 2.49 L 2.22 L (3.80-5.40) m/uL Hgb 7.6 L D 7.2 L (11.4-16.0) gm/dL Hct 22.6 L 20.4 L (34.0-46.0) % Plt Count 147 L (150-450) k/uL Crossmatch See Detail Assessment and Plan Plan: Assessment: 1. Acute kidney injury likely ATN. Also concern for AIN from NSAIDs - states she hasn't taken NSAIDs for about 2-3 months now but was taking Mobic prior to that. Urine eosinophils negative. Started on hemodialysis 01/28/2022 due to concern for uremia. Creatinine was near 1.2 3 months prior to admission. Serologies have been negative. Prednisone discontinued due to steroid psychosis. Permacath placed 02/07/2022. 2. Mental status changes w/steroid induced psychosis, delirurm. Initially there was concern for uremia however her mentation hasn't improved despite dialysis. Brain CT showed no acute changes. Neurology following. Medications were adjusted. ?LP. Mentation improved. 3. Hyperphosphatemia secondary to acute kidney injury maintained on PhosLo. Phosphorus 3.9 dated 02/09/2022. 4. Metabolic acidosis secondary to acute kidney injury. Improved postdialysis. 5. Anemia with component of kidney disease. Iron deficiency noted. Underwent EGD and duodenal ulcer was cauterized. Status post blood transfusion and IV DDAVP. Plan: Hemodialysis tomorrow. Kidney biopsy pending - DDAVP prior to the biopsy. Continue to monitor renal function and urine output. Receiving IV iron. Monitor for renal recovery. Add Aranesp once iron infusions completed.
[2022-02-10 09:26] LABS: Calcium 7.8 mg/dL (8.4-10.2); Potassium 3.1 mmol/L (3.5-5.1)
--- NOTE | 2022-02-10 11:48 | P.PN ---
Subjective Progress Note Date: 02/10/22 Principal diagnosis: altered mental status changes, GI bleed The patient is seen and examined in for follow-up for upper GI bleed. She had been having coffee-ground emesis and dark stools. Yesterday she underwent EGD with findings of a 2 cm duodenal ulcer ulcer with visible vessel status post attempted Endo Clip placement followed by cautery with gold probe ablation with with good hemostasis. Also 1 cm superficial bulbar ulcer with no active bleeding and mild gastritis. Today the patient denies any abdominal pain, no nausea or vomiting. She did have a dark bowel movement last night. No blood or maroon colored stool. She is tolerating clear liquid diet and requesting to remain on a clear liquid through lunch. Objective - Vital Signs Vital signs: Vital Signs Temp 97.7 F 02/10/22 04:00 Pulse 104 H 02/10/22 04:00 Resp 18 02/10/22 04:00 BP 152/83 02/10/22 04:00 Pulse Ox 94 L 02/10/22 04:00 Intake & Output 02/09/22 02/10/22 02/10/22 18:59 06:59 18:59 Intake Total 900 365 Output Total 3050 725 Balance -2150 -360 Weight 91 kg Intake: IV 50 Intake, IV Titration 125 Amount Sodium Ferric Gluconat- 125 Sucrose 125 mg In Sodium Chloride 0.9% 100 ml @ 100 mls/hr IVPB [facility] Rx #:[id number] Oral 540 240 Blood Product 310 Rc As-1 Unit 310 [id number] Output: Urine 750 725 Stool 0 Hemodialysis 2300 Other: Voiding Method External Catheter External Catheter # Voids 2 - Exam General appearance: The patient is alert, oriented, appears in no acute distress. HET: Head is normocephalic and atraumatic. Conjunctiva pink. Sclera anicteric. Neck: Supple without lymphadenopathy. Abdomen: Soft, nontender, nondistended with bowel sounds. No guarding or rigidity. Extremities: Normal skin color and turgor. No pedal edema Skin: No rashes, no jaundice Neurological: No focal deficits. Alert and oriented -3. - Labs CBC & Chem 7: 02/10/22 07:01 02/10/22 07:01 Labs: Abnormal Lab Results - Last 24 Hours (Table) 02/08/22 02/09/2222 Range/Units 11:03 19:23 07:01 WBC 12.7 H 10.9 H (3.8-10.6) k/uL RBC 2.49 L 2.22 L (3.80-5.40) m/uL Hgb 7.6 L D 7.2 L (11.4-16.0) gm/dL Hct 22.6 L 20.4 L (34.0-46.0) % Plt Count 147 L (150-450) k/uL Crossmatch See Detail Assessment and Plan (1) GI bleed Narrative/Plan: 71-year-old female who had presented almost 2 weeks ago to the emergency department for altered mental status changes. She was noted to have acute kidney injury as well as metabolic encephalopathy likely related to acute kidney injury as well as acute steroid-induced psychosis. During her hospitalization s he was found to have a drop in her hemoglobin today was 5.9. She also had reported 2 episodes of coffee-ground emesis yesterday afternoon during her dialysis time. Unsure if she's having any black or blood in her stool. Today after her initial evaluation there was an 18 that was called due to having her recurrent coffee-ground emesis as well as some maroon colored stool. Recommend Protonix 40 mg twice a day, repeat CBC in 6 hours, and will plan for upper endoscopy tomorrow. Possible etiologies include peptic ulcer disease, AVM, gastritis, esophagitis or other possible etiologies. Patient underwent EGD with findings of 2 cm duodenal ulcer ulcer with visible vessel status post attempted Endo Clip placement followed by cautery with gold probe ablation with with good hemostasis. Also 1 cm superficial bulbar ulcer with no active bleeding and mild gastritis. Patient to continue Protonix 40 mg twice a day. Current Visit: Yes Status: Acute Code(s): K92.2 - GASTROINTESTINAL HEMORRHAGE, UNSPECIFIED SNOMED Code(s): 66067163 (2) SOREN (acute kidney injury) Current Visit: Yes Status: Acute Code(s): N17.9 - ACUTE KIDNEY FAILURE, UNSPECIFIED SNOMED Code(s): 54794214 (3) Altered mental status Current Visit: Yes Status: Acute Code(s): R41.82 - ALTERED MENTAL STATUS, UNSPECIFIED SNOMED Code(s): 410013228 (4) Duodenal ulcer Current Visit: Yes Status: Acute Code(s): K26.9 - DUODENAL ULCER, UNSP ACUTE OR CHRONIC, W/O HEMOR OR PERF SNOMED Code(s): 55225673 Plan: 1. Continue symptomatic and supportive care 2. Clear liquid diet, advance to full liquid diet for dinner 3. Daily CBC, transfuse per protocol 4. Protonix 40 mg twice a day 5. Follow up with GI for biopsy results Thank you for this consultation, we will continue to follow. Dr. Juaquin Petty I agree with the dictator's note, documented as a scribe by Greta De Oliveira.
--- NOTE | 2022-02-10 13:27 | P.PN ---
Subjective Progress Note Date: 02/10/22 HISTORY OF PRESENT ILLNESS This is a 71-year-old female patient of Dr. Chacon with past medical history of cervical cancer, hypertension, hyperlipidemia, generalized osteoarthritis. Family noticed the patient was confused yesterday. In hindsight noticed that approximately couple days she's been declining. She just saw Dr. Chacon on Monday for back pain with history of spinal fusion and started on dexamethasone 6 mg daily. Patient has been on Mobic in the past but that was stopped a couple months ago when her renal function decreased. Patient normally drinks a lot of water and she works out in the gym regularly on a recumbent bike. reports no urine output yesterday despite IV fluids given in the emergency center. Patient came into [facility] emergency center for evaluation and found to be afebrile, heart rate in the 60s, blood pressure 129/69, pulse ox 91% on room air. EKG was a sinus rhythm with no acute ST changes. CBC was unremarkable. CO2 was 16 BUN 86 and creatinine 6.52. Blood sugar 113. TSH 0.269 and free T4 was normal at 1.17. Repeat kidney function today is BUN 85 creatinine 7.86 with a bicarb of 15. Triglycerides 249, cholesterol 140, HDL 35, LDL 54. Urinalysis showed a small amount of leukoesterase, WBC 16. Urine drug screen positive for opiates and tricyclic antidepressants. Urine culture is in progress. Chest x-ray shows no acute cardiopulmonary process. CT angiogram reveals no acute arterial abnormality, significant stenosis or occlusion of the major neck or intracranial arteries. CAT scan of the brain revealed no acute intracranial hemorrhage or gross acute cortical infarct however a small acute or hyper acute infarct cannot be excluded. MRI of the brain reveals chronic small vessel ischemic changes, age-related atrophy. Renal ultrasound reveals medical renal disease. Patient has been seen by neurology and started on Plavix because MRI was negative, Plavix will be discontinued and mental status changes most likely secondary to toxic metabolic encephalopathy. Patient has also been seen by nep hrology for acute kidney injury secondary to ATN, sodium bicarb drip was started, Jackson catheter for accurate I&O's, one time dose of IV Lasix 80 mg. If no improvement in renal function and urine output and 4 hours, initiate renal replacement therapy. Serology and hepatitis testing pending. 3/4Patient examined bedside. She has worsened in her mental status today. Has been at bedside has noted hallucinations of and a paranoid behavior today. Patient is more confused than yesterday she is and she is and unable to relate to her condition at this moment. She is oriented 3 but unable to comprehend his situation. Patient urine output is morning is only 150 mL. She had 300 mL output overnight. Right is afebrile pulse 70 respiratory rate 18 blood pressure 189/78 oxygen 99% on room air. Labs reviewed sodium 131 potassium 4.7 bicarb 17 BUN 89 8 creatinine 8.69 phosphorus 8.0. Urine culture is negative for infection JAMAL negative complement levels and negative hepatitis panel is negat dirk. A vascular surgery consult will be placed for dialysis catheter placement. Hydralazine initiated at 50 3 times a day for blood pressure control. Seroquel initiated 25 at [facility] [place] at bedtime 01/29: Patient was examined at the bedside. Over the night she had increased paranoia refused any oral medications. Patient was confused and combative. She was given 1 dose of Ativan. She became difficult to arouse and answer questions appropriately. At this time patient is alert continues to have paranoia and confusion. She is able to answer some questions appropriately. She does recognize the voice of the provider. Family is at bedside. Dialysis at this time. We will avoid any further sedation medications. And stop oral medications due to paranoia. Sodium 132, BUN 63, creatinine 6.9, 01/30: Patient is examined at the bedside. She is sitting up in bed. She is alert and orientated 3. Patient states that she no longer has any paranoia she is not having any visual or auditory hallucinations. She does feel overwhelmed by the smell from the hospital. Is significantly improved compared to yesterday. Patient will have a break from hemodialysis today. Her BUN is 36, creatinine 5.24. Possible renal biopsy may occur this week. IV has been discontinued due to swelling to bilateral upper extremities. Patient has had a total of 500 ML's of urine output. Patient states that she slept better last night. She did walk up and down the [place] without any difficulties. Patient remains afebrile, heart rate 83, respirations 16, blood pressure 142/71, pulse ox 93 on room air. 01/31: Patient apparently had severe episode this morning with hallucination and delusion, she ended up pulling out her hemodialysis catheter which created a lot of bleeding at the time. Patient become very sensitive afterward not responding to any thing but more catatonic not clear that she is aware for surrounding or not that she is closing her eyes refused to talk or to indicate any by the time. I have long discussion with the who is fully aware of her current diagnosis and prognosis. Also spoke with nephrology patient will benefit from having kidney biopsy for more precise diagnoses for why she is in acute kidney failure. 02/01: Patient ended up having another dialysis catheter in the left groin area and she is on hemodialysis at the time patient is more awake today but still very catatonic noticing any question and not making any effort to show any understanding of her surroundings at this point. Long discussion with the today about CODE STATUS and his final decision as his decision maker to keep her full code but if she ended up on extended life support the decision to withdraw life support in X days discussion is betweenHim and I would happen at the time. 02/02: Patient is on hemodialysis today. Patient responded is very limited which is still having significant psychotic episode and delirium. Her blood work had shown significant improvement compared to before. Review nephrology documentation along with neurology it seems all still blame on uremia but realistically her bun and creatinine has significantly improved last couple days without having to affect her mentation at this point. Still doing supportive care. The was on the bedside answer all his question still interested doing kidney biopsy at time. MRI of the brain was negative, neurology consultation EEG was negative as well. concern whether any the mental status change and the kidney can be related to COVID-19 vaccination, I don't have an answer for this question at this point if patient eventually had kidney biopsy may be would have some indication through the pathology change. 02/03: Patient is awake today doing much better, she is having hemodialysis, part of discussion yesterday with neurology as this is probably acute psychosis from steroid base that patient receive dexamethasone one day before her presentation to the hospital and another dose before start feeling bad on Monday. Patient is more clear this point we don't need to do NG tube for feeding patient be started on full liquid diet titrated gradually after doing swallow eval by speech. Also we'll advance physical therapy and patient off therapy for now. Had discussion with patient and her at the time the patient still slightly bit confused but a lot more awake interactive she knew why was new her was able to carry some conversation on her surrounding, her short-term memory is much better today. 02/04: Patient is doing very well today she's out of bed sitting in a chair on her own her mental status is back to almost baseline with her acute psychosis has improved significantly. Was taking break from hemodialysis today her creatinine dropped down to 3.87 GFR still running at 13. Patient is comfortable feeling well otherwise still note timeframe for kidney biopsy this point and whether patient will be doing dialysis through the weekend are not will depend on her creatinine next day and 2. 02/05: She is still awake alert doing very well today her mental status are back to normal, her GFR and kidney function decline compared to yesterday with creatinine up to 4.75 bun of 56 and GFR down to 9. Nephrology probably we held dialysis today to see the kidney, will improve filtration velasquez will increase her urine output on its own. Still probably plan to talk to interventional radiology about kidney biopsy on Monday the meanwhile continue current medical m anagement patient will be taking off furosemide and she'll be taking off Cardizem drip today to switch it to oral. The and the daughter we are on the bedside all their questions were answered today. Patient has possibility of leaving the hospital sometimes on Monday if biopsy done on Monday successfully and no more complication she might still need to be on hemodialysis for now. 02/06: Patient is very sleepy today not arousable she is stable hemodynamically but back again doing which she did last week most of the week except the acute psychosis and confusion is not there. Even on board she had haloperidol, lorazepam and Seroquel has not use any of those except Seroquel 25 mg was used last night and according to the hospital and he was on the phone with her until she went to sleep when Seroquel was giving at that time shortly before she went to sleep this point she is not waking up. Patient had hemodialysis yesterday looked like she's going to go for hemodialysis today one more time originally kidney biopsy was scheduled for Monday or Monday if she is awake and doing better probably to contact interventional radiology for kidney biopsy on Monday in the meanwhile continue supportive care along with neurology service psychiatry and nephrology. The was on the bedside answer all his question and concern show him all the medicine patient is on looks like Cardizem CD 120 mg twice a day has done better job to keep the pulse is under control blood pressure under control this point. With his permission I took away all sedative on as needed and on regular use including Seroquel Haldol and lorazepam the patient had acute episode of psychosis and diffusion and hallucination for the staff to contact me will use medication on an as-needed basis. 02/07 and patient examined today is appears alert. She still continues to have some confusion but states that she is doing much better. She feels that the clock in the room is being controlled and sometimes works faster than the other days. Detailed discussion with nephrology was made who is concerned that tavon guerrero is not making a speedy recovery with hemodialysis. Discussion with nurse was made who is concerned about the dialysis catheter not working. Vascular surgeon was consulted to place the dialysis catheter today vitals otherwise stable sodium 132 BUN 46 creatinine is improved to 2.67. Renal biopsy possible today or tomorrow 02/08: Yesterday, patient had permacath dialysis catheter placed in the right jugular vein and the dialysis catheter that was previously placed in the right femoral was removed. She has been followed by psychiatry and consider possible intranasal loxapine at low dose. Patient had bloody emesis last evening and hemoglobin this morning is 5.9. She will be transfused 1 unit of packed RBCs. Repeat CBC this afternoon. Early afternoon, patient had emesis of dark brown coffee-ground and stool dark brown as well. She has been seen by GI with plan for EGD in the morning and patient is currently on a clear liquid diet nothing by mouth at midnight with aspiration precautions in place. Nephrology is also ordered DDAVP IV today. Kidney biopsy is pending and she is scheduled for hemodialysis tomorrow. IV iron infusion has been added today by Dr. Juan for 3 days total. 02/09: This morning, patient underwent EGD with Dr. Juaquin Petty finding 2 cm duodenal bulbar ulcer with a visible vessel status post attempted Endo Clip placement followed by cautery using a gold probe with good hemostasis, 1 cm superficial bulbar ulcer with no active bleeding, and Mild antral gastritis. Recommendations to continue Protonix 40 mg twice daily and start clear liquid diet. Hemoglobin today is at 5.7 and 1 unit of packed RBCs ordered with repeat CBC this evening. Poor colonoscopy. Patient has had no further bowel movements since states the patient was very sharp yesterday and this morning until she woke up from a nap and now showing mild confusion. She's been afebrile, heart rate 96, blood pressure 149/63, pulse ox 97% on 2 L nasal cannula. Nephrology is planning for dialysis today, renal biopsy pending. 02/10: Patient's states that she has been very sharp this morning just finished a nap. Hemoglobin is 7.2, WBC 10.9, platelet count 147. Sodium 135, potassium 3.1. BUN 35 and creatinine 1.95. Torsemide 40 mg daily was added by nephrology. We are hoping for kidney biopsy tomorrow. No INR available today. Hemodialysis is scheduled for tomorrow. Diet to be advanced with protein supplement. Discharge plan is for subacute rehab at [facility]. REVIEW OF SYSTEMS Constitutional: No fever, no chills, no night sweats. No weight change. No weakness, reports fatigue no lethargy. No daytime sleepiness. EENT: No headache. No blurred vision or double vision, no loss of vision. No loss of Hearing, no ringing in the ears, no dizziness. No nasal drainage or congestion. No epistaxis. No sore throat. Lungs: No shortness of breath, cough, no sputum production. No wheezing. Cardiovascular: No chest pain, no lower extremity edema. No palpitations. No paroxysmal nocturnal dyspnea. No orthopnea. No lightheadedness or dizziness. No syncopal episodes. Abdominal: No abdominal pain. No nausea, bloody emesis 02/07. No diarrhea. No constipation. Noted tarry stools. No loss of appetite. Genitourinary: No dysuria, increased frequency, urgency. No urinary retention. Decreased urine output. Musculoskeletal: No myalgias. Generalized muscle weakness, no gait dysfunction, no frequent falls. No back pain. No neck pain. Integumentary: No wounds, no lesions. No rash or pruritus. No unusual bruising. No change in hair or nails. Neurologic: No aphasia. No facial droop. Noted change in mentation. No head injury. No headache. No paralysis. No paresthesia. Psychiatric: No depression. Improvement in hallucination and paranoia No mood swings. Endocrine: No abnormal blood sugars. No weight change. No excessive sweating or thirst. No cold intolerance. PHYSICAL EXAMINATION Gen: This is a 71-year-old female. Patient is resting in bed and is at bedside. HEENT: Head is atraumatic, normocephalic. Pupils equal, round. Sclerae is anicteric. NECK: Supple. No JVD. No lymphadenopathy. No thyromegaly. LUNGS: Clear to auscultation. No wheezes or rhonchi. No intercostal retractions. HEART: Regular rate and rhythm. 3/6 systolic murmur. ABDOMEN: Soft. Bowel sounds are present. No masses. No tenderness. EXTREMITIES: No pedal edema. No calf tenderness. NEUROLOGICAL: Patient is awake, alert and oriented x2. Answered questions appro priately, denies paranoia auditory or visual hallucinations. Cranial nerves 2 through 12 are grossly intact. ASSESSMENT AND PLAN 1. Severe metabolic encephalopathy: Secondary to medication with uremia, improved. 2. Acute kidney injury with ATN. Right jugular vein permacath placed yesterday, dialysis scheduled. 3. Metabolic acidosis secondary to acute kidney injury. Off sodium bicarb 4. Acute psychosis and delirium secondary to combination of uremia and med ication. Continue to monitor, psychiatric evaluation appreciated. 5. Hypertension. DC Norvasc and switch patient to Cardizem CD 120 mg twice a day to control her pulse rate and the blood pressure together. 6. Hyperlipidemia. We will restart medication back sometime this week. 7. History of cervical cancer: Has been in remission. 8. Generalized anxiety disorder. Discontinue sedation medications. 9. Chronic back pain with history of spinal fusion. Not using any medicine except Tylenol as needed. 10 recurrent depression: Patient is off all medication. 11. Acute GI bleed with acute blood loss anemia. Patient will be transfused second unit of packed RBCs, consult with Dr. Juaquin Petty appreciated status post EGD, clear liquid diet, Protonix 40 mg twice daily. Ferrlecit infusion 3 days CODE STATUS: Full code. But not extended life support for many days. Prognosis: Fair Discharge planning: kidney biopsy, going to subacute rehab sometime this week. Impression and plan of care have been directed as dictated by the signing physician. Raquel Fagan nurse practitioner acting as scribe for signing physician. Objective - Vital Signs Vital signs: Vital Signs Temp 97.7 F 02/10/22 08:40 Pulse 98 02/10/22 08:40 Resp 18 02/10/22 08:40 BP 130/62 02/10/22 08:40 Pulse Ox 97 02/10/22 08:40 Intake & Output 02/09/22 02/10/22 02/10/22 18:59 06:59 18:59 Intake Total 900 365 360 Output Total 3050 725 300 Balance -2150 -360 60 Weight 91 kg Intake: IV 50 Intake, IV Titration 125 Amount Sodium Ferric Gluconat- 125 Sucrose 125 mg In Sodium Chloride 0.9% 100 ml @ 100 mls/hr IVPB [facility] Rx #:[id number] Oral 540 240 360 Blood Product 310 Rc As-1 Unit 310 [id number] Output: Urine 750 725 300 Stool 0 Hemodialysis 2300 Other: Voiding Method External Catheter External Catheter # Voids 2 - Labs CBC & Chem 7: 02/10/22 07:01 02/10/22 07:01 Labs: Abnormal Lab Results - Last 24 Hours (Table) 02/08/22 02/09/22 02/10/22 Range/Units 11:03 19:23 07:01 WBC 12.7 H 10.9 H (3.8-10.6) k/uL RBC 2.49 L 2.22 L (3.80-5.40) m/uL Hgb 7.6 L D 7.2 L (11.4-16.0) gm/dL Hct 22.6 L 20.4 L (34.0-46.0) % Plt Count 147 L (150-450) k/uL Sodium (137-145) mmol/L Potassium (3.5-5.1) mmol/L BUN (7-17) mg/dL Creatinine (0.52-1.04) mg/dL Glucose (74-99) mg/dL Calcium (8.4-10.2) mg/dL Crossmatch See Detail 02/10/22 Range/Units 07:01 WBC (3.8-10.6) k/uL RBC (3.80-5.40) m/uL Hgb (11.4-16.0) gm/dL Hct (34.0-46.0) % Plt Count (150-450) k/uL Sodium 135 L (137-145) mmol/L Potassium 3.1 L (3.5-5.1) mmol/L BUN 35 H (7-17) mg/dL Creatinine 1.95 H (0.52-1.04) mg/dL Glucose 102 H (74-99) mg/dL Calcium 7.8 L (8.4-10.2) mg/dL Crossmatch
[2022-02-10] MEDS: hydrALAZINE HCL 25 MG TAB PO SCH ×3 (13:48→23:57)
[2022-02-10] MEDS ORDERED: POTASSIUM CHLORIDE ER 20 MEQ TAB.ER PO STA (13:52)
[2022-02-10] MEDS: SODIUM FERRIC GLUCONAT-SUCROSE 125 MG in SODIUM CHLORIDE 0.9% 100 ML IVPB SCH (20:30)
[2022-02-10] MEDS: LACTATED RINGERS 1,000 ML IV SCH (23:56)
[2022-02-11 06:25] LABS: HCT 21.5 % (34.0-46.0); HGB 7.4 gm/dL (11.4-16.0); MCH 31.6 pg (25.0-35.0); MCHC 34.4 g/dL (31.0-37.0); MCV 91.8 fL (80.0-100.0); Mean Platelet Volume 7.8; Platelet Count 148 k/uL (150-450); RBC 2.34 m/uL (3.80-5.40); RDW 14.7 % (11.5-15.5); WBC 7.9 k/uL (3.8-10.6)
[2022-02-11] MEDS: CALCIUM ACETATE 667 MG TAB PO SCH ×3 (06:29→16:52)
[2022-02-11 06:35] LABS: Calcium 8.2 mg/dL (8.4-10.2); Potassium 3.3 mmol/L (3.5-5.1)
[2022-02-11] MEDS: TORSEMIDE 20 MG TAB PO SCH (08:17)
[2022-02-11] MEDS: VIT A,C & E-LUTEIN-MINERALS 1 EACH TAB PO SCH ×2 (08:17→21:00)
[2022-02-11] MEDS: DILTIAZEM CD 120 MG CAP.ER.24H PO SCH ×2 (08:17→21:00)
[2022-02-11] MEDS: PANTOPRAZOLE 40 MG/10 ML VIAL IVP SCH ×2 (08:17→21:00)
[2022-02-11] MEDS: hydrALAZINE HCL 25 MG TAB PO SCH ×4 (08:17→21:00)
[2022-02-11] MEDS: CYANOCOBALAMIN 500 MCG TAB PO SCH (08:17)
[2022-02-11] MEDS ORDERED: POTASSIUM CHLORIDE ER 20 MEQ TAB.ER PO STA (09:26)
--- NOTE | 2022-02-11 09:27 | P.PN ---
Subjective Patient is seen in follow-up for acute kidney injury. Started on hemodialysis 01/28/2022. Mentation has improved. She is awake and answering questions appropriately. Underwent EGD 02/09/2022 and was noted to have a duodenal bulbar ulcer which was cauterized. Hemoglobin today is 7.4. Last hemodialysis was on 02/09/2022. Creatinine stable the last 2 days and 1.9. Nonoliguric. Vital signs are stable. General: Resting in bed. Awake. HEENT: Head exam is unremarkable. LUNGS: Breath sounds decreased. HEART: Rate and Rhythm are regular. ABDOMEN: Soft, no distention. EXTREMITITES: Trace edema. Objective - Vital Signs Vital signs: Vital Signs Temp 98.5 F 02/11/22 08:15 Pulse 101 H 02/11/22 08:15 Resp 18 02/11/22 08:15 BP 153/78 02/11/22 08:15 Pulse Ox 94 L 02/11/22 08:15 Intake & Output 02/10/22 02/11/22 02/11/22 18:59 06:59 18:59 Intake Total 840 340 600 Output Total 400 150 Balance 440 190 600 Intake: Intake, IV Titration 100 Amount Sodium Ferric Gluconat- 100 Sucrose 125 mg In Sodium Chloride 0.9% 100 ml @ 100 mls/hr IVPB HS [facility] Rx #:[id number] Oral 840 240 600 Output: Urine 400 150 Stool 0 0 Other: Voiding Method External Catheter External Catheter # Voids 1 # Bowel Movements 1 - Labs CBC & Chem 7: 02/11/22 05:32 02/11/22 05:32 Labs: Abnormal Lab Results - Last 24 Hours (Table) 02/10/22 02/11/22 02/11/22 Range/Units 07:01 05:32 05:32 RBC 2.34 L (3.80-5.40) m/uL Hgb 7.4 L (11.4-16.0) gm/dL Hct 21.5 L (34.0-46.0) % Plt Count 148 L (150-450) k/uL Sodium 135 L 136 L (137-145) mmol/L Potassium 3.1 L 3.3 L (3.5-5.1) mmol/L BUN 35 H 34 H (7-17) mg/dL Creatinine 1.95 H 1.93 H (0.52-1.04) mg/dL Glucose 102 H 103 H (74-99) mg/dL Calcium 7.8 L 8.2 L (8.4-10.2) mg/dL Assessment and Plan Plan: Assessment: 1. Acute kidney injury likely ATN. Also concern for AIN from NSAIDs - states she hasn't taken NSAIDs for about 2-3 months now but was taking Mobic prior to that. Urine eosinophils negative. Started on hemodialysis 01/28/2022 due to concern for uremia. Creatinine was near 1.2 3 months prior to admission. Serologies have been negative. Prednisone discontinued due to steroid psychosis. Permacath placed 02/07/2022. Last hemodialysis was 02/09/2022. Creatinine today is 1.93. Nonoliguric. 2. Mental status changes w/steroid induced psychosis, delirurm. Initially there was concern for uremia however her mentation hasn't improved despite dialysis. Brain CT showed no acute changes. Neurology following. Medications were adjusted. ?LP. Mentation improved. 3. Hyperphosphatemia secondary to acute kidney injury maintained on PhosLo. Phosphorus 3.9 dated 02/09/2022. 4. Metabolic acidosis secondary to acute kidney injury. Improved postdialysis. 5. Anemia with component of kidney disease. Iron deficiency noted. Underwent EGD and duodenal ulcer was cauterized. Status post blood transfusion and IV DDAVP. 6. Hypokalemia from diuresis. Plan: Hold off on hemodialysis. Kidney biopsy pending - DDAVP prior to the biopsy. Continue to monitor renal function and urine output. Receiving IV iron. Add Aranesp. Maintain torsemide. Replace potassium. Continue to assess daily for need for renal replacement therapy. Monitor for renal recovery.
[2022-02-11] MEDS ORDERED: DESMOPRESSIN ACETATE 21 MCG in SODIUM CHLORIDE 0.9% 50 ML IVPB ONE (10:45)
[2022-02-11 10:48] LABS: INR 1.4 (<1.2); Prothrombin Time 14.4 sec (9.0-12.0)
[2022-02-11 12:38] VITALS: BMI 31.1
--- NOTE | 2022-02-11 13:07 | CT ---
EXAMINATION TYPE: CT biopsy renal RT DATE OF EXAM: 02/11/2022 COMPARISON: NONE HISTORY: Right kidney biopsy, SOREN CT DLP: 1845 mGycm The procedure was explained to the patient. The risks, complications, benefits, and alternatives wer e discussed and any questions were answered. Informed consent was obtained. Patient was placed pron e on the CT table and prepped and draped in the usual sterile fashion. Utilizing CT guidance, an 18 gauge core biopsy needle access into the right renal cortex was achieved and three 18 gauge core samples were obtained. The patient was stable throughout the procedure and remained stable upon discharge. IMPRESSION: Successful 18 gauge core biopsy of the kidney function.
--- NOTE | 2022-02-11 13:15 | P.PN ---
Subjective Progress Note Date: 02/11/22 Principal diagnosis: altered mental status changes, GI bleed The patient is seen and examined in for follow-up for upper GI bleed. She had been having coffee-ground emesis and dark stools. Yesterday she underwent EGD with findings of a 2 cm duodenal ulcer ulcer with visible vessel status post attempted Endo Clip placement followed by cautery with gold probe ablation with with good hemostasis. Also 1 cm superficial bulbar ulcer with no active bleeding and mild gastritis. Today the patient denies any abdominal pain, no nausea or vomiting. Reports no bowel movement this morning. Denies any abdominal pain, nausea or vomiting. Hemoglobin is stable at 7.4 Objective - Vital Signs Vital signs: Vital Signs Temp 98.5 F 02/11/22 08:15 Pulse 101 H 02/11/22 08:15 Resp 18 02/11/22 08:15 BP 153/78 02/11/22 08:15 Pulse Ox 94 L 02/11/22 08:15 Intake & Output 02/10/22 02/11/22 02/11/22 18:59 06:59 18:59 Intake Total 840 340 600 Output Total 400 150 Balance 440 190 600 Intake: Intake, IV Titration 100 Amount Sodium Ferric Gluconat- 100 Sucrose 125 mg In Sodium Chloride 0.9% 100 ml @ 100 mls/hr IVPB HS [facility] Rx #:[id number] Oral 840 240 600 Output: Urine 400 150 Stool 0 0 Other: Voiding Method External Catheter External Catheter # Voids 1 # Bowel Movements 1 - Exam General appearance: The patient is alert, oriented, appears in no acute d istress. HET: Head is normocephalic and atraumatic. Conjunctiva pink. Sclera anicteric. Neck: Supple without lymphadenopathy. Abdomen: Soft, nontender, nondistended with bowel sounds. No guarding or rigidity. Extremities: Normal skin color and turgor. No pedal edema Skin: No rashes, no jaundice Neurological: No focal deficits. Alert and oriented. - Labs CBC & Chem 7: 02/11/22 05:32 02/11/22 05:32 Labs: Abnormal Lab Results - Last 24 Hours (Table) 02/10/22 02/11/22 02/11/22 Range/Units 07:01 05:32 05:32 RBC 2.34 L (3.80-5.40) m/uL Hgb 7.4 L (11.4-16.0) gm/dL Hct 21.5 L (34.0-46.0) % Plt Count 148 L (150-450) k/uL Sodium 135 L 136 L (137-145) mmol/L Potassium 3.1 L 3.3 L (3.5-5.1) mmol/L BUN 35 H 34 H (7-17) mg/dL Creatinine 1.95 H 1.93 H (0.52-1.04) mg/dL Glucose 102 H 103 H (74-99) mg/dL Calcium 7.8 L 8.2 L (8.4-10.2) mg/dL Assessment and Plan (1) GI bleed Narrative/Plan: 71-year-old female who had presented almost 2 weeks ago to the emergency department for altered mental status changes. She was noted to have acute kidney injury as well as metabolic encephalopathy likely related to acute kidney injury as well as acute steroid-induced psychosis. During her hospitalization she was found to have a drop in her hemoglobin today was 5.9. She also had reported 2 episodes of coffee-ground emesis yesterday afternoon during her dialysis time. Unsure if she's having any black or blood in her stool. Today after her initial evaluation there was an 18 that was called due to having her recurrent coffee-ground emesis as well as some maroon colored stool. Recommend Protonix 40 mg twice a day, repeat CBC in 6 hours, and will plan for upper endoscopy tomorrow. Possible etiologies include peptic ulcer disease, AVM, gastritis, esophagitis or other possible etiologies. Patient underwent EGD with findings of 2 cm duodenal ulcer ulcer with visible vessel status post attempted Endo Clip placement followed by cautery with gold probe ablation with with good hemostasis. Also 1 cm superficial bulbar ulcer with no active bleeding and mild gastritis. Patient to continue Protonix 40 mg twice a day. Current Visit: Yes Status: Acute Code(s): K92.2 - GASTROINTESTINAL HEMORRHAGE, UNSPECIFIED SNOMED Code(s): 09112006 (2) SOREN (acute kidney injury) Current Visit: Yes Status: Acute Code(s): N17.9 - ACUTE KIDNEY FAILURE, UNSPECIFIED SNOMED Code(s): 39627209 (3) Altered mental status Current Visit: Yes Status: Acute Code(s): R41.82 - ALTERED MENTAL STATUS, UNSPECIFIED SNOMED Code(s): 032530323 (4) Duodenal ulcer Current Visit: Yes Status: Acute Code(s): K26.9 - DUODENAL ULCER, UNSP ACUTE OR CHRONIC, W/O HEMOR OR PERF SNOMED Code(s): 07379428 Plan: 1. Continue symptomatic and supportive care 2. Continue diet as tolerated 3. Daily CBC, transfuse per protocol 4. Protonix 40 mg twice a day 5. Follow up with GI for biopsy results The patient is cleared from gastroenterology for discharge. Thank you for allowing us to participate in the care of the patient, the GI service will sign off, gastroenterology will not be available at the hospital this weekend and through next week. If further evaluation by gastroenterology is required the patient will need transfer as per the primary team's discretion. Dr. Juaquin Petty I agree with the dictator's note, documented as a scribe by Greta De Oliveira.
--- NOTE | 2022-02-11 14:58 | P.PN ---
Subjective Progress Note Date: 02/11/22 HISTORY OF PRESENT ILLNESS This is a 71-year-old female patient of Dr. Chacon with past medical history of cervical cancer, hypertension, hyperlipidemia, generalized osteoarthritis. Family noticed the patient was confused yesterday. In hindsight noticed that approximately couple days she's been declining. She just saw Dr. Chacon on Monday for back pain with history of spinal fusion and started on dexamethasone 6 mg daily. Patient has been on Mobic in the past but that was stopped a couple months ago when her renal function decreased. Patient normally drinks a lot of water and she works out in the gym regularly on a recumbent bike. reports no urine output yesterday despite IV fluids given in the emergency center. Patient came into [facility] emergency center for evaluation and found to be afebrile, heart rate in the 60s, blood pressure 129/69, pulse ox 91% on room air. EKG was a sinus rhythm with no acute ST changes. CBC was unremarkable. CO2 was 16 BUN 86 and creatinine 6.52. Blood sugar 113. TSH 0.269 and free T4 was normal at 1.17. Repeat kidney function today is BUN 85 creatinine 7.86 with a bicarb of 15. Triglycerides 249, cholesterol 140, HDL 35, LDL 54. Urinalysis showed a small amount of leukoesterase, WBC 16. Urine drug screen positive for opiates and tricyclic antidepressants. Urine culture is in progress. Chest x-ray shows no acute cardiopulmonary process. CT angiogram reveals no acute arterial abnormality, significant stenosis or occlusion of the major neck or intracranial arteries. CAT scan of the brain revealed no acute intracranial hemorrhage or gross acute cortical infarct however a small acute or hyper acute infarct cannot be excluded. MRI of the brain reveals chronic small vessel ischemic changes, age-related atrophy. Renal ultrasound reveals medical renal disease. Patient has been seen by neurology and started on Plavix because MRI was negative, Plavix will be discontinued and mental status changes most likely secondary to toxic metabolic encephalopathy. Patient has also been seen by nep hrology for acute kidney injury secondary to ATN, sodium bicarb drip was started, Jackson catheter for accurate I&O's, one time dose of IV Lasix 80 mg. If no improvement in renal function and urine output and 4 hours, initiate renal replacement therapy. Serology and hepatitis testing pending. 3/4Patient examined bedside. She has worsened in her mental status today. Has been at bedside has noted hallucinations of and a paranoid behavior today. Patient is more confused than yesterday she is and she is and unable to relate to her condition at this moment. She is oriented 3 but unable to comprehend his situation. Patient urine output is morning is only 150 mL. She had 300 mL output overnight. Right is afebrile pulse 70 respiratory rate 18 blood pressure 189/78 oxygen 99% on room air. Labs reviewed sodium 131 potassium 4.7 bicarb 17 BUN 89 8 creatinine 8.69 phosphorus 8.0. Urine culture is negative for infection JAMAL negative complement levels and negative hepatitis panel is negat dirk. A vascular surgery consult will be placed for dialysis catheter placement. Hydralazine initiated at 50 3 times a day for blood pressure control. Seroquel initiated 25 at [facility] [place] at bedtime 01/29: Patient was examined at the bedside. Over the night she had increased paranoia refused any oral medications. Patient was confused and combative. She was given 1 dose of Ativan. She became difficult to arouse and answer questions appropriately. At this time patient is alert continues to have paranoia and confusion. She is able to answer some questions appropriately. She does recognize the voice of the provider. Family is at bedside. Dialysis at this time. We will avoid any further sedation medications. And stop oral medications due to paranoia. Sodium 132, BUN 63, creatinine 6.9, 01/30: Patient is examined at the bedside. She is sitting up in bed. She is alert and orientated 3. Patient states that she no longer has any paranoia she is not having any visual or auditory hallucinations. She does feel overwhelmed by the smell from the hospital. Is significantly improved compared to yesterday. Patient will have a break from hemodialysis today. Her BUN is 36, creatinine 5.24. Possible renal biopsy may occur this week. IV has been discontinued due to swelling to bilateral upper extremities. Patient has had a total of 500 ML's of urine output. Patient states that she slept better last night. She did walk up and down the [place] without any difficulties. Patient remains afebrile, heart rate 83, respirations 16, blood pressure 142/71, pulse ox 93 on room air. 01/31: Patient apparently had severe episode this morning with hallucination and delusion, she ended up pulling out her hemodialysis catheter which created a lot of bleeding at the time. Patient become very sensitive afterward not responding to any thing but more catatonic not clear that she is aware for surrounding or not that she is closing her eyes refused to talk or to indicate any by the time. I have long discussion with the who is fully aware of her current diagnosis and prognosis. Also spoke with nephrology patient will benefit from having kidney biopsy for more precise diagnoses for why she is in acute kidney failure. 02/01: Patient ended up having another dialysis catheter in the left groin area and she is on hemodialysis at the time patient is more awake today but still very catatonic noticing any question and not making any effort to show any understanding of her surroundings at this point. Long discussion with the today about CODE STATUS and his final decision as his decision maker to keep her full code but if she ended up on extended life support the decision to withdraw life support in X days discussion is betweenHim and I would happen at the time. 02/02: Patient is on hemodialysis today. Patient responded is very limited which is still having significant psychotic episode and delirium. Her blood work had shown significant improvement compared to before. Review nephrology documentation along with neurology it seems all still blame on uremia but realistically her bun and creatinine has significantly improved last couple days without having to affect her mentation at this point. Still doing supportive care. The was on the bedside answer all his question still interested doing kidney biopsy at time. MRI of the brain was negative, neurology consultation EEG was negative as well. concern whether any the mental status change and the kidney can be related to COVID-19 vaccination, I don't have an answer for this question at this point if patient eventually had kidney biopsy may be would have some indication through the pathology change. 02/03: Patient is awake today doing much better, she is having hemodialysis, part of discussion yesterday with neurology as this is probably acute psychosis from steroid base that patient receive dexamethasone one day before her presentation to the hospital and another dose before start feeling bad on Monday. Patient is more clear this point we don't need to do NG tube for feeding patient be started on full liquid diet titrated gradually after doing swallow eval by speech. Also we'll advance physical therapy and patient off therapy for now. Had discussion with patient and her at the time the patient still slightly bit confused but a lot more awake interactive she knew why was new her was able to carry some conversation on her surrounding, her short-term memory is much better today. 02/04: Patient is doing very well today she's out of bed sitting in a chair on her own her mental status is back to almost baseline with her acute psychosis has improved significantly. Was taking break from hemodialysis today her creatinine dropped down to 3.87 GFR still running at 13. Patient is comfortable feeling well otherwise still note timeframe for kidney biopsy this point and whether patient will be doing dialysis through the weekend are not will depend on her creatinine next day and 2. 02/05: She is still awake alert doing very well today her mental status are back to normal, her GFR and kidney function decline compared to yesterday with creatinine up to 4.75 bun of 56 and GFR down to 9. Nephrology probably we held dialysis today to see the kidney, will improve filtration velasquez will increase her urine output on its own. Still probably plan to talk to interventional radiology about kidney biopsy on Monday the meanwhile continue current medical m anagement patient will be taking off furosemide and she'll be taking off Cardizem drip today to switch it to oral. The and the daughter we are on the bedside all their questions were answered today. Patient has possibility of leaving the hospital sometimes on Monday if biopsy done on Monday successfully and no more complication she might still need to be on hemodialysis for now. 02/06: Patient is very sleepy today not arousable she is stable hemodynamically but back again doing which she did last week most of the week except the acute psychosis and confusion is not there. Even on board she had haloperidol, lorazepam and Seroquel has not use any of those except Seroquel 25 mg was used last night and according to the hospital and he was on the phone with her until she went to sleep when Seroquel was giving at that time shortly before she went to sleep this point she is not waking up. Patient had hemodialysis yesterday looked like she's going to go for hemodialysis today one more time originally kidney biopsy was scheduled for Monday or Monday if she is awake and doing better probably to contact interventional radiology for kidney biopsy on Monday in the meanwhile continue supportive care along with neurology service psychiatry and nephrology. The was on the bedside answer all his question and concern show him all the medicine patient is on looks like Cardizem CD 120 mg twice a day has done better job to keep the pulse is under control blood pressure under control this point. With his permission I took away all sedative on as needed and on regular use including Seroquel Haldol and lorazepam the patient had acute episode of psychosis and diffusion and hallucination for the staff to contact me will use medication on an as-needed basis. 02/07 and patient examined today is appears alert. She still continues to have some confusion but states that she is doing much better. She feels that the clock in the room is being controlled and sometimes works faster than the other days. Detailed discussion with nephrology was made who is concerned that tavon guerrero is not making a speedy recovery with hemodialysis. Discussion with nurse was made who is concerned about the dialysis catheter not working. Vascular surgeon was consulted to place the dialysis catheter today vitals otherwise stable sodium 132 BUN 46 creatinine is improved to 2.67. Renal biopsy possible today or tomorrow 02/08: Yesterday, patient had permacath dialysis catheter placed in the right jugular vein and the dialysis catheter that was previously placed in the right femoral was removed. She has been followed by psychiatry and consider possible intranasal loxapine at low dose. Patient had bloody emesis last evening and hemoglobin this morning is 5.9. She will be transfused 1 unit of packed RBCs. Repeat CBC this afternoon. Early afternoon, patient had emesis of dark brown coffee-ground and stool dark brown as well. She has been seen by GI with plan for EGD in the morning and patient is currently on a clear liquid diet nothing by mouth at midnight with aspiration precautions in place. Nephrology is also ordered DDAVP IV today. Kidney biopsy is pending and she is scheduled for hemodialysis tomorrow. IV iron infusion has been added today by Dr. Juan for 3 days total. 02/09: This morning, patient underwent EGD with Dr. Juaquin Petty finding 2 cm duodenal bulbar ulcer with a visible vessel status post attempted Endo Clip placement followed by cautery using a gold probe with good hemostasis, 1 cm superficial bulbar ulcer with no active bleeding, and Mild antral gastritis. Recommendations to continue Protonix 40 mg twice daily and start clear liquid diet. Hemoglobin today is at 5.7 and 1 unit of packed RBCs ordered with repeat CBC this evening. Poor colonoscopy. Patient has had no further bowel movements since states the patient was very sharp yesterday and this morning until she woke up from a nap and now showing mild confusion. She's been afebrile, heart rate 96, blood pressure 149/63, pulse ox 97% on 2 L nasal cannula. Nephrology is planning for dialysis today, renal biopsy pending. 02/10: Patient's states that she has been very sharp this morning just finished a nap. Hemoglobin is 7.2, WBC 10.9, platelet count 147. Sodium 135, potassium 3.1. BUN 35 and creatinine 1.95. Torsemide 40 mg daily was added by nephrology. We are hoping for kidney biopsy tomorrow. No INR available today. Hemodialysis is scheduled for tomorrow. Diet to be advanced with protein supplement. Discharge plan is for subacute rehab at [facility]. 02/11: Patient's renal function continues to improve with the BUN 34 creatinine 1.93 today. There is hope the patient will not require long-term dialysis and that the catheter may be removed on Monday. Dr. Juan I would like to hold the patient's discharge until Monday for further evaluation and possible removal of catheter. Patient underwent kidney biopsy today. Other lab work reveals hemoglobin of 7.4, platelet count 148, sodium 136, potassium 3.3. Potassium is been replaced. REVIEW OF SYSTEMS Constitutional: No fever, no chills, no night sweats. No weight change. No weakness, reports fatigue no lethargy. No daytime sleepiness. EENT: No headache. No blurred vision or double vision, no loss of vision. No loss of Hearing, no ringing in the ears, no dizziness. No nasal drainage or congestion. No epistaxis. No sore throat. Lungs: No shortness of breath, cough, no sputum production. No wheezing. Cardiovascular: No chest pain, no lower extremity edema. No palpitations. No paroxysmal nocturnal dyspnea. No orthopnea. No lightheadedness or dizziness. No syncopal episodes. Abdominal: No abdominal pain. No nausea, bloody emesis 02/07. No diarrhea. No constipation. Noted tarry stools. No loss of appetite. Genitourinary: No dysuria, increased frequency, urgency. No urinary retention. Decreased urine output. Musculoskeletal: No myalgias. Generalized muscle weakness, no gait dysfunction, no frequent falls. No back pain. No neck pain. Integumentary: No wounds, no lesions. No rash or pruritus. No unusual bruising. No change in hair or nails. Neurologic: No aphasia. No facial droop. Noted change in mentation. No head injury. No headache. No paralysis. No paresthesia. Psychiatric: No depression. Improvement in hallucination and paranoia No mood swings. Endocrine: No abnormal blood sugars. No weight change. No excessive sweating or thirst. No cold intolerance. PHYSICAL EXAMINATION Gen: This is a 71-year-old female. Patient is resting in bed and is at bedside. Patient is status post kidney biopsy. HEENT: Head is atraumatic, normocephalic. Pupils equal, round. Sclerae is anicteric. NECK: Supple. No JVD. No lymphadenopathy. No thyromegaly. LUNGS: Clear to auscultation. No wheezes or rhonchi. No intercostal retractions. HEART: Regular rate and rhythm. 3/6 systolic murmur. ABDOMEN: Soft. Bowel sounds are present. No masses. No tenderness. EXTREMITIES: No pedal edema. No calf tenderness. NEUROLOGICAL: Patient is awake, alert and oriented x2. Answered questions appropriately, denies paranoia auditory or visual hallucinations. Cranial nerves 2 through 12 are grossly intact. ASSESSMENT AND PLAN 1. Severe metabolic encephalopathy: Secondary to medication with uremia, improved. 2. Acute kidney injury with ATN. Right jugular vein permacath placed yesterday, dialysis per nephrology. 3. Metabolic acidosis secondary to acute kidney injury. Off sodium bicarb 4. Acute psychosis and delirium secondary to combination of uremia and medication. Continue to monitor, psychiatric evaluation appreciated. 5. Hypertension. DC Norvasc and switch patient to Cardizem CD 120 mg twice a day to control her pulse rate and the blood pressure together. 6. Hyperlipidemia. We will restart medication back sometime this week. 7. History of cervical cancer: Has been in remission. 8. Generalized anxiety disorder. Discontinue sedation medications. 9. Chronic back pain with history of spinal fusion. Not using any medicine except Tylenol as needed. 10 recurrent depression: Patient is off all medication. 11. Acute GI bleed with acute blood loss anemia. Patient will be transfused second unit of packed RBCs, consult with Dr. Juaquin Petty appreciated status post EGD, clear liquid diet, Protonix 40 mg twice daily. Ferrlecit infusion 3 days CODE STATUS: Full code. But not extended life support for many days. Prognosis: Fair Discharge planning: Subacute rehab or home with home care Monday. Impression and plan of care have been directed as dictated by the signing physician. Raquel Fagan nurse practitioner acting as scribe for signing physician. Objective - Vital Signs Vital signs: Vital Signs Temp 98.8 F 02/11/22 11:26 Pulse 96 02/11/22 12:23 Resp 16 02/11/22 12:23 BP 161/83 02/11/22 12:23 Pulse Ox 97 02/11/22 12:23 Intake & Output 02/10/22 02/11/22 02/11/22 18:59 06:59 18:59 Intake Total 840 340 840 Output Total 400 150 0 Balance 440 190 840 Weight 84.8 kg 84.8 kg Intake: Intake, IV Titration 100 Amount Sodium Ferric Gluconat- 100 Sucrose 125 mg In Sodium Chloride 0.9% 100 ml @ 100 mls/hr IVPB HS ROSA Rx #:[id number] Oral 840 240 840 Output: Urine 400 150 Stool 0 0 0 Other: Voiding Method External Catheter External Catheter External Catheter # Voids 1 # Bowel Movements 1 - Labs CBC & Chem 7: 02/11/22 05:32 02/11/22 05:32 Labs: Abnormal Lab Results - Last 24 Hours (Table) 02/11/22 02/11/22 02/11/22 Range/Units 05:32 05:32 05:32 RBC 2.34 L (3.80-5.40) m/uL Hgb 7.4 L (11.4-16.0) gm/dL Hct 21.5 L (34.0-46.0) % Plt Count 148 L (150-450) k/uL PT 14.4 H (9.0-12.0) sec INR 1.4 H (<1.2) Sodium 136 L (137-145) mmol/L Potassium 3.3 L (3.5-5.1) mmol/L BUN 34 H (7-17) mg/dL Creatinine 1.93 H (0.52-1.04) mg/dL Glucose 103 H (74-99) mg/dL Calcium 8.2 L (8.4-10.2) mg/dL
[2022-02-11] MEDS: LACTATED RINGERS 1,000 ML IV SCH (20:34)
[2022-02-11] MEDS: SODIUM FERRIC GLUCONAT-SUCROSE 125 MG in SODIUM CHLORIDE 0.9% 100 ML IVPB SCH (21:26)
[2022-02-12] MEDS: CALCIUM ACETATE 667 MG TAB PO SCH ×3 (06:32→17:24)
[2022-02-12 08:43] LABS: HCT 20.4 % (34.0-46.0); HGB 7.2 gm/dL (11.4-16.0); MCH 32.3 pg (25.0-35.0); MCHC 35.1 g/dL (31.0-37.0); MCV 92.2 fL (80.0-100.0); Mean Platelet Volume 7.8; Platelet Count 147 k/uL (150-450); RBC 2.22 m/uL (3.80-5.40); RDW 15.1 % (11.5-15.5); WBC 6.2 k/uL (3.8-10.6)
[2022-02-12] MEDS: PANTOPRAZOLE 40 MG/10 ML VIAL IVP SCH ×2 (08:44→20:52)
[2022-02-12] MEDS: TORSEMIDE 20 MG TAB PO SCH (08:49)
[2022-02-12] MEDS: DILTIAZEM CD 120 MG CAP.ER.24H PO SCH ×2 (08:49→20:52)
[2022-02-12] MEDS: CYANOCOBALAMIN 500 MCG TAB PO SCH (08:49)
[2022-02-12] MEDS: VIT A,C & E-LUTEIN-MINERALS 1 EACH TAB PO SCH ×2 (08:49→20:51)
[2022-02-12] MEDS: hydrALAZINE HCL 25 MG TAB PO SCH ×4 (08:49→20:52)
[2022-02-12] MEDS ORDERED: DARBEPOETIN ALFA 40 MCG/0.4 ML SYRINGE SQ SCH (09:00)
[2022-02-12 09:01] LABS: Calcium 7.6 mg/dL (8.4-10.2); Magnesium 1.4 mg/dL (1.6-2.3)
[2022-02-12 09:07] LABS: Potassium 2.5 mmol/L (3.5-5.1)
[2022-02-12] MEDS: POTASSIUM CHLORIDE ER 20 MEQ TAB.ER PO SCH ×2 (10:26→12:43)
[2022-02-12] MEDS: MAGNESIUM SULFATE-D5W PMX 1 GM in DEXTROSE/WATER 1 100ML.BAG IVPB SCH ×2 (10:27→12:41)
[2022-02-12 11:02] LABS: Appearance,Urine Clear (Clear); Bacteria,Urine Rare /hpf; Bilirubin,Urine Negative (Negative); Blood,Urine Moderate (Negative); Color,Urine Light Yellow; Glucose,Urine (UA) Negative (Negative); Ketones,Urine Negative (Negative); Leukocyte Esterase,Urine Large (Negative); Nitrite,Urine Negative (Negative); PH, Urine 5.5 (5.0-8.0); Protein,Urine Negative (Negative); RBC,Urine 2 /hpf (0-5); Specific Gravity,Urine 1.009 (1.001-1.035); Squamous Epithelial Cell,Urine <1 /hpf (0-4); Urobilinogen,Urine <2.0 mg/dL (<2.0); WBC,Urine 12 /hpf (0-5)
--- NOTE | 2022-02-12 11:03 | P.PN ---
Subjective Progress Note Date: 02/12/22 HISTORY OF PRESENT ILLNESS This is a 71-year-old female patient of Dr. Chacon with past medical history of cervical cancer, hypertension, hyperlipidemia, generalized osteoarthritis. Family noticed the patient was confused yesterday. In hindsight noticed that approximately couple days she's been declining. She just saw Dr. Chacon on Monday for back pain with history of spinal fusion and started on dexamethasone 6 mg daily. Patient has been on Mobic in the past but that was stopped a couple months ago when her renal function decreased. Patient normally drinks a lot of water and she works out in the gym regularly on a recumbent bike. reports no urine output yesterday despite IV fluids given in the emergency center. Patient came into [facility] emergency center for evaluation and found to be afebrile, heart rate in the 60s, blood pressure 129/69, pulse ox 91% on room air. EKG was a sinus rhythm with no acute ST changes. CBC was unremarkable. CO2 was 16 BUN 86 and creatinine 6.52. Blood sugar 113. TSH 0.269 and free T4 was normal at 1.17. Repeat kidney function today is BUN 85 creatinine 7.86 with a bicarb of 15. Triglycerides 249, cholesterol 140, HDL 35, LDL 54. Urinalysis showed a small amount of leukoesterase, WBC 16. Urine drug screen positive for opiates and tricyclic antidepressants. Urine culture is in progress. Chest x-ray shows no acute cardiopulmonary process. CT angiogram reveals no acute arterial abnormality, significant stenosis or occlusion of the major neck or intracranial arteries. CAT scan of the brain revealed no acute intracranial hemorrhage or gross acute cortical infarct however a small acute or hyper acute infarct cannot be excluded. MRI of the brain reveals chronic small vessel ischemic changes, age-related atrophy. Renal ultrasound reveals medical renal disease. Patient has been seen by neurology and started on Plavix because MRI was negative, Plavix will be discontinued and mental status changes most likely secondary to toxic metabolic encephalopathy. Patient has also been seen by nep hrology for acute kidney injury secondary to ATN, sodium bicarb drip was started, Jackson catheter for accurate I&O's, one time dose of IV Lasix 80 mg. If no improvement in renal function and urine output and 4 hours, initiate renal replacement therapy. Serology and hepatitis testing pending. 3/4Patient examined bedside. She has worsened in her mental status today. Has been at bedside has noted hallucinations of and a paranoid behavior today. Patient is more confused than yesterday she is and she is and unable to relate to her condition at this moment. She is oriented 3 but unable to comprehend his situation. Patient urine output is morning is only 150 mL. She had 300 mL output overnight. Right is afebrile pulse 70 respiratory rate 18 blood pressure 189/78 oxygen 99% on room air. Labs reviewed sodium 131 potassium 4.7 bicarb 17 BUN 89 8 creatinine 8.69 phosphorus 8.0. Urine culture is negative for infection JAMAL negative complement levels and negative hepatitis panel is negat dirk. A vascular surgery consult will be placed for dialysis catheter placement. Hydralazine initiated at 50 3 times a day for blood pressure control. Seroquel initiated 25 at [facility] [place] at bedtime 01/29: Patient was examined at the bedside. Over the night she had increased paranoia refused any oral medications. Patient was confused and combative. She was given 1 dose of Ativan. She became difficult to arouse and answer questions appropriately. At this time patient is alert continues to have paranoia and confusion. She is able to answer some questions appropriately. She does recognize the voice of the provider. Family is at bedside. Dialysis at this time. We will avoid any further sedation medications. And stop oral medications due to paranoia. Sodium 132, BUN 63, creatinine 6.9, 01/30: Patient is examined at the bedside. She is sitting up in bed. She is alert and orientated 3. Patient states that she no longer has any paranoia she is not having any visual or auditory hallucinations. She does feel overwhelmed by the smell from the hospital. Is significantly improved compared to yesterday. Patient will have a break from hemodialysis today. Her BUN is 36, creatinine 5.24. Possible renal biopsy may occur this week. IV has been discontinued due to swelling to bilateral upper extremities. Patient has had a total of 500 ML's of urine output. Patient states that she slept better last night. She did walk up and down the [place] without any difficulties. Patient remains afebrile, heart rate 83, respirations 16, blood pressure 142/71, pulse ox 93 on room air. 01/31: Patient apparently had severe episode this morning with hallucination and delusion, she ended up pulling out her hemodialysis catheter which created a lot of bleeding at the time. Patient become very sensitive afterward not responding to any thing but more catatonic not clear that she is aware for surrounding or not that she is closing her eyes refused to talk or to indicate any by the time. I have long discussion with the who is fully aware of her current diagnosis and prognosis. Also spoke with nephrology patient will benefit from having kidney biopsy for more precise diagnoses for why she is in acute kidney failure. 02/01: Patient ended up having another dialysis catheter in the left groin area and she is on hemodialysis at the time patient is more awake today but still very catatonic noticing any question and not making any effort to show any understanding of her surroundings at this point. Long discussion with the today about CODE STATUS and his final decision as his decision maker to keep her full code but if she ended up on extended life support the decision to withdraw life support in X days discussion is betweenHim and I would happen at the time. 02/02: Patient is on hemodialysis today. Patient responded is very limited which is still having significant psychotic episode and delirium. Her blood work had shown significant improvement compared to before. Review nephrology documentation along with neurology it seems all still blame on uremia but realistically her bun and creatinine has significantly improved last couple days without having to affect her mentation at this point. Still doing supportive care. The was on the bedside answer all his question still interested doing kidney biopsy at time. MRI of the brain was negative, neurology consultation EEG was negative as well. concern whether any the mental status change and the kidney can be related to COVID-19 vaccination, I don't have an answer for this question at this point if patient eventually had kidney biopsy may be would have some indication through the pathology change. 02/03: Patient is awake today doing much better, she is having hemodialysis, part of discussion yesterday with neurology as this is probably acute psychosis from steroid base that patient receive dexamethasone one day before her presentation to the hospital and another dose before start feeling bad on Monday. Patient is more clear this point we don't need to do NG tube for feeding patient be started on full liquid diet titrated gradually after doing swallow eval by speech. Also we'll advance physical therapy and patient off therapy for now. Had discussion with patient and her at the time the patient still slightly bit confused but a lot more awake interactive she knew why was new her was able to carry some conversation on her surrounding, her short-term memory is much better today. 02/04: Patient is doing very well today she's out of bed sitting in a chair on her own her mental status is back to almost baseline with her acute psychosis has improved significantly. Was taking break from hemodialysis today her creatinine dropped down to 3.87 GFR still running at 13. Patient is comfortable feeling well otherwise still note timeframe for kidney biopsy this point and whether patient will be doing dialysis through the weekend are not will depend on her creatinine next day and 2. 02/05: She is still awake alert doing very well today her mental status are back to normal, her GFR and kidney function decline compared to yesterday with creatinine up to 4.75 bun of 56 and GFR down to 9. Nephrology probably we held dialysis today to see the kidney, will improve filtration velasquez will increase her urine output on its own. Still probably plan to talk to interventional radiology about kidney biopsy on Monday the meanwhile continue current medical m anagement patient will be taking off furosemide and she'll be taking off Cardizem drip today to switch it to oral. The and the daughter we are on the bedside all their questions were answered today. Patient has possibility of leaving the hospital sometimes on Monday if biopsy done on Monday successfully and no more complication she might still need to be on hemodialysis for now. 02/06: Patient is very sleepy today not arousable she is stable hemodynamically but back again doing which she did last week most of the week except the acute psychosis and confusion is not there. Even on board she had haloperidol, lorazepam and Seroquel has not use any of those except Seroquel 25 mg was used last night and according to the hospital and he was on the phone with her until she went to sleep when Seroquel was giving at that time shortly before she went to sleep this point she is not waking up. Patient had hemodialysis yesterday looked like she's going to go for hemodialysis today one more time originally kidney biopsy was scheduled for Monday or Monday if she is awake and doing better probably to contact interventional radiology for kidney biopsy on Monday in the meanwhile continue supportive care along with neurology service psychiatry and nephrology. The was on the bedside answer all his question and concern show him all the medicine patient is on looks like Cardizem CD 120 mg twice a day has done better job to keep the pulse is under control blood pressure under control this point. With his permission I took away all sedative on as needed and on regular use including Seroquel Haldol and lorazepam the patient had acute episode of psychosis and diffusion and hallucination for the staff to contact me will use medication on an as-needed basis. 02/07 and patient examined today is appears alert. She still continues to have some confusion but states that she is doing much better. She feels that the clock in the room is being controlled and sometimes works faster than the other days. Detailed discussion with nephrology was made who is concerned that tavon guerrero is not making a speedy recovery with hemodialysis. Discussion with nurse was made who is concerned about the dialysis catheter not working. Vascular surgeon was consulted to place the dialysis catheter today vitals otherwise stable sodium 132 BUN 46 creatinine is improved to 2.67. Renal biopsy possible today or tomorrow 02/08: Yesterday, patient had permacath dialysis catheter placed in the right jugular vein and the dialysis catheter that was previously placed in the right femoral was removed. She has been followed by psychiatry and consider possible intranasal loxapine at low dose. Patient had bloody emesis last evening and hemoglobin this morning is 5.9. She will be transfused 1 unit of packed RBCs. Repeat CBC this afternoon. Early afternoon, patient had emesis of dark brown coffee-ground and stool dark brown as well. She has been seen by GI with plan for EGD in the morning and patient is currently on a clear liquid diet nothing by mouth at midnight with aspiration precautions in place. Nephrology is also ordered DDAVP IV today. Kidney biopsy is pending and she is scheduled for hemodialysis tomorrow. IV iron infusion has been added today by Dr. Juan for 3 days total. 02/09: This morning, patient underwent EGD with Dr. Juaquin Petty finding 2 cm duodenal bulbar ulcer with a visible vessel status post attempted Endo Clip placement followed by cautery using a gold probe with good hemostasis, 1 cm superficial bulbar ulcer with no active bleeding, and Mild antral gastritis. Recommendations to continue Protonix 40 mg twice daily and start clear liquid diet. Hemoglobin today is at 5.7 and 1 unit of packed RBCs ordered with repeat CBC this evening. Poor colonoscopy. Patient has had no further bowel movements since states the patient was very sharp yesterday and this morning until she woke up from a nap and now showing mild confusion. She's been afebrile, heart rate 96, blood pressure 149/63, pulse ox 97% on 2 L nasal cannula. Nephrology is planning for dialysis today, renal biopsy pending. 02/10: Patient's states that she has been very sharp this morning just finished a nap. Hemoglobin is 7.2, WBC 10.9, platelet count 147. Sodium 135, potassium 3.1. BUN 35 and creatinine 1.95. Torsemide 40 mg daily was added by nephrology. We are hoping for kidney biopsy tomorrow. No INR available today. Hemodialysis is scheduled for tomorrow. Diet to be advanced with protein supplement. Discharge plan is for subacute rehab at [facility]. 02/11: Patient's renal function continues to improve with the BUN 34 creatinine 1.93 today. There is hope the patient will not require long-term dialysis and that the catheter may be removed on Monday. Dr. Juan I would like to hold the patient's discharge until Monday for further evaluation and possible removal of catheter. Patient underwent kidney biopsy today. Other lab work reveals hemoglobin of 7.4, platelet count 148, sodium 136, potassium 3.3. Potassium is been replaced. 02/12 patient's renal function continues to improve. Mentally alert. Answering questions appropriately. Sleeping well overnight. Patient did have a temp of 101.1 overnight. Currently afebrilepulse 92 respiratory rate 17 and blood pressure 116/72. Patient does admit to cough with phlegm production denies any shortness of breath denies any wheezing. She does feel irritation from the ext ernal catheter. Urinalysis, chest x-ray will be obtained. Incentive spirometry will be ordered to rule out atelectasis. Blood culture and urine culture will be obtained. No indication for antibiotic at this moment. Labs are reviewed patient's WBC is 6.2. Potassium is 2.5 sodium 132 BUN 37 creatinine 2.08. We'll give 80 mEq of potassium now with 40 in the evening with the daily 40 mEq of potassium. Magnesium is being repleted. Magnesium today 1. 5 repeat labs to REVIEW OF SYSTEMS Constitutional: Positive for fever, no chills, no night sweats. No weight change. No weakness, reports fatigue no lethargy. No daytime sleepiness. EENT: No headache. No blurred vision or double vision, no loss of vision. No loss of Hearing, no ringing in the ears, no dizziness. No nasal drainage or congestion. No epistaxis. No sore throat. Lungs: Positive for cough with phlegm no shortness of breath No wheezing. Cardiovascular: No chest pain, no lower extremity edema. No palpitations. No paroxysmal nocturnal dyspnea. No orthopnea. No lightheadedness or dizziness. No syncopal episodes. Abdominal: No abdominal pain. No nausea, bloody emesis 02/07. No diarrhea. No constipation. Noted tarry stools. No loss of appetite. Genitourinary: No dysuria, denies increased frequency denies, urgency. Does complain of slight irritation No urinary retention. Improved urine output. Musculoskeletal: No myalgias. Generalized muscle weakness, no gait dysfunction, no frequent falls. No back pain. No neck pain. Integumentary: No wounds, no lesions. No rash or pruritus. No unusual bruising. No change in hair or nails. Neurologic: No aphasia. No facial droop. Noted change in mentation. No head injury. No headache. No paralysis. No paresthesia. Psychiatric: No depression. Improvement in hallucination and paranoia No mood swings. Endocrine: No abnormal blood sugars. No weight change. No excessive sweating or thirst. No cold intolerance. PHYSICAL EXAMINATION Gen: This is a 71-year-old female. Patient is resting in bed and is at bedside. Patient is status post kidney biopsy. HEENT: Head is atraumatic, normocephalic. Pupils equal, round. Sclerae is anicteric. NECK: Supple. No JVD. No lymphadenopathy. No thyromegaly. LUNGS: Clear to auscultation. No wheezes or rhonchi. No intercostal retractions. HEART: Regular rate and rhythm. 3/6 systolic murmur. ABDOMEN: Soft. Bowel sounds are present. No masses. No tenderness. EXTREMITIES: No pedal edema. No calf tenderness. NEUROLOGICAL: Patient is awake, alert and oriented x2. Answered questions appropriately, denies paranoia auditory or visual hallucinations. Cranial nerves 2 through 12 are grossly intact. ASSESSMENT AND PLAN 1. Severe metabolic encephalopathy: Secondary to medication with uremia, improved. 2. Acute kidney injury with ATN. Right jugular vein permacath placed yesterday, dialysis per nephrology. Dialysis on hold until Monday. Patient may not need dialysis on discharge.. Kidney biopsy obtained on 02/11 on torsemide. Would recommend reducing the dose of torsemide nephrology following the patient 3. Metabolic acidosis secondary to acute kidney injury. Off sodium bicarb 4. Acute psychosis and delirium secondary to combination of uremia and medication. Continue to monitor, improved 5. Hypertension. DC Norvasc and switch patient to Cardizem CD 120 mg twice a day to control her pulse rate and the blood pressure together. 6. Hyperlipidemia. We will restart medication back sometime this week. 7. History of cervical cancer: Has been in remission. 8. Generalized anxiety disorder. Discontinue sedation medications. 9. Chronic back pain with history of spinal fusion. Not using any medicine except Tylenol as needed. 10 recurrent depression: Patient is off all medication. 11. Acute GI bleed with acute blood loss anemia. Patient will be transfused second unit of packed RBCs, consult with Dr. Juaquin Petty appreciated status post EGD, clear liquid diet, Protonix 40 mg twice daily. Ferrlecit infusion 3 days 12 Sirs positive with no source of infection. Chest x-ray urinalysis blood cultures ordered continue to monitor likely secondary to atelectasis 13. Hypokalemia and hypomagnesemia secondary to diuresis on torsemide we'll replete potassium and magnesium CODE STATUS: Full code. But not extended life support for many days. Prognosis: Fair Discharge planning: Home with home care and possibly Monday Objective - Vital Signs Vital signs: Vital Signs Temp 98.0 F 02/12/22 07:59 Pulse 92 02/12/22 07:59 Resp 17 02/12/22 07:59 BP 127/73 02/12/22 07:59 Pulse Ox 96 02/12/22 07:59 Intake & Output 02/11/22 02/12/22 02/12/22 18:59 06:59 18:59 Intake Total 1320 100 118 Output Total 1500 1000 Balance -180 -900 118 Weight 84.8 kg Intake: Intake, IV Titration 100 Amount Sodium Ferric Gluconat- 100 Sucrose 125 mg In Sodium Chloride 0.9% 100 ml @ 100 mls/hr IVPB HS [facility] Rx #:[id number] Oral 1320 118 Output: Urine 1500 1000 Stool 0 Other: Voiding Method External Catheter External Catheter - Labs CBC & Chem 7: 02/12/22 07:38 02/12/22 07:38 Labs: Abnormal Lab Results - Last 24 Hours (Table) 02/12/22 02/12/22 Range/Units 07:38 07:38 RBC 2.22 L (3.80-5.40) m/uL Hgb 7.2 L (11.4-16.0) gm/dL Hct 20.4 L (34.0-46.0) % Plt Count 147 L (150-450) k/uL Sodium 132 L (137-145) mmol/L Potassium 2.5 L* (3.5-5.1) mmol/L BUN 37 H (7-17) mg/dL Creatinine 2.08 H (0.52-1.04) mg/dL Glucose 186 H (74-99) mg/dL Calcium 7.6 L (8.4-10.2) mg/dL Magnesium 1.4 L (1.6-2.3) mg/dL
--- NOTE | 2022-02-12 11:05 | XR ---
EXAMINATION TYPE: XR chest 2V DATE OF EXAM: 02/12/2022 COMPARISON: Chest x-ray 5 days ago HISTORY: Cough and shortness of breath TECHNIQUE: Frontal and lateral views of the chest are obtained. FINDINGS: Stable large bore right internal jugular dialysis catheter. There is no suspicious new foc al air space opacity, pleural effusion, or pneumothorax seen. The cardiac silhouette size is stable and normal in size. Multilevel spurring in the spine. IMPRESSION: No acute pulmonary process.
--- NOTE | 2022-02-12 16:31 | P.PN ---
Subjective Patient is seen for follow-up for acute kidney injury. She was admitted to the hospital initially with mental status changes and the worsening renal function for which patient was started on dialysis. Mentation initially improved and then worsened again and it was secondary to steroid psychosis. Subsequently patient's mentation had further declined and this improved with continued renal replacement therapy. Patient had continued to require dialysis and therefore a kidney biopsy was performed. Results are pending. Dialysis is currently on hold as urine output has increased and serum creatinine remained stable at about 1.9-2 mg/dL. Patient is currently awake comfortable not in any acute distress. No significant complaints Objective - Vital Signs Vital signs: Vital Signs Temp 98.6 F 02/12/22 15:15 Pulse 83 02/12/22 15:15 Resp 18 02/12/22 15:15 BP 102/65 02/12/22 15:15 Pulse Ox 96 02/12/22 15:15 Intake & Output 02/11/22 02/12/22 02/12/22 18:59 06:59 18:59 Intake Total 1320 100 198 Output Total 1500 1000 900 Balance -180 -900 -702 Weight 84.8 kg Intake: Intake, IV Titration 100 Amount Sodium Ferric Gluconat- 100 Sucrose 125 mg In Sodium Chloride 0.9% 100 ml @ 100 mls/hr IVPB HS [facility] Rx #:[id number] Oral 1320 198 Output: Urine 1500 1000 900 Stool 0 Other: Voiding Method External Catheter External Catheter External Catheter - Exam Awake comfortable not in any acute distress Examination of the heart S1 and S2 Examination lungs bilateral breath sounds are heard Abdomen is soft nontender Examination lower extremities shows trace edema bilaterally [employer] exam grossly intact - Labs CBC & Chem 7: 02/12/22 07:38 02/12/22 07:38 Labs: Abnormal Lab Results - Last 24 Hours (Table) 02/12/22 02/12/22 02/12/22 Range/Units 07:38 07:38 10:44 RBC 2.22 L (3.80-5.40) m/uL Hgb 7.2 L (11.4-16.0) gm/dL Hct 20.4 L (34.0-46.0) % Plt Count 147 L (150-450) k/uL Sodium 132 L (137-145) mmol/L Potassium 2.5 L* (3.5-5.1) mmol/L BUN 37 H (7-17) mg/dL Creatinine 2.08 H (0.52-1.04) mg/dL Glucose 186 H (74-99) mg/dL Calcium 7.6 L (8.4-10.2) mg/dL Magnesium 1.4 L (1.6-2.3) mg/dL Urine Blood Moderate H (Negative) Ur Leukocyte Esterase Large H (Negative) Urine WBC 12 H (0-5) /hpf Urine Bacteria Rare H (None) /hpf Assessment and Plan Assessment: 1. Acute kidney injury most likely ATN need to consider acute interstitial nephritis as well given the pyuria and history of use of NSAIDs. Patient had been dialysis dependent however renal replacement therapy has been on hold. Last dialysis was on 02/09/2022 Patient is status post kidney biopsy. Previous creatinine around 1-1.2 mg/dL about 12 weeks ago. Received 1 dose of prednisone and it is currently on hold due to steroid psychosis. 2. Mental status changes with concern for uremia. Brain CT unremarkable for acute findings. Mentation improved almost back to normal. Etiology steroid psychosis and to some degree uremia on initial admission. However today patient's mentation is again depressed. She is barely waking up. No sedation given last night. 3. Pyuria with urine cultures negative consider AIN 4. Hyperphosphatemia associated with acute kidney injury maintained on PhosLo 5. Metabolic acidosis associated with acute kidney injury 6. Steroid psychosis. Her symptoms seem to coincide with high-dose steroids given as outpatient prior to admission for back pain and patient was noted to have delirium again after she received 1 dose of 40 mg of prednisone on 02/01/2022, currently resolved Plan: His potassium Replace magnesium Continue to monitor urine output and serum creatinine. Repeat labs in a.m. [place] at Continue to avoid nephrotoxic agents
[2022-02-12] MEDS: LACTATED RINGERS 1,000 ML IV SCH (19:59)
[2022-02-12] MEDS ORDERED: POTASSIUM CHLORIDE ER 20 MEQ TAB.ER PO ONE (21:00)
[2022-02-13] MEDS: CALCIUM ACETATE 667 MG TAB PO SCH ×3 (06:31→17:12)
[2022-02-13 07:47] LABS: Calcium 7.4 mg/dL (8.4-10.2); Magnesium 1.6 mg/dL (1.6-2.3); Potassium 3.1 mmol/L (3.5-5.1)
[2022-02-13] MEDS: TORSEMIDE 20 MG TAB PO SCH (09:32)
[2022-02-13] MEDS: PANTOPRAZOLE 40 MG/10 ML VIAL IVP SCH ×2 (09:32→21:43)
[2022-02-13] MEDS: CYANOCOBALAMIN 500 MCG TAB PO SCH (09:32)
[2022-02-13] MEDS: DILTIAZEM CD 120 MG CAP.ER.24H PO SCH ×2 (09:32→21:43)
[2022-02-13] MEDS: VIT A,C & E-LUTEIN-MINERALS 1 EACH TAB PO SCH ×2 (09:32→21:43)
[2022-02-13] MEDS: hydrALAZINE HCL 25 MG TAB PO SCH ×4 (09:32→21:43)
[2022-02-13] MEDS: POTASSIUM CHLORIDE ER 20 MEQ TAB.ER PO SCH (09:32)
[2022-02-13] MEDS: LACTATED RINGERS 1,000 ML IV SCH (10:21)
--- NOTE | 2022-02-13 10:30 | P.PN ---
Subjective Patient is seen for follow-up for acute kidney injury. She was admitted to the hospital initially with mental status changes and the worsening renal function for which patient was started on dialysis. Mentation initially improved and then worsened again and it was secondary to steroid psychosis. Subsequently patient's mentation had further declined and this improved with continued renal replacement therapy. Patient had continued to require dialysis and therefore a kidney biopsy was performed. Results are pending. Dialysis is currently on hold as urine output has increased and serum creatinine remained stable at about 1.9-2 mg/dL. Patient is currently awake comfortable not in any acute distress. No significant complaints, occasional anxiety according to her Objective - Vital Signs Vital signs: Vital Signs Temp 98.6 F 02/13/22 08:00 Pulse 90 02/13/22 08:00 Resp 18 02/13/22 08:00 BP 115/59 02/13/22 08:00 Pulse Ox 97 02/13/22 08:00 Intake & Output 02/12/22 02/13/22 02/13/22 18:59 06:59 18:59 Intake Total 318 10 780 Output Total 900 1050 100 Balance -582 -1040 680 Weight 85.8 kg Intake: IV 10 0.9 10 Oral 318 780 Output: Urine 900 1050 100 Other: Voiding Method External Catheter External Catheter External Catheter # Bowel Movements 1 1 - Exam Awake comfortable not in any acute distress Examination of the heart S1 and S2 Examination lungs bilateral breath sounds are heard Abdomen is soft nontender Examination lower extremities shows trace edema bilaterally [employer] exam grossly intact - Labs CBC & Chem 7: 02/12/22 07:38 02/13/22 06:30 Labs: Abnormal Lab Results - Last 24 Hours (Table) 02/12/22 02/13/22 Range/Units 10:44 06:30 Sodium 125 L (137-145) mmol/L Potassium 3.1 L (3.5-5.1) mmol/L Chloride 96 L (98-107) mmol/L BUN 36 H (7-17) mg/dL Creatinine 1.66 H (0.52-1.04) mg/dL Glucose 100 H (74-99) mg/dL Calcium 7.4 L (8.4-10.2) mg/dL Urine Blood Moderate H (Negative) Ur Leukocyte Esterase Large H (Negative) Urine WBC 12 H (0-5) /hpf Urine Bacteria Rare H (None) /hpf Microbiology - Last 24 Hours (Table) 02/12/22 10:44 Urine Culture - Preliminary Urine,Voided Assessment and Plan Assessment: 1. Acute kidney injury most likely ATN need to consider acute interstitial nephritis as well given the pyuria and history of use of NSAIDs. Patient had been dialysis dependent however renal replacement therapy has been on hold. Last dialysis was on 02/09/2022 Patient is status post kidney biopsy. Previous creatinine around 1-1.2 mg/dL about 12 weeks ago. Received 1 dose of prednisone and it is currently on hold due to steroid psychosis. 2. Mental status changes with concern for uremia. Brain CT unremarkable for acute findings. Mentation improved almost back to normal. Etiology steroid p sychosis and to some degree uremia on initial admission. However today patient's mentation is again depressed. She is barely waking up. No sedation given last night. 3. Pyuria with urine cultures negative consider AIN 4. Hyperphosphatemia associated with acute kidney injury maintained on PhosLo 5. Metabolic acidosis associated with acute kidney injury 6. Steroid psychosis. Her symptoms seem to coincide with high-dose steroids given as outpatient prior to admission for back pain and patient was noted to have delirium again after she received 1 dose of 40 mg of prednisone on 02/01/2022, currently resolved 7. Hyponatremia, associated with recovering renal function and poor diluting ability of the kidney. 8. Hypokalemia, being replaced Plan: Replace potassium Replace magnesium Continue to monitor urine output and serum creatinine. Repeat labs today and in a.m. Patient is encouraged to increase intake of ensure rather than free water Continue to avoid nephrotoxic agents
[2022-02-13] MEDS ORDERED: TOLVAPTAN 15 MG 1/2 TABLET PO ONE (12:05)
--- NOTE | 2022-02-13 14:28 | P.PN ---
Subjective Progress Note Date: 02/13/22 HISTORY OF PRESENT ILLNESS This is a 71-year-old female patient of Dr. Chacon with past medical history of cervical cancer, hypertension, hyperlipidemia, generalized osteoarthritis. Family noticed the patient was confused yesterday. In hindsight noticed that approximately couple days she's been declining. She just saw Dr. Chacon on Monday for back pain with history of spinal fusion and started on dexamethasone 6 mg daily. Patient has been on Mobic in the past but that was stopped a couple months ago when her renal function decreased. Patient normally drinks a lot of water and she works out in the gym regularly on a recumbent bike. reports no urine output yesterday despite IV fluids given in the emergency center. Patient came into [facility] emergency center for evaluation and found to be afebrile, heart rate in the 60s, blood pressure 129/69, pulse ox 91% on room air. EKG was a sinus rhythm with no acute ST changes. CBC was unremarkable. CO2 was 16 BUN 86 and creatinine 6.52. Blood sugar 113. TSH 0.269 and free T4 was normal at 1.17. Repeat kidney function today is BUN 85 creatinine 7.86 with a bicarb of 15. Triglycerides 249, cholesterol 140, HDL 35, LDL 54. Urinalysis showed a small amount of leukoesterase, WBC 16. Urine drug screen positive for opiates and tricyclic antidepressants. Urine culture is in progress. Chest x-ray shows no acute cardiopulmonary process. CT angiogram reveals no acute arterial abnormality, significant stenosis or occlusion of the major neck or intracranial arteries. CAT scan of the brain revealed no acute intracranial hemorrhage or gross acute cortical infarct however a small acute or hyper acute infarct cannot be excluded. MRI of the brain reveals chronic small vessel ischemic changes, age-related atrophy. Renal ultrasound reveals medical renal disease. Patient has been seen by neurology and started on Plavix because MRI was negative, Plavix will be discontinued and mental status changes most likely secondary to toxic metabolic encephalopathy. Patient has also been seen by nep hrology for acute kidney injury secondary to ATN, sodium bicarb drip was started, Jackson catheter for accurate I&O's, one time dose of IV Lasix 80 mg. If no improvement in renal function and urine output and 4 hours, initiate renal replacement therapy. Serology and hepatitis testing pending. 3/4Patient examined bedside. She has worsened in her mental status today. Has been at bedside has noted hallucinations of and a paranoid behavior today. Patient is more confused than yesterday she is and she is and unable to relate to her condition at this moment. She is oriented 3 but unable to comprehend his situation. Patient urine output is morning is only 150 mL. She had 300 mL output overnight. Right is afebrile pulse 70 respiratory rate 18 blood pressure 189/78 oxygen 99% on room air. Labs reviewed sodium 131 potassium 4.7 bicarb 17 BUN 89 8 creatinine 8.69 phosphorus 8.0. Urine culture is negative for infection JAMAL negative complement levels and negative hepatitis panel is negat dirk. A vascular surgery consult will be placed for dialysis catheter placement. Hydralazine initiated at 50 3 times a day for blood pressure control. Seroquel initiated 25 at [facility] at bedtime 01/29: Patient was examined at the bedside. Over the night she had increased paranoia refused any oral medications. Patient was confused and combative. She was given 1 dose of Ativan. She became difficult to arouse and answer questions appropriately. At this time patient is alert continues to have paranoia and confusion. She is able to answer some questions appropriately. She does recognize the voice of the provider. Family is at bedside. Dialysis at this time. We will avoid any further sedation medications. And stop oral medications due to paranoia. Sodium 132, BUN 63, creatinine 6.9, 01/30: Patient is examined at the bedside. She is sitting up in bed. She is alert and orientated 3. Patient states that she no longer has any paranoia she is not having any visual or auditory hallucinations. She does feel overwhelmed by the smell from the hospital. Is significantly improved compared to yesterday. Patient will have a break from hemodialysis today. Her BUN is 36, creatinine 5.24. Possible renal biopsy may occur this week. IV has been discontinued due to swelling to bilateral upper extremities. Patient has had a total of 500 ML's of urine output. Patient states that she slept better last night. She did walk up and down the [place] without any difficulties. Patient remains afebrile, heart rate 83, respirations 16, blood pressure 142/71, pulse ox 93 on room air. 01/31: Patient apparently had severe episode this morning with hallucination and delusion, she ended up pulling out her hemodialysis catheter which created a lot of bleeding at the time. Patient become very sensitive afterward not responding to any thing but more catatonic not clear that she is aware for surrounding or not that she is closing her eyes refused to talk or to indicate any by the time. I have long discussion with the who is fully aware of her current diagnosis and prognosis. Also spoke with nephrology patient will benefit from having kidney biopsy for more precise diagnoses for why she is in acute kidney failure. 02/01: Patient ended up having another dialysis catheter in the left groin area and she is on hemodialysis at the time patient is more awake today but still very catatonic noticing any question and not making any effort to show any understanding of her surroundings at this point. Long discussion with the today about CODE STATUS and his final decision as his decision maker to keep her full code but if she ended up on extended life support the decision to withdraw life support in X days discussion is betweenHim and I would happen at the time. 02/02: Patient is on hemodialysis today. Patient responded is very limited which is still having significant psychotic episode and delirium. Her blood work had shown significant improvement compared to before. Review nephrology documentation along with neurology it seems all still blame on uremia but realistically her bun and creatinine has significantly improved last couple days without having to affect her mentation at this point. Still doing supportive care. The was on the bedside answer all his question still interested doing kidney biopsy at time. MRI of the brain was negative, neurology consultation EEG was negative as well. concern whether any the mental status change and the kidney can be related to COVID-19 vaccination, I don't have an answer for this question at this point if patient eventually had kidney biopsy may be would have some indication through the pathology change. 02/03: Patient is awake today doing much better, she is having hemodialysis, part of discussion yesterday with neurology as this is probably acute psychosis from steroid base that patient receive dexamethasone one day before her presentation to the hospital and another dose before start feeling bad on Monday. Patient is more clear this point we don't need to do NG tube for feeding patient be started on full liquid diet titrated gradually after doing swallow eval by speech. Also we'll advance physical therapy and patient off therapy for now. Had discussion with patient and her at the time the patient still slightly bit confused but a lot more awake interactive she knew why was new her was able to carry some conversation on her surrounding, her short-term memory is much better today. 02/04: Patient is doing very well today she's out of bed sitting in a chair on her own her mental status is back to almost baseline with her acute psychosis has improved significantly. Was taking break from hemodialysis today her creatinine dropped down to 3.87 GFR still running at 13. Patient is comfortable feeling well otherwise still note timeframe for kidney biopsy this point and whether patient will be doing dialysis through the weekend are not will depend on her creatinine next day and 2. 02/05: She is still awake alert doing very well today her mental status are back to normal, her GFR and kidney function decline compared to yesterday with creatinine up to 4.75 bun of 56 and GFR down to 9. Nephrology probably we held dialysis today to see the kidney, will improve filtration velasquez will increase her urine output on its own. Still probably plan to talk to interventional radiology about kidney biopsy on Monday the meanwhile continue current medical m anagement patient will be taking off furosemide and she'll be taking off Cardizem drip today to switch it to oral. The and the daughter we are on the bedside all their questions were answered today. Patient has possibility of leaving the hospital sometimes on Monday if biopsy done on Monday successfully and no more complication she might still need to be on hemodialysis for now. 02/06: Patient is very sleepy today not arousable she is stable hemodynamically but back again doing which she did last week most of the week except the acute psychosis and confusion is not there. Even on board she had haloperidol, lorazepam and Seroquel has not use any of those except Seroquel 25 mg was used last night and according to the hospital and he was on the phone with her until she went to sleep when Seroquel was giving at that time shortly before she went to sleep this point she is not waking up. Patient had hemodialysis yesterday looked like she's going to go for hemodialysis today one more time originally kidney biopsy was scheduled for Monday or Monday if she is awake and doing better probably to contact interventional radiology for kidney biopsy on Monday in the meanwhile continue supportive care along with neurology service psychiatry and nephrology. The was on the bedside answer all his question and concern show him all the medicine patient is on looks like Cardizem CD 120 mg twice a day has done better job to keep the pulse is under control blood pressure under control this point. With his permission I took away all sedative on as needed and on regular use including Seroquel Haldol and lorazepam the patient had acute episode of psychosis and diffusion and hallucination for the staff to contact me will use medication on an as-needed basis. 02/07 and patient examined today is appears alert. She still continues to have some confusion but states that she is doing much better. She feels that the clock in the room is being controlled and sometimes works faster than the other days. Detailed discussion with nephrology was made who is concerned that tavon guerrero is not making a speedy recovery with hemodialysis. Discussion with nurse was made who is concerned about the dialysis catheter not working. Vascular surgeon was consulted to place the dialysis catheter today vitals otherwise stable sodium 132 BUN 46 creatinine is improved to 2.67. Renal biopsy possible today or tomorrow 02/08: Yesterday, patient had permacath dialysis catheter placed in the right jugular vein and the dialysis catheter that was previously placed in the right femoral was removed. She has been followed by psychiatry and consider possible intranasal loxapine at low dose. Patient had bloody emesis last evening and hemoglobin this morning is 5.9. She will be transfused 1 unit of packed RBCs. Repeat CBC this afternoon. Early afternoon, patient had emesis of dark brown coffee-ground and stool dark brown as well. She has been seen by GI with plan for EGD in the morning and patient is currently on a clear liquid diet nothing by mouth at midnight with aspiration precautions in place. Nephrology is also ordered DDAVP IV today. Kidney biopsy is pending and she is scheduled for hemodialysis tomorrow. IV iron infusion has been added today by Dr. Juan for 3 days total. 02/09: This morning, patient underwent EGD with Dr. Juaquin Petty finding 2 cm duodenal bulbar ulcer with a visible vessel status post attempted Endo Clip placement followed by cautery using a gold probe with good hemostasis, 1 cm superficial bulbar ulcer with no active bleeding, and Mild antral gastritis. Recommendations to continue Protonix 40 mg twice daily and start clear liquid diet. Hemoglobin today is at 5.7 and 1 unit of packed RBCs ordered with repeat CBC this evening. Poor colonoscopy. Patient has had no further bowel movements since states the patient was very sharp yesterday and this morning until she woke up from a nap and now showing mild confusion. She's been afebrile, heart rate 96, blood pressure 149/63, pulse ox 97% on 2 L nasal cannula. Nephrology is planning for dialysis today, renal biopsy pending. 02/10: Patient's states that she has been very sharp this morning just finished a nap. Hemoglobin is 7.2, WBC 10.9, platelet count 147. Sodium 135, potassium 3.1. BUN 35 and creatinine 1.95. Torsemide 40 mg daily was added by nephrology. We are hoping for kidney biopsy tomorrow. No INR available today. Hemodialysis is scheduled for tomorrow. Diet to be advanced with protein supplement. Discharge plan is for subacute rehab at [facility]. 02/11: Patient's renal function continues to improve with the BUN 34 creatinine 1.93 today. There is hope the patient will not require long-term dialysis and that the catheter may be removed on Monday. Dr. Juan I would like to hold the patient's discharge until Monday for further evaluation and possible removal of catheter. Patient underwent kidney biopsy today. Other lab work reveals hemoglobin of 7.4, platelet count 148, sodium 136, potassium 3.3. Potassium is been replaced. 02/12 patient's renal function continues to improve. Mentally alert. Answering questions appropriately. Sleeping well overnight. Patient did have a temp of 101.1 overnight. Currently afebrilepulse 92 respiratory rate 17 and blood pressure 116/72. Patient does admit to cough with phlegm production denies any shortness of breath denies any wheezing. She does feel irritation from the ext ernal catheter. Urinalysis, chest x-ray will be obtained. Incentive spirometry will be ordered to rule out atelectasis. Blood culture and urine culture will be obtained. No indication for antibiotic at this moment. Labs are reviewed patient's WBC is 6.2. Potassium is 2.5 sodium 132 BUN 37 creatinine 2.08. We'll give 80 mEq of potassium now with 40 in the evening with the daily 40 mEq of potassium. Magnesium is being repleted. Magnesium today 1. 5 repeat labs 6 patient examined bedside. Mental status is clear. Answering questions appropriately oriented 3. Vitals are stable. Patient was noted to have sodium of 123 this morning. CBC pending. CMP is suggest with a creatinine of 1.6 BUN 36 sodium 123 potassium of 3 magnesium of 1.6 calcium 7.4 urine says osmolarity 274. Nephrology was consulted for the hyponatremia. 1 dose of tolvaptan 7.5 mg given today. Torsemide discontinued. Repeat labs tomorrow. Magnesium repleted patient also reports multiple episodes of diarrhea. Labs ordered for C. diff and stool cultures. Patient is stable tomorrow and sodium is improved to more than 128 patient can be discharged in next 48 hours REVIEW OF SYSTEMS Constitutional: Positive for fever, no chills, no night sweats. No weight change. No weakness, reports fatigue no lethargy. No daytime sleepiness. EENT: No headache. No blurred vision or double vision, no loss of vision. No loss of Hearing, no ringing in the ears, no dizziness. No nasal drainage or congestion. No epistaxis. No sore throat. Lungs: Positive for cough with phlegm no shortness of breath No wheezing. Cardiovascular: No chest pain, no lower extremity edema. No palpitations. No paroxysmal nocturnal dyspnea. No orthopnea. No lightheadedness or dizziness. No syncopal episodes. Abdominal: No abdominal pain. No nausea, bloody emesis 02/07. No diarrhea. No constipation. Noted tarry stools. No loss of appetite. Genitourinary: No dysuria, denies increased frequency denies, urgency. Does complain of slight irritation No urinary retention. Improved urine output. Musculoskeletal: No myalgias. Generalized muscle weakness, no gait dysfunction, no frequent falls. No back pain. No neck pain. Integumentary: No wounds, no lesions. No rash or pruritus. No unusual bruising. No change in hair or nails. Neurologic: No aphasia. No facial droop. Improvement in mentation. No head injury. No headache. No paralysis. No paresthesia. Psychiatric: No depression. Improvement in hallucination and paranoia No mood swings. Endocrine: No abnormal blood sugars. No weight change. No excessive sweating or thirst. No cold intolerance. PHYSICAL EXAMINATION Gen: This is a 71-year-old female. Patient is resting in bed and is at bedside. Patient is status post kidney biopsy. HEENT: Head is atraumatic, normocephalic. Pupils equal, round. Sclerae is anicteric. NECK: Supple. No JVD. No lymphadenopathy. No thyromegaly. LUNGS: Clear to auscultation. No wheezes or rhonchi. No intercostal retractions. HEART: Regular rate and rhythm. 3/6 systolic murmur. ABDOMEN: Soft. Bowel sounds are present. No masses. No tenderness. EXTREMITIES: No pedal edema. No calf tenderness. NEUROLOGICAL: Patient is awake, alert and oriented x2. Answered questions appropriately, denies paranoia auditory or visual hallucinations. Cranial nerves 2 through 12 are grossly intact. ASSESSMENT AND PLAN 1. Severe metabolic encephalopathy: Secondary to medication with uremia, improved. 2. Acute kidney injury with ATN. Right jugular vein permacath placed yesterday, dialysis per nephrology. Dialysis on hold until Monday. Patient may not need dialysis on discharge.. Kidney biopsy obtained on 02/11 on torsemide. Torsemide held 3. Metabolic acidosis secondary to acute kidney injury. Off sodium bicarb 4. Acute psychosis and delirium secondary to combination of uremia and medication. Continue to monitor, improved 5. Hypertension. DC Norvasc and switch patient to Cardizem CD 120 mg twice a day to control her pulse rate and the blood pressure together. 6. Hyperlipidemia. We will restart medication back sometime this week. 7. History of cervical cancer: Has been in remission. 8. Generalized anxiety disorder. Discontinue sedation medications. 9. Chronic back pain with history of spinal fusion. Not using any medicine except Tylenol as needed. 10 recurrent depression: Patient is off all medication. 11. Acute GI bleed with acute blood loss anemia. Patient will be transfused second unit of packed RBCs, consult with Dr. Juaquin Petty appreciated status post EGD, clear liquid diet, Protonix 40 mg twice daily. Ferrlecit infusion 3 days 12 Sirs positive with no source of infection. Chest x-ray urinalysis blood cultures ordered continue to monitor likely secondary to atelectasis 13. Hypokalemia and hypomagnesemia secondary to diuresis on torsemide we'll rep lete potassium and magnesium 14. Hyponatremia. tolvaptan given . Torsemide discontinued CODE STATUS: Full code. But not extended life support for many days. Prognosis: Fair Discharge planning: Home with home care and possibly Monday Objective - Vital Signs Vital signs: Vital Signs Temp 98.4 F 02/13/22 12:00 Pulse 87 02/13/22 12:00 Resp 18 02/13/22 12:00 BP 114/63 02/13/22 12:00 Pulse Ox 97 02/13/22 12:00 Intake & Output 02/12/22 02/13/22 02/13/22 18:59 06:59 18:59 Intake Total 318 10 780 Output Total 900 1050 100 Balance -582 -1040 680 Weight 85.8 kg Intake: IV 10 0.9 10 Oral 318 780 Output: Urine 900 1050 100 Other: Voiding Method External Catheter External Catheter External Catheter # Bowel Movements 1 1 - Labs CBC & Chem 7: 02/12/22 07:38 02/13/22 10:33 Labs: Abnormal Lab Results - Last 24 Hours (Table) 02/13/22 02/13/22 Range/Units 06:30 10:33 Sodium 125 L 123 L (137-145) mmol/L Potassium 3.1 L 3.0 L (3.5-5.1) mmol/L Chloride 96 L 95 L (98-107) mmol/L Carbon Dioxide 20 L (22-30) mmol/L BUN 36 H (7-17) mg/dL Creatinine 1.66 H (0.52-1.04) mg/dL Glucose 100 H (74-99) mg/dL Calcium 7.4 L (8.4-10.2) mg/dL Microbiology - Last 24 Hours (Table) 02/12/22 10:44 Urine Culture - Preliminary Urine,Voided
[2022-02-13] MEDS: MAGNESIUM SULFATE-D5W PMX 1 GM in DEXTROSE/WATER 1 100ML.BAG IVPB SCH ×2 (14:36→15:38)
[2022-02-14] MEDS: CALCIUM ACETATE 667 MG TAB PO SCH (06:46)
[2022-02-14 07:26] LABS: Basophils % (A) 0 %; Eosinophils # (A) 0.2 k/uL (0-0.7); Eosinophils % (A) 3 %; HCT 21.3 % (34.0-46.0); HGB 7.5 gm/dL (11.4-16.0); Lymphocytes # (A) 0.7 k/uL (1.0-4.8); Lymphocytes % (A) 10 %; MCH 32.4 pg (25.0-35.0); MCHC 35.2 g/dL (31.0-37.0); Monocytes # (A) 0.5 k/uL (0-1.0); Monocytes % (A) 6 %; Neutrophils # (A) 5.8 k/uL (1.3-7.7); Neutrophils % (A) 79 %; Platelet Count 202 k/uL (150-450); RBC 2.31 m/uL (3.80-5.40); RDW 13.9 % (11.5-15.5); WBC 7.3 k/uL (3.8-10.6)
[2022-02-14 07:39] LABS: Albumin 3.2 g/dL (3.5-5.0); Calcium 8.2 mg/dL (8.4-10.2); Total Bilirubin 0.6 mg/dL (0.2-1.3); Total Protein 6.2 g/dL (6.3-8.2)
[2022-02-14 08:27] VITALS: RESP 17
[2022-02-14] MEDS: POTASSIUM CHLORIDE ER 20 MEQ TAB.ER PO SCH (08:32)
[2022-02-14] MEDS: DILTIAZEM CD 120 MG CAP.ER.24H PO SCH (08:32)
[2022-02-14] MEDS: VIT A,C & E-LUTEIN-MINERALS 1 EACH TAB PO SCH (08:32)
[2022-02-14] MEDS: CYANOCOBALAMIN 500 MCG TAB PO SCH (08:33)
[2022-02-14] MEDS: PANTOPRAZOLE 40 MG/10 ML VIAL IVP SCH (08:33)
[2022-02-14] MEDS: LACTATED RINGERS 1,000 ML IV SCH (08:33)
[2022-02-14] MEDS: hydrALAZINE HCL 25 MG TAB PO SCH ×2 (08:33→14:46)
[2022-02-14] MEDS ORDERED: LIDOCAINE 1% INJ 10MG/ML (20 ML MDV) SQ ONE (10:33)
--- NOTE | 2022-02-14 10:53 | P.PN ---
Subjective Patient is seen for follow-up for acute kidney injury. She was admitted to the hospital initially with mental status changes and the worsening renal function for which patient was started on dialysis. Mentation initially improved and then worsened again and it was secondary to steroid psychosis. Subsequently patient's mentation had further declined and this improved with continued renal replacement therapy. Patient had continued to require dialysis and therefore a kidney biopsy was performed. Results are pending. Dialysis is currently on hold as urine output has increased and serum creatinine remained stable at about 1.9-2 mg/dL. Patient is currently awake comfortable not in any acute distress. No significant complaints. She Feels like she is back to normal. Objective - Vital Signs Vital signs: Vital Signs Temp 98.7 F 02/14/22 08:25 Pulse 88 02/14/22 08:25 Resp 17 02/14/22 08:25 BP 107/68 02/14/22 08:25 Pulse Ox 97 02/14/22 08:25 Intake & Output 02/13/22 02/14/22 02/14/22 18:59 06:59 18:59 Intake Total 780 480 Output Total 550 2850 800 Balance 230 -2850 -320 Weight 85.8 kg 83.5 kg Intake: Oral 780 480 Output: Urine 550 2850 800 Stool 0 Other: Voiding Method External Catheter External Catheter External Catheter # Voids 1 1 # Bowel Movements 1 1 - Exam Awake comfortable not in any acute distress Examination of the heart S1 and S2 Examination lungs bilateral breath sounds are heard Abdomen is soft nontender Examination lower extremities shows trace edema bilaterally [employer] exam grossly intact - Labs CBC & Chem 7: 02/14/22 06:38 02/14/22 06:38 Labs: Abnormal Lab Results - Last 24 Hours (Table) 02/13/22 02/13/22 02/14/22 Range/Units 10:33 18:51 06:38 RBC 2.31 L (3.80-5.40) m/uL Hgb 7.5 L (11.4-16.0) gm/dL Hct 21.3 L (34.0-46.0) % Lymphocytes # 0.7 L (1.0-4.8) k/uL Sodium 123 L 126 L (137-145) mmol/L Potassium 3.0 L 3.0 L (3.5-5.1) mmol/L Chloride 95 L 94 L (98-107) mmol/L Carbon Dioxide 20 L 19 L (22-30) mmol/L BUN (7-17) mg/dL Creatinine (0.52-1.04) mg/dL Glucose (74-99) mg/dL Calcium (8.4-10.2) mg/dL Total Protein (6.3-8.2) g/dL Albumin (3.5-5.0) g/dL 02/14/22 Range/Units 06:38 RBC (3.80-5.40) m/uL Hgb (11.4-16.0) gm/dL Hct (34.0-46.0) % Lymphocytes # (1.0-4.8) k/uL Sodium 133 L (137-145) mmol/L Potassium 3.0 L (3.5-5.1) mmol/L Chloride (98-107) mmol/L Carbon Dioxide (22-30) mmol/L BUN 31 H (7-17) mg/dL Creatinine 1.85 H (0.52-1.04) mg/dL Glucose 105 H (74-99) mg/dL Calcium 8.2 L (8.4-10.2) mg/dL Total Protein 6.2 L (6.3-8.2) g/dL Albumin 3.2 L (3.5-5.0) g/dL Microbiology - Last 24 Hours (Table) 02/12/22 10:44 Urine Culture - Preliminary Urine,Voided Gram Neg Bacilli 02/12/22 12:36 Blood Culture - Preliminary Blood No Growth after 24 hours 02/12/22 12:40 Blood Culture - Preliminary Blood No Growth after 24 hours Assessment and Plan Assessment: 1. Acute kidney injury most likely ATN need to consider acute interstitial nephritis as well given the pyuria and history of use of NSAIDs. Patient had been dialysis dependent however renal replacement therapy has been on hold. Last dialysis was on 02/09/2022 Patient is status post kidney biopsy. Previo us creatinine around 1-1.2 mg/dL about 12 weeks ago. Received 1 dose of prednisone and it is currently on hold due to steroid psychosis. 2. Mental status changes with concern for uremia. Brain CT unremarkable for acute findings. Mentation improved almost back to normal. Etiology steroid psychosis and to some degree uremia on initial admission. However today patient's mentation is again depressed. She is barely waking up. No sedation given last night. 3. Pyuria with urine cultures negative consider AIN 4. Hyperphosphatemia associated with acute kidney injury maintained on PhosLo 5. Metabolic acidosis associated with acute kidney injury 6. Steroid psychosis. Her symptoms seem to coincide with high-dose steroids given as outpatient prior to admission for back pain and patient was noted to have delirium again after she received 1 dose of 40 mg of prednisone on 02/01/2022, currently resolved 7. Hyponatremia, associated with recovering renal function and poor diluting ability of the kidney. Status post 1 dose of Samsca. Diuretics currently on hold as well. 8. Hypokalemia, being replaced Plan: We will discontinue the IJ permacath. Patient can be discharged Repeat labs in 1-2 days post discharge and follow-up in the office in 1 week's time. DC PhosLo No diuretics. Will follow-up on the kidney biopsy
[2022-02-14 11:47] VITALS: BP 114/72; PULSE 84; TEMP 98.3
--- NOTE | 2022-02-14 13:58 | PCN ---
PROCEDURE NOTE PREOPERATIVE DIAGNOSIS: Acute on chronic renal failure. Patient recovered from acute on chronic renal failure. POSTOPERATIVE DIAGNOSIS: Acute on chronic renal failure. Patient recovered from acute on chronic renal failure. PROCEDURE: Removal of the dialysis catheter, right internal jugular approach. PROCEDURE DESCRIPTION: This patient was seen in the room. Right side of the neck and chest was prepped and drapes were applied in usual sterile manner. Lidocaine 1% was infiltrated at the exit site of the catheter. A small incision was made. Catheter was removed. The incision was closed with 5-0 nylon and dressing was applied. Patient tolerated the procedure well. MMODL / IJN: [id number] /
--- NOTE | 2022-02-14 21:31 | P.DS ---
Providers Date of admission: 01/26/22 15:38 Expected date of discharge: 02/14/22 Attending physician: Opal Beasley MD Consults: 01/26/22 14:24 Consult Physician Routine Consulting Provider: Gokul Juan Consult Reason/Comments: creatinine at 6.52 Do you want consulting provider notified?: Yes 01/26/22 14:31 Consult Physician Routine Consulting Provider: Michael Powell Consult Reason/Comments: possible stroke Do you want consulting provider notified?: Already Contacted 01/28/22 11:07 Consult Physician Stat Consulting Provider: Kb Ponce Consult Reason/Comments: Needs dialysis catheter Do you want consulting provider notified?: Yes 01/31/22 06:28 Consult Physician Stat Consulting Provider: Psychiatry - [facility] Psych[facility]ry Consult Reason/Comments: Evaluation altered mental status Do you want consulting provider notified?: Yes 02/01/22 04:26 Consult Physician Routine Consulting Provider: Michael Powell Consult Reason/Comments: AMS/New Unresponsiveness Do you want consulting provider notified?: Yes, Notify in am 02/07/22 19:49 Consult Physician Urgent Consulting Provider: Christine Petty Consult Reason/Comments: bloody emesis Do you want consulting provider notified?: Yes 02/14/22 08:47 Consult Physician Routine Consulting Provider: Kb Ponce Consult Reason/Comments: HD cath removal per Dr. De Do you want consulting provider notified?: Yes Primary care physician: Marino Chacon Hospital Course: Discharge Diagnosis: Acute SOREN requiring HD Toxic Metabolic Encephalopathy secondary to uremia and medications Acute blood loss anemia GI bleed secondary to duodenal bulb ulcers status post Endo Clip placement and cautery Pseudomonal and E Coli UTI Hypokalemia Hyponatremia Metabolic acidosis Acute psychosis Hypertension Dyslipidemia Hospital Course: Patient will 71-year-old female of Dr. Chacon who has a known history of hypertension, dyslipidemia, and osteoarthritis who presented to the ER with complaints of confusion. Patient had been recently started on dexamethasone and NSAIDs for back pain. Patient underwent an extensive evaluation in the ER and was fine to have significant renal failure with the BUN of 85 and a creatinine of 7.89. Patient was admitted for further monitoring. Patient had a prolonged hospital stay where she was evaluated by neurology, nephrology, GI, and psych. She did require urgent hemodialysis during her hospital stay, she underwent an extensive evaluation for possible etiologies of her SOREN all of which were negative and renal biopsy is pending at the time of discharge. She also required EGD for bleeding with intervention. She did have significant altered mentation which waxed and waned during her hospital stay but ultimately resolved. She underwent a focused evaluation including MRI of the brain as well as neurology consultation. During one of her episodes of confusion she pulled out her hemodialysis catheter resulting in bleeding. She was able to have this replaced. She did have a setback where she Became confused on 02/06 which resolved with continued dialysis and medication changes. She was treated with IV iron for iron deficiency. Her mentation and strength continued to improve she was determined stable for discharge on 02/14/22 with home health care in place. She was also found to have a pseudomonal and E. coli urinary tract infection and was prescribed Cipro on discharge. Imaging: Chest x-ray-no acute process CTA of the head-no acute arterial abnormality, significant stenosis, or occlusion Echocardiogram-ejection fraction 50-55%, possible bicuspid aortic valve, mild aortic stenosis CT brain 01/26 and 01/31-no acute intracranial hemorrhage, small acute or hyperacute infarct cannot be excluded MRI of the brain-chronic small vessel ischemic changes, age-related atrophy Renal ultrasound-medical renal disease Procedures: Renal biopsy 02/11 Temporary hemodialysis placement 01/28, 02/01 Tunneled HD catheter placement for dialysis 02/07 EGD 02/09/22- 2 cm duodenal bulbar ulcer s/p endoclip, 1 cm superficial ulcer, gastritis Removal of tunneled HD cath 02/14 Pending: renal biopsy Follow-up: Dr. Chacon 02/23, Dr Petty 03/09, Dr Juan 02/22, BMP and CBC in 2 days , [facility], Cipro X 7 days Patient seen and examined at bedside with presetn felling well. Wants to go home. No confusion, sob, has been up and wallking. Vital signs reviewed and stable. General: non toxic, no distress, appears at stated age Derm: warm, dry Head: atraumatic, normocephalic, symmetric Eyes: EOMI, no lid lag, anicteric sclera Mouth: no lip lesion, mucus membranes moist Cardiovascular: S1S2 reg, no murmur, positive posterior tibial pulse bilateral, Lungs: Decreased bs bilateral, no rhonchi, no rales , no accessory muscle use Abdominal: soft, nontender to palpation, no guarding, no appreciable organomegaly Ext: no gross muscle atrophy, no edema, no contractures Neuro: CN II-XI grossly intact, no focal neuro deficits Psych: Alert, oriented, appropriate affect A total of 45 minutes of time were spent preparing this complex discharge summary . Patient Condition at Discharge: Stable Plan - Discharge Summary Discharge Rx Participant: No New Discharge Prescriptions: New hydrALAZINE HCL [Apresoline] 25 mg PO QID #120 tab Cyanocobalamin [Vitamin B-12] 1,000 mcg PO DAILY tab Ciprofloxacin HCl [Cipro] 250 mg PO Q12H 5 Days #10 tab Pantoprazole [Protonix] 40 mg PO BID #60 tab Diltiazem Cd [Cardizem CD] 120 mg PO BID #60 cap Continue Pravastatin Sodium [Pravachol] 40 mg PO DAILY Vit C/E/Zn/Coppr/Lutein/Zeaxan [Preservision Areds 2 Softgel] 1 cap PO BID Discontinued Acetaminophen-Codeine 300-30mg [Tylenol w/codeine #3] 0.5 tab PO Q6H PRN PRN Reason: Pain Cyclobenzaprine [Flexeril] 10 mg PO BID PRN PRN Reason: Muscle Spasm clonazePAM 1 mg PO BID Baclofen 10 mg PO BID lisinopriL [Zestril] 20 mg PO DAILY amLODIPine [Norvasc] 10 mg PO DAILY calcium polycarbophiL [Fibercon] 625 mg PO DAILY Dexamethasone 6 mg PO DAILY Triamcinolone 0.1% Cream [Kenalog 0.1% Cream] 1 applic TOPICAL BID PRN PRN Reason: Rash Discharge Medication List Pravastatin Sodium [Pravachol] 40 mg PO DAILY 01/26/22 [History] Vit C/E/Zn/Coppr/Lutein/Zeaxan [Preservision Areds 2 Softgel] 1 cap PO BID 01/26/22 [History] Pantoprazole [Protonix] 40 mg PO BID #60 tab 02/10/22 [Rx] Ciprofloxacin HCl [Cipro] 250 mg PO Q12H 5 Days #10 tab 02/14/22 [Rx] Cyanocobalamin [Vitamin B-12] 1,000 mcg PO DAILY tab 02/14/22 [Rx] Diltiazem Cd [Cardizem CD] 120 mg PO BID #60 cap 02/14/22 [Rx] hydrALAZINE HCL [Apresoline] 25 mg PO QID #120 tab 02/14/22 [Rx] Follow up Appointment(s)/Referral(s): [facility], [NON-STAFF] - Marino Chacon MD [Primary Care Provider] - 02/23/22 2:15 pm Christine Petty MD [STAFF PHYSICIAN] - 03/09/22 2:30 pm (GI doctor) Gokul Juan DO [STAFF PHYSICIAN] - 02/22/22 11:20 am (Nephrology- Jorge L ARMAS) Ambulatory/Diagnostic Orders: Basic Metabolic Panel [LAB.AMB] Time Frame: 2 Days, Location: None Selected Complete Blood Count w/diff [LAB.AMB] Time Frame: 2 Days, Location: None Selected Patient Instructions/Handouts: Peptic Ulcer (DC), Gastrointestinal Bleeding (DC), Acute Kidney Injury (DC) Activity/Diet/Wound Care/Special Instructions: Activity: as tolerated Diet: 2 gram sodium 2L fluid restriction Special Instructions: repeat blood work on mon/ take antibiotics as prescribed call Dr. Chacon if your confusion returns Discharge Disposition: HOME WITH HOME HEALTH SERVICES
== END 2022-02-14 15:14 | disposition home health service (06) | DRG 673 ==
LOC: EC 11:21 → 3SCARD 15:38
PROVIDERS: ADMIT Internal Medicine; ATTEND Internal Medicine
PROC: 5A1D70Z Performance of Urinary Filtration, Intermittent, Less than 6 Hours Per Day (ICD-10-PCS; 2022-01-28 13:25)
PROC: 02HV33Z Insertion of Infusion Device into Superior Vena Cava, Percutaneous Approach (ICD-10-PCS; 2022-01-28 13:25)
PROC: 02HV33Z Insertion of Infusion Device into Superior Vena Cava, Percutaneous Approach (ICD-10-PCS; 2022-01-31)
PROC: 06PYX3Z Removal of Infusion Device from Lower Vein, External Approach (ICD-10-PCS; principal; 2022-02-07 18:55)
PROC: 02HV33Z Insertion of Infusion Device into Superior Vena Cava, Percutaneous Approach (ICD-10-PCS; principal; 2022-02-07 18:55)
PROC: 0JH83XZ Insertion of Tunneled Vascular Access Device into Abdomen Subcutaneous Tissue and Fascia, Percutaneous Approach (ICD-10-PCS; principal; 2022-02-07 18:55)
PROC: 30233N1 Transfusion of Nonautologous Red Blood Cells into Peripheral Vein, Percutaneous Approach (ICD-10-PCS; 2022-02-08)
PROC: 0W3P8ZZ Control Bleeding in Gastrointestinal Tract, Via Natural or Artificial Opening Endoscopic (ICD-10-PCS; 2022-02-09)
PROC: 0D598ZZ Destruction of Duodenum, Via Natural or Artificial Opening Endoscopic (ICD-10-PCS; 2022-02-09)
PROC: 0DB78ZX Excision of Stomach, Pylorus, Via Natural or Artificial Opening Endoscopic, Diagnostic (ICD-10-PCS; 2022-02-09)
PROC: 0TB03ZX Excision of Right Kidney, Percutaneous Approach, Diagnostic (ICD-10-PCS; 2022-02-11)
PROC: 02PYX3Z Removal of Infusion Device from Great Vessel, External Approach (ICD-10-PCS; 2022-02-14)
DX: N17.0 Acute kidney failure with tubular necrosis (principal); G92.8 Other toxic encephalopathy; I63.9 Cerebral infarction, unspecified; K26.4 Chronic or unspecified duodenal ulcer with hemorrhage; D62 Acute posthemorrhagic anemia; E87.1 Hypo-osmolality and hyponatremia; E87.2 Acidosis; F23 Brief psychotic disorder; F33.9 Major depressive disorder, recurrent, unspecified; N39.0 Urinary tract infection, site not specified; R47.01 Aphasia; B96.20 Unspecified Escherichia coli [E. coli] as the cause of diseases classified elsewhere; Z85.41 Personal history of malignant neoplasm of cervix uteri; Z85.828 Personal history of other malignant neoplasm of skin; E78.5 Hyperlipidemia, unspecified; E83.39 Other disorders of phosphorus metabolism; E83.42 Hypomagnesemia; E87.6 Hypokalemia; E87.70 Fluid overload, unspecified; I73.9 Peripheral vascular disease, unspecified; G25.81 Restless legs syndrome; I12.9 Hypertensive chronic kidney disease with stage 1 through stage 4 chronic kidney disease, or unspecified chronic kidney disease; N18.9 Chronic kidney disease, unspecified; T38.0X5A Adverse effect of glucocorticoids and synthetic analogues, initial encounter; F17.210 Nicotine dependence, cigarettes, uncomplicated; F41.1 Generalized anxiety disorder; G89.29 Other chronic pain; K29.70 Gastritis, unspecified, without bleeding; B96.5 Pseudomonas (aeruginosa) (mallei) (pseudomallei) as the cause of diseases classified elsewhere; M15.9 Polyosteoarthritis, unspecified; R29.701 NIHSS score 1; T50.2X5A Adverse effect of carbonic-anhydrase inhibitors, benzothiadiazides and other diuretics, initial encounter; Z79.899 Other long term (current) drug therapy; Z82.5 Family history of asthma and other chronic lower respiratory diseases; Z87.440 Personal history of urinary (tract) infections; Z90.710 Acquired absence of both cervix and uterus; Z96.653 Presence of artificial knee joint, bilateral; Z98.1 Arthrodesis status; Z98.890 Other specified postprocedural states; Z98.42 Cataract extraction status, left eye; Z98.41 Cataract extraction status, right eye; Z88.6 Allergy status to analgesic agent; Z88.1 Allergy status to other antibiotic agents; Z90.89 Acquired absence of other organs; Z53.20 Procedure and treatment not carried out because of patient's decision for unspecified reasons; Z78.1 Physical restraint status
CPT/HCPCS: 36415; 36556; 36558; 43239; 43255; 70450; 70496; 70498; 70551; 71045; 71046; 76770; 76937; 77001; 77012; 80048; 80051; 80053; 80061; 80074; 80306; 81001; 82140; 82272; 82570; 82607; 82728; 82746; 83036; 83540; 83550; 83630; 83735; 83935; 84100; 84132; 84156; 84165; 84207; 84425; 84439; 84443; 84484; 85025; 85027; 85610; 85730; 86038; 86160; 86162; 86225; 86255; 86334; 86335; 86706; 86850; 86900; 86901; 86920; 87040; 87045; 87046; 87077; 87086; 87186; 87205; 87324; 88305; 90935; 93005; 93306; 94760; 95816; 96360; 96361; 99291

== ENCOUNTER 2022-02-17 19:46 | Emergency (ER) | payer MEDICARE ==
--- NOTE | 2022-02-17 21:44 | ED ---
Recheck HPI - General Chief Complaint: Recheck/Abnormal Lab/Rx Stated Complaint: Low hemoglobin,sent by Dr. Chacon Time Seen by Provider: 02/17/22 21:19 Source: patient Mode of arrival: wheelchair Limitations: no limitations - History of Present Illness Initial Comments: This patient is a 71-year-old woman who arrives here after receiving a phone call that her blood counts were low. The patient had been admitted here in the hospital from January 26 of February 14 for case of acute renal failure and was requiring dialysis but has recovered some kidney function. She also required to blood transfusions while she was an inpatient and was found to have some gastrointestinal bleeding that was reportedly cauterized. Today's blood draw was routine follow-up and they were called with the result that the hemoglobin had been 6.3. Patient denies having symptoms. She states she is not having chest pain, dyspnea, diaphoresis, orthostasis, dark tarry stools, hematemesis patient stated that she had physical therapy today and actually felt pretty well.. MD Complaint: abnormal lab -: hour(s) Returns Today for: Called Because of Abnormal Lab/Test Symptoms Since Prior Visit: no new symptoms Context: called for abnormal lab result Associated Symptoms: none - Related Data Home Medications Medication Instructions Recorded Confirmed Pravastatin Sodium [Pravachol] 40 mg PO DAILY 01/26/22 01/26/22 Vit C/E/Zn/Coppr/Lutein/Zeaxan 1 cap PO BID 01/26/22 01/26/22 [Preservision Areds 2 Softgel] Previous Rx's Medication Instructions Recorded Pantoprazole [Protonix] 40 mg PO BID #60 tab 02/10/22 Ciprofloxacin HCl [Cipro] 250 mg PO Q12H 5 Days #10 tab 02/14/22 Cyanocobalamin [Vitamin B-12] 1,000 mcg PO DAILY tab 02/14/22 Diltiazem Cd [Cardizem CD] 120 mg PO BID #60 cap 02/14/22 hydrALAZINE HCL [Apresoline] 25 mg PO QID #120 tab 02/14/22 Allergies Allergy/AdvReac Type Severity Reaction Status Date / Time cephalexin [From Keflex] Allergy Itching Verified 02/17/22 20:59 naproxen [From Naprosyn] Allergy blisters Verified 02/17/22 20:59 Review of Systems ROS Statement: Those systems with pertinent positive or pertinent negative responses have been documented in the HPI. ROS Other: All systems not noted in ROS Statement are negative. Constitutional: Denies: fever, chills Respiratory: Denies: cough, dyspnea Cardiovascular: Denies: chest pain, palpitations, edema, syncope Gastrointestinal: Denies: abdominal pain, vomiting, diarrhea Genitourinary: Denies: hematuria Musculoskeletal: Denies: back pain Neurological: Denies: headache, weakness Hematological/Lymphatic: Denies: easy bleeding Past Medical History Past Medical History: Cancer, Hyperlipidemia, Hypertension, Osteoarthritis (OA), Renal Disease Additional Past Medical History / Comment(s): Hx cervical Ca and Skin CA; restless leg, Back pain History of Any Multi-Drug Resistant Organisms: None Reported Past Surgical History: Hysterectomy, Joint Replacement, Orthopedic Surgery, Tonsillectomy Additional Past Surgical History / Comment(s): Aneesh. knee replacements; foot surgery, cystocele & rectocele repair; carpal tunnel ; cataracts; colonoscopy Past Anesthesia/Blood Transfusion Reactions: No Reported Reaction Past Psychological History: Anxiety Smoking Status: Former smoker Past Alcohol Use History: Rare Past Drug Use History: None Reported - Past Family History Mother Family Medical History: No Reported History General Exam Limitations: no limitations General appearance: alert, in no apparent distress Head exam: Present: atraumatic, normocephalic Eye exam: Present: normal appearance, other (Conjunctival pallor). Absent: scleral icterus, conjunctival injection ENT exam: Present: mucous membranes moist, other (Mucosal pallor) Neck exam: Present: normal inspection Respiratory exam: Present: normal lung sounds bilaterally. Absent: respiratory distress, wheezes, rales, rhonchi, stridor Cardiovascular Exam: Present: regular rate, normal rhythm, normal heart sounds. Absent: systolic murmur, diastolic murmur, rubs, gallop GI/Abdominal exam: Present: soft. Absent: tenderness, guarding, rebound Extremities exam: Present: normal inspection, normal capillary refill. Absent: pedal edema, calf tenderness Back exam: Present: normal inspection Neurological exam: Present: alert Skin exam: Present: warm, dry, intact, pallor. Absent: rash Course Vital Signs 02/17/22 02/17/22 02/17/22 21:00 23:43 23:53 Temperature 99.3 F 98.8 F 98.8 F Pulse Rate 94 92 96 Respiratory 20 18 18 Rate Blood Pressure 118/68 116/65 112/64 O2 Sat by Pulse 98 98 97 Oximetry 02/18/22 00:23 Temperature 98.8 F Pulse Rate 91 Respiratory 18 Rate Blood Pressure 124/66 O2 Sat by Pulse 98 Oximetry Medical Decision Making - Lab Data Result diagrams: 02/17/22 21:46 02/17/22 21:46 Lab Results 02/17/22 02/17/22 02/17/22 Range/Units 21:40 21:46 21:46 WBC 8.1 (3.8-10.6) k/uL RBC 2.16 L (3.80-5.40) m/uL Hgb 6.7 L* (11.4-16.0) gm/dL Hct 19.9 L* (34.0-46.0) % MCV 91.9 (80.0-100.0) fL MCH 30.9 (25.0-35.0) pg MCHC 33.6 (31.0-37.0) g/dL RDW 15.1 (11.5-15.5) % Plt Count 346 (150-450) k/uL MPV 7.4 Neutrophils % 77 % Lymphocytes % 11 % Monocytes % 7 % Eosinophils % 2 % Basophils % 0 % Neutrophils # 6.3 (1.3-7.7) k/uL Lymphocytes # 0.9 L (1.0-4.8) k/uL Monocytes # 0.6 (0-1.0) k/uL Eosinophils # 0.2 (0-0.7) k/uL Basophils # 0.0 (0-0.2) k/uL Poikilocytosis Slight Sodium 137 (137-145) mmol/L Potassium 3.2 L (3.5-5.1) mmol/L Chloride 109 H (98-107) mmol/L Carbon Dioxide 16 L (22-30) mmol/L Anion Gap 12 mmol/L BUN 30 H (7-17) mg/dL Creatinine 1.62 H (0.52-1.04) mg/dL Est GFR (CKD-EPI)AfAm 37 (>60 ml/min/1.73 sqM) Est GFR (CKD-EPI)NonAf 32 (>60 ml/min/1.73 sqM) Glucose 116 H (74-99) mg/dL Calcium 8.5 (8.4-10.2) mg/dL Blood Type AB Positive Blood Type Recheck AB Pos Bld Type Recheck Status No Antibody Screen NEGATIVE Crossmatch See Detail Spec Expiration Date 02/20/20222345 Disposition Clinical Impression: Anemia Disposition: HOME SELF-CARE Condition: Good Instructions (If sedation given, give patient instructions): Anemia (ED) Is patient prescribed a controlled substance at d/c from ED?: No Referrals: Marino Chacon MD [Primary Care Provider] - 1-2 days
[2022-02-17 22:10] LABS: Basophils % (A) 0 %; Eosinophils # (A) 0.2 k/uL (0-0.7); Eosinophils % (A) 2 %; Lymphocytes # (A) 0.9 k/uL (1.0-4.8); Lymphocytes % (A) 11 %; MCH 30.9 pg (25.0-35.0); MCHC 33.6 g/dL (31.0-37.0); MCV 91.9 fL (80.0-100.0); Mean Platelet Volume 7.4; Monocytes # (A) 0.6 k/uL (0-1.0); Monocytes % (A) 7 %; Neutrophils # (A) 6.3 k/uL (1.3-7.7); Neutrophils % (A) 77 %; Platelet Count 346 k/uL (150-450); Poikilocytosis Slight; RBC 2.16 m/uL (3.80-5.40); RDW 15.1 % (11.5-15.5); WBC 8.1 k/uL (3.8-10.6)
[2022-02-17 22:12] LABS: HGB 6.7 gm/dL (11.4-16.0)
[2022-02-17 22:15] LABS: HCT 19.9 % (34.0-46.0)
[2022-02-17 22:18] LABS: Calcium 8.5 mg/dL (8.4-10.2); Potassium 3.2 mmol/L (3.5-5.1)
[2022-02-17 23:46] VITALS: RESP 18
[2022-02-18 02:36] VITALS: BP 124/74; PULSE 91; TEMP 98.7
== END 2022-02-18 02:51 | disposition home or self-care (01) ==
LOC: EC 19:46
DX: D64.9 Anemia, unspecified (principal); I10 Essential (primary) hypertension; Z88.1 Allergy status to other antibiotic agents; Z88.6 Allergy status to analgesic agent; Z87.891 Personal history of nicotine dependence
CPT/HCPCS: 36415; 86900; 86901; 80048; 85025; 86850; 86920; 99283; P9016

== ENCOUNTER → 2023-06-14 | Outpatient (CLI) | payer MEDICARE ==
--- NOTE | 2023-06-15 08:38 | MM ---
Reason for Exam: Screening (asymptomatic). Last mammogram was performed 1 year(s) and 1 month(s) ago. Patient History: Menarche at age 15. First Full-Term at age 30. Hysterectomy at age 41. Postmenopausal. Bilateral Reduction. Stereotactic Core Biopsy on the Left side. Risk Values: Annie 5 year model risk: 2.1%. NCI Lifetime model risk: 5.8%. Prior Study Comparison: 05/21/2021 Bilateral Screening Mammogram, [facility]. 05/26/2022 Bilateral Screening Mammogram, [facility]. Tissue Density: There are scattered fibroglandular densities. Findings: Analyzed By CAD. There is no suspicious group of microcalcifications or new suspicious mass in either breast. Benign-appearing round calcifications within both breasts. There is no suspicious group of microcalcifications or new suspicious mass in either breast. Benign-appearing round calcifications within both breasts. Biopsy clip within the left breast. Overall Assessment: Benign, BI-RAD 2 Management: Screening Mammogram of both breasts in 1 year. A clinical breast exam by your physician is recommended on an annual basis and results should be correlated with mammographic findings. Note on Annie scores and lifetime risk: 1. A Annie score greater than 3% is considered moderate risk. If this is the case, consider specialist referral to assess eligibility for a risk reducing agent. If overall lifetime risk for the development of breast cancer is 20% or higher, the patient may qualify for future screening with alternating mammogram and breast MRI. Electronically signed and approved by: Lamont Alba D.O.
== END | disposition home or self-care (01) ==
LOC: RADMAMWWP 12:29
PROVIDERS: ATTEND Internal Medicine Geriatric Medicine
DX: Z12.31 Encounter for screening mammogram for malignant neoplasm of breast (principal); Z78.0 Asymptomatic menopausal state
CPT/HCPCS: 77063; 77067

== ENCOUNTER → 2024-05-20 | Outpatient (CLI) | payer MEDICARE ==
--- NOTE | 2024-05-20 16:15 | XR ---
EXAMINATION TYPE: XR sacroiliac joint comp BILAT DATE OF EXAM: 05/20/2024 2:55 PM CLINICAL INDICATION:Female, 73 years old with history of M43.16 M47.26 M46.1 SPONDYLOLISTHESIS, LUMBA R KELVIN; COMPARISON: None TECHNIQUE: The sacroiliac joints were examined in a frontal and lateral and oblique projections. FINDINGS: There is no evidence of fracture or dislocation. There is no soft tissue abnormality. No a bnormal calcifications are present. Multilevel degenerative changes of the lower spine. Fixation screws through the left sacroiliac joint and lower spine appear intact. IMPRESSION: 1. No acute osseous pathology. 2. Postsurgical changes with fixation hardware intact.
--- NOTE | 2024-05-20 16:48 | XR ---
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 FINDINGS: No evidence of any acute osseous pathology. No evidence of loss of vertebral body height i s seen. There is normal alignment of the lumbar vertebral bodies. Scattered disc space narrowing. Mul tilevel marginal osteophyte formation throughout the visualized spine. There is facet joint arthropat hy throughout the spine. Scattered at least mild neural foraminal stenosis. Fixation hardware in the lumbar spine L3-L4 and L5 with hardware intact. Discectomy at L3-L4 and L4-L5. Sacroiliac screws on t he left appear intact. Severe degeneration changes at L2-L3 disc space. IMPRESSION: 1. No acute fracture. 2. Post surgical changes with hardware intact. 3. Moderate degeneration changes throughout the visualized spine.
== END | disposition home or self-care (01) ==
LOC: RADXRMAIN 14:11
PROVIDERS: ATTEND Neurological Surgery
DX: M51.36 Other intervertebral disc degeneration, lumbar region (principal); M43.16 Spondylolisthesis, lumbar region; M47.26 Other spondylosis with radiculopathy, lumbar region; M46.1 Sacroiliitis, not elsewhere classified
CPT/HCPCS: 72114; 72202

== ENCOUNTER → 2024-08-01 | Outpatient (CLI) | payer MEDICARE ==
--- NOTE | 2024-08-01 13:50 | XR ---
EXAM TYPE: LUMBAR SPINE X RAY SERIES COMPARISON: 05/20/2024 HISTORY: Pain TECHNIQUE: 7 views are submitted. FINDINGS: Stable postsurgical changes. Generalized demineralization.. Multilevel moderate to severe degenerativ e disc disease at the thoracolumbar junction. Multilevel grade 1 retrolisthesis with attention to L1- 2, L2-3 and L3-L4. There is a grade 1 anterolisthesis of L4-5 and L5-S1. Vascular calcifications are noted. Generalized demineralization of L5. Postsurgical change involving the sacrum across the left SI joint. Nonspecific calcifications in the abdomen. Hardware in the lumba r spine L3-L4 and L5 with hardware intact. Discectomy at L3-L4 and L4- L5. Sacroiliac screws on the l eft appear intact. Severe degeneration changes at L2-L3 disc space. There is lucency surrounding the L1 transpedicular screw. If there is concern for hardware malfunction would recommend correlation wit h CT scan. IMPRESSION: 1. Lucency surrounding the L1 transpedicular screw on the right. Recommend correlation with CT scan t o exclude hardware malfunction. 2. Multilevel moderate to severe degenerative disc disease involving the thoracolumbar junction. 3. Generalized osteopenia with multilevel retro and anterolisthesis as discussed above.
== END | disposition home or self-care (01) ==
LOC: RADXRMAIN 13:08
PROVIDERS: ATTEND Neurological Surgery
DX: M47.26 Other spondylosis with radiculopathy, lumbar region
CPT/HCPCS: 72114

== ENCOUNTER 2024-09-02 11:58 | Emergency (ER) | payer MEDICARE ==
[2024-09-02 12:14] VITALS: RESP 18
--- NOTE | 2024-09-02 13:18 | CT ---
EXAMINATION TYPE: CT lumbar spine wo con CT DLP: 1006.8 mGycm, Automated exposure control for dose reduction was used. DATE OF EXAM: 09/02/2024 1:05 PM COMPARISON: Lumbar spine radiograph 08/01/2024. CLINICAL INDICATION:Female, 73 years old with history of Lower back pain, recent lumbar fusion; PHH, LOWER BACK PAIN TECHNIQUE: Multiple axial images were obtained from the midportion of T11 through the sacroiliac acacia nts. Soft tissue and bone windows in coronal and sagittal planes were obtained and reviewed. Contrast used: none. Oral contrast used: none. FINDINGS: Alignment: There are 5 lumbar type vertebral bodies. Mild retrolisthesis of T12 on L1 and L1 on L2. G rade 2 anterolisthesis of L4 on L5. Bone: No evidence of fracture is identified. Post surgical changes from posterior lumbar fusion with bilateral pedicular screws and rods from L1 through L5. This creates streak artifact which limits ev aluation. No sizable fluid collection identified. Multilevel disc spacers identified. Laminectomy dylan nges identified at S1. Additional transverse images were described as involving the left SI joint. De generative changes of both SI joints. Discs: T12-L1: Disc bulge with mild effacement of the anterior thecal sac. Bilateral facet arthropathy. Mild -to-moderate bilateral neural foraminal stenosis. L1-L2: Bilateral facet arthropathy. No gross evidence of significant central canal or neural foramina l stenosis within the limitations for streak artifact. L2-L3: Bilateral facet arthropathy. No gross evidence of significant central canal or neural foramina l stenosis within the limitations for streak artifact. L3-L4: Bilateral facet arthropathy. No gross evidence of significant central canal or neural foramina l stenosis within the limitations for streak artifact. L4-L5: Grade 2 anterolisthesis with uncovering of the disc. Bilateral facet arthropathy. No gross maureen dence of significant central canal or neural foraminal stenosis within the limitations from streak ar tifact. L5-S1: Broad-based disc bulge without significant effacement of anterior thecal sac. Bilateral facet arthropathy. Mild left and moderate right neuroforaminal stenosis. Other: Atherosclerotic calcification of the aorta and its branches. IMPRESSION: 1. No evidence for acute spinal fracture. 2. Postsurgical changes from recent lumbar fusion L1-L5 with laminectomy changes at S1 and fusion scr ews involving the left SI joint. Hardware appears intact with appropriate alignment. This creates str eak artifact which limits evaluation. 3. Multilevel degenerative disc disease and facet arthropathy. T12-L1 disc bulge results in mild cent ral canal stenosis with mild to moderate bilateral neuroforaminal stenosis at this level secondary to facet arthropathy. 4. Mild retrolisthesis of T12 on L1 and L1 on L2. Grade 2 anterolisthesis of L4 on L5. [facility], , 09/02/2024 1:15 PM
--- NOTE | 2024-09-02 14:02 | ED ---
Back Pain HPI - General Chief Complaint: Back Pain/Injury Stated Complaint: back pain/both knee pain/post op Time Seen by Provider: 09/02/24 13:59 Source: patient, family, RN notes reviewed, old records reviewed Limitations: no limitations - History of Present Illness Initial Comments: 74-year-old female presented to ER with a chief complaint of back pain and lower extremity weakness. Patient underwent lumbar spinal fusion in May. Surgery was completed at [facility] by Dr. Coker. Patient has complete fusion of L1-L5 vertebrae. She also has sacroiliac screws in place. Patient reports 2 weeks after surgery she seemed to be doing better and having physical improvements with therapy. Patient was able to ambulate around her neighborhood on nightly walks without difficulty. She states for the past month she has started to notice weakness in her bilateral lower extremities. She states she has to ambulate with a walker due to this. Her legs will "give out" causing her to fall. Patient denies any other injuries from these falls no head injuries. , at bedside, state patient was lowered to the ground by him today as she felt weak. She denies any new injuries or traumas. Patient also reports for the past month she has been having difficulty urinating. She states she will have to "stimulate" herself to urinate tapping her bottom or coughing. Patient followed up with Dr. Coker last week and is scheduled for an MRI later this week. Patient also reports numbness to her anterior thighs. She has been taking Tylenol 3 for pain control with relief. No other complaints. No saddle paresthesias, fevers or history of IV drug use. - Related Data Home Medications Medication Instructions Recorded Confirmed Pravastatin Sodium [Pravachol] 40 mg PO DAILY 01/26/22 07/18/22 Vit C/E/Zn/Coppr/Lutein/Zeaxan 1 cap PO BID 01/26/22 07/18/22 [Preservision Areds 2 Softgel] Previous Rx's Medication Instructions Recorded Pantoprazole [Protonix] 40 mg PO BID #60 tab 02/10/22 Ciprofloxacin HCl [Cipro] 250 mg PO Q12H 5 Days #10 tab 02/14/22 Cyanocobalamin [Vitamin B-12] 1,000 mcg PO DAILY tab 02/14/22 Diltiazem Cd [Cardizem CD] 120 mg PO BID #60 cap 02/14/22 hydrALAZINE HCL [Apresoline] 25 mg PO QID #120 tab 02/14/22 Allergies Allergy/AdvReac Type Severity Reaction Status Date / Time cephalexin [From Keflex] Allergy Itching Verified 09/02/24 12:14 dexamethasone Allergy Hallucinati Verified 09/02/24 12:14 ons naproxen [From Naprosyn] Allergy blisters Verified 09/02/24 12:14 prednisone Allergy Hallucinati Verified 09/02/24 12:14 ons Review of Systems ROS Statement: Those systems with pertinent positive or pertinent negative responses have been documented in the HPI. ROS Other: All systems not noted in ROS Statement are negative. Past Medical History Past Medical History: Blood Disorder, Cancer, Hyperlipidemia, Hypertension, Osteoarthritis (OA), Renal Disease Additional Past Medical History / Comment(s): Hx cervical Ca and Skin CA; restless leg, Back pain History of Any Multi-Drug Resistant Organisms: None Reported Past Surgical History: Hysterectomy, Joint Replacement, Orthopedic Surgery, Tonsillectomy Additional Past Surgical History / Comment(s): Aneesh. knee replacements; foot tressa alaina, cystocele & rectocele repair; carpal tunnel ; cataracts; colonoscopy, spinal fusion 06/19 Past Anesthesia/Blood Transfusion Reactions: No Reported Reaction Past Psychological History: Anxiety Smoking Status: Former smoker - Past Family History Mother Family Medical History: No Reported History General Exam Limitations: no limitations General appearance: alert, in no apparent distress Respiratory exam: Present: normal lung sounds bilaterally. Absent: respiratory distress, wheezes, rales, rhonchi, stridor Cardiovascular Exam: Present: regular rate, normal rhythm, normal heart sounds. Absent: systolic murmur, diastolic murmur, rubs, gallop, clicks Rectal exam: Present: normal inspection, normal rectal tone Extremities exam: Present: other (2+ bilateral dorsalis pedis and posterior tibialis pulses. Lower extremity strength is intact.) Back exam: Present: other (Healed vertical surgical incisions to lumbar spine. No tenderness to palpation. No surrounding erythema, purulent drainage or skin changes noted.) Neurological exam: Present: alert, oriented X3, CN II-XII intact Skin exam: Present: warm, dry, intact, normal color. Absent: rash Course Vital Signs 09/02/24 09/02/24 12:11 15:55 Temperature 97.9 F 97.9 F Pulse Rate 77 72 Respiratory 18 18 Rate Blood Pressure 135/79 163/86 O2 Sat by Pulse 97 97 Oximetry - Reevaluation(s) Reevaluation #1: 09/02/24 16:36 Case was discussed with Dr. Coker through his nurse Summer. Patient was seen 6 days ago and was not complaining of weakness or urinary retention. She is scheduled for an MRI of the lumbar spine. She advised patient to be seen at [facility] for further evaluation and treatment. Patient to be transported to [facility]. I discussed with Summer for possible steroid treatment prior to discharge. Question was deferred. Patient will be transported via private vehicle to [facility] to be seen by Dr. Coker. Patient is agreeable. Medical Decision Making - Medical Decision Making Was pt. sent in by a medical professional or institution (, PA, PIANO REGULATOR, urgent care, hospital, or retirement...) When possible be specific @ -No Did you speak to anyone other than the patient for history (EMS, parent, family, police, friend...)? What history was obtained from this source @ -, at bedside, aiding in HPI and past medical history. Did you review nursing and triage notes (agree or disagree)? Why? @ -I reviewed and agree with nursing and triage notes Were old charts reviewed (outside hosp., previous admission, EMS record, old EKG, old radiological studies, urgent care reports/EKG's, retirement records)? Report findings @ -No old charts were reviewed Differential Diagnosis (chest pain, altered mental status, abdominal pain women, abdominal pain men, vaginal bleeding, weakness, fever, dyspnea, syncope, headache, dizziness, GI bleed, back pain, seizure, CVA, palpatations, mental health, musculoskeletal)? @ -Differential Back Pain:Strain, zoster, cauda equina syndrome, epidural abscess, vertebral osteomyelitis, discitis, fracture, subluxation, disc herniation, DJD, spinal stenosis, dissection, AAA, pancreatitis, peptic ulcer disease, pyelonephritis, kidney stone, this is not meant to be an all-inclusive list. EKG interpreted by me (3pts min.). @ -None done X-rays interpreted by me (1pt min.). @ -None done CT interpreted by me (1pt min.). @ -CT lumbar spine showing no evidence of acute spinal fracture. There are postsurgical changes from lumbar fusion. Hardware appears to be intact. Multilevel degenerative disc disease and facet arthropathy. T12-L1 disc bulge results in mild central canal stenosis with mild to moderate bilateral neuroforaminal stenosis at this level secondary to facet arthropathy. Mild retrolisthesis of T12 on L1 and L1 on L2. Grade 2 anterolisthesis of L4 on L5. U/S interpreted by me (1pt. min.). @ -None done What testing was considered but not performed or refused? (CT, X-rays, U/S, labs)? Why? @ -None What meds were considered but not given or refused? Why? @ -Patient refused analgesic medications. Patient also refused steroids. Did you discuss the management of the patient with other professionals (professionals i.e. , PA, PIANO REGULATOR, lab, RT, psych nurse, social sciences department chair, split leather department supervisor, teacher, upscale security officer, correctional casework specialist)? Give summary @ -Yes, case discussed with Dr. Coker through his nurse Summer who advised patient to be seen at [facility] for further evaluation and treatment. Was smoking cessation discussed for >3mins.? @ -No Was critical care preformed (if so, how long)? @ -No Were there social determinants of health that impacted care today? How? (Homelessness, low income, unemployed, alcoholism, drug addiction, transportation, low edu. Level, literacy, decrease access to med. care, assisted, rehab)? @ -No Was there de-escalation of care discussed even if they declined (Discuss DNR or withdrawal of care, Hospice)? DNR status @ -No What co-morbidities impacted this encounter? (DM, HTN, Smoking, COPD, CAD, Cancer, CVA, ARF, Chemo, Hep., AIDS, mental health diagnosis, sleep apnea, morbid obesity)? @ -None Was patient admitted / discharged? Hospital course, mention meds given and route, prescriptions, significant lab abnormalities, going to OR and other per tinent info. @ -73-year-old female presented to ER with a chief complaint of lower extremity weakness and urinary retention. Patient underwent a lumbar spinal fusion in May by Dr. Coker at [facility]. History and physical exam completed. Vitals within normal limits. Patient no signs of acute distress and resting comfortably on stretcher. Bilateral lower extremities neurovascular intact. There are 2 healed vertical surgical incisions bilaterally to lumbar spine with no evidence of infection. Bilateral lower extremities strength intact. Rectal exam performed and chaperoned by Markus CASTANEDA normal inspection and normal tone. Due to concern of urinary retention bladder scan was completed showing 560 cc retained urine. Jackson catheter placed at that time with approximately 1300cc output. Urinalysis unremarkable. Patient will be discharged with Jackson catheter in place due to concern of urinary retention. Due to recent surgery and concerning signs of cauda equina syndrome case was discussed with Dr. Coker through his nurse Summer. She advised patient to be seen at [facility] for further evaluation and treatment. Patient refused steroids as she has had adverse reactions in the past. Patient transferred to [facility] via private vehicle for further evaluation and treatment. Patient is agreeable to this. Case was discussed with my attending, Dr. Weston. Undiagnosed new problem with uncertain prognosis? @ -No Drug Therapy requiring intensive monitoring for toxicity (Heparin, Nitro, Insulin, Cardizem)? @ -No Were any procedures done? @ -No Diagnosis/symptom? @ -History of lumbar fusion, back pain rule out cauda equina syndrome Acute, or Chronic, or Acute on Chronic? @ -Acute Uncomplicated (without systemic symptoms) or Complicated (systemic symptoms)? @ -Complicated Side effects of treatment? @ -No Exacerbation, Progression, or Severe Exacerbation? @ -No Poses a threat to life or bodily function? How? (Chest pain, [place], VA, pneumonia, PE, COPD, DKA, ARF, appy, cholecystitis, CVA, Diverticulitis, Homicidal, Suicidal, threat to staff... and all critical care pts) @ -Yes - Lab Data Lab Results 09/02/24 Range/Units 14:28 Urine Color Colorless Urine Appearance Clear (Clear) Urine pH 6.0 (5.0-8.0) Ur Specific [place] 1.015 (1.001-1.035) Urine Protein Negative (Negative) Urine Glucose (UA) Negative (Negative) Urine Ketones Negative (Negative) Urine Blood Negative (Negative) Urine Nitrite Negative (Negative) Urine Bilirubin Negative (Negative) Urine Urobilinogen <2.0 (<2.0) mg/dL Ur Leukocyte Esterase Negative (Negative) - Radiology Data Radiology results: report reviewed, image reviewed Disposition Clinical Impression: History of lumbar fusion, Back pain, Urinary retention, Weakness Disposition: OTHER INSTITUTION NOT DEFINED Condition: Stable Referrals: Marino Chacon MD [Primary Care Provider] - 1-2 days Time of Disposition: 16:57 - Out of Hospital Transfer - Req. Specs Out of Hospital Transfer - Requested Specifics: Other Emergency Center ([facility] -Dr. Coker)
[2024-09-02 14:35] LABS: Appearance,Urine Clear (Clear); Bilirubin,Urine Negative (Negative); Blood,Urine Negative (Negative); Color,Urine Colorless; Glucose,Urine (UA) Negative (Negative); Ketones,Urine Negative (Negative); Leukocyte Esterase,Urine Negative (Negative); Nitrite,Urine Negative (Negative); Protein,Urine Negative (Negative); Specific Gravity,Urine 1.015 (1.001-1.035); Urobilinogen,Urine <2.0 mg/dL (<2.0)
[2024-09-02 17:21] VITALS: BP 146/80; PULSE 66; TEMP 98.1
== END 2024-09-02 17:21 | disposition other institution (70) ==
LOC: EC 11:58
CPT/HCPCS: 72131; 81003; 99285

== ENCOUNTER → 2025-02-17 | Outpatient (CLI) | payer MEDICARE ==
--- NOTE | 2025-02-17 14:28 | XR ---
EXAMINATION TYPE: XR lumbar spine with bend/flex DATE OF EXAM: 02/17/2025 2:11 PM COMPARISON: 08/01/2024 CLINICAL INDICATION: Female, 74 years old with history of M43.16, M47.26; PHH, pain TECHNIQUE: XR lumbar spine with bend/flex - Frontal, lateral and coned in L5-S1 lateral views of the spine. FINDINGS: Fixation hardware in the spine at L1-L5 appears intact. Left sacral iliac joint fixation sc rews appear intact. Discectomy at L1-L2 appears intact. Multilevel degeneration changes with osteophy te formation disc space narrowing findings worse at T11-T12 and T12-L1.. Neural foramen are poorly vi sualized due to overlapping soft tissue structures. No evidence of any acute osseous pathology. No e vidence of loss of vertebral body height is seen. There is normal alignment of the lumbar vertebral b odies. Scattered disc space narrowing. Multilevel marginal osteophyte formation throughout the visual ized spine. There is facet joint arthropathy throughout the spine. Scattered at least mild neural for aminal stenosis. IMPRESSION: 1. No acute fracture. 2. Postsurgical changes with hardware intact. Moderate disc degeneration most pronounced at T12-L1 an d T11-T12. [facility], , 02/17/2025 2:26 PM
== END | disposition home or self-care (01) ==
LOC: RADXRMAIN 13:58
PROVIDERS: ATTEND Neurological Surgery
DX: M47.26 Other spondylosis with radiculopathy, lumbar region (principal); M43.16 Spondylolisthesis, lumbar region; M51.15 Intervertebral disc disorders with radiculopathy, thoracolumbar region; Z98.890 Other specified postprocedural states
CPT/HCPCS: 72114

== ENCOUNTER → 2025-05-16 | Outpatient (CLI) | payer MEDICARE ==
--- NOTE | 2025-05-16 15:29 | XR ---
EXAMINATION TYPE: XR lumbar spine with bend/flex DATE OF EXAM: 05/16/2025 3:16 PM COMPARISON: None. CLINICAL INDICATION: Female, 74 years old with history of M43.16 M47.26 SPONDYLOLISTHESIS,, TECHNIQUE: Frontal, lateral, and oblique images of the lumbar spine are obtained. FINDINGS: Multilevel lumbar laminectomy and fusion. Grade 1 anterolisthesis of L4 on L5 measuring 1.2 cm is unchanged. There is also 4 mm retrolisthesis of L2 on L3. No compression fracture seen. IMPRESSION: No acute fracture or dislocation is seen in the lumbar spine.ICD 10 NO FRACTURE, INITIAL EVALUATION [facility], , 05/16/2025 3:27 PM
== END | disposition home or self-care (01) ==
LOC: RADXRMAIN 14:58
PROVIDERS: ATTEND Neurological Surgery
DX: M47.26 Other spondylosis with radiculopathy, lumbar region (principal); M43.16 Spondylolisthesis, lumbar region
CPT/HCPCS: 72114